=== PATIENT | female | born 1930 | race American Indian/Alaskan Native ===

== ENCOUNTER 2016-11-02 13:17 | Emergency (ER) | payer MEDICARE ==
[2016-11-02 13:17] VITALS: BMI 25.7
[2016-11-02 13:38] VITALS: RESP 20; TEMP 98.1
--- NOTE | 2016-11-02 14:27 | C.PDOC ---
History Of Present Illness 86-year-old female, is brought to the emergency department accompanied by daughter with complaints of pain in right ear and right face x2-3 days. She also c/o of a cough for the past 3-4 days, with clear sputum. No fevers, shortness of breath, chest pain, or any other associated symptoms. No other complaints at this time. Time Seen by Provider: 11/02/16 13:49 Chief Complaint (Nursing): Cough, Cold, Congestion History Per: Patient, Family History/Exam Limitations: no limitations Onset/Duration Of Symptoms: Days Current Symptoms Are (Timing): Still Present Severity: Moderate Past Medical History Reviewed: Historical Data, Nursing Documentation, Vital Signs Vital Signs: Last Vital Signs Temp 98.1 F 11/02/16 14:45 Pulse 78 11/02/16 14:45 Resp 20 11/02/16 14:45 BP 156/83 H 11/02/16 14:45 Pulse Ox 97 11/02/16 14:45 - Medical History PMH: Arthritis, CAD, CVA, Diabetes, Gastritis, HTN, Hypercholesterolemia Denies: Depression, Chronic Kidney Disease, TIA Surgical History: Coronary Stent (01/2015) - [facility] Procedures CENTRAL VENOUS CATHETER PLACEMENT WITH GUIDANCE (02/28/15) CORONAR ARTERIOGR-2 CATH (02/03/15) LEFT HEART CARDIAC CATH (02/03/15) LT HEART ANGIOCARDIOGRAM (02/03/15) Family History: States: Unknown Family Hx - Social History Hx Tobacco Use: No Hx Alcohol Use: No Hx Substance Use: No - Immunization History Hx Tetanus Toxoid Vaccination: No Hx Influenza Vaccination: No Hx Pneumococcal Vaccination: No Review Of Systems Constitutional: Negative for: Fever ENT: Positive for: Ear Pain Cardiovascular: Negative for: Chest Pain Respiratory: Positive for: Cough, Sputum Gastrointestinal: Negative for: Nausea, Vomiting Skin: Negative for: Rash Neurological: Negative for: Weakness, Numbness Physical Exam - Physical Exam Appears: Non-toxic, No Acute Distress Skin: Warm, Dry Head: Atraumatic Eye(s): bilateral: PERRL, EOMI Ear(s): Right: Other (Inflammatory debris and canal edema. No mastoid/ preauricular erythema or tenderness. TMs intact and non-eryth) Nose: No Epistaxis Oral Mucosa: Moist Lips: No Swelling Neck: Normal ROM, Supple Cardiovascular: Rhythm Regular, No Murmur Respiratory: Normal Breath Sounds, No Decreased Breath Sounds, No Accessory Muscle Use, No Rales, No Rhonchi, No Wheezing Gastrointestinal/Abdominal: No Soft, No Tenderness Neurological/Psych: Oriented x3, Other (no focal deficits) ED Course And Treatment O2 Sat by Pulse Oximetry: 98 Medical Decision Making Medical Decision Making: Patients daughter is refusing blood work. Initially refused cxr then agreed. Disc w pt and daughter plan for rx, follow up (they have appt tomorrow), and rtr. cxr- nad Disposition - Disposition Disposition: HOME/ ROUTINE Disposition Time: 14:37 Condition: STABLE Additional Instructions: Please follow up with your doctor tomorrow. Return to the ER for any worsening symptoms or for any other concerns. Prescriptions: Ciprofloxacin HCl [Cipro] 500 mg PO BID #20 tab Ciprofloxacin/Dexamethasone [Ciprodex 0.3%-0.1% 7.5 Ml] 4 drop OT TID #1 bottle Instructions: Otitis Externa (ED) Forms: General Discharge Instructions - Clinical Impression Clinical Impression: Otitis externa - Scribe Statement The provider has reviewed the documentation as recorded by the Miller Herman All medical record entries made by the Miller were at my direction and personally dictated by me. I have reviewed the chart and agree that the record accurately reflects my personal performance of the history, physical exam, medical decision making, and the department course for this patient. I have also personally directed, reviewed, and agree with the discharge instructions and disposition.
[2016-11-02] MEDS ORDERED: Naproxen 550 mg Tab PO STA (14:39)
[2016-11-02] MEDS ORDERED: Naproxen 550 mg Tab PO ONE (14:42)
--- NOTE | 2016-11-02 14:42 | RAD ---
HISTORY: cough COMPARISON: 06/16/2016 FINDINGS: LUNGS: No active pulmonary disease. PLEURA: No significant pleural effusion identified, no pneumothorax apparent. CARDIOVASCULAR: Normal. OSSEOUS STRUCTURES: No significant abnormalities. VISUALIZED UPPER ABDOMEN: Normal. OTHER FINDINGS: None. IMPRESSION: No active disease.
[2016-11-02 14:45] VITALS: BP 156/83; PULSE 78
[2016-11-04 08:08] VITALS: O2SAT 98
== END 2016-11-02 14:49 | disposition home or self-care (01) ==
LOC: C.ER 13:17
DX: H60.91 Unspecified otitis externa, right ear (principal)

== ENCOUNTER 2017-01-21 01:00 | Emergency (ER) | payer MEDICARE ==
[2017-01-21 01:02] VITALS: BMI 25.7
[2017-01-21 01:15] VITALS: TEMP 98
--- NOTE | 2017-01-21 01:27 | C.PDOC ---
History Of Present Illness The patient presents to the ED for evaluation of increased urinary frequency and dysuria which have worsened over the last couple days. Patient denies fever , chills, back pain. Time Seen by Provider: 01/21/17 01:21 Chief Complaint (Nursing): Female Genitourinary History Per: Patient History/Exam Limitations: no limitations Onset/Duration Of Symptoms: Days Current Symptoms Are (Timing): Still Present Severity: Mild Pain Scale Rating Of: 3 Quality Of Discomfort: "Pain" Associated Symptoms: denies: Fever, Chills, Back Pain Alleviating Factors: None Recent travel outside of the [place]: No Additional History Per: Patient Abnormal Vaginal Bleeding: No Past Medical History Reviewed: Historical Data, Nursing Documentation, Vital Signs Vital Signs: Last Vital Signs Temp 98 F 01/21/17 01:10 Pulse 82 01/21/17 01:10 Resp 20 01/21/17 01:10 BP 180/76 H 01/21/17 01:10 Pulse Ox 97 01/21/17 02:52 - Medical History PMH: Arthritis, CAD, CVA, Diabetes, Gastritis, HTN, Hypercholesterolemia Surgical History: Coronary Stent (01/2015) - [employer] Procedures CENTRAL VENOUS CATHETER PLACEMENT WITH GUIDANCE (02/28/15) CORONAR ARTERIOGR-2 CATH (02/03/15) LEFT HEART CARDIAC CATH (02/03/15) LT HEART ANGIOCARDIOGRAM (02/03/15) Family History: States: Unknown Family Hx - Social History Hx Tobacco Use: No Hx Alcohol Use: No Hx Substance Use: No - Immunization History Hx Tetanus Toxoid Vaccination: No Hx Influenza Vaccination: No Hx Pneumococcal Vaccination: No Review Of Systems Constitutional: Negative for: Fever, Chills Cardiovascular: Negative for: Chest Pain Respiratory: Negative for: Cough, Shortness of Breath Gastrointestinal: Negative for: Nausea, Vomiting, Abdominal Pain Genitourinary: Positive for: Dysuria, Frequency. Negative for: Hematuria Musculoskeletal: Negative for: Back Pain Skin: Negative for: Rash, Lesions, Jaundice, Bruising Neurological: Negative for: Weakness, Numbness Physical Exam - Physical Exam Appears: Non-toxic, No Acute Distress Skin: Warm, Dry Head: Normacephalic Eye(s): bilateral: Normal Inspection Oral Mucosa: Moist Neck: Supple Chest: Symmetrical, No Deformity, No Tenderness Cardiovascular: Rhythm Regular, No Murmur Respiratory: No Rales, No Rhonchi, No Wheezing Gastrointestinal/Abdominal: Tenderness (mild, suprapubic ), No Guarding, No Rebound Back: Normal Inspection, No Vertebral Tenderness Extremity: Normal ROM, Capillary Refill (less than 2 seconds ) Neurological/Psych: Oriented x3 Gait: Steady ED Course And Treatment - Laboratory Results Result Diagrams: 01/21/17 02:25 01/21/17 02:25 O2 Sat by Pulse Oximetry: 97 (on RA) Pulse Ox Interpretation: Normal Progress Note: labs ordered and reviewed. Reevaluation Time: 03:26 Reassessment Condition: Improved Disposition Counseled Patient/Family Regarding: Studies Performed, Diagnosis, Need For Followup, Rx Given - Disposition Referrals: Chris Ybarra MD, PhD [Staff Provider] - Disposition: HOME/ ROUTINE Disposition Time: 01:27 Condition: FAIR Prescriptions: Ciprofloxacin [Cipro] 1 tab PO BID #14 tab Instructions: Urinary Tract Infection in Women (DC) Forms: [employer] (Nepalese) - Clinical Impression Clinical Impression: UTI (urinary tract infection) - Scribe Statement The provider has reviewed the documentation as recorded by the Scribe (Candice Ramirez) Provider Attestation: All medical record entries made by the Scribe were at my direction and personally dictated by me. I have reviewed the chart and agree that the record accurately reflects my personal performance of the history, physical exam, medical decision making, and the department course for this patient. I have also personally directed, reviewed, and agree with the discharge instructions and disposition.
[2017-01-21 02:23] LABS: RBC URINE 5 /hpf (0-3); URINE BACTERIA RARE (<OCC); URINE BILIRUBIN NEGATIVE (NEGATIVE); URINE COLOR Yellow (YELLOW); URINE GLUCOSE (UA) 2+ mg/dL (Normal); URINE KETONE NEGATIVE (NEGATIVE); URINE LEUKOCYTE ESTERASE 3+ Leu/uL (Negative); URINE PROTEIN NEGATIVE (NEGATIVE); URINE UROBILINOGEN NORMAL mg/dL (0.2-1.0); WBC CLUMPS FEW /hpf; WBC URINE 486 /hpf (0-5)
[2017-01-21 02:28] LABS: BASO # 0.1 K/uL (0.0-0.2); BASO % 0.9 % (0.0-2.0); EOS # 0.2 K/uL (0.0-0.7); EOS % 2.8 % (0.0-4.0); HEMATOCRIT 32.8 % (34.0-47.0); LYMPH # 3.9 K/uL (1.0-4.3); LYMPH % 57.2 % (20.0-40.0); MEAN CORPUSCULAR HEMOGLOBIN 29.7 pg (27.0-31.0); MEAN CORPUSCULAR HGB CONC 32.6 g/dL (33.0-37.0); MEAN PLATELET VOLUME 9.6 fL (7.2-11.7); MONO # 0.4 K/uL (0.0-0.8); MONO % 6.3 % (0.0-10.0); NRBC % 0.1 % (0.0-2.0); PLATELET COUNT 184 K/uL (130-400); RED CELL DISTRIBUTION WIDTH 13.9 % (11.5-14.5); WHITE BLOOD COUNT 6.8 K/uL (4.8-10.8)
[2017-01-21 02:40] LABS: ALB/GLOB RATIO 1.1 (1.0-2.1); BILIRUBIN,TOTAL 0.5 mg/dL (0.2-1.3); CALCIUM 9.2 mg/dl (8.6-10.4); POTASSIUM 4.2 mmol/L (3.6-5.2); TOTAL PROTEIN 7.7 g/dL (6.3-8.3)
[2017-01-21 02:50] LABS: URINE BLOOD TRACE (NEGATIVE)
[2017-01-21] MEDS ORDERED: cefTRIAXone IV 1 gm in Dextros 50 ML IVPB ONE ×2 (02:50→02:57)
[2017-01-21 03:40] VITALS: BP 136/79; PULSE 75; RESP 18; O2SAT 99
[2017-01-21 06:04] LABS: EOSINOPHIL 2 % (0-4); NEUTROPHIL 27 % (50-75); REACTIVE LYMPHOCYTES 27 % (0-0); TOTAL CELLS COUNTED 100
== END 2017-01-21 03:40 | disposition home or self-care (01) ==
LOC: C.ER 01:00
DX: N39.0 Urinary tract infection, site not specified (principal)
CPT/HCPCS: 80053; 81001; 83690; 85025; 96365; 99284; J0696

== ENCOUNTER 2017-02-19 14:55 | Observation (INO) | payer MEDICARE ==
[2017-02-19 14:56] VITALS: BMI 25.7
--- NOTE | 2017-02-19 17:18 | RAD ---
HISTORY: Trauma/fall COMPARISON: 11/02/2016 TECHNIQUE: Chest PA and lateral FINDINGS: LUNGS: No active pulmonary disease. PLEURA: No significant pleural effusion identified. No pneumothorax apparent. CARDIOVASCULAR: No radiographic findings to suggest acute or significant cardiovascular disease. OSSEOUS STRUCTURES: No significant abnormalities. VISUALIZED UPPER ABDOMEN: Normal. OTHER FINDINGS: None. IMPRESSION: No active disease. No significant interval change compared to the prior examination(s).
[2017-02-19 17:22] LABS: RBC URINE 1 /hpf (0-3); URINE BILIRUBIN NEGATIVE (NEGATIVE); URINE COLOR Straw (YELLOW); URINE GLUCOSE (UA) 3+ mg/dL (Normal); URINE KETONE NEGATIVE (NEGATIVE); URINE LEUKOCYTE ESTERASE NEG Leu/uL (Negative); URINE PROTEIN NEGATIVE (NEGATIVE); URINE UROBILINOGEN NORMAL mg/dL (0.2-1.0)
--- NOTE | 2017-02-19 17:22 | RAD ---
PROCEDURE: Radiographs of the Left Shoulder HISTORY: fall COMPARISON: No prior. FINDINGS: BONES: Normal. No fracture. JOINTS: Normal. Glenohumeral and acromioclavicular joints preserved. No osteoarthritis. SOFT TISSUES: Normal. OTHER FINDINGS: None. IMPRESSION: No acute findings related to/accounting for the clinical presentation.
[2017-02-19 17:29] LABS: URINE BLOOD TRACE (NEGATIVE)
--- NOTE | 2017-02-19 17:29 | C.PDOC ---
History Of Present Illness 86-year-old female, presents to the emergency department with complaints of trauma. Patient states she fell down a flight of 11 stairs, and hit her head. Patient did not lose consciousness. Patient is currently complaining of left sided pain. Denies fever. - HPI Time Seen by Provider: 02/19/17 16:35 Chief Complaint (Nursing): Trauma History Per: Patient History/Exam Limitations: no limitations Injury Occurred (Timing): Just Before Arrival Past Medical History Reviewed: Historical Data, Nursing Documentation, Vital Signs Vital Signs: Last Vital Signs Temp 97.8 F 02/19/17 20:43 Pulse 88 02/19/17 20:43 Resp 16 02/19/17 20:43 BP 185/79 H 02/19/17 20:43 Pulse Ox 98 02/19/17 21:40 - Medical History PMH: Arthritis, CAD, CVA, Diabetes, Gastritis, HTN, Hypercholesterolemia Denies: Depression, Chronic Kidney Disease, TIA Surgical History: Coronary Stent (01/2015) - [facility] Procedures CENTRAL VENOUS CATHETER PLACEMENT WITH GUIDANCE (02/28/15) CORONAR ARTERIOGR-2 CATH (02/03/15) LEFT HEART CARDIAC CATH (02/03/15) LT HEART ANGIOCARDIOGRAM (02/03/15) Family History: States: No Known Family Hx - Social History Hx Tobacco Use: No Hx Alcohol Use: No Hx Substance Use: No - Immunization History Hx Tetanus Toxoid Vaccination: No Hx Influenza Vaccination: No Hx Pneumococcal Vaccination: No Review Of Systems Except As Marked, All Systems Reviewed And Found Negative. Constitutional: Negative for: Fever Cardiovascular: Negative for: Chest Pain Respiratory: Negative for: Shortness of Breath Gastrointestinal: Negative for: Nausea, Vomiting Musculoskeletal: Positive for: Arm Pain, Leg Pain. Negative for: Back Pain Skin: Negative for: Rash Neurological: Negative for: Weakness, Numbness, Dizziness Physical Exam - Physical Exam Appears: Non-toxic, No Acute Distress Skin: Warm, Dry, No Rash Head: Atraumatic, Normacephalic Eye(s): bilateral: Normal Inspection Nose: Normal Oral Mucosa: Moist Lips: Normal Appearing Neck: Normal ROM Cardiovascular: Rhythm Regular, No Murmur Respiratory: Normal Breath Sounds, No Accessory Muscle Use, Other (equal breath sounds) Gastrointestinal/Abdominal: Soft, Tenderness (Left sided) Extremity: Normal ROM, No Deformity, Other (left shoulder tenderness, left hip tenderness.) Neurological/Psych: Oriented x3, Normal Speech ED Course And Treatment - Laboratory Results Result Diagrams: 02/19/17 17:42 02/19/17 17:42 ECG: Interpreted By Me, Viewed By Me ECG Rhythm: Sinus Rhythm ECG Interpretation: Normal Interpretation Of ECG: No st/t wave changes Rate From EC O2 Sat by Pulse Oximetry: 98 (Room air) Pulse Ox Interpretation: Normal Medical Decision Making Medical Decision Making: ro fx, bleeding- labs imaging pending pt will need iv contrst for trauma scan. discussed risk benefit with pt. as clinical concern for bleeding as pt fell down 11 stairs, will give iv contrast at risk of nephropahty. will hydrate. 1000: case discussed with dr schaffer. accepts for obs. hyperk treated. r/o contrast nephropathy. Disposition - Disposition Disposition: HOSPITALIZED Disposition Time: 22:40 Condition: STABLE - Clinical Impression Clinical Impression: Fall, Hyperkalemia - Scribe Statement The provider has reviewed the documentation as recorded by the Scribe (Nic Herman) All medical record entries made by the Scribe were at my direction and personally dictated by me. I have reviewed the chart and agree that the record accurately reflects my personal performance of the history, physical exam, medical decision making, and the department course for this patient. I have also personally directed, reviewed, and agree with the discharge instructions and disposition. Decision To Admit - . Bed Request Type: Telemetry Patient Diagnosis: Fall, Hyperkalemia
[2017-02-19 17:47] LABS: BASO # 0.1 K/uL (0.0-0.2); BASO % 0.8 % (0.0-2.0); EOS # 0.1 K/uL (0.0-0.7); EOS % 1.2 % (0.0-4.0); HEMATOCRIT 34.1 % (34.0-47.0); LYMPH # 3.3 K/uL (1.0-4.3); LYMPH % 36.6 % (20.0-40.0); MEAN CELL VOLUME 91.2 fL (81.0-99.0); MEAN CORPUSCULAR HEMOGLOBIN 30.3 pg (27.0-31.0); MEAN CORPUSCULAR HGB CONC 33.2 g/dL (33.0-37.0); MEAN PLATELET VOLUME 9.6 fL (7.2-11.7); MONO # 0.4 K/uL (0.0-0.8); WHITE BLOOD COUNT 9.1 K/uL (4.8-10.8)
[2017-02-19 17:55] LABS: BILIRUBIN,TOTAL 0.7 mg/dL (0.2-1.3)
[2017-02-19 17:56] LABS: ALB/GLOB RATIO 1.2 (1.0-2.1); CALCIUM 9.3 mg/dl (8.6-10.4); TOTAL PROTEIN 7.8 g/dL (6.3-8.3)
--- NOTE | 2017-02-19 17:59 | RAD ---
PROCEDURE: Left Femur Radiographs. HISTORY: fall COMPARISON: None. TECHNIQUE: AP and Lateral Radiographs of the left femur. FINDINGS: FEMUR: Normal. No fracture. SOFT TISSUES: Normal. OTHER FINDINGS: None. IMPRESSION: Unremarkable radiographs of the left femur.
--- NOTE | 2017-02-19 18:00 | RAD ---
PROCEDURE: Radiographs of the pelvis. HISTORY: fall COMPARISON: None. FINDINGS: BONES: Pelvic Bones: Unremarkable. Hips: Grossly unremarkable. JOINTS: Sacroiliac Joints: Unremarkable. Pubic Symphysis: Unremarkable. OTHER FINDINGS: None. IMPRESSION: Unremarkable radiographs of the pelvis.
[2017-02-19] MEDS ORDERED: Sodium Chloride 0.9% 500 ML IV ONE (18:47)
[2017-02-19] MEDS ORDERED: Iodixanol 320 MG/ML 200 ML BOTTLE IV ONE (20:01)
[2017-02-19] MEDS ORDERED: Sod Polystyrene Sulf 15 gm/60 ml Oral Susp PO ONE (21:22)
[2017-02-19] MEDS ORDERED: Dextrose 50% SYRINGE Inj (50 ml) IV STA (21:22)
[2017-02-19] MEDS ORDERED: (Novolin R) Insulin Human Regular 100 units/ml vial IV STA (21:22)
[2017-02-19] MEDS ORDERED: Sod Polystyrene Sulf 15 gm/60 ml Oral Susp ONE (21:28)
[2017-02-19] MEDS ORDERED: (Novolin R) Insulin Human Regular 100 units/ml vial ONE (21:28)
[2017-02-19] MEDS ORDERED: Dextrose 50% SYRINGE Inj (50 ml) ONE (21:29)
[2017-02-19] MEDS: Sodium Chloride 0.9% 1,000 ML IV SCH (21:30)
[2017-02-19] MEDS: (Novolog) Insulin Aspart, Recombinant 100 u/ml 10 ml vial SC SCH (22:35)
[2017-02-19] MEDS ORDERED: Latanoprost 2.5 ml Opht Soln OU SCH (23:45)
[2017-02-20 06:34] LABS: HEMATOCRIT 32.2 % (34.0-47.0); MEAN CELL VOLUME 91.6 fL (81.0-99.0); MEAN CORPUSCULAR HEMOGLOBIN 30.1 pg (27.0-31.0); MEAN CORPUSCULAR HGB CONC 32.9 g/dL (33.0-37.0); MEAN PLATELET VOLUME 9.9 fL (7.2-11.7); RED CELL DISTRIBUTION WIDTH 13.8 % (11.5-14.5)
[2017-02-20 06:45] LABS: BLOOD UREA NITROGEN 20 mg/dL (7-17); CALCIUM 9.1 mg/dl (8.6-10.4); CARBON DIOXIDE 27 mmol/L (22-30); CHLORIDE 105 mmol/L (98-107); GFR AFRICAN-AMERICAN > 60; GLUCOSE,RANDOM 234 mg/dL (65-105); POTASSIUM 4.1 mmol/L (3.6-5.2); SODIUM 144 mmol/L (132-148)
[2017-02-20] MEDS: (Novolog) Insulin Aspart, Recombinant 100 u/ml 10 ml vial SC SCH ×2 (08:08→13:02)
[2017-02-20] MEDS: Sodium Chloride 0.9% 1,000 ML IV SCH (08:10)
--- NOTE | 2017-02-20 08:42 | CT ---
PROCEDURE: CT HEAD WITHOUT CONTRAST. HISTORY: fall down stairs COMPARISON: None available. TECHNIQUE: Axial computed tomography images were obtained through the head/brain without intravenous contrast. Radiation dose: Total exam DLP = 812 mGy-cm. This CT exam was performed using one or more of the following dose reduction techniques: Automated exposure control, adjustment of the mA and/or kV according to patient size, and/or use of iterative reconstruction technique. FINDINGS: HEMORRHAGE: No intracranial hemorrhage. BRAIN: No mass effect or edema. Scattered focal lucencies in the subcortical and periventricular white matter suggestive for chronic microvascular ischemic change. Moderate volume loss. Left basal ganglia lacunar infarct. VENTRICLES: Unremarkable. No hydrocephalus. CALVARIUM: Unremarkable. PARANASAL SINUSES: Unremarkable as visualized. No significant inflammatory changes. MASTOID AIR CELLS: Unremarkable as visualized. No inflammatory changes. OTHER FINDINGS: Mild soft tissue contusion is present in the posterior scalp near the vertex. IMPRESSION: Age related atrophy and chronic white matter ischemic changes. No evidence of acute intracranial abnormality. Mild soft tissue contusion of the scalp. These findings were preliminarily reported at 8:59 p.m. on 02/19/[address] Zeyad Harris from [facility].
--- NOTE | 2017-02-20 08:48 | CT ---
CT cervical spine History: Fall. Comparison: None available. Technique: Multiple contiguous axial images were performed through the cervical spine without the use of intravenous contrast. Subsequently, sagittal and coronal reformatted images were obtained. Findings: Mild loss of height of the inferior endplates of the C5 and C6 vertebral bodies. Endplate sclerosis with anterior osteophytosis at these levels. Prominent disc space narrowing with endplate sclerosis centered at the T1-2 level with associated anterior osteophytosis. Prominent atlantodental narrowing with sclerosis and bony hypertrophy. Multilevel uncovertebral joint and facet hypertrophy. Suggestion of a prominent posterior disc osteophyte complexes at the C5-6, C6-7, and T1-2 levels. Marked arthropathy of the craniocervical junctions seen at C1-2. Minimal nonspecific fluid in the right mastoids, nonspecific. Clinical correlation. Impression: Degenerative changes. If pain persists, consider MRI. These findings were preliminarily reported at 9:02 p.m. on 02/19/[address] Zeyad Harris from [facility].
--- NOTE | 2017-02-20 09:33 | CT ---
CT chest abdomen and pelvis History: Injury. Fall. Comparison: None available. Technique: Multiple contiguous axial images were performed through the chest abdomen and pelvis with the use of intravenous contrast. Subsequently, sagittal and coronal reformatted images were obtained. Findings: CT chest: Motion artifact limits sensitivity of this examination. Lung fitzgerald are grossly clear. Heart appears grossly preserved. No significant pleural effusion. Degenerative changes in the visualized osseous structures. Coronary calcifications. Visualized aorta is grossly preserved some mild calcification at the aortic arch. No significant lymphadenopathy. CT abdomen and pelvis: Motion artifact limits sensitivity of this examination. Liver and gallbladder appear preserved. Pancreas and spleen appear preserved. Diminutive spleen. Adrenal glands are preserved. Right renal scarring is present. Symmetric renal enhancement. Punctate hypodensities in the right renal cortex too small to adequately characterize. Multiple hypodensities in the left renal cortex some of which are too small to adequately characterize. For example a mid pole hypodensity measures 1.4 centimeters measuring a Hounsfield unit attenuation of 1 suggestive for a cyst. Fecal retention within the colon suggestive for constipation. Normal appendix in the right lower quadrant. Moderate degenerative changes throughout the visualized spine. Osteitis pubis noted at the pubic symphysis. Prominent degenerative changes at the L3-4 level with endplate sclerosis. Additional prominent degenerative changes at the level of the cervical spine. Atherosclerotic calcification within the aorta. Impression: Negative acute. Additional findings as above. These findings were preliminarily reported at 9:18 p.m. on 02/19/[address] Zeyad Harris from [facility].
[2017-02-20] MEDS ORDERED: INSULIN LISPRO PROTAMINE SC SCH (10:00)
[2017-02-20] MEDS ORDERED: Pantoprazole 40 mg EC Tab PO SCH (10:00)
[2017-02-20] MEDS ORDERED: INSULIN LISPRO SC SCH (10:00)
--- NOTE | 2017-02-20 12:24 | CARD ---
APPROVED REPORT EKG Measurement Heart [id number] DC [id number] <Conclusion> Normal sinus rhythm Left axis deviation Inferior infarct, age undetermined Anteroseptal infarct, age undetermined Abnormal ECG
--- NOTE | 2017-02-20 14:55 | CP.PCM.HP ---
Present on Admission - Present on Admission Any Indicators Present on Admission: Yes Review of Systems - Constitutional Constitutional: Other Additional comments: pain due to fall Past Patient History - Infectious Disease Hx of Infectious Diseases: None - Tetanus Immunizations Tetanus Immunization: Unknown - Past Medical History & Family History Past Medical History?: Yes - Past Social History Smoking Status: Never Smoked Chewing Tobacco Use: No Cigar Use: No Alcohol: None Drugs: Denies Home Situation {Lives}: With Family - CARDIAC Hx Cardiac Disorders: Yes Hx Hypercholesterolemia: Yes Hx Hypertension: Yes - PULMONARY Hx Respiratory Disorders: No - NEUROLOGICAL Hx Neurological Disorder: No Hx Transient Ischemic Attacks (TIA): No - HEENT Hx HEENT Problems: Yes Hx Cataracts: Yes - RENAL Hx Chronic Kidney Disease: No - ENDOCRINE/METABOLIC Hx Endocrine Disorders: Yes Hx Diabetes Mellitus Type 2: Yes - HEMATOLOGICAL/ONCOLOGICAL Hx Blood Disorders: No - INTEGUMENTARY Hx Dermatological Problems: No - MUSCULOSKELETAL/RHEUMATOLOGICAL Hx Musculoskeletal Disorders: Yes Hx Arthritis: Yes Hx Falls: Yes (Reason for admit) - GASTROINTESTINAL Hx Gastrointestinal Disorders: Yes Hx Gastritis: Yes - GENITOURINARY/GYNECOLOGICAL Hx Genitourinary Disorders: No - PSYCHIATRIC Hx Psychophysiologic Disorder: No Hx Depression: No Hx Substance Use: No - SURGICAL HISTORY Hx Surgeries: Yes Hx Coronary Stent: Yes (01/2015) - ANESTHESIA Hx Anesthesia: Yes Hx Anesthesia Reactions: No Hx Malignant Hyperthermia: No Meds Allergies/Adverse Reactions: Allergies Allergy/AdvReac Type Severity Reaction Status Date / Time No Known Allergies Allergy Verified 11/02/16 13:38 Physical Exam - Constitutional Appears: No Acute Distress - Head Exam Head Exam: ATRAUMATIC, NORMOCEPHALIC - Eye Exam Eye Exam: Normal appearance - ENT Exam ENT Exam: Mucous Membranes Moist - Neck Exam Neck exam: Positive for: Normal Inspection - Respiratory Exam Respiratory Exam: Decreased Breath Sounds - Cardiovascular Exam Cardiovascular Exam: +S1, +S2 - GI/Abdominal Exam GI & Abdominal Exam: Normal Bowel Sounds - Rectal Exam Rectal Exam: Deferred - Neurological Exam Neurological exam: Alert, Oriented x3 - Psychiatric Exam Psychiatric exam: Normal Affect, Normal Mood - Skin Skin Exam: Intact Results - Vital Signs Recent Vital Signs: Last Vital Signs Temp 98.4 F 02/20/17 04:00 Pulse 90 02/20/17 10:44 Resp 19 02/20/17 10:44 BP 165/78 H 02/20/17 10:44 Pulse Ox 99 09/11/17 10:44 - Labs Result Diagrams: 02/20/17 06:28 02/20/17 06:25 Labs: Laboratory Results - last 24 hr 02/19/17 02/20/17 02/20/17 22:30 06:25 06:28 WBC 6.0 RBC 3.51 L Hgb 10.6 L Hct 32.2 L MCV 91.6 MCH 30.1 MCHC 32.9 L RDW 13.8 Plt Count 165 MPV 9.9 Sodium 144 Potassium 4.1 Chloride 105 Carbon Dioxide 27 Anion Gap 16 BUN 20 H Creatinine 1.0 Est GFR ( Amer) > 60 Est GFR (Non-Af Amer) 53 POC Glucose (mg/dL) 281 H Random Glucose 234 H Hemoglobin A1c Calcium 9.1 02/20/17 02/20/17 02/20/17 06:28 07:57 10:55 WBC RBC Hgb Hct MCV MCH MCHC RDW Plt Count MPV Sodium Potassium Chloride Carbon Dioxide Anion Gap BUN Creatinine Est GFR ( Amer) Est GFR (Non-Af Amer) POC Glucose (mg/dL) 292 H 313 H Random Glucose Hemoglobin A1c 9.9 H Calcium Assessment & Plan (1) Fall Status: Acute (2) Hyperkalemia Status: Acute (3) Hyperglycemia due to type 2 diabetes mellitus Status: Acute (4) CVA, old, hemiparesis Status: Chronic (5) Essential (primary) hypertension Status: Chronic
--- NOTE | 2017-02-20 14:59 | CP.PCM.DIS ---
Provider - Provider Date of Admission: 02/19/17 21:33 Attending physician: Jamie Hayes MD Time Spent in preparation of Discharge (in minutes): 25 Diagnosis - Discharge Diagnosis (1) Fall Status: Acute (2) Hyperkalemia Status: Resolved (3) Hyperglycemia due to type 2 diabetes mellitus Status: Acute (4) CVA, old, hemiparesis Status: Chronic (5) Essential (primary) hypertension Status: Chronic Hospital Course - Lab Results Lab Results: Most Recent Lab Values WBC 6.0 K/uL (4.8-10.8) 02/20/17 06:28 RBC 3.51 Mil/uL (3.80-5.20) L 02/20/17 06:28 Hgb 10.6 g/dL (11.0-16.0) L 02/20/17 06:28 Hct 32.2 % (34.0-47.0) L 02/20/17 06:28 MCV 91.6 fL (81.0-99.0) 02/20/17 06:28 MCH 30.1 pg (27.0-31.0) 02/20/17 06:28 MCHC 32.9 g/dL (33.0-37.0) L 02/20/17 06:28 RDW 13.8 % (11.5-14.5) 02/20/17 06:28 Plt Count 165 K/uL (130-400) 02/20/17 06:28 MPV 9.9 fL (7.2-11.7) 02/20/17 06:28 Neut % (Auto) 57.4 % (50.0-75.0) 02/19/17 17:42 Lymph % (Auto) 36.6 % (20.0-40.0) 02/19/17 17:42 [place] % (Auto) 4.0 % (0.0-10.0) 02/19/17 17:42 Eos % (Auto) 1.2 % (0.0-4.0) 02/19/17 17:42 Baso % (Auto) 0.8 % (0.0-2.0) 02/19/17 17:42 Neut # 5.2 K/uL (1.8-7.0) 02/19/17 17:42 Lymph # 3.3 K/uL (1.0-4.3) 02/19/17 17:42 [place] # 0.4 K/uL (0.0-0.8) 02/19/17 17:42 Eos # 0.1 K/uL (0.0-0.7) 02/19/17 17:42 Baso # 0.1 K/uL (0.0-0.2) 02/19/17 17:42 PT 11.6 SECONDS (9.7-12.2) 02/19/17 17:42 INR 1.0 02/19/17 17:42 APTT 30 SECONDS (21-34) 02/19/17 17:42 Sodium 144 mmol/L (132-148) 02/20/17 06:25 Potassium 4.1 mmol/L (3.6-5.2) 02/20/17 06:25 Chloride 105 mmol/L (98-107) 02/20/17 06:25 Carbon Dioxide 27 mmol/L (22-30) 02/20/17 06:25 Anion Gap 16 (10-20) 02/20/17 06:25 BUN 20 mg/dL (7-17) H 02/20/17 06:25 Creatinine 1.0 MG/DL (0.7-1.2) 02/20/17 06:25 Est GFR ( Amer) > 60 02/20/17 06:25 Est GFR (Non-Af Amer) 53 02/20/17 06:25 POC Glucose (mg/dL) 313 mg/dL (65-110) H 02/20/17 10:55 Random Glucose 234 mg/dL (65-105) H 02/20/17 06:25 Hemoglobin A1c 9.9 % (4.2-6.5) H 02/20/17 06:28 Calcium 9.1 mg/dl (8.6-10.4) 02/20/17 06:25 Total Bilirubin 0.7 mg/dL (0.2-1.3) 02/19/17 17:42 AST 28 U/L (14-36) 02/19/17 17:42 ALT 21 U/L (9-52) 02/19/17 17:42 Alkaline Phosphatase 65 U/L (38-126) 02/19/17 17:42 Total Protein 7.8 g/dL (6.3-8.3) 02/19/17 17:42 Albumin 4.2 g/dL (3.5-5.0) 02/19/17 17:42 Globulin 3.6 gm/dL (2.2-3.9) 02/19/17 17:42 Albumin/Globulin Ratio 1.2 (1.0-2.1) 02/19/17 17:42 Urine Color Straw (YELLOW) 02/19/17 17:12 Urine Clarity Clear (Clear) 02/19/17 17:12 Urine pH 6.0 (5.0-8.0) 02/19/17 17:12 Ur Specific [place] 1.006 (1.003-1.030) 02/19/17 17:12 Urine Protein Negative mg/dL (NEGATIVE) 02/19/17 17:12 Urine Glucose (UA) 3+ mg/dL (Normal) H 02/19/17 17:12 Urine Ketones Negative mg/dL (NEGATIVE) 02/19/17 17:12 Urine Blood Trace (NEGATIVE) H 02/19/17 17:12 Urine Nitrate Negative (NEGATIVE) 02/19/17 17:12 Urine Bilirubin Negative (NEGATIVE) 02/19/17 17:12 Urine Urobilinogen Normal mg/dL (0.2-1.0) 02/19/17 17:12 Ur Leukocyte Esterase Neg [place]/uL (Negative) 02/19/17 17:12 Urine RBC (Auto) 1 /hpf (0-3) 02/19/17 17:12 Ur Squamous Epith Cells < 1 /hpf (0-5) 02/19/17 17:12 Discharge Exam - Head Exam Head Exam: ATRAUMATIC, NORMOCEPHALIC - Eye Exam Eye Exam: Normal appearance Pupil Exam: NORMAL ACCOMODATION - ENT Exam ENT Exam: Mucous Membranes Moist - Neck Exam Neck exam: Normal Inspection - Respiratory Exam Respiratory Exam: Decreased Breath Sounds - Cardiovascular Exam Cardiovascular Exam: +S1, +S2 - GI/Abdominal Exam GI & Abdominal Exam: Normal Bowel Sounds - Rectal Exam Rectal Exam: Deferred - Neurological Exam Neurological exam: Alert, Oriented x3 - Psychiatric Exam Psychiatric exam: Normal Affect, Normal Mood - Skin Skin Exam: Intact Discharge Plan - Follow Up Plan Condition: STABLE Disposition: HOME/ ROUTINE Additional Instructions: office f/u with endocrine for glucose control
[2017-02-20] MEDS ORDERED: (Novolog Mix 70/30) Insulin Aspart/Insulin Aspar 100 units/ml SC SCH (16:30)
[2017-02-20 17:20] VITALS: BP 179/79; PULSE 84; RESP 20; TEMP 97.7; O2SAT 97
== END 2017-02-20 17:40 | disposition home or self-care (01) ==
LOC: C.ER 14:55 → C.9E 21:33 → C.9I 22:47 → C.5S 02-20 11:55
PROVIDERS: ADMIT Internal Medicine Pulmonary Disease; ATTEND Internal Medicine Pulmonary Disease
DX: E87.5 Hyperkalemia (principal); E11.65 Type 2 diabetes mellitus with hyperglycemia; I10 Essential (primary) hypertension; W19.XXXA Unspecified fall, initial encounter; Y93.9 Activity, unspecified; Y92.9 Unspecified place or not applicable; Z86.73 Personal history of transient ischemic attack (TIA), and cerebral infarction without residual deficits
CPT/HCPCS: 70450; 71020; 71260; 72125; 72170; 73030; 73552; 74177; 80048; 80053; 81001; 82948; 83036; 85025; 85027; 85610; 85730; 87081; 93005; 96372; 99285; G0378; J1644; J7040; Q9966

== ENCOUNTER 2017-07-25 10:05 | Inpatient (IN) | payer MEDICARE ==
[2017-07-25 10:05] VITALS: BMI 26.2
[2017-07-25 11:45] LABS: BASO # 0.1 K/uL (0.0-0.2); BASO % 1.1 % (0.0-2.0); EOS # 0.1 K/uL (0.0-0.7); EOS % 1.7 % (0.0-4.0); HEMOGLOBIN 11.8 g/dL (11.0-16.0); LYMPH # 3.5 K/uL (1.0-4.3); LYMPH % 51.5 % (20.0-40.0); MEAN CELL VOLUME 91.9 fL (81.0-99.0); MEAN CORPUSCULAR HGB CONC 33.7 g/dL (33.0-37.0); MEAN PLATELET VOLUME 9.4 fL (7.2-11.7); MONO # 0.2 K/uL (0.0-0.8); MONO % 3.2 % (0.0-10.0); NEUT # 2.9 K/uL (1.8-7.0); NEUT % 42.5 % (50.0-75.0); NRBC % 0.1 % (0.0-2.0); RBC 3.82 Mil/uL (3.80-5.20); RED CELL DISTRIBUTION WIDTH 13.6 % (11.5-14.5); WHITE BLOOD COUNT 6.8 K/uL (4.8-10.8)
[2017-07-25 11:47] LABS: PROTHROMBIN TIME 11.6 SECONDS (9.7-12.2)
--- NOTE | 2017-07-25 12:08 | RAD ---
HISTORY: CHEST PAIN COMPARISON: Chest x-ray performed 02/19/17 TECHNIQUE: Chest, one view. FINDINGS: Examination limited by habitus and hypoinflation. LUNGS: No focal consolidation. Please note that chest x-ray has limited sensitivity for the detection of pulmonary masses. PLEURA: No significant pleural effusion identified. No definite pneumothorax . CARDIOVASCULAR: Heart size appears within normal limits. Atherosclerotic calcifications of the aortic knob. OSSEOUS STRUCTURES: No acute osseous abnormality identified. VISUALIZED UPPER ABDOMEN: Unremarkable. OTHER FINDINGS: None. IMPRESSION: No focal consolidation identified.
--- NOTE | 2017-07-25 12:29 | C.PDOC ---
History Of Present Illness 87 year old female, with PMHx of CAD with 2 stents, diabetes, gastritis, presents to ED for evaluation of epigastric abdominal pain and left sided chest pain since yesterday but worse this morning. Pt states that chest pain is constant and non-radiating. Pt admits to having history of gastritis but states her symptoms feels different this time. Denies associated shortness of breath, n /v/d, or fever. Time Seen by Provider: 07/25/17 10:21 Chief Complaint (Nursing): Chest Pain History Per: Patient History/Exam Limitations: no limitations Onset/Duration Of Symptoms: Days Current Symptoms Are (Timing): Worse Quality: "Pain" Associated Symptoms: denies: Nausea, Dyspnea, Diaphoresis, Syncope Modifying Factors: None Exacerbating Factors: None Alleviating Factors: None Additional History Per: Patient Past Medical History Reviewed: Historical Data, Nursing Documentation, Vital Signs Vital Signs: Last Vital Signs Temp 98.5 F 07/25/17 10:38 Pulse 84 07/25/17 10:38 Resp 16 07/25/17 10:38 BP 167/77 H 07/25/17 10:38 Pulse Ox 98 07/25/17 10:38 - Medical History PMH: Anemia, Arthritis, CAD, CVA, Dementia, Diabetes, Gastritis, HTN, Hypercholesterolemia Denies: Depression, Chronic Kidney Disease, TIA Surgical History: Coronary Stent (01/2015 x2) - [facility] Procedures CENTRAL VENOUS CATHETER PLACEMENT WITH GUIDANCE (02/28/15) CORONAR ARTERIOGR-2 CATH (02/03/15) LEFT HEART CARDIAC CATH (02/03/15) LT HEART ANGIOCARDIOGRAM (02/03/15) Family History: States: Unknown Family Hx - Social History Hx Tobacco Use: No Hx Alcohol Use: No Hx Substance Use: No - Immunization History Hx Tetanus Toxoid Vaccination: No Hx Influenza Vaccination: Yes (03/2017) Hx Pneumococcal Vaccination: No Review Of Systems Except As Marked, All Systems Reviewed And Found Negative. Constitutional: Negative for: Fever, Chills Cardiovascular: Positive for: Chest Pain. Negative for: Palpitations, Light Headedness Respiratory: Negative for: Cough, Shortness of Breath Gastrointestinal: Positive for: Abdominal Pain. Negative for: Nausea, Vomiting , Diarrhea Genitourinary: Negative for: Dysuria, Frequency, Hematuria Physical Exam - Physical Exam Appears: Non-toxic, No Acute Distress Skin: Normal Color, Warm, Dry Head: Normacephalic Eye(s): bilateral: Normal Inspection Oral Mucosa: Moist Neck: Normal ROM, Supple Chest: Symmetrical, No Deformity, No Tenderness Cardiovascular: Rhythm Regular, No Murmur Respiratory: No Accessory Muscle Use, No Rales, No Rhonchi, No Wheezing Gastrointestinal/Abdominal: Soft, Tenderness (mild LUQ, (-)Ray's (-)McBurney' s), No Guarding, No Rebound Extremity: Normal ROM, No Pedal Edema Neurological/Psych: Oriented x3, Normal Speech ED Course And Treatment - Laboratory Results Result Diagrams: 07/25/17 11:35 O2 Sat by Pulse Oximetry: 98 (RA) Pulse Ox Interpretation: Normal Progress Note: Blood work, UA, CXR, EKG ordered and reviewed. Pt was given Protonix. On re-eval, patient is resting comfortably, no acute distress, abdomen remains soft. Disposition - Disposition - Scribe Statement The provider has reviewed the documentation as recorded by the Scribe Valery Ramirez All medical record entries made by the Scribe were at my direction and personally dictated by me. I have reviewed the chart and agree that the record accurately reflects my personal performance of the history, physical exam, medical decision making, and the department course for this patient. I have also personally directed, reviewed, and agree with the discharge instructions and disposition.
[2017-07-25 12:42] LABS: CALCIUM 9.8 mg/dl (8.6-10.4)
[2017-07-25 12:54] LABS: CK-MB 0.51 ng/mL (0.0-3.38); TROPONIN I 0.014 ng/mL (0.00-0.120)
[2017-07-25 14:19] LABS: SQUAMOUS EPITHIAL 2 /hpf (0-5); URINE BILIRUBIN NEGATIVE (NEGATIVE); URINE CLARITY Clear (Clear); URINE COLOR Colorless (YELLOW); URINE GLUCOSE (UA) 1+ mg/dL (Normal); URINE LEUKOCYTE ESTERASE NEG Leu/uL (Negative); URINE NITRATE NEGATIVE (NEGATIVE); URINE PROTEIN NEGATIVE (NEGATIVE); URINE UROBILINOGEN NORMAL mg/dL (0.2-1.0)
[2017-07-25 14:28] LABS: URINE BLOOD NEGATIVE (NEGATIVE)
--- NOTE | 2017-07-25 17:44 | CP.PCM.HP ---
History of Present Illness - History of Present Illness History of Present Illness: episode of atypical chest pain this am now resolved discussed with ER MD and pt. Present on Admission - Present on Admission Any Indicators Present on Admission: Yes Review of Systems - Cardiovascular Cardiovascular: Chest Pain at Rest Past Patient History - Infectious Disease Hx of Infectious Diseases: None - Tetanus Immunizations Tetanus Immunization: Unknown - Past Medical History & Family History Past Medical History?: Yes - Past Social History Smoking Status: Never Smoked - CARDIAC Hx Hypercholesterolemia: Yes Hx Hypertension: Yes - PULMONARY Hx Respiratory Disorders: No - NEUROLOGICAL Hx Dementia: Yes Hx Transient Ischemic Attacks (TIA): No - HEENT Hx HEENT Problems: Yes Hx Cataracts: Yes - RENAL Hx Chronic Kidney Disease: No - ENDOCRINE/METABOLIC Hx Endocrine Disorders: Yes Hx Diabetes Mellitus Type 1: Yes Hx Diabetes Mellitus Type 2: Yes - HEMATOLOGICAL/ONCOLOGICAL Hx Anemia: Yes - INTEGUMENTARY Hx Dermatological Problems: No - MUSCULOSKELETAL/RHEUMATOLOGICAL Hx Arthritis: Yes - GASTROINTESTINAL Hx Gastritis: Yes - GENITOURINARY/GYNECOLOGICAL Hx Genitourinary Disorders: Yes Hx Urinary Tract Infection: Yes - PSYCHIATRIC Hx Depression: No Hx Substance Use: No - SURGICAL HISTORY Hx Coronary Stent: Yes (01/2015 x2) - ANESTHESIA Hx Anesthesia: Yes Hx Anesthesia Reactions: No Hx Malignant Hyperthermia: No Meds Allergies/Adverse Reactions: Allergies Allergy/AdvReac Type Severity Reaction Status Date / Time No Known Allergies Allergy Verified 07/25/17 10:48 Physical Exam - Constitutional Appears: No Acute Distress - Head Exam Head Exam: ATRAUMATIC, NORMOCEPHALIC - Eye Exam Eye Exam: Normal appearance - ENT Exam ENT Exam: Mucous Membranes Moist - Neck Exam Neck exam: Positive for: Normal Inspection - Respiratory Exam Respiratory Exam: Decreased Breath Sounds - Cardiovascular Exam Cardiovascular Exam: +S1, +S2 - GI/Abdominal Exam GI & Abdominal Exam: Normal Bowel Sounds - Rectal Exam Rectal Exam: Deferred - Neurological Exam Neurological exam: Abnormal Gait, Alert, Oriented x3 Additional comments: old cva - Psychiatric Exam Psychiatric exam: Normal Affect, Normal Mood Results - Vital Signs Recent Vital Signs: Last Vital Signs Temp 98.5 F 07/25/17 10:38 Pulse 80 07/25/17 16:08 Resp 16 07/25/17 16:08 BP 186/73 H 07/25/17 16:08 Pulse Ox 99 07/25/17 16:08 - Labs Result Diagrams: 07/25/17 11:35 07/25/17 12:25 Labs: Laboratory Results - last 24 hr 07/25/17 07/25/17 07/25/17 10:37 11:35 11:35 WBC 6.8 RBC 3.82 Hgb 11.8 Hct 35.1 MCV 91.9 MCH 31.0 MCHC 33.7 RDW 13.6 Plt Count 250 MPV 9.4 Neut % (Auto) 42.5 L Lymph % (Auto) 51.5 H [place] % (Auto) 3.2 Eos % (Auto) 1.7 Baso % (Auto) 1.1 Neut # (Auto) 2.9 Lymph # (Auto) 3.5 [place] # (Auto) 0.2 Eos # (Auto) 0.1 Baso # (Auto) 0.1 PT 11.6 INR 1.0 APTT 32 Sodium Potassium Chloride Carbon Dioxide Anion Gap BUN Creatinine Est GFR ( Amer) Est GFR (Non-Af Amer) POC Glucose (mg/dL) 202 H Random Glucose Calcium Total Bilirubin AST ALT Alkaline Phosphatase Total Creatine Kinase CK-MB (Mass) Troponin I Total Protein Albumin Globulin Albumin/Globulin Ratio Lipase Urine Color Urine Clarity Urine pH Ur Specific [place] Urine Protein Urine Glucose (UA) Urine Ketones Urine Blood Urine Nitrate Urine Bilirubin Urine Urobilinogen Ur Leukocyte Esterase Urine WBC (Auto) Ur Squamous Epith Cells 07/25/17 07/25/17 12:25 14:09 WBC RBC Hgb Hct MCV MCH MCHC RDW Plt Count MPV Neut % (Auto) Lymph % (Auto) [place] % (Auto) Eos % (Auto) Baso % (Auto) Neut # (Auto) Lymph # (Auto) [place] # (Auto) Eos # (Auto) Baso # (Auto) PT INR APTT Sodium 139 Potassium 4.4 Chloride 102 Carbon Dioxide 27 Anion Gap 15 BUN 26 H Creatinine 1.3 H Est GFR ( Amer) 47 Est GFR (Non-Af Amer) 39 POC Glucose (mg/dL) Random Glucose 137 H Calcium 9.8 Total Bilirubin 0.7 AST 33 ALT 9 D Alkaline Phosphatase 65 Total Creatine Kinase 68 CK-MB (Mass) 0.51 Troponin I 0.0140 Total Protein 7.9 Albumin 4.0 Globulin 3.9 Albumin/Globulin Ratio 1.0 Lipase 484 H Urine Color Colorless Urine Clarity Clear Urine pH 5.0 Ur Specific [place] 1.009 Urine Protein Negative Urine Glucose (UA) 1+ Urine Ketones Negative Urine Blood Negative Urine Nitrate Negative Urine Bilirubin Negative Urine Urobilinogen Normal Ur Leukocyte Esterase Neg Urine WBC (Auto) < 1 Ur Squamous Epith Cells 2 Assessment & Plan (1) Chest pain Status: Acute (2) Diabetes 1.5, managed as type 2 Status: Chronic (3) CVA, old, hemiparesis Status: Chronic (4) Essential (primary) hypertension Status: Chronic
[2017-07-25] MEDS ORDERED: (Novolin 70/30) NPH/Regular 70/30 Units/ml 10 ml vial SC ONE (18:04)
[2017-07-25] MEDS: (Novolog Mix 70/30) Insulin Aspart/Insulin Aspar 100 units/ml SC SCH (18:09)
[2017-07-25] MEDS: (Novolin R) Insulin Human Regular 100 units/ml vial SC SCH (22:12)
[2017-07-26 07:36] LABS: BASO # 0.1 K/uL (0.0-0.2); EOS # 0.1 K/uL (0.0-0.7); HEMOGLOBIN 11.5 g/dL (11.0-16.0); LYMPH # 3.4 K/uL (1.0-4.3); LYMPH % 57.8 % (20.0-40.0); MEAN CELL VOLUME 90.6 fL (81.0-99.0); MEAN CORPUSCULAR HEMOGLOBIN 31.3 pg (27.0-31.0); MEAN CORPUSCULAR HGB CONC 34.5 g/dL (33.0-37.0); MEAN PLATELET VOLUME 9.4 fL (7.2-11.7); MONO # 0.3 K/uL (0.0-0.8); MONO % 5.3 % (0.0-10.0); NEUT % 33.9 % (50.0-75.0); RBC 3.67 Mil/uL (3.80-5.20); RED CELL DISTRIBUTION WIDTH 13.4 % (11.5-14.5); WHITE BLOOD COUNT 5.9 K/uL (4.8-10.8)
[2017-07-26] MEDS: (Novolin R) Insulin Human Regular 100 units/ml vial SC SCH ×4 (08:56→22:12)
[2017-07-26] MEDS: Pantoprazole 40 mg EC Tab PO SCH (09:41)
[2017-07-26] MEDS: (Novolog Mix 70/30) Insulin Aspart/Insulin Aspar 100 units/ml SC SCH ×2 (09:41→17:21)
--- NOTE | 2017-07-26 10:12 | CP.PCM.PN ---
Subjective - Date & Time of Evaluation Date of Evaluation: 07/26/17 Time of Evaluation: 10:11 - Subjective Subjective: feels better today , no further chest pain echo results pending Objective - Vital Signs/Intake and Output Vital Signs (last 24 hours): Temp Pulse Resp BP Pulse Ox 98.3 F 69 18 159/70 H 98 07/26/17 08:00 07/26/17 08:58 07/26/17 08:00 07/26/17 09:40 07/26/17 08:00 - Medications Medications: Current Medications Aspirin (Ecotrin) 81 mg PO DAILY [facility] Last Admin: 07/26/17 09:40 Dose: 81 mg Heparin Sodium (Porcine) (Heparin) 5,000 units IV Q12 [facility] Last Admin: 07/26/17 09:41 Dose: 5,000 units Insulin Aspart (Novolog Mix 70/30 (70/30 Units/Ml)) 23 units SC BID [facility] Last Admin: 07/26/17 09:41 Dose: 23 units Insulin Human Regular (Novolin R) 0 unit SC ACHS [facility] PRN Reason: Protocol Last Admin: 07/26/17 08:56 Dose: Not Given Metoprolol Tartrate (Lopressor) 50 mg PO BID [facility] Pantoprazole Sodium (Protonix Ec Tab) 40 mg PO DAILY [facility] Last Admin: 07/26/17 09:41 Dose: 40 mg - Labs Labs: 07/26/17 07:13 07/25/17 12:25 PT 11.6 SECONDS (9.7-12.2) 07/25/17 11:35 INR 1.0 07/25/17 11:35 APTT 32 SECONDS (21-34) 07/25/17 11:35 - Constitutional Appears: No Acute Distress - Head Exam Head Exam: ATRAUMATIC, NORMOCEPHALIC - Eye Exam Eye Exam: Normal appearance - ENT Exam ENT Exam: Mucous Membranes Moist - Neck Exam Neck Exam: Normal Inspection - Respiratory Exam Respiratory Exam: Decreased Breath Sounds - Cardiovascular Exam Cardiovascular Exam: REGULAR RHYTHM, +S1, +S2 - GI/Abdominal Exam GI & Abdominal Exam: Normal Bowel Sounds - Rectal Exam Rectal Exam: Deferred - Neurological Exam Neurological Exam: Alert, Awake, Oriented x3 - Psychiatric Exam Psychiatric exam: Normal Affect, Normal Mood - Skin Skin Exam: Intact Assessment and Plan (1) Chest pain Status: Acute (2) Diabetes 1.5, managed as type 2 Status: Chronic (3) CVA, old, hemiparesis Status: Chronic (4) Essential (primary) hypertension Status: Chronic
--- NOTE | 2017-07-26 15:58 | CP.PCM.CON ---
History of Present Illness - History of Present Illness History of Present Illness: The patient is an 87 year old woman with CAD. In 2006, she had a cath showing moderte CAD. On 2013, she had an acute IMI with stent of the RCA. in 2015, she had stenting of the LAD for angina. pt came to the office a few weeks ago complaining of intermittent abdominal pain , plus or minus relieved by PPI. Based on her history, a nuclear stress test was advised for evaluation, but the patient did not schedule. Now he reported sharp pain under her left breast, well localized area, that lasted all night. ECh shows old IMI, no acute changes and two TNi are negative. Echo shows normal LV EF. Review of Systems - Review of Systems All systems: reviewed and no additional remarkable complaints except (mild dementia, othewise as above.) Past Patient History - Infectious Disease Hx of Infectious Diseases: None - Tetanus Immunizations Tetanus Immunization: Unknown - Past Medical History & Family History Past Medical History?: Yes - Past Social History Smoking Status: Never Smoked - CARDIAC Hx Hypercholesterolemia: Yes Hx Hypertension: Yes - PULMONARY Hx Respiratory Disorders: No - NEUROLOGICAL Hx Dementia: Yes Hx Transient Ischemic Attacks (TIA): No - HEENT Hx HEENT Problems: Yes Hx Cataracts: Yes - RENAL Hx Chronic Kidney Disease: No - ENDOCRINE/METABOLIC Hx Diabetes Mellitus Type 2: Yes - HEMATOLOGICAL/ONCOLOGICAL Hx Anemia: Yes - INTEGUMENTARY Hx Dermatological Problems: No - MUSCULOSKELETAL/RHEUMATOLOGICAL Hx Arthritis: Yes Hx Falls: Yes - GASTROINTESTINAL Hx Gastritis: Yes - GENITOURINARY/GYNECOLOGICAL Hx Genitourinary Disorders: Yes Hx Urinary Tract Infection: Yes - PSYCHIATRIC Hx Depression: No Hx Substance Use: No - SURGICAL HISTORY Hx Coronary Stent: Yes (01/2015 x2) - ANESTHESIA Hx Anesthesia: Yes Hx Anesthesia Reactions: No Hx Malignant Hyperthermia: No Meds Allergies/Adverse Reactions: Allergies Allergy/AdvReac Type Severity Reaction Status Date / Time No Known Allergies Allergy Verified 07/25/17 10:48 - Medications Medications: Current Medications Aspirin (Ecotrin) 81 mg PO DAILY [facility] Last Admin: 07/26/17 09:40 Dose: 81 mg Heparin Sodium (Porcine) (Heparin) 5,000 units IV Q12 [facility] Last Admin: 07/26/17 09:41 Dose: 5,000 units Insulin Aspart (Novolog Mix 70/30 (70/30 Units/Ml)) 23 units SC BID [facility] Last Admin: 07/26/17 09:41 Dose: 23 units Insulin Human Regular (Novolin R) 0 unit SC ACHS [facility] PRN Reason: Protocol Last Admin: 07/26/17 14:22 Dose: 3 unit Metoprolol Tartrate (Lopressor) 50 mg PO BID [facility] Last Admin: 07/26/17 14:15 Dose: Not Given Pantoprazole Sodium (Protonix Ec Tab) 40 mg PO DAILY [facility] Last Admin: 07/26/17 09:41 Dose: 40 mg Physical Exam - Constitutional Appears: No Acute Distress - Head Exam Head Exam: ATRAUMATIC - Eye Exam Eye Exam: EOMI - ENT Exam ENT Exam: Mucous Membranes Moist - Neck Exam Neck exam: Positive for: Normal Inspection - Respiratory Exam Respiratory Exam: Clear to Auscultation Bilateral, NORMAL BREATHING PATTERN - Cardiovascular Exam Cardiovascular Exam: REGULAR RHYTHM - GI/Abdominal Exam GI & Abdominal Exam: Normal Bowel Sounds - Rectal Exam Rectal Exam: NORMAL INSPECTION - Extremities Exam Extremities exam: Positive for: normal inspection - Back Exam Back exam: NORMAL INSPECTION - Psychiatric Exam Psychiatric exam: Normal Affect, Normal Mood - Skin Skin Exam: Normal Color Results - Vital Signs Recent Vital Signs: Last Vital Signs Temp 98.3 F 07/26/17 08:00 Pulse 69 07/26/17 08:58 Resp 18 07/26/17 08:00 BP 159/70 H 07/26/17 09:40 Pulse Ox 98 07/26/17 08:00 - Labs Result Diagrams: 07/26/17 07:13 07/25/17 12:25 Labs: Laboratory Results - last 24 hr 07/25/17 07/25/17 07/26/17 18:04 22:02 06:27 WBC RBC Hgb Hct MCV MCH MCHC RDW Plt Count MPV Neut % (Auto) Lymph % (Auto) [place] % (Auto) Eos % (Auto) Baso % (Auto) Neut # (Auto) Lymph # (Auto) [place] # (Auto) Eos # (Auto) Baso # (Auto) POC Glucose (mg/dL) 153 H 171 H 167 H Hemoglobin A1c Troponin I 07/26/17 07/26/17 07/26/17 07:13 07:13 11:08 WBC 5.9 RBC 3.67 L Hgb 11.5 Hct 33.2 L MCV 90.6 MCH 31.3 H MCHC 34.5 RDW 13.4 Plt Count 234 MPV 9.4 Neut % (Auto) 33.9 L Lymph % (Auto) 57.8 H [place] % (Auto) 5.3 Eos % (Auto) 2.0 Baso % (Auto) 1.0 Neut # (Auto) 2.0 Lymph # (Auto) 3.4 [place] # (Auto) 0.3 Eos # (Auto) 0.1 Baso # (Auto) 0.1 POC Glucose (mg/dL) 262 H Hemoglobin A1c 9.0 H Troponin I 07/26/17 13:59 WBC RBC Hgb Hct MCV MCH MCHC RDW Plt Count MPV Neut % (Auto) Lymph % (Auto) [place] % (Auto) Eos % (Auto) Baso % (Auto) Neut # (Auto) Lymph # (Auto) [place] # (Auto) Eos # (Auto) Baso # (Auto) POC Glucose (mg/dL) Hemoglobin A1c Troponin I < 0.0120 Assessment & Plan - Assessment and Plan (Free Text) Assessment: Atypical chest pain in a patient with known CAD, diabetes. Work up so far (ECG, TNI and echo: normal). Based on previous advise and current assessment, a nuclear stress is ordered for the AM with lexiscan for assessment. Continue asa , telemetry beta kin. Add statin.
--- NOTE | 2017-07-26 16:12 | CARD ---
APPROVED REPORT EXAM: Two-dimensional and M-mode echocardiogram with Doppler and color Doppler. INDICATION CVA/TIA Dizziness and Vertigo Chest Pain RISK FACTORS Diabetes 2D DIMENSIONS IVSd1.2 (0.7-1.1cm)LVDd2.2 (3.9-5.9cm) PWd1.4 (0.7-1.1cm)LVDs1.4 (2.5-4.0cm) FS (%) 35.3 %LVEF (%)67.4 (>50%) M-Mode DIMENSIONS Left Atrium (MM)2.53 (2.5-4.0cm)Aortic Root3.04 (2.2-3.7cm) Aortic Cusp Exc.1.79 (1.5-2.0cm) Mitral Valve MV E Mtkpyhqd48.5cm/sMV A Aetvzoxy566.8cm/s Tricuspid Valve TR Peak [id number]/sTR Peak [id number] LEFT VENTRICLE The left ventricle is normal size. There is mild concentric left ventricular hypertrophy. The left ventricular ejection fraction is within the normal range. Mild lateral hypokinesis Transmitral Doppler flow pattern is Grade I-abnormal relaxation pattern. RIGHT VENTRICLE The right ventricle is normal size. There is normal right ventricular wall thickness. The right ventricular systolic function is normal. ATRIA The left atrium size is normal. The right atrium size is normal. The atrial septum is aneurysmal. AORTIC VALVE The aortic valve is mildly thickened. No aortic regurgitation is present. There is no aortic valvular stenosis. MITRAL VALVE The mitral valve is mildly thickened. There is no mitral valve stenosis. Mitral regurgitation is trace. TRICUSPID VALVE There is mild pulmonary hypertension. GREAT VESSELS The aortic root is normal in size. <Conclusion> The left ventricle is normal size. There is mild concentric left ventricular hypertrophy. The left ventricular ejection fraction is within the normal range. Mild lateral hypokinesis Transmitral Doppler flow pattern is Grade I-abnormal relaxation pattern. There is mild pulmonary hypertension.
--- NOTE | 2017-07-26 16:56 | CARD ---
APPROVED REPORT EKG Measurement Heart [id number] NM [id number] <Conclusion> Normal sinus rhythm Left axis deviation Inferior infarct, age undetermined Anterior infarct, age undetermined Abnormal ECG
[2017-07-27] MEDS: (Novolin R) Insulin Human Regular 100 units/ml vial SC SCH ×4 (07:58→22:20)
[2017-07-27] MEDS ORDERED: Aminophylline 25 mg/ml Inj ONE (09:45)
--- NOTE | 2017-07-27 09:55 | CP.PCM.PN ---
Subjective - Date & Time of Evaluation Date of Evaluation: 07/27/17 Time of Evaluation: 09:54 - Subjective Subjective: The pt feels well. had a nuclear stress today. Images are pending Objective - Vital Signs/Intake and Output Vital Signs (last 24 hours): Temp Pulse Resp BP Pulse Ox 98.8 F 76 18 191/99 H 97 07/27/17 09:08 07/27/17 09:08 07/27/17 09:08 07/27/17 09:08 07/27/17 09:08 Intake and Output: 07/27/17 07/27/17 06:59 18:59 Intake Total 0 Balance 0 - Medications Medications: Current Medications Aspirin (Ecotrin) 81 mg PO DAILY [facility] Last Admin: 07/26/17 09:40 Dose: 81 mg Heparin Sodium (Porcine) (Heparin) 5,000 units IV Q12 [facility] Last Admin: 07/26/17 21:42 Dose: 5,000 units Insulin Aspart (Novolog Mix 70/30 (70/30 Units/Ml)) 23 units SC BID [facility] Last Admin: 07/26/17 17:21 Dose: 23 units Insulin Human Regular (Novolin R) [address] [facility] PRN Reason: Protocol Last Admin: 07/27/17 07:58 Dose: Not Given Metoprolol Tartrate (Lopressor) 50 mg PO BID [facility] Last Admin: 07/26/17 17:21 Dose: 50 mg Pantoprazole Sodium (Protonix Ec Tab) 40 mg PO DAILY [facility] Last Admin: 07/26/17 09:41 Dose: 40 mg Rosuvastatin Calcium (Crestor) 10 mg PO HS [facility] Last Admin: 07/26/17 22:12 Dose: 10 mg - Labs Labs: 07/26/17 07:13 07/25/17 12:25 PT 11.6 SECONDS (9.7-12.2) 07/25/17 11:35 INR 1.0 07/25/17 11:35 APTT 32 SECONDS (21-34) 07/25/17 11:35 - Constitutional Appears: Well - Head Exam Head Exam: ATRAUMATIC - Eye Exam Eye Exam: EOMI - ENT Exam ENT Exam: Mucous Membranes Moist - Neck Exam Neck Exam: Full ROM - Respiratory Exam Respiratory Exam: Clear to Ausculation Bilateral - Cardiovascular Exam Cardiovascular Exam: REGULAR RHYTHM - GI/Abdominal Exam GI & Abdominal Exam: Normal Bowel Sounds - Extremities Exam Extremities Exam: Normal Inspection - Neurological Exam Neurological Exam: Alert, Awake, Normal Gait - Psychiatric Exam Psychiatric exam: Normal Affect Assessment and Plan - Assessment and Plan (Free Text) Assessment: 1. The patient has known CAD, atypical chest pain: awaiting nuclear images.
[2017-07-27] MEDS: (Novolog Mix 70/30) Insulin Aspart/Insulin Aspar 100 units/ml SC SCH ×2 (10:49→17:56)
[2017-07-27] MEDS: Pantoprazole 40 mg EC Tab PO SCH (12:21)
--- NOTE | 2017-07-27 16:38 | CARD ---
APPROVED REPORT Protocol: LEXISCAN Test Type: LEXISCAN STRESS Test Indications: CHEST PAIN Target HR: 135 bpm Resting Heart Rate: 81 bpm Resting Blood Pressure: 140/80mmHg submaximum (85%): 115 bpm TEST SUMMARY [id number].06:[id number]/80.0. INFUSIONDOSE 100:300.00.01.088/.0. [id number]/80.0. PROCEDURE Pharmacologic stress testing was performed using 0.4mg per 5ml of regadenoson given intravenously over 7-10 seconds. Reversal agent aminophyline 75 mg, given intravenously for Headache. POST EXERCISE Target HR: No Max HR: 88 bpm 77% of Maximum Predicted HR: 135 bpm Exercise duration: 00:30 min:sec, 0 Stage Exercise capacity: 1.0METs Max Blood Pressure: 140/80mmHg Chest Pain: Yes, Angina index: 0 Arrhythmia: Yes, ST Change: Yes, Deviation: 0 mm INTERPRETATION Stress EKG Conclusion: Normal ECG stress test. EXAM: Myocardial Perfusion STRESS/REST Imaging Protocol The imaging protocol used to acquire images was Stress Tc-99m/rest Tc-99m 1 dayRest Tc-99m/stress Tc-99m 2 days Stress Spect myocardial perfusion imaging was performed in supine position 45 minutes following the injection of 32.5 mCi of Tc-99 Myoview. Gated Rest Spect was performed 55 minutes after intravenous 32.6 mci Tc-99 Myoview injection. The images were gated to evaluate regional wall motion and calculate ventricular ejection fraction.Images were reconstructed using backfilter projection method in short horizontal and verticle long axis. Spect slices were generated. RESTING DATA EDV40.56amLT8.20L/min ESV8.00mlMyocardial Mass86.00g Av. Heart Rate68.00bpm EF80.00% STRESS DATA EDV35.77bzSU0.30L/min ESV7.00mlMyocardial Mass77.00g EF80.00% Regional WT score at stress:1.00 Regional WM score at stress:0.00 Summed WT score at stress:5.00 Av. Heart Rate82.00bpmSummed WM score at stress:16.00 LV Perf. Quant 17 Seg. SSS2.00 17 Seg. SRS4.00 17 Seg. SDS0.00 Stress Defect Extent (% LAD)0.00Rest Defect Extent (% LAD)0.00Rev. Defect Extent (% LAD)0.00 Stress Defect Extent (% LCX)12.50Rest Defect Extent (% LCX)43.80Rev. Defect Extent (% LCX)0.00 Stress Defect Extent (% RCA)0.00Rest Defect Extent (% RCA)0.00Rev. Defect Extent (% RCA)0.00 Stress Defect Extent (% JOSEPHINE)2.20Rest Defect Extent (% JOSEPHINE)10.20Rev. Defect Extent (% JOSEPHINE)0.00 Conclusion 1. Good techncial quality 2. Both post stress and resting left ventricualr myocardial perfusion images demonstrated a mild inferolateral wall perfusion defect. 3. Gated SPECT demonstrated normal left ventricular systolic function. The ejection fraction was 80%. 4. Impression: 5. The findings are abnormal and are consistent with a mild degree of non-transmural scarring, with viability, of the left ventricular inferolateral wwall. No ischemia is noted.
[2017-07-27 17:27] VITALS: RESP 20
--- NOTE | 2017-07-27 18:20 | CP.PCM.PN ---
Subjective - Date & Time of Evaluation Date of Evaluation: 07/27/17 Time of Evaluation: 18:16 - Subjective Subjective: feels ok stress test noted, and cleared by cardio stable for d/c in am Objective - Vital Signs/Intake and Output Vital Signs (last 24 hours): Temp Pulse Resp BP Pulse Ox 98.2 F 67 20 152/73 H 97 07/27/17 16:00 07/27/17 16:00 07/27/17 16:00 07/27/17 16:00 07/27/17 16:00 Intake and Output: 07/27/17 07/27/17 06:59 18:59 Intake Total 0 400 Balance 0 400 - Medications Medications: Current Medications Aspirin (Ecotrin) 81 mg PO DAILY [facility] Last Admin: 07/27/17 12:20 Dose: 81 mg Docusate Sodium (Colace) 100 mg PO BID [facility] Heparin Sodium (Porcine) (Heparin) 5,000 units IV Q12 [facility] Last Admin: 07/27/17 12:21 Dose: 5,000 units Insulin Aspart (Novolog Mix 70/30 (70/30 Units/Ml)) 23 units SC BID [facility] Last Admin: 07/27/17 17:56 Dose: 23 units Insulin Human Regular (Novolin R) [address] [facility] ON LICENSE OF [facility] PRN Reason: Protocol Last Admin: 07/27/17 17:56 Dose: 232 unit Metoprolol Tartrate (Lopressor) 50 mg PO BID [facility] Last Admin: 07/27/17 17:57 Dose: 50 mg Pantoprazole Sodium (Protonix Ec Tab) 40 mg PO DAILY [facility] Last Admin: 07/27/17 12:21 Dose: 40 mg Rosuvastatin Calcium (Crestor) 10 mg PO HS [facility] Last Admin: 07/26/17 22:12 Dose: 10 mg - Labs Labs: 07/26/17 07:13 07/25/17 12:25 PT 11.6 SECONDS (9.7-12.2) 07/25/17 11:35 INR 1.0 07/25/17 11:35 APTT 32 SECONDS (21-34) 07/25/17 11:35 - Constitutional Appears: No Acute Distress - Head Exam Head Exam: ATRAUMATIC, NORMOCEPHALIC - Eye Exam Eye Exam: Normal appearance - ENT Exam ENT Exam: Mucous Membranes Moist - Respiratory Exam Respiratory Exam: Decreased Breath Sounds - Cardiovascular Exam Cardiovascular Exam: REGULAR RHYTHM, +S1, +S2 - GI/Abdominal Exam GI & Abdominal Exam: Normal Bowel Sounds - Rectal Exam Rectal Exam: Deferred - Neurological Exam Neurological Exam: Alert, Oriented x3 - Psychiatric Exam Psychiatric exam: Normal Affect, Normal Mood - Skin Skin Exam: Intact Assessment and Plan (1) Chest pain Status: Resolved (2) Diabetes 1.5, managed as type 2 Status: Chronic (3) CVA, old, hemiparesis Status: Chronic (4) Essential (primary) hypertension Status: Chronic
[2017-07-27] MEDS ORDERED: Latanoprost 2.5 ml Opht Soln OU SCH (22:00)
[2017-07-28 00:44] VITALS: O2SAT 99
[2017-07-28] MEDS: (Novolin R) Insulin Human Regular 100 units/ml vial SC SCH (08:11)
[2017-07-28 08:49] VITALS: TEMP 98.1
[2017-07-28] MEDS ORDERED: (Novolog Mix 70/30) Insulin Aspart/Insulin Aspar 100 units/ml SC SCH (10:00)
[2017-07-28] MEDS ORDERED: Naproxen 550 mg Tab PO SCH (10:00)
[2017-07-28] MEDS ORDERED: Pantoprazole 40 mg EC Tab PO SCH (10:00)
[2017-07-28 10:04] VITALS: BP 149/77; PULSE 79
[2017-07-28] MEDS: Pantoprazole 40 mg EC Tab PO SCH (10:04)
[2017-07-28] MEDS: (Novolog Mix 70/30) Insulin Aspart/Insulin Aspar 100 units/ml SC SCH (10:09)
== END 2017-07-28 11:55 | disposition home or self-care (01) | DRG 313 ==
LOC: C.ER 10:05 → C.9E 17:12 → C.6T 18:58
PROVIDERS: ADMIT Internal Medicine Pulmonary Disease; ATTEND Internal Medicine Pulmonary Disease
DX: R07.89 Other chest pain (principal); I25.10 Atherosclerotic heart disease of native coronary artery without angina pectoris; I69.359 Hemiplegia and hemiparesis following cerebral infarction affecting unspecified side; E11.9 Type 2 diabetes mellitus without complications; F03.90 Unspecified dementia, unspecified severity, without behavioral disturbance, psychotic disturbance, mood disturbance, and anxiety; R10.13 Epigastric pain; E78.00 Pure hypercholesterolemia, unspecified; I10 Essential (primary) hypertension; I25.2 Old myocardial infarction; M19.90 Unspecified osteoarthritis, unspecified site; Z95.5 Presence of coronary angioplasty implant and graft; Z87.440 Personal history of urinary (tract) infections; Z79.4 Long term (current) use of insulin

== ENCOUNTER 2017-09-20 01:06 | Emergency (ER) | payer MEDICARE ==
[2017-09-20 01:06] VITALS: BMI 26.2
[2017-09-20 01:27] VITALS: TEMP 98.3
[2017-09-20 03:05] LABS: ALBUMIN 4.2 g/dL (3.5-5.0); CALCIUM 9.4 mg/dl (8.6-10.4)
[2017-09-20 03:20] LABS: URINE BILIRUBIN NEGATIVE (NEGATIVE); URINE BLOOD NEGATIVE (NEGATIVE); URINE CLARITY Clear (Clear); URINE COLOR COLORLESS (YELLOW); URINE GLUCOSE (UA) NEGATIVE (Normal); URINE PROTEIN NEGATIVE (NEGATIVE); URINE UROBILINOGEN Normal mg/dL (0.2-1.0)
[2017-09-20 03:21] LABS: SQUAMOUS EPITHIAL 1 /hpf (0-5); URINE LEUKOCYTE ESTERASE NEGATIVE Leu/uL (Negative)
[2017-09-20] MEDS ORDERED: Sodium Chloride 0.9% 1,000 ML IV ONE (03:26)
[2017-09-20] MEDS ORDERED: Sodium Chloride 0.9% 1,000 ML ONE (03:54)
--- NOTE | 2017-09-20 04:20 | CT ---
EXAM: CT Abdomen and Pelvis Without Intravenous Contrast CLINICAL HISTORY: 87 years old, female; Pain; Abdominal pain; Patient HX: 02-10-17 images sent; Additional info: Abd pain, elev lipase TECHNIQUE: Axial computed tomography images of the abdomen and pelvis without intravenous contrast. All CT scans at this facility use one or more dose reduction techniques, viz.: automated exposure control; ma/kV adjustment per patient size (including targeted exams where dose is matched to indication; i.e. head); or iterative reconstruction technique. Coronal and sagittal reformatted images were created and reviewed. COMPARISON: CT - ABD PELVIS PO CONTRAST ONLY 2015-02-17 20:14 FINDINGS: Lung bases: There is minimal bibasilar atelectasis. Mediastinum: A small hiatal hernia is present. ABDOMEN: Liver: The liver is within normal limits for this noncontrast study. Gallbladder and bile ducts: Unremarkable. No calcified stones. No ductal dilation. Pancreas: Unremarkable. No ductal dilation. Spleen: Unremarkable. No splenomegaly. Adrenals: Unremarkable. No mass. Kidneys and ureters: Unremarkable. No obstructing stones. No hydronephrosis. Stomach and bowel: Mild diverticulosis is present in the sigmoid colon. There is no wall thickening or pericolonic stranding to suggest colitis. No obstruction. No mucosal thickening. Appendix: No findings to suggest acute appendicitis. A normal appendix is identified. PELVIS: Bladder: Unremarkable. No stones. Reproductive: Unremarkable as visualized. ABDOMEN and PELVIS: Intraperitoneal space: Unremarkable. No free air. No significant fluid collection. Bones/joints: Mild L2 superior endplate compression deformity, new compared to the prior study. L3-4 severe degenerative changes, unchanged. Soft tissues: Unremarkable. Vasculature: The aorta demonstrates moderate atherosclerotic calcification. No abdominal aortic aneurysm. Lymph nodes: Unremarkable. No enlarged lymph nodes. IMPRESSION: No acute findings. Diverticulosis without acute diverticulitis. Small hiatal hernia. Mild L2 superior endplate compression deformity, new since 2014.
[2017-09-20 04:34] VITALS: BP 159/81; PULSE 80; RESP 20; O2SAT 96
--- NOTE | 2017-09-20 04:34 | C.PDOC ---
History Of Present Illness 87 year old female presents to the ED c/o intermittent lower abdominal pain for the past 2 days. Patient reports she took a bottle of citroma on Monday after which she had few bowel movements but has not had any bowel movements since. Patient is also c/o pain is radiating to her B/L flank area. Patient denies nausea, vomiting, diarrhea, fever, chills, weakness, numbness. Time Seen by Provider: 09/20/17 01:52 Chief Complaint (Nursing): Abdominal Pain History Per: Patient History/Exam Limitations: no limitations Onset/Duration Of Symptoms: Days Current Symptoms Are (Timing): Still Present Location Of Pain/Discomfort: Diffuse Radiation Of Pain To:: None Quality Of Discomfort: "Pain" Associated Symptoms: Constipation. denies: Nausea, Vomiting, Loss Of Appetite Exacerbating Factors: None Alleviating Factors: None Last Bowel Movement: Yesterday Recent travel outside of the [place]: No Additional History Per: Patient Abnormal Vaginal Bleeding: No Past Medical History Reviewed: Historical Data, Nursing Documentation, Vital Signs Vital Signs: Last Vital Signs Temp 98.3 F 09/20/17 01:23 Pulse 80 09/20/17 04:33 Resp 20 09/20/17 04:33 BP 159/81 H 09/20/17 04:33 Pulse Ox 96 09/20/17 05:36 - Medical History PMH: Anemia, Arthritis, CAD, CVA, Dementia, Diabetes, Gastritis, HTN, Hypercholesterolemia Denies: Depression, Chronic Kidney Disease, TIA Surgical History: Coronary Stent (01/2015 x2) - [facility] Procedures CENTRAL VENOUS CATHETER PLACEMENT WITH GUIDANCE (02/28/15) CORONAR ARTERIOGR-2 CATH (02/03/15) LEFT HEART CARDIAC CATH (02/03/15) LT HEART ANGIOCARDIOGRAM (02/03/15) Family History: States: Unknown Family Hx - Social History Hx Tobacco Use: No Hx Alcohol Use: No Hx Substance Use: No - Immunization History Hx Tetanus Toxoid Vaccination: No Hx Influenza Vaccination: Yes (03/2017) Hx Pneumococcal Vaccination: Yes Review Of Systems Constitutional: Negative for: Fever, Chills Cardiovascular: Negative for: Chest Pain Respiratory: Negative for: Shortness of Breath Gastrointestinal: Positive for: Abdominal Pain, Constipation. Negative for: Nausea, Vomiting Musculoskeletal: Positive for: Back Pain Skin: Negative for: Rash Neurological: Negative for: Weakness, Numbness Physical Exam - Physical Exam Appears: Non-toxic, No Acute Distress Skin: Normal Color, Warm, Dry Head: Atraumatic, Normacephalic Eye(s): bilateral: Normal Inspection Nose: No Discharge Oral Mucosa: Moist Neck: Normal ROM, Supple Chest: Symmetrical Cardiovascular: Rhythm Regular, No Murmur Respiratory: Normal Breath Sounds, No Rales, No Rhonchi, No Wheezing Gastrointestinal/Abdominal: Bowel Sounds (active), Soft, Tenderness (lower suprapubic), No Guarding, No Rebound Back: No CVA Tenderness Extremity: Normal ROM, No Tenderness, No Swelling Neurological/Psych: Oriented x3, Normal Motor, Normal Sensation Gait: Steady ED Course And Treatment - Laboratory Results Result Diagrams: 09/20/17 02:48 O2 Sat by Pulse Oximetry: 96 (ON RA) Pulse Ox Interpretation: Normal - Other Rad Abdomen X-Ray X-Ray: Interpreted by Me, Viewed By Me Interpretation: X-Ray showed moderate fecal impact - CT Scan/US CT abd/pelvis Other Rad Studies (CT/US): Read By Radiologist, Radiology Report Reviewed CT/US Interpretation: IMPRESSION: No acute findings. Diverticulosis without acute diverticulitis. Small hiatal hernia. Mild L2 superior endplate compression deformity, new since 2014. Progress Note: Plan: - Obstructive series X-Ray. - CT abd/pelvis. - IV fluids. - UA. Patient is resting comfortably, abdomen remains soft, and patient is tolerating PO. Patient feels comfortable going home. Patient will be discharged home. Disposition Counseled Patient/Family Regarding: Diagnosis - Disposition Referrals: Chris Ybarra MD, PhD [Primary Care Provider] - Disposition: HOME/ ROUTINE Disposition Time: 05:17 Condition: STABLE Additional Instructions: Please follow up with PMD Increase PO fluids Take miralax as directed - High fiber diet Return to ER if worse Prescriptions: Polyethylene Glycol 3350 [Miralax] 17 gm PO DAILY #1 bottle Instructions: Constipation, Adult (DC) Forms: [facility] ([place]) - Clinical Impression Clinical Impression: Constipation, Abdominal pain - PA / SENIOR LINUX ADMINISTRATOR / Resident Statement MD/DO has reviewed & agrees with the documentation as recorded. - Scribe Statement The provider has reviewed the documentation as recorded by the Scribe Crow To All medical record entries made by the Scribe were at my direction and personally dictated by me. I have reviewed the chart and agree that the record accurately reflects my personal performance of the history, physical exam, medical decision making, and the department course for this patient. I have also personally directed, reviewed, and agree with the discharge instructions and disposition.
[2017-09-20 07:22] LABS: BASO % 0.2 % (0.0-2.0); EOS # 0.2 K/uL (0.0-0.7); EOS % 2.8 % (0.0-4.0); HEMOGLOBIN 11.1 g/dL (11.0-16.0); LYMPH # 3.9 K/uL (1.0-4.3); LYMPH % 52.9 % (20.0-40.0); MEAN CELL VOLUME 90.9 fL (81.0-99.0); MEAN CORPUSCULAR HEMOGLOBIN 30.7 pg (27.0-31.0); MEAN CORPUSCULAR HGB CONC 33.8 g/dL (33.0-37.0); MONO # 0.5 K/uL (0.0-0.8); MONO % 6.1 % (0.0-10.0); NEUT # 2.8 K/uL (1.8-7.0); RBC 3.61 Mil/uL (3.80-5.20); RED CELL DISTRIBUTION WIDTH 13.7 % (11.5-14.5); WHITE BLOOD COUNT 7.4 K/uL (4.8-10.8)
--- NOTE | 2017-09-20 08:35 | RAD ---
PROCEDURE: Radiographs of the chest and abdomen (obstructive series) HISTORY: abd pain COMPARISON: Chest radiograph dated 07/25/2017; CT scan of the chest, abdomen and pelvis dated 02/19/2017. TECHNIQUE: AP radiograph of the chest, with upright and supine radiographs of the abdomen. FINDINGS: CHEST: Lungs: Clear. Cardiovascular: Atherosclerotic aortic calcifications. Normal size heart. No pulmonary vascular congestion. Pleura: No pleural fluid. No pneumothorax. Other findings: None. ABDOMEN AND PELVIS: Bowel: Prominent amount of retained colonic stool Unremarkable bowel gas pattern. No evidence of mechanical obstruction. Free air: None. Bones: Unremarkable. Other findings: None. IMPRESSION: Unremarkable radiographs of chest and abdomen. Prominent amount of retained colonic stool No evidence of mechanical bowel obstruction.
== END 2017-09-20 05:34 | disposition home or self-care (01) ==
LOC: SUPCPDRO 01:06 → C.ER 01:06
DX: K59.00 Constipation, unspecified (principal); R10.9 Unspecified abdominal pain; E11.9 Type 2 diabetes mellitus without complications

== ENCOUNTER 2017-11-28 22:58 | Inpatient (IN) | payer MEDICARE ==
[2017-11-28 22:59] VITALS: BMI 26.2
--- NOTE | 2017-11-28 23:34 | C.PDOC ---
History Of Present Illness Patient gave a history of onset of midabdominal pain and vomiting tonight. Having frquent bowel movemeent dut not loose. Chief Complaint (Nursing): Abdominal Pain History Per: Patient, Family History/Exam Limitations: no limitations Onset/Duration Of Symptoms: Hrs Current Symptoms Are (Timing): Still Present Severity: Moderate Pain Scale Rating Of: 3 Location Of Pain/Discomfort: Other (midabdominal and upper quadrant.) Radiation Of Pain To:: None Quality Of Discomfort: Aching, "Pain" Associated Symptoms: Nausea, Vomiting. denies: Diarrhea, Back Pain Exacerbating Factors: None Alleviating Factors: None Last Bowel Movement: Today Recent travel outside of the [place]: No Additional History Per: Family Past Medical History Vital Signs: Last Vital Signs Temp 99.1 F 11/28/17 23:11 Pulse 120 H 11/28/17 23:11 Resp 20 11/28/17 23:11 BP 150/75 11/28/17 23:11 Pulse Ox 96 11/28/17 23:37 - Medical History PMH: Anemia, Arthritis, CAD, CVA, Dementia, Diabetes, Gastritis, HTN, Hypercholesterolemia Denies: Depression, Chronic Kidney Disease, TIA Surgical History: Coronary Stent (01/2015 x2) - [facility] Procedures CENTRAL VENOUS CATHETER PLACEMENT WITH GUIDANCE (02/28/15) CORONAR ARTERIOGR-2 CATH (02/03/15) LEFT HEART CARDIAC CATH (02/03/15) LT HEART ANGIOCARDIOGRAM (02/03/15) Family History: States: Unknown Family Hx - Social History Hx Tobacco Use: No Hx Alcohol Use: No Hx Substance Use: No - Immunization History Hx Tetanus Toxoid Vaccination: No Hx Influenza Vaccination: Yes (03/2017) Hx Pneumococcal Vaccination: Yes Review Of Systems Constitutional: Negative for: Fever, Chills, Sweats Cardiovascular: Negative for: Chest Pain, Palpitations, Orthopnea, Edema, Light Headedness Respiratory: Negative for: Cough, Shortness of Breath Gastrointestinal: Positive for: Nausea, Vomiting, Abdominal Pain. Negative for : Diarrhea, Constipation, Melena Genitourinary: Negative for: Dysuria, Frequency, Incontinence Musculoskeletal: Negative for: Neck Pain, Shoulder Pain, Arm Pain Skin: Negative for: Rash, Lesions Neurological: Negative for: Weakness, Numbness, Change in Speech, Confusion Psych: Negative for: Anxiety, Depression Physical Exam - Physical Exam Appears: Non-toxic, No Acute Distress Skin: Normal Color, Warm, Dry Eye(s): bilateral: Normal Inspection, PERRL, EOMI Nose: Normal Throat: Normal Neck: Normal Respiratory: Normal Breath Sounds, No Decreased Breath Sounds, No Accessory Muscle Use, No Rales, No Rhonchi, No Wheezing Gastrointestinal/Abdominal: Tenderness (upper abd and midabdominal parea), No Organomegaly, No Mass, No Distention, No Guarding, No Rebound, No Hernia, No Ascites Back: Normal Inspection Extremity: Normal ROM ED Course And Treatment - Laboratory Results Result Diagrams: 11/29/17 00:22 11/29/17 00:22 O2 Sat by Pulse Oximetry: 96 Disposition Discussed With : Deon Frost Doctor Will See Patient In The: Hospital Counseled Patient/Family Regarding: Diagnosis - Disposition Disposition: HOSPITALIZED Disposition Time: 04:48 Condition: STABLE Forms: [facility] ([place]) - POA Present On Arrival: None - Clinical Impression Clinical Impression: Vomiting, Pancreatitis, Renal insufficiency
[2017-11-28] MEDS ORDERED: Sodium Chloride 0.9% 1,000 ML IV ONE (23:38)
[2017-11-28] MEDS ORDERED: Iohexol 240 (50 ml) PO ONE (23:39)
[2017-11-28] MEDS ORDERED: Sodium Chloride 0.9% 1,000 ML ONE (23:46)
[2017-11-29 00:26] LABS: BASO % 0.5 % (0.0-2.0); EOS % 0.1 % (0.0-4.0); HEMOGLOBIN 11.3 g/dL (11.0-16.0); LYMPH # 1.1 K/uL (1.0-4.3); LYMPH % 14.8 % (20.0-40.0); MEAN CELL VOLUME 91.1 fL (81.0-99.0); MEAN CORPUSCULAR HEMOGLOBIN 30.7 pg (27.0-31.0); MEAN CORPUSCULAR HGB CONC 33.8 g/dL (33.0-37.0); MONO # 0.4 K/uL (0.0-0.8); NEUT # 5.8 K/uL (1.8-7.0); NEUT % 79.6 % (50.0-75.0); RBC 3.68 Mil/uL (3.80-5.20); RED CELL DISTRIBUTION WIDTH 13.9 % (11.5-14.5); WHITE BLOOD COUNT 7.3 K/uL (4.8-10.8)
[2017-11-29] MEDS ORDERED: Iohexol 240 (50 ml) ONE (00:31)
[2017-11-29 00:42] LABS: ALB/GLOB RATIO 1.3 (1.0-2.1); ALBUMIN 4.4 g/dL (3.5-5.0)
[2017-11-29 03:54] LABS: URINE BILIRUBIN NEGATIVE (NEGATIVE); URINE BLOOD 1+ (NEGATIVE); URINE CLARITY Clear (Clear); URINE COLOR Yellow (YELLOW); URINE GLUCOSE (UA) 2+ mg/dL (Normal); URINE LEUKOCYTE ESTERASE NEG Leu/uL (Negative); URINE PROTEIN NEGATIVE (NEGATIVE); URINE UROBILINOGEN NORMAL mg/dL (0.2-1.0)
[2017-11-29] MEDS: Sodium Chloride 0.45% 1,000 ML IV SCH ×4 (06:36→21:41)
[2017-11-29] MEDS ORDERED: (Novolin 70/30) NPH/Regular 70/30 Units/ml 10 ml vial SC SCH ×2 (07:30→11:30)
[2017-11-29] MEDS ORDERED: INSULIN LISPRO SC SCH (10:00)
[2017-11-29] MEDS ORDERED: Home Med 1 UNIT (Polyethylene Glycol 3350 [Miralax] 17 GM) PO SCH (10:00)
[2017-11-29] MEDS ORDERED: Enoxaparin 40 mg Syringe SC SCH (10:00)
[2017-11-29] MEDS ORDERED: INSULIN LISPRO PROTAMINE SC SCH (10:00)
[2017-11-29] MEDS ORDERED: TRAVOPROST OU SCH (10:00)
[2017-11-29] MEDS ORDERED: Home Med 1 UNIT (Pantoprazole Sodium [Protonix] 40 MG) PO SCH (10:00)
[2017-11-29] MEDS: Pantoprazole 40 mg EC Tab PO SCH (11:08)
[2017-11-29] MEDS: POLYETHYLENE GLYCOL 3350 17 GM/Dose PACKET PO SCH (11:29)
--- NOTE | 2017-11-29 13:03 | CT ---
PROCEDURE: CT abdomen pelvis dated 11/29/2017 HISTORY: Abdominal pain upper and RLQ area COMPARISON: Comparison made with prior CT abdomen pelvis dated 09/20/2017 TECHNIQUE: Contiguous helical/transaxial images of the abdomen and pelvis. Oral contrast was administered. No IV contrast given. . Additional 2D sagittal and coronal reformats generated. This CT exam was performed using one or more of the following dose reduction techniques: Automated exposure control, adjustment of the mA and/or kV according to patient size, and/or use of iterative reconstruction technique. Radiation dose: Total exam DLP = 330.42 mGy-cm. FINDINGS: LOWER THORAX: Minor bibasilar atelectasis. Lung bases otherwise clear. There is a moderate size hiatal hernia containing oral contrast material extends superiorly into the lower esophagus most likely representing reflux. Wall thickening of the distal esophagus may in part be due to protrusion of gastric mucosa however esophagitis or other intrinsic/ invasive wall lesion such as esophageal carcinoma must be at considered. Recommend followup endoscopy. LIVER: Unremarkable. No gross lesion or ductal dilatation. GALLBLADDER AND BILE DUCTS: Gallbladder is physiologically distended. No evidence of intraluminal gallbladder calculi. PANCREAS: Unremarkable. No mass. No ductal dilatation. SPLEEN: Unremarkable. No splenomegaly. ADRENALS: No adrenal lesions. KIDNEYS AND URETERS: Unremarkable. No stone or hydronephrosis. Kidneys demonstrate relatively symmetric size. No evidence of nephrolithiasis or hydronephrosis. There is a small approximately 13.2 mm partially exophytic cyst anterior aspect midpole left kidney. BLADDER: Urinary bladder physiologically distended. No evidence of intraluminal urinary bladder calculi. REPRODUCTIVE: Unremarkable as visualized aside from vascular calcifications. APPENDIX: Normal-appearing appendix best seen on axial sequence image number [id number]. No periappendiceal inflammatory changes. BOWEL: Evaluation of the bowel is somewhat limited due to incomplete opacification. Large amount of stool seen throughout the colon consistent with retention/constipation. PERITONEUM: Unremarkable. No fluid collection. No free air. LYMPH NODES: Unremarkable. No enlarged lymph nodes. VASCULATURE: Unremarkable. No aortic aneurysm. BONES: No chronic appearing superior endplate compression deformity L2 segment. Minor fish-mouth endplate deformities seen at several additional levels. Vertebral bodies otherwise exhibit normal stature. Vertebral bodies and facets normally aligned. Multilevel degenerative spondylosis of the lower thoracic and lumbar spine. OTHER FINDINGS: None. IMPRESSION: Findings consistent with constipation. Moderate size hiatal hernia with oral contrast material seen in the distal esophagus likely due to reflux. There is also wall thickening of the distal esophagus which could be due to protrusion of gastric mucosa however possibility of esophagitis or other intrinsic/invasive wall lesion such is esophageal carcinoma not excluded. Endoscopy followup recommended. Small cyst anterior aspect midpole left kidney. . Note that this report was placed in PA review folder for followup
[2017-11-29 14:32] LABS: INR 1.1; PROTHROMBIN TIME 12.5 SECONDS (9.7-12.2)
--- NOTE | 2017-11-29 15:49 | CP.PCM.HP ---
History of Present Illness - History of Present Illness History of Present Illness: 87-year-old female presents with complaint of abdominal pain, multiple bowel movements and vomiting. Patient denies any fever, chills, chest pain,, diarrhea , hematochezia or shortness of breath Present on Admission - Present on Admission Any Indicators Present on Admission: No History of DVT/PE: No History of Uncontrolled Diabetes: No Urinary Catheter: No Decubitus Ulcer Present: No Review of Systems - Review of Systems All systems: reviewed and no additional remarkable complaints except (As mentioned in HPI) Past Patient History - Infectious Disease Hx of Infectious Diseases: None - Tetanus Immunizations Tetanus Immunization: Unknown - Past Medical History & Family History Past Medical History?: Yes - Past Social History Smoking Status: Never Smoked - CARDIAC Hx Cardiac Disorders: Yes (CAD, Coronary Stent, SD) Hx Hypercholesterolemia: Yes Hx Hypertension: Yes - PULMONARY Hx Respiratory Disorders: No - NEUROLOGICAL HX Cerebrovascular Accident: Yes (TIA) - HEENT Hx HEENT Problems: Yes Hx Cataracts: Yes - RENAL Hx Chronic Kidney Disease: No - ENDOCRINE/METABOLIC Hx Diabetes Mellitus Type 2: Yes - HEMATOLOGICAL/ONCOLOGICAL Hx Blood Disorders: Yes Hx Anemia: Yes - INTEGUMENTARY Hx Dermatological Problems: No - MUSCULOSKELETAL/RHEUMATOLOGICAL Hx Arthritis: Yes - GASTROINTESTINAL Hx Gastrointestinal Disorders: Yes Hx Gastritis: Yes - GENITOURINARY/GYNECOLOGICAL Hx Genitourinary Disorders: Yes Hx Urinary Tract Infection: Yes - PSYCHIATRIC Hx Psychophysiologic Disorder: No Hx Substance Use: No - SURGICAL HISTORY Hx Surgeries: Yes Hx Coronary Stent: Yes (01/2015 x2) - ANESTHESIA Hx Anesthesia: Yes Hx Anesthesia Reactions: No Hx Malignant Hyperthermia: No Meds Home Medications: Home Medication List Medication Instructions Recorded Confirmed Type Pantoprazole [Protonix EC Tab] 40 mg PO DAILY #30 ect 12/02/17 Rx Allergies/Adverse Reactions: Allergies Allergy/AdvReac Type Severity Reaction Status Date / Time No Known Allergies Allergy Verified 09/20/17 01:16 Physical Exam - Head Exam Head Exam: NORMAL INSPECTION - Eye Exam Eye Exam: Normal appearance - ENT Exam ENT Exam: Mucous Membranes Moist - Respiratory Exam Respiratory Exam: Clear to Auscultation Bilateral - Cardiovascular Exam Cardiovascular Exam: REGULAR RHYTHM, +S1, +S2 - GI/Abdominal Exam GI & Abdominal Exam: Hyperactive Bowel Sounds, Soft, Tenderness - Extremities Exam Extremities exam: Positive for: normal inspection Results - Vital Signs Recent Vital Signs: Last Vital Signs Temp 98.8 F 11/29/17 07:35 Pulse 98 H 11/29/17 07:35 Resp 20 11/29/17 07:35 BP 129/81 11/29/17 11:08 Pulse Ox 96 11/29/17 07:35 - Labs Result Diagrams: 12/02/17 13:46 12/02/17 13:46 Labs: Laboratory Results - last 24 hr 11/29/17 11/29/17 11/29/17 00:22 00:22 03:48 WBC 7.3 RBC 3.68 L Hgb 11.3 Hct 33.6 L MCV 91.1 MCH 30.7 MCHC 33.8 RDW 13.9 Plt Count 224 MPV 9.0 Neut % (Auto) 79.6 H Lymph % (Auto) 14.8 L [place] % (Auto) 5.0 Eos % (Auto) 0.1 Baso % (Auto) 0.5 Neut # (Auto) 5.8 Lymph # (Auto) 1.1 [place] # (Auto) 0.4 Eos # (Auto) 0.0 Baso # (Auto) 0.0 PT INR APTT Sodium 145 Potassium 4.3 Chloride 106 Carbon Dioxide 25 Anion Gap 19 BUN 25 H Creatinine 1.3 H Est GFR ( Amer) 47 Est GFR (Non-Af Amer) 39 POC Glucose (mg/dL) Random Glucose 120 H Calcium 10.0 Total Bilirubin 0.4 AST 23 ALT 16 Alkaline Phosphatase 71 Total Protein 7.9 Albumin 4.4 Globulin 3.5 Albumin/Globulin Ratio 1.3 Lipase 681 H Carcinoembryonic Ag Urine Color Yellow Urine Clarity Clear Urine pH 5.0 Ur Specific [place] 1.013 Urine Protein Negative Urine Glucose (UA) 2+ H Urine Ketones Negative Urine Blood 1+ H Urine Nitrate Negative Urine Bilirubin Negative Urine Urobilinogen Normal Ur Leukocyte Esterase Neg Urine WBC (Auto) 1 Urine RBC (Auto) 2 11/29/17 11/29/17 11/29/17 06:51 11:51 14:02 WBC RBC Hgb Hct MCV MCH MCHC RDW Plt Count MPV Neut % (Auto) Lymph % (Auto) [place] % (Auto) Eos % (Auto) Baso % (Auto) Neut # (Auto) Lymph # (Auto) [place] # (Auto) Eos # (Auto) Baso # (Auto) PT 12.5 H INR 1.1 APTT 37 H Sodium Potassium Chloride Carbon Dioxide Anion Gap BUN Creatinine Est GFR ( Amer) Est GFR (Non-Af Amer) POC Glucose (mg/dL) 210 H 151 H Random Glucose Calcium Total Bilirubin AST ALT Alkaline Phosphatase Total Protein Albumin Globulin Albumin/Globulin Ratio Lipase Carcinoembryonic Ag Urine Color Urine Clarity Urine pH Ur Specific [place] Urine Protein Urine Glucose (UA) Urine Ketones Urine Blood Urine Nitrate Urine Bilirubin Urine Urobilinogen Ur Leukocyte Esterase Urine WBC (Auto) Urine RBC (Auto) 11/29/17 14:02 WBC RBC Hgb Hct MCV MCH MCHC RDW Plt Count MPV Neut % (Auto) Lymph % (Auto) [place] % (Auto) Eos % (Auto) Baso % (Auto) Neut # (Auto) Lymph # (Auto) [place] # (Auto) Eos # (Auto) Baso # (Auto) PT INR APTT Sodium Potassium Chloride Carbon Dioxide Anion Gap BUN Creatinine Est GFR ( Amer) Est GFR (Non-Af Amer) POC Glucose (mg/dL) Random Glucose Calcium Total Bilirubin AST ALT Alkaline Phosphatase Total Protein Albumin Globulin Albumin/Globulin Ratio Lipase Carcinoembryonic Ag 7.1 H Urine Color Urine Clarity Urine pH Ur Specific [place] Urine Protein Urine Glucose (UA) Urine Ketones Urine Blood Urine Nitrate Urine Bilirubin Urine Urobilinogen Ur Leukocyte Esterase Urine WBC (Auto) Urine RBC (Auto) Assessment & Plan (1) Coronary artery disease Status: Acute (2) Peptic ulcer disease Status: Acute (3) Abdominal pain Status: Acute (4) Anemia Status: Acute (5) Pancreatitis Status: Acute (6) Diabetes Status: Chronic (7) Essential (primary) hypertension Status: Chronic - Assessment and Plan (Free Text) Plan: N.p.o. IV fluids Follow lipase Pain control GI consult Accu-Chek Insulin sliding scale Lopressor Amaryl DVT/GI prophylaxis
[2017-11-29] MEDS: (Novolog Mix 70/30) Insulin Aspart/Insulin Aspar 100 units/ml SC SCH ×2 (18:13→18:18)
[2017-11-29] MEDS: Latanoprost 2.5 ml Opht Soln OU SCH (21:42)
[2017-11-30] MEDS: Sodium Chloride 0.45% 1,000 ML IV SCH ×5 (02:00→21:16)
[2017-11-30 07:59] LABS: AMYLASE 69 U/L (30-110); LIPASE 271 U/L (23-300)
[2017-11-30] MEDS ORDERED: Propofol 10 mg/ml Inj (20 ML) ONE (07:59)
[2017-11-30] MEDS ORDERED: Lactated Ringer's 1,000 ML IV ONE (08:00)
[2017-11-30] MEDS: (Novolog Mix 70/30) Insulin Aspart/Insulin Aspar 100 units/ml SC SCH ×2 (08:35→18:01)
[2017-11-30] MEDS: Pantoprazole 40 mg EC Tab PO SCH (09:58)
[2017-11-30] MEDS: Enoxaparin 30 mg Syringe SC SCH (10:03)
[2017-11-30] MEDS: POLYETHYLENE GLYCOL 3350 17 GM/Dose PACKET PO SCH (10:04)
[2017-11-30] MEDS ORDERED: Peg-Electrolyte Oral Soln 4L (Golytely) PO ONE (11:00)
[2017-11-30] MEDS ORDERED: Bisacodyl 5mg EC Tab PO ONE ×2 (17:00→21:32)
--- NOTE | 2017-11-30 18:34 | CP.PCM.PN ---
Subjective - Date & Time of Evaluation Date of Evaluation: 11/30/17 Time of Evaluation: 18:34 - Subjective Subjective: Patient seen and examined No events overnight Reports improved abdominal pain Objective - Vital Signs/Intake and Output Vital Signs (last 24 hours): Temp Pulse Resp BP Pulse Ox 98.2 F 65 20 151/74 H 96 11/30/17 15:48 11/30/17 15:48 11/30/17 15:48 11/30/17 17:59 11/30/17 15:48 - Medications Medications: Current Medications Aspirin (Ecotrin) 81 mg PO DAILY ON LICENSE OF [facility] Last Admin: 11/30/17 10:03 Dose: 81 mg Enoxaparin Sodium (Lovenox) 30 mg SC DAILY ON LICENSE OF [facility] Last Admin: 11/30/17 10:03 Dose: 30 mg Glimepiride (Amaryl) 4 mg PO DAILY ON LICENSE OF [facility] Last Admin: 11/30/17 10:03 Dose: 4 mg Sodium Chloride (Sodium Chloride 0.45%) 1,000 mls @ 150 mls/hr IV .Q6H40M ON LICENSE OF [facility] Last Admin: 11/30/17 16:08 Dose: Not Given Insulin Aspart (Novolog Mix 70/30 (70/30 Units/Ml)) 23 units SC BIDCC ON LICENSE OF [facility] Last Admin: 11/30/17 18:01 Dose: 23 unit Latanoprost (Xalatan Opht) 0 ml OU HS ON LICENSE OF [facility] Last Admin: 11/29/17 21:42 Dose: 2.5 ml Metformin HCl (Glucophage) 500 mg PO DAILY ON [facility] OF [facility] Last Admin: 11/30/17 10:03 Dose: 500 mg Metoclopramide HCl (Reglan) 5 mg IVP Q6H ON LICENSE OF [facility] Last Admin: 11/30/17 18:00 Dose: 5 mg Metoprolol Tartrate (Lopressor) 25 mg PO BID ON LICENSE OF [facility] Last Admin: 11/30/17 17:59 Dose: 25 mg Pantoprazole Sodium (Protonix Ec Tab) 40 mg PO DAILY ON LICENSE OF [facility] Last Admin: 11/30/17 09:58 Dose: 40 mg Pneumococcal Polyvalent Vaccine (Pneumovax 23 Vaccine) 0.5 ml IM .ONCE ONE Stop: 12/01/17 14:01 Polyethylene Glycol (Miralax) 17 gm PO DAILY ON LICENSE OF [facility] Last Admin: 11/30/17 10:04 Dose: 17 gm Tramadol HCl (Ultram) 50 mg PO Q8H PRN PRN Reason: Pain, moderate (4-7) Last Admin: 11/29/17 19:07 Dose: 50 mg - Labs Labs: 11/29/17 00:22 11/29/17 00:22 PT 12.5 SECONDS (9.7-12.2) H 11/29/17 14:02 INR 1.1 11/29/17 14:02 APTT 37 SECONDS (21-34) H 11/29/17 14:02 - Head Exam Head Exam: NORMAL INSPECTION - Eye Exam Eye Exam: Normal appearance - ENT Exam ENT Exam: Mucous Membranes Moist - Respiratory Exam Respiratory Exam: Clear to Ausculation Bilateral - Cardiovascular Exam Cardiovascular Exam: REGULAR RHYTHM - GI/Abdominal Exam GI & Abdominal Exam: Soft, Normal Bowel Sounds - Extremities Exam Extremities Exam: Normal Inspection - Neurological Exam Neurological Exam: Alert Assessment and Plan (1) Abdominal pain Status: Acute (2) Anemia Status: Acute (3) Coronary artery disease Status: Acute (4) Pancreatitis Status: Acute (5) Diabetes Status: Chronic (6) Essential (primary) hypertension Status: Chronic - Assessment and Plan (Free Text) Plan: Improving lipase GI consult appreciated Patient to go for EGD Pain control Accu-Chek Amaryl Insulin Lopressor DVT/GI prophylaxis
[2017-11-30] MEDS: Latanoprost 2.5 ml Opht Soln OU SCH (22:13)
[2017-12-01] MEDS: Sodium Chloride 0.45% 1,000 ML IV SCH (04:40)
[2017-12-01] MEDS ORDERED: Propofol 10 mg/ml Inj (20 ML) ONE ×2 (08:56→14:54)
[2017-12-01] MEDS ORDERED: Succinylcholine Chloride 20 mg/ml Syr (5 ml) IV ONE (08:56)
[2017-12-01] MEDS: Enoxaparin 30 mg Syringe SC SCH (10:03)
[2017-12-01] MEDS: Pantoprazole 40 mg EC Tab PO SCH (10:04)
[2017-12-01] MEDS: (Novolog Mix 70/30) Insulin Aspart/Insulin Aspar 100 units/ml SC SCH ×2 (10:04→17:48)
[2017-12-01] MEDS: POLYETHYLENE GLYCOL 3350 17 GM/Dose PACKET PO SCH (10:04)
--- NOTE | 2017-12-01 11:02 | CP.PCM.PN ---
Subjective - Date & Time of Evaluation Date of Evaluation: 12/01/17 Time of Evaluation: 10:58 - Subjective Subjective: Patient is seen and examined S/P EGD Awaiting colonoscopy Reports improved abdominal pain Lipase back to normal Objective - Vital Signs/Intake and Output Vital Signs (last 24 hours): Temp Pulse Resp BP Pulse Ox 98.2 F 70 20 194/74 H 98 12/01/17 07:45 12/01/17 07:45 12/01/17 07:45 12/01/17 07:45 12/01/17 07:45 Intake and Output: 12/01/17 12/01/17 06:59 18:59 Intake Total 2460 Balance 2460 - Medications Medications: Current Medications Aspirin (Ecotrin) 81 mg PO DAILY [facility] Last Admin: 12/01/17 10:03 Dose: Not Given Enoxaparin Sodium (Lovenox) 30 mg SC DAILY [facility] [place] Last Admin: 12/01/17 10:03 Dose: Not Given Glimepiride (Amaryl) 4 mg PO DAILY [facility] [place] Last Admin: 12/01/17 10:03 Dose: Not Given Insulin Aspart (Novolog Mix 70/30 (70/30 Units/Ml)) 23 units SC BIDCC [facility] [place] Last Admin: 12/01/17 10:04 Dose: Not Given Latanoprost (Xalatan Opht) 0 ml OU HS [facility] [place] Last Admin: 11/30/17 22:13 Dose: 2.5 ml Metformin HCl (Glucophage) 500 mg PO DAILY [facility] [place] Last Admin: 12/01/17 10:03 Dose: Not Given Metoclopramide HCl (Reglan) 5 mg IVP Q6H [facility] [place] Last Admin: 12/01/17 08:58 Dose: 5 mg Metoprolol Tartrate (Lopressor) 25 mg PO BID [facility] [place] Last Admin: 12/01/17 10:03 Dose: Not Given Pantoprazole Sodium (Protonix Ec Tab) 40 mg PO DAILY [facility] [place] Last Admin: 12/01/17 10:04 Dose: Not Given Pneumococcal Polyvalent Vaccine (Pneumovax 23 Vaccine) 0.5 ml IM .ONCE ONE Stop: 12/01/17 14:01 Polyethylene Glycol (Miralax) 17 gm PO DAILY [facility] [place] Last Admin: 12/01/17 10:04 Dose: Not Given Tramadol HCl (Ultram) 50 mg PO Q8H PRN PRN Reason: Pain, moderate (4-7) Last Admin: 11/29/17 19:07 Dose: 50 mg - Labs Labs: 11/29/17 00:22 11/29/17 00:22 PT 12.5 SECONDS (9.7-12.2) H 11/29/17 14:02 INR 1.1 11/29/17 14:02 APTT 37 SECONDS (21-34) H 11/29/17 14:02 - Head Exam Head Exam: NORMAL INSPECTION - Eye Exam Eye Exam: Normal appearance - ENT Exam ENT Exam: Mucous Membranes Moist - Respiratory Exam Respiratory Exam: Clear to Ausculation Bilateral - Cardiovascular Exam Cardiovascular Exam: REGULAR RHYTHM, +S1, +S2 - GI/Abdominal Exam GI & Abdominal Exam: Soft, Normal Bowel Sounds - Extremities Exam Extremities Exam: Normal Inspection - Neurological Exam Neurological Exam: Alert, Oriented x3 Assessment and Plan (1) Pancreatitis Status: Acute (2) Diabetes Status: Chronic (3) Hypertension Status: Chronic - Assessment and Plan (Free Text) Plan: Accu-Chek Insulin sliding scale For colonoscopy today If colonoscopy negative then DC planning in a.m.
[2017-12-01] MEDS ORDERED: Pneumococcal 23-Valent Vaccine IM ONE (14:00)
[2017-12-01] MEDS ORDERED: Lactated Ringer's 1,000 ML IV ONE ×2 (14:52)
[2017-12-01] MEDS ORDERED: Belladonna-Phenobarbital PO ONE ×2 (15:30→18:00)
[2017-12-01 16:43] VITALS: RESP 20
--- NOTE | 2017-12-01 17:04 | CON ---
DATE: 11/29/2017 I was called for GI consultation by the admitting MD. The patient is seen and fully examined on 11/29/2017 as requested by the admitting medical staff. A short handwriting consultation sheet left in the chart. The entire chart is reviewed including, but not limited to the most recent lab and radiology study results, current and the previous medication list, current and the previous medical events, allergy to medication list as well as all the available current and the previous medical records. Case discussed with the staff at length. HISTORY OF PRESENT ILLNESS: This is a an 87-year-old female who was admitted to the hospital through the emergency room with the main complaint of severe abdominal pain, crampy in nature with recurrent episodes of nausea and vomiting of bile and gastric contents with recurrent episodes of diarrhea, more frequent bowel movement, but not that loose. The patient also had slight degree of chills with mild fever, but no reported active bleeding. No reported chest pain, palpitation, significant shortness of breath, but mild loss of appetite with decreased oral intake within the last few days prior to her admission. PAST MEDICAL HISTORY: Including, but not limited to, 1. Hypertension, coronary artery disease with status post coronary stent insertion about three years ago x2. 2. Known history of hyperlipidemia, diabetes mellitus with diabetic gastroparesis. 3. Reported history of CVA. 4. Osteoarthritis, by history. 5. Reported history of mild anemia before, but not . ALLERGIES TO MEDICATIONS: LIST IS REVIEWED. FAMILY HISTORY: Unknown. CURRENT MEDICATIONS: Medication list post-admission reviewed. SOCIAL HISTORY: No reported history of cigarette smoking or alcohol intake. LABORATORY DATA: Initial blood workup post-admission showed hemoglobin 11.3 with low hematocrit 33.6, BUN of 25, creatinine 1.3, blood glucose level 120. It was reported also elevated serum lipase and amylase level, as per her primary report. PHYSICAL EXAMINATION: GENERAL: An 87-year-old female, awake, alert. VITAL SIGNS: Afebrile with pulse of 102, respiratory rate 18 to 20, blood pressure 144/72. HEENT: Showed mildly pale, dry oral mucous membrane. Nonicteric sclerae. LYMPH NODES: No lymphadenitis or lymphadenopathy. LUNGS: Few scattered bilateral crepitation. Breathing sounds are present bilaterally. HEART: Positive S1 and S2. ABDOMEN: Soft with slight distention and generalized tenderness. No mass or organomegaly. No rebound tenderness or guarding, but slight distention. RECTAL: The patient refused. EXTREMITIES: Without significant clubbing or cyanosis, but with mild lower extremity edematous changes, evidence of osteoarthritis seen. NEUROLOGIC: No reported new neurological deficits, sensory or motor. IMPRESSION: 1. Re-exacerbation of peptic ulcer disease, to rule out gastric versus duodenal ulcer. 2. Mild anemia, to rule out gastrointestinal blood loss, to rule out occult gastrointestinal malignancy. 3. Diarrhea by definition diverticulosis with early stage of diverticulitis with risk versus fecal impaction inducing diarrhea. 4. Reported early stage of possible acute pancreatitis, unclear etiology, rule out hyperlipidemia inducing pancreatitis. 5. Multiple past medical history as mentioned above. SUGGESTION: 1. Agree with your plan. 2. Proton pump inhibitors IV. Reglan IV small dose p.r.n. 3. Abdominal ultrasound. 4. Follow up serum lipase and amylase level. 5. Cancer markers including CEA. 6. Complete stool analysis. 7. Endoscopic evaluation of the GI tract when the patient is more stable clinically. 8. Further recommendation to follow and Flagyl IV 500 mg every 8 hours to be started. Thank you for letting me participate in your patient's case management. Further recommendation to follow. Milla Sharp MD
[2017-12-01] MEDS: Latanoprost 2.5 ml Opht Soln OU SCH (21:18)
[2017-12-02 07:45] VITALS: PULSE 66
[2017-12-02] MEDS: (Novolog Mix 70/30) Insulin Aspart/Insulin Aspar 100 units/ml SC SCH ×2 (08:33→17:55)
[2017-12-02] MEDS: Pantoprazole 40 mg EC Tab PO SCH (10:36)
[2017-12-02] MEDS: POLYETHYLENE GLYCOL 3350 17 GM/Dose PACKET PO SCH (10:36)
[2017-12-02] MEDS: Enoxaparin 30 mg Syringe SC SCH (10:36)
[2017-12-02 13:52] LABS: BASO % 0.5 % (0.0-2.0); EOS # 0.1 K/uL (0.0-0.7); HEMOGLOBIN 11.9 g/dL (11.0-16.0); LYMPH # 3.3 K/uL (1.0-4.3); LYMPH % 54.1 % (20.0-40.0); MEAN CELL VOLUME 91.7 fL (81.0-99.0); MEAN CORPUSCULAR HEMOGLOBIN 30.6 pg (27.0-31.0); MEAN CORPUSCULAR HGB CONC 33.4 g/dL (33.0-37.0); MEAN PLATELET VOLUME 9.2 fL (7.2-11.7); MONO # 0.3 K/uL (0.0-0.8); MONO % 4.2 % (0.0-10.0); NEUT # 2.4 K/uL (1.8-7.0); NEUT % 39.2 % (50.0-75.0); RBC 3.88 Mil/uL (3.80-5.20); RED CELL DISTRIBUTION WIDTH 13.5 % (11.5-14.5); WHITE BLOOD COUNT 6.1 K/uL (4.8-10.8)
[2017-12-02 14:53] LABS: CALCIUM 9.4 mg/dl (8.6-10.4)
[2017-12-02 16:16] VITALS: BP 136/73; TEMP 97.8; O2SAT 98
--- NOTE | 2017-12-02 16:29 | CP.PCM.PN ---
Subjective - Date & Time of Evaluation Date of Evaluation: 12/02/17 Time of Evaluation: 11:30 - Subjective Subjective: Patient seen today, denies any abdominal pain, N/V/D tolerating diet Objective - Vital Signs/Intake and Output Vital Signs (last 24 hours): Temp Pulse Resp BP Pulse Ox 97.8 F 66 20 136/73 98 12/02/17 15:15 12/02/17 15:15 12/02/17 15:15 12/02/17 15:15 12/02/17 15:15 Intake and Output: 12/02/17 12/02/17 06:59 18:59 Intake Total 120 Balance 120 - Medications Medications: Current Medications Aspirin (Ecotrin) 81 mg PO DAILY [facility] Last Admin: 12/02/17 10:32 Dose: 81 mg Enoxaparin Sodium (Lovenox) 30 mg SC DAILY [facility] Last Admin: 12/02/17 10:36 Dose: 30 mg Glimepiride (Amaryl) 4 mg PO DAILY [facility] Last Admin: 12/02/17 10:36 Dose: 4 mg Insulin Aspart (Novolog Mix 70/30 (70/30 Units/Ml)) [facility] Last Admin: 12/02/17 08:33 Dose: 23 unit Latanoprost (Xalatan Opht) 0 ml OU HS [facility] Last Admin: 12/01/17 21:18 Dose: 2.5 ml Metformin HCl (Glucophage) 500 mg PO DAILY [facility] Last Admin: 12/02/17 10:31 Dose: 500 mg Metoclopramide HCl (Reglan) 5 mg IVP Q6H [facility] Last Admin: 12/02/17 08:33 Dose: 5 mg Metoprolol Tartrate (Lopressor) 25 mg PO BID [facility] Last Admin: 12/02/17 10:32 Dose: 25 mg Pantoprazole Sodium (Protonix Ec Tab) 40 mg PO DAILY [facility] Last Admin: 12/02/17 10:36 Dose: 40 mg Polyethylene Glycol (Miralax) 17 gm PO DAILY [facility] Last Admin: 12/02/17 10:36 Dose: 17 gm Tramadol HCl (Ultram) 50 mg PO Q8H PRN PRN Reason: Pain, moderate (4-7) Last Admin: 12/01/17 20:21 Dose: 50 mg - Labs Labs: 12/02/17 13:46 12/02/17 13:46 PT 12.5 SECONDS (9.7-12.2) H 11/29/17 14:02 INR 1.1 11/29/17 14:02 APTT 37 SECONDS (21-34) H 11/29/17 14:02 - Constitutional Appears: Well, No Acute Distress - Respiratory Exam Respiratory Exam: Clear to Ausculation Bilateral, NORMAL BREATHING PATTERN - Cardiovascular Exam Cardiovascular Exam: REGULAR RHYTHM, +S1, +S2 - GI/Abdominal Exam GI & Abdominal Exam: Soft, Normal Bowel Sounds - Neurological Exam Neurological Exam: Alert, Awake, Oriented x3 Assessment and Plan - Assessment and Plan (Free Text) Assessment: A/P 87 yr old female with pmhx of CAD, CVA, Dementia, Diabetes, Gastritis, HTN, Hypercholesterolemia admitted with Vomiting,/N, Pancreatitis, Renal insufficiency lipase improved - 271<681 cr- improved -
--- NOTE | 2017-12-04 09:10 | PN ---
DATE: 12/02/2017 LOCATION: 664, bed B. HISTORY OF PRESENT ILLNESS: This is an 87-year-old female, seen and examined in rounds, post upper and lower endoscopy, appeared to be awake, alert, oriented without any reported active bleeding, significant shortness of breath, chest pain, or palpitation. No reported chills or fever. The entire chart is reviewed, including, but not limited to most recent lab results, current and the previous medication list, current and the previous medical events. Today's blood glucose level was 222. Rest of the lab results is still pending as well as official pathology report , however, gastric mucosa pathology report was indicative of negative Helicobacter pylori. PHYSICAL EXAMINATION: GENERAL: An 87-year-old female, afebrile with pulse of 64, respiratory rate 20 to 22, blood pressure of 154/82. HEENT: Showed dry pale oral mucoid membrane. Nonicteric sclerae. LUNGS: Few scattered mild crepitation. Decreased air entry at bases. HEART: Positive S1 and S2. ABDOMEN: Soft with slight generalized tenderness. No mass or organomegaly. No rebound tenderness or guarding. EXTREMITIES: Without edema, clubbing, or cyanosis. NEUROLOGIC: No reported new neurological deficits, sensory or motor. Peripheral pulses are present bilaterally. IMPRESSION: 1. Peptic ulcer disease by recent upper endoscopy. 2. Diverticulosis, left-sided colitis with internal hemorrhoids by a recent colonoscopy. 3. Mild anemia with elevated CEA level 4. Known history of, but not limited to, osteoarthritis. Milla Sharp MD
--- NOTE | 2017-12-06 23:43 | CP.PCM.DIS ---
Provider - Provider Date of Admission: 11/29/17 04:51 Attending physician: Deon Frost MD Time Spent in preparation of Discharge (in minutes): 25 Diagnosis - Discharge Diagnosis (1) Pancreatitis Status: Acute (2) Diabetes Status: Chronic (3) Hypertension Status: Chronic Hospital Course - Lab Results Lab Results: Most Recent Lab Values WBC 6.1 K/uL (4.8-10.8) 12/02/17 13:46 RBC 3.88 Mil/uL (3.80-5.20) 12/02/17 13:46 Hgb 11.9 g/dL (11.0-16.0) 12/02/17 13:46 Hct 35.6 % (34.0-47.0) 12/02/17 13:46 MCV 91.7 fL (81.0-99.0) 12/02/17 13:46 MCH 30.6 pg (27.0-31.0) 12/02/17 13:46 MCHC 33.4 g/dL (33.0-37.0) 12/02/17 13:46 RDW 13.5 % (11.5-14.5) 12/02/17 13:46 Plt Count 244 K/uL (130-400) 12/02/17 13:46 MPV 9.2 fL (7.2-11.7) 12/02/17 13:46 Neut % (Auto) 39.2 % (50.0-75.0) L 12/02/17 13:46 Lymph % (Auto) 54.1 % (20.0-40.0) H 12/02/17 13:46 [place] % (Auto) 4.2 % (0.0-10.0) 12/02/17 13:46 Eos % (Auto) 2.0 % (0.0-4.0) 12/02/17 13:46 Baso % (Auto) 0.5 % (0.0-2.0) 12/02/17 13:46 Neut # (Auto) 2.4 K/uL (1.8-7.0) 12/02/17 13:46 Lymph # (Auto) 3.3 K/uL (1.0-4.3) 12/02/17 13:46 [place] # (Auto) 0.3 K/uL (0.0-0.8) 12/02/17 13:46 Eos # (Auto) 0.1 K/uL (0.0-0.7) 12/02/17 13:46 Baso # (Auto) 0.0 K/uL (0.0-0.2) 12/02/17 13:46 PT 12.5 SECONDS (9.7-12.2) H 11/29/17 14:02 INR 1.1 11/29/17 14:02 APTT 37 SECONDS (21-34) H 11/29/17 14:02 Sodium 139 mmol/L (132-148) 12/02/17 13:46 Potassium 4.0 mmol/L (3.6-5.2) 12/02/17 13:46 Chloride 99 mmol/L (98-107) 12/02/17 13:46 Carbon Dioxide 27 mmol/L (22-30) 12/02/17 13:46 Anion Gap 16 (10-20) 12/02/17 13:46 BUN 12 mg/dL (7-17) 12/02/17 13:46 Creatinine 1.4 mg/dL (0.7-1.2) H 12/02/17 13:46 Est GFR ( Amer) 43 12/02/17 13:46 Est GFR (Non-Af Amer) 36 12/02/17 13:46 POC Glucose (mg/dL) 248 mg/dL (65-110) H 12/02/17 16:24 Random Glucose 256 mg/dL (65-105) H 12/02/17 13:46 Calcium 9.4 mg/dl (8.6-10.4) 12/02/17 13:46 Total Bilirubin 0.4 mg/dL (0.2-1.3) 11/29/17 00:22 AST 23 U/L (14-36) 11/29/17 00:22 ALT 16 U/L (9-52) 11/29/17 00:22 Alkaline Phosphatase 71 U/L (38-126) 11/29/17 00:22 Total Protein 7.9 g/dL (6.3-8.3) 11/29/17 00:22 Albumin 4.4 g/dL (3.5-5.0) 11/29/17 00:22 Globulin 3.5 gm/dL (2.2-3.9) 11/29/17 00:22 Albumin/Globulin Ratio 1.3 (1.0-2.1) 11/29/17 00:22 Amylase 69 U/L (30-110) 11/30/17 06:29 Lipase 271 U/L (23-300) 11/30/17 06:29 Carcinoembryonic Ag 7.1 ng/mL (0-3.0) H 11/29/17 14:02 CA 19-9 Antigen < 1.4 U/mL (0-37) 11/29/17 14:02 CA 125 Antigen 6.5 U/mL (0-35) 11/29/17 14:02 Urine Color Yellow (YELLOW) 11/29/17 03:48 Urine Clarity Clear (Clear) 11/29/17 03:48 Urine pH 5.0 (5.0-8.0) 11/29/17 03:48 Ur Specific [place] 1.013 (1.003-1.030) 11/29/17 03:48 Urine Protein Negative mg/dL (NEGATIVE) 11/29/17 03:48 Urine Glucose (UA) 2+ mg/dL (Normal) H 11/29/17 03:48 Urine Ketones Negative mg/dL (NEGATIVE) 11/29/17 03:48 Urine Blood 1+ (NEGATIVE) H 11/29/17 03:48 Urine Nitrate Negative (NEGATIVE) 11/29/17 03:48 Urine Bilirubin Negative (NEGATIVE) 11/29/17 03:48 Urine Urobilinogen Normal mg/dL (0.2-1.0) 11/29/17 03:48 Ur Leukocyte Esterase Neg Pattie/uL (Negative) 11/29/17 03:48 Urine WBC (Auto) 1 /hpf (0-5) 11/29/17 03:48 Urine RBC (Auto) 2 /hpf (0-3) 11/29/17 03:48 - Hospital Course Hospital Course: Patient was initially made n.p.o. and IV fluids were given. Patient's condition improved. She was evaluated by GI and underwent EGD and colonoscopy. EGD showed peptic ulcer disease and colonoscopy showed diverticulosis and internal hemorrhoids. Patient was discharged home in stable condition. Discharge Exam - Head Exam Head Exam: NORMAL INSPECTION - ENT Exam ENT Exam: Mucous Membranes Moist - Respiratory Exam Respiratory Exam: Clear to PA & Lateral - Cardiovascular Exam Cardiovascular Exam: REGULAR RHYTHM - GI/Abdominal Exam GI & Abdominal Exam: Normal Bowel Sounds, Soft - Extremities Exam Extremities exam: normal inspection - Neurological Exam Neurological exam: Alert, Oriented x3 Discharge Plan - Discharge Medications Prescriptions: Pantoprazole [Protonix EC Tab] 40 mg PO DAILY #30 ect - Follow Up Plan Condition: STABLE Disposition: HOME/ ROUTINE Instructions: High Blood Pressure (DC), Pancreatitis (DC), Diverticulosis (DC) , Pantoprazole, Renal Failure Diet (DC), Acute Abdominal Pain (DC), Acute Abdominal Pain (GEN) Additional Instructions: Please f/u with PMD in 1 week Please f/u with Dr. Waldron office in 5 weeks continue medication as per med. rec. Please pick medication from your pharmacy- e prescribed Referrals: Deon Frost MD [Staff Provider] - Milla Waldron [Staff Provider] -
== END 2017-12-02 18:15 | disposition home or self-care (01) | DRG 383 ==
LOC: C.ER 22:58 → C.9E 11-29 04:51 → C.6T 11-29 05:16
PROVIDERS: ADMIT Internal Medicine Critical Care Medicine; ATTEND Internal Medicine Critical Care Medicine
PROC: 0DB68ZX Excision of Stomach, Via Natural or Artificial Opening Endoscopic, Diagnostic (ICD-10-PCS; principal; 2017-11-30 08:00)
PROC: 0DBM8ZX Excision of Descending Colon, Via Natural or Artificial Opening Endoscopic, Diagnostic (ICD-10-PCS; 2017-12-01)
DX: K25.9 Gastric ulcer, unspecified as acute or chronic, without hemorrhage or perforation (principal); K85.90 Acute pancreatitis without necrosis or infection, unspecified; K51.50 Left sided colitis without complications; D64.9 Anemia, unspecified; E11.43 Type 2 diabetes mellitus with diabetic autonomic (poly)neuropathy; E78.00 Pure hypercholesterolemia, unspecified; F03.90 Unspecified dementia, unspecified severity, without behavioral disturbance, psychotic disturbance, mood disturbance, and anxiety; K31.84 Gastroparesis; K44.9 Diaphragmatic hernia without obstruction or gangrene; K57.90 Diverticulosis of intestine, part unspecified, without perforation or abscess without bleeding; I10 Essential (primary) hypertension; I25.10 Atherosclerotic heart disease of native coronary artery without angina pectoris; Z86.73 Personal history of transient ischemic attack (TIA), and cerebral infarction without residual deficits; Z95.5 Presence of coronary angioplasty implant and graft

== ENCOUNTER 2017-12-19 16:39 | Inpatient (IN) | payer MEDICARE ==
[2017-12-19 16:40] VITALS: BMI 26.2
[2017-12-19] MEDS ORDERED: Sodium Chloride 0.9% 500 ML IV ONE (18:16)
--- NOTE | 2017-12-19 18:16 | C.PDOC ---
History Of Present Illness 87 year old female presents to the ER with daughter for a complaint of crampy lower abdominal discomfort, crampy epigastric discomfort after eating, and hallucinating today. As per daughter patient see people in the room who are not there. Patient has a Hx of pancreatitis and was recently admitted from 11/28/17- 12/02/[address] Adame. Denies fever or chills. Time Seen by Provider: 12/19/17 18:04 Chief Complaint (Nursing): Abdominal Pain History Per: Patient History/Exam Limitations: no limitations Onset/Duration Of Symptoms: Hrs Current Symptoms Are (Timing): Still Present Location Of Pain/Discomfort: Epigastric, Suprapubic Radiation Of Pain To:: None Quality Of Discomfort: Cramping Associated Symptoms: Other (Hallucinations). denies: Fever, Chills Exacerbating Factors: None Alleviating Factors: None Recent travel outside of the [place]: No Abnormal Vaginal Bleeding: No Past Medical History Reviewed: Historical Data, Nursing Documentation, Vital Signs Vital Signs: Last Vital Signs Temp 98.1 F 12/19/17 22:55 Pulse 90 12/19/17 22:55 Resp 18 12/19/17 22:55 BP 126/56 L 12/19/17 22:55 Pulse Ox 100 12/19/17 22:55 - Medical History PMH: Anemia, Arthritis, CAD, CVA, Dementia, Diabetes, Gastritis, HTN, Hypercholesterolemia, TIA Surgical History: Coronary Stent (01/2015 x2) - [facility] Procedures CENTRAL VENOUS CATHETER PLACEMENT WITH GUIDANCE (02/28/15) CORONAR ARTERIOGR-2 CATH (02/03/15) EXCISION OF DESCENDING COLON, ENDO, DIAGN (11/29/17) EXCISION OF STOMACH, ENDO, DIAGN (11/29/17) LEFT HEART CARDIAC CATH (02/03/15) LT HEART ANGIOCARDIOGRAM (02/03/15) Family History: States: Unknown Family Hx - Social History Hx Tobacco Use: No Hx Alcohol Use: No Hx Substance Use: No - Immunization History Hx Tetanus Toxoid Vaccination: No Hx Influenza Vaccination: Yes (03/2017) Hx Pneumococcal Vaccination: Yes Review Of Systems Constitutional: Negative for: Fever, Chills Cardiovascular: Negative for: Chest Pain, Palpitations Respiratory: Negative for: Cough, Shortness of Breath Gastrointestinal: Positive for: Abdominal Pain. Negative for: Nausea, Vomiting Neurological: Negative for: Weakness, Numbness Psych: Positive for: Other (Hallucinations) Physical Exam - Physical Exam Appears: Non-toxic, Other (Elderly black female actively hallucinating other people, anxious) Skin: Normal Color, Warm, Dry Head: Atraumatic, Normacephalic Eye(s): bilateral: Normal Inspection Oral Mucosa: Moist Neck: Normal, Supple Chest: Symmetrical, No Tenderness Cardiovascular: Rhythm Regular Respiratory: Normal Breath Sounds, No Rales, No Rhonchi, No Wheezing Gastrointestinal/Abdominal: Soft, No Tenderness, Other (Dull to percussion) Back: No CVA Tenderness Neurological/Psych: Other (No focal deficits) ED Course And Treatment - Laboratory Results Result Diagrams: 12/19/17 18:47 12/19/17 19:04 Lab Interpretation: Abnormal (lipase 755 H, UA neg.) ECG: Interpreted By Me ECG Rhythm: Sinus Rhythm ECG Interpretation: Normal Rate From EC O2 Sat by Pulse Oximetry: 99 (Room air) Pulse Ox Interpretation: Normal - Radiology CXR: Interpreted by Me CXR Interpretation: Yes: No Acute Disease Reevaluation Time: 21:42 Reassessment Condition: Improved - Physician Consult Information Outcome Of Conversation: d/w Dr. Randy Ramirez covering pt's for Dr. Frost (out of town). Dr. Snell covers pt's for Savage Parikh and [place] Medical Decision Making Medical Decision Making: Epigastric: pancreatitis lipase 755 CT no acute pancreas findings. Lower abd colic severe constipation laxatives overnight Hallucinating: New finding labs and head CT neg. h/o Depression and ? excerbation w Dementia improved with Ativan Consider Grace-Psych eval. Disposition Doctor Will See Patient In The: Hospital Counseled Patient/Family Regarding: Studies Performed, Diagnosis - Disposition Disposition: HOSPITALIZED Disposition Time: 21:45 Condition: GOOD - Clinical Impression Clinical Impression: Constipation, Pancreatitis, Hallucinations - Scribe Statement The provider has reviewed the documentation as recorded by the Scribpatt Sidhu All medical record entries made by the Scribe were at my direction and personally dictated by me. I have reviewed the chart and agree that the record accurately reflects my personal performance of the history, physical exam, medical decision making, and the department course for this patient. I have also personally directed, reviewed, and agree with the discharge instructions and disposition.
[2017-12-19 18:50] LABS: BASO # 0.1 K/uL (0.0-0.2); EOS # 0.1 K/uL (0.0-0.7); EOS % 1.6 % (0.0-4.0); NRBC % 0.1 % (0.0-2.0)
[2017-12-19 18:55] LABS: BASO % 0.8 % (0.0-2.0); HEMOGLOBIN 11.1 g/dL (11.0-16.0); LYMPH % 58.3 % (20.0-40.0); MEAN CELL VOLUME 91.6 fL (81.0-99.0); MEAN CORPUSCULAR HEMOGLOBIN 30.1 pg (27.0-31.0); MEAN CORPUSCULAR HGB CONC 32.9 g/dL (33.0-37.0); MEAN PLATELET VOLUME 9.5 fL (7.2-11.7); MONO # 0.4 K/uL (0.0-0.8); NEUT # 2.9 K/uL (1.8-7.0); NEUT % 34.3 % (50.0-75.0); RBC 3.68 Mil/uL (3.80-5.20); WHITE BLOOD COUNT 8.5 K/uL (4.8-10.8)
--- NOTE | 2017-12-19 18:57 | RAD ---
Date of service: 12/19/2017 PROCEDURE: CHEST RADIOGRAPH, 1 VIEW HISTORY: abd pain COMPARISON: Chest radiograph dated 07/15/2017. FINDINGS: LUNGS: Clear. PLEURA: No pneumothorax or pleural fluid seen. CARDIOVASCULAR: Atherosclerotic aortic calcifications. Cardiomediastinal silhouette stably prominent. OSSEOUS STRUCTURES: Unchanged. VISUALIZED UPPER ABDOMEN: Normal. OTHER FINDINGS: None. IMPRESSION: No active disease.
[2017-12-19 19:16] LABS: PROTHROMBIN TIME 10.5 SECONDS (9.7-12.2)
[2017-12-19 19:31] LABS: ALB/GLOB RATIO 1.4 (1.0-2.1); ALBUMIN 4.7 g/dL (3.5-5.0); ALT/SGPT 10 U/L (9-52); AST/SGOT 33 U/L (14-36); BLOOD UREA NITROGEN 20 mg/dL (7-17); CALCIUM 9.8 mg/dl (8.6-10.4); GFR AFRICAN-AMERICAN 43; GFR NON-AFRICAN AMERICAN 36; LIPASE 755 U/L (23-300)
[2017-12-19 20:53] LABS: SQUAMOUS EPITHIAL < 1 /hpf (0-5); URINE BILIRUBIN NEGATIVE (NEGATIVE); URINE BLOOD 1+ (NEGATIVE); URINE CLARITY Clear (Clear); URINE COLOR Straw (YELLOW); URINE GLUCOSE (UA) NORMAL (Normal); URINE LEUKOCYTE ESTERASE NEG Leu/uL (Negative); URINE PROTEIN NEGATIVE (NEGATIVE); URINE UROBILINOGEN NORMAL mg/dL (0.2-1.0)
--- NOTE | 2017-12-19 22:41 | CP.PCM.HP ---
Present on Admission - Present on Admission Any Indicators Present on Admission: No Past Patient History - Infectious Disease Hx of Infectious Diseases: None - Tetanus Immunizations Tetanus Immunization: Unknown - Past Medical History & Family History Past Medical History?: Yes - Past Social History Smoking Status: Never Smoked - CARDIAC Hx Hypercholesterolemia: Yes Hx Hypertension: Yes - PULMONARY Hx Respiratory Disorders: No - NEUROLOGICAL Hx Dementia: Yes Hx Transient Ischemic Attacks (TIA): Yes - HEENT Hx HEENT Problems: Yes Hx Cataracts: Yes - RENAL Hx Chronic Kidney Disease: No - ENDOCRINE/METABOLIC Hx Endocrine Disorders: Yes Hx Diabetes Mellitus Type 2: Yes - HEMATOLOGICAL/ONCOLOGICAL Hx Anemia: Yes - INTEGUMENTARY Hx Dermatological Problems: No - MUSCULOSKELETAL/RHEUMATOLOGICAL Hx Arthritis: Yes - GASTROINTESTINAL Hx Gastritis: Yes - GENITOURINARY/GYNECOLOGICAL Hx Genitourinary Disorders: Yes Hx Urinary Tract Infection: Yes - PSYCHIATRIC Hx Depression: No Hx Substance Use: No - SURGICAL HISTORY Hx Coronary Stent: Yes (01/2015 x2) - ANESTHESIA Hx Anesthesia: Yes Hx Anesthesia Reactions: No Hx Malignant Hyperthermia: No Meds Allergies/Adverse Reactions: Allergies Allergy/AdvReac Type Severity Reaction Status Date / Time No Known Allergies Allergy Verified 09/20/17 01:16 Results - Vital Signs Recent Vital Signs: Last Vital Signs Temp 99.3 F 12/19/17 16:57 Pulse 86 12/19/17 16:57 Resp 18 12/19/17 16:57 BP 173/66 H 12/19/17 16:57 Pulse Ox 99 12/19/17 21:46 - Labs Result Diagrams: 12/19/17 18:47 12/19/17 19:04 Labs: Laboratory Results - last 24 hr 12/19/17 12/19/17 12/19/17 18:47 19:04 19:04 WBC 8.5 RBC 3.68 L Hgb 11.1 Hct 33.7 L MCV 91.6 MCH 30.1 MCHC 32.9 L RDW 14.0 Plt Count 250 MPV 9.5 Neut % (Auto) 34.3 L Lymph % (Auto) 58.[address] % (Auto) 5.0 Eos % (Auto) 1.6 Baso % (Auto) 0.8 Neut # (Auto) 2.9 Lymph # (Auto) 5.[address] # (Auto) 0.4 Eos # (Auto) 0.1 Baso # (Auto) 0.1 PT 10.5 INR 1.0 APTT 21 Sodium 143 Potassium 4.8 Chloride 102 Carbon Dioxide 28 Anion Gap 18 BUN 20 H Creatinine 1.4 H Est GFR ( Amer) 43 Est GFR (Non-Af Amer) 36 Random Glucose 147 H Calcium 9.8 Total Bilirubin 0.9 AST 33 ALT 10 Alkaline Phosphatase 80 Troponin I < 0.0120 Total Protein 8.1 Albumin 4.7 Globulin 3.4 Albumin/Globulin Ratio 1.4 Lipase 755 H Urine Color Urine Clarity Urine pH Ur Specific [place] Urine Protein Urine Glucose (UA) Urine Ketones Urine Blood Urine Nitrate Urine Bilirubin Urine Urobilinogen Ur Leukocyte Esterase Urine WBC (Auto) Urine RBC (Auto) Ur Squamous Epith Cells 12/19/17 20:45 WBC RBC Hgb Hct MCV MCH MCHC RDW Plt Count MPV Neut % (Auto) Lymph % (Auto) Lane % (Auto) Eos % (Auto) Baso % (Auto) Neut # (Auto) Lymph # (Auto) Lane # (Auto) Eos # (Auto) Baso # (Auto) PT INR APTT Sodium Potassium Chloride Carbon Dioxide Anion Gap BUN Creatinine Est GFR ( Amer) Est GFR (Non-Af Amer) Random Glucose Calcium Total Bilirubin AST ALT Alkaline Phosphatase Troponin I Total Protein Albumin Globulin Albumin/Globulin Ratio Lipase Urine Color Straw Urine Clarity Clear Urine pH 7.0 Ur Specific [place] 1.003 Urine Protein Negative Urine Glucose (UA) Normal Urine Ketones Negative Urine Blood 1+ H Urine Nitrate Negative Urine Bilirubin Negative Urine Urobilinogen Normal Ur Leukocyte Esterase Neg Urine WBC (Auto) < 1 Urine RBC (Auto) 3 Ur Squamous Epith Cells < 1
[2017-12-19] MEDS ORDERED: Sodium Chloride 0.9% 1,000 ML IV SCH (23:00)
[2017-12-20] MEDS: Sodium Chloride 0.9% 1,000 ML IV SCH ×3 (02:55→18:30)
--- NOTE | 2017-12-20 06:52 | CT ---
Date of service: 12/19/2017 PROCEDURE: CT HEAD WITHOUT CONTRAST. HISTORY: new hallucinations, no trauma, recent pancreatitis COMPARISON: None available. TECHNIQUE: Axial computed tomography images were obtained through the head/brain without intravenous contrast. Radiation dose: Total exam DLP = 922 mGy-cm. This CT exam was performed using one or more of the following dose reduction techniques: Automated exposure control, adjustment of the mA and/or kV according to patient size, and/or use of iterative reconstruction technique. FINDINGS: HEMORRHAGE: No intracranial hemorrhage. BRAIN: Cerebral and cerebellar atrophy. Periventricular and subcortical low-density changes are noted suggesting small vessel ischemic change. VENTRICLES: Unremarkable. No hydrocephalus. CALVARIUM: Unremarkable. PARANASAL SINUSES: Unremarkable as visualized. No significant inflammatory changes. MASTOID AIR CELLS: Unremarkable as visualized. No inflammatory changes. OTHER FINDINGS: Vascular calcifications. IMPRESSION: Cerebral and cerebellar atrophy. Chronic microvascular ischemic change. No acute intracranial abnormality. If symptoms persists, consider correlation with MRI. These findings were preliminarily reported at 9:03 p.m. on 12/19/[address] Jeffrey Rose from [facility].
[2017-12-20 07:45] LABS: ALB/GLOB RATIO 1.3 (1.0-2.1); ALBUMIN 4.1 g/dL (3.5-5.0); CALCIUM 9.2 mg/dl (8.6-10.4)
[2017-12-20] MEDS: (Novolog) Insulin Aspart, Recombinant 100 u/ml 10 ml vial SC SCH ×4 (08:07→21:09)
--- NOTE | 2017-12-20 08:55 | CP.PCM.CON ---
<CorneliabrionnapeeDamian - Last Filed: 12/20/17 15:33> History of Present Illness - History of Present Illness History of Present Illness: GI Fellow PGY4, Consult note. Consult for pancreatitis. Hyacinth Lucero is a very pleasant 87yo AAF with history of chronic constipation on prn miralax, pancreatitis, CAD, uncontrolled T2DM presenting with abdominal pain. [employer], pain had been intermittent, mild and dull. The abdominal pain was diffuse over the last several days. She came to the hospital after having an episode of non-bloody emesis with food contents. The pain was not associated with food. The pain was slightly better with a small BM she had Monday. She has had similar pain in the past consistent with constipation. She last used miralax 5 days ago. She has been feeling constipated with hard stool lately. Today her pain is better but her abdomen feels "full". She is passing gas. She is requesting food. Denies n/v. Weight has been stable. No fevers or chest pain. PMHx - CAD, NSTEMI, uncontrolled T2DM, constipation. PSHx - No abdominal surgeries. Previous cardiac stent. FMHx - No colon, stomach or liver disease in family. SocHx - Never smoker or alcohol user. Lives at home with daughter. 12pt ROS completed and negative except for as above. Past Patient History - Infectious Disease Hx of Infectious Diseases: None - Tetanus Immunizations Tetanus Immunization: Unknown - Past Medical History & Family History Past Medical History?: Yes - Past Social History Smoking Status: Never Smoked - CARDIAC Hx Cardiac Disorders: Yes Hx Hypercholesterolemia: Yes Hx Hypertension: Yes - PULMONARY Hx Respiratory Disorders: No - NEUROLOGICAL Hx Neurological Disorder: Yes Hx Dementia: Yes Hx Transient Ischemic Attacks (TIA): Yes - HEENT Hx HEENT Problems: Yes Hx Cataracts: Yes - RENAL Hx Chronic Kidney Disease: No - ENDOCRINE/METABOLIC Hx Endocrine Disorders: Yes Hx Diabetes Mellitus Type 2: Yes - HEMATOLOGICAL/ONCOLOGICAL Hx Blood Disorders: Yes Hx Anemia: Yes - INTEGUMENTARY Hx Dermatological Problems: No - MUSCULOSKELETAL/RHEUMATOLOGICAL Hx Falls: No - GASTROINTESTINAL Hx Gastrointestinal Disorders: Yes Hx Gastritis: Yes - GENITOURINARY/GYNECOLOGICAL Hx Genitourinary Disorders: Yes Hx Urinary Tract Infection: Yes - PSYCHIATRIC Hx Substance Use: No - SURGICAL HISTORY Hx Surgeries: Yes Hx Coronary Stent: Yes (01/2015 x2) - ANESTHESIA Hx Anesthesia: Yes Hx Anesthesia Reactions: No Hx Malignant Hyperthermia: No Has any member of the family had a problem w/ anesthesia?: No Meds Allergies/Adverse Reactions: Allergies Allergy/AdvReac Type Severity Reaction Status Date / Time No Known Allergies Allergy Verified 09/20/17 01:16 - Medications Medications: Current Medications Enoxaparin Sodium (Lovenox) 40 mg SC DAILY [facility] Sodium Chloride (Sodium Chloride 0.9%) 1,000 mls @ 75 mls/hr IV .[id number] [facility] Last Admin: 12/20/17 02:55 Dose: 75 mls/hr Insulin Aspart (Novolog) 0 unit SC ACHS JOSE ELIAS PRN Reason: Protocol Last Admin: 12/20/17 08:07 Dose: Not Given Pantoprazole Sodium (Protonix Inj) 40 mg IVP DAILY [facility] Physical Exam - Constitutional Appears: Well, Non-toxic, No Acute Distress - Head Exam Head Exam: ATRAUMATIC, NORMAL INSPECTION, NORMOCEPHALIC - Eye Exam Eye Exam: EOMI, Normal appearance, PERRL - ENT Exam ENT Exam: Mucous Membranes Moist, Normal Exam - Cardiovascular Exam Cardiovascular Exam: REGULAR RHYTHM, +S1, +S2 - GI/Abdominal Exam GI & Abdominal Exam: Normal Bowel Sounds, Soft. absent: Distended, Tenderness - Rectal Exam Rectal Exam: Deferred - Extremities Exam Extremities exam: Positive for: normal inspection - Neurological Exam Neurological exam: Alert, CN II-XII Intact, Oriented x3 - Psychiatric Exam Psychiatric exam: Normal Affect, Normal Mood - Skin Skin Exam: Dry, Intact, Normal Color, Warm Results - Vital Signs Recent Vital Signs: Last Vital Signs Temp 98.5 F 12/20/17 00:24 Pulse 91 H 12/20/17 00:24 Resp 18 12/20/17 03:01 BP 143/64 12/20/17 00:24 Pulse Ox 99 12/20/17 00:31 - Labs Result Diagrams: 12/19/17 18:47 12/20/17 07:03 Labs: Laboratory Results - last 24 hr 12/19/17 12/19/17 12/19/17 18:47 19:04 19:04 WBC 8.5 RBC 3.68 L Hgb 11.1 Hct 33.7 L MCV 91.6 MCH 30.1 MCHC 32.9 L RDW 14.0 Plt Count 250 MPV 9.5 Neut % (Auto) 34.3 L Lymph % (Auto) 58.3 H [place] % (Auto) 5.0 Eos % (Auto) 1.6 Baso % (Auto) 0.8 Neut # (Auto) 2.9 Lymph # (Auto) 5.0 H [place] # (Auto) 0.4 Eos # (Auto) 0.1 Baso # (Auto) 0.1 PT 10.5 INR 1.0 APTT 21 Sodium 143 Potassium 4.8 Chloride 102 Carbon Dioxide 28 Anion Gap 18 BUN 20 H Creatinine 1.4 H Est GFR ( Amer) 43 Est GFR (Non-Af Amer) 36 POC Glucose (mg/dL) Random Glucose 147 H Calcium 9.8 Total Bilirubin 0.9 AST 33 ALT 10 Alkaline Phosphatase 80 Troponin I < 0.0120 Total Protein 8.1 Albumin 4.7 Globulin 3.4 Albumin/Globulin Ratio 1.4 Amylase Lipase 755 H Urine Color Urine Clarity Urine pH Ur Specific [place] Urine Protein Urine Glucose (UA) Urine Ketones Urine Blood Urine Nitrate Urine Bilirubin Urine Urobilinogen Ur Leukocyte Esterase Urine WBC (Auto) Urine RBC (Auto) Ur Squamous Epith Cells 12/19/17 12/20/17 12/20/17 20:45 07:03 07:12 WBC RBC Hgb Hct MCV MCH MCHC RDW Plt Count MPV Neut % (Auto) Lymph % (Auto) [place] % (Auto) Eos % (Auto) Baso % (Auto) Neut # (Auto) Lymph # (Auto) [place] # (Auto) Eos # (Auto) Baso # (Auto) PT INR APTT Sodium 144 Potassium 4.6 Chloride 103 Carbon Dioxide 29 Anion Gap 16 BUN 18 H Creatinine 1.3 H Est GFR ( Amer) 47 Est GFR (Non-Af Amer) 39 POC Glucose (mg/dL) 169 H Random Glucose 149 H Calcium 9.2 Total Bilirubin 0.4 AST 17 ALT 14 Alkaline Phosphatase 78 Troponin I Total Protein 7.2 Albumin 4.1 Globulin 3.1 Albumin/Globulin Ratio 1.3 Amylase 88 Lipase 520 H Urine Color Straw Urine Clarity Clear Urine pH 7.0 Ur Specific [place] 1.003 Urine Protein Negative Urine Glucose (UA) Normal Urine Ketones Negative Urine Blood 1+ H Urine Nitrate Negative Urine Bilirubin Negative Urine Urobilinogen Normal Ur Leukocyte Esterase Neg Urine WBC (Auto) < 1 Urine RBC (Auto) 3 Ur Squamous Epith Cells < 1 Assessment & Plan - Assessment and Plan (Free Text) Assessment: 87F with hx of chronic constipation presenting with diffuse, mild abdominal pain for several days and imaging findings consistent with constipation. #Chronic constipation #Mildly dilated pancreatic duct #Diverticulosis #Esophagitis LA grade A #Gastric ulcer #Uncontrolled T2DM #CAD s/p stent #HTN #CKD Plan: -Continue supportive care -CT abd/pelv noted, no signs of pancreatitis however mild pancreatic duct dilation. + Colonic stool retention. -Lipase less than 3xULN, doubt pancreatitis given clinical, lab and imaging work -up. -Lipase not specific for pancreatitis as it can be elevated for many intra- abdominal conditions -Clinically constipated -Advance to regular diet -Bowel regimen with miralax, colace -Continue PPI, zofran as needed. Avoid NSAIDs. -Recommend outpatient EUS with Dr. Lantigua to better evaluate pancreatic sturctures. Avoid CT contrast due to CKD. -We will sign-off at this point. Please reconsult for any further GI conditions. - Date & Time Date: 12/20/17 Time: 08:57 <Rohan Varma - Last Filed: 12/20/17 17:31> Meds - Medications Medications: Current Medications Docusate Sodium (Colace) 100 mg PO BID [facility] Heparin Sodium (Porcine) (Heparin) 5,000 units SC Q12H [facility] Last Admin: 12/20/17 11:36 Dose: 5,000 units Sodium Chloride (Sodium Chloride 0.9%) 1,000 mls @ 75 mls/hr IV .[id number] [facility] Last Admin: 12/20/17 16:20 Dose: Not Given Insulin Aspart (Novolog) 0 unit SC ACHS [facility] PRN Reason: Protocol Last Admin: 12/20/17 12:03 Dose: 1 units Pantoprazole Sodium (Protonix Inj) 40 mg IVP DAILY [facility] Last Admin: 12/20/17 11:37 Dose: 40 mg Polyethylene Glycol (Miralax) 17 gm PO BID [facility] Results - Vital Signs Recent Vital Signs: Last Vital Signs Temp 97.6 F 12/20/17 15:00 Pulse 85 12/20/17 15:00 Resp 20 12/20/17 15:00 BP 176/84 H 12/20/17 15:00 Pulse Ox 96 12/20/17 15:00 - Labs Result Diagrams: 12/19/17 18:47 12/20/17 07:03 Labs: Laboratory Results - last 24 hr 12/19/17 12/19/17 12/19/17 18:47 19:04 19:04 WBC 8.5 RBC 3.68 L Hgb 11.1 Hct 33.7 L MCV 91.6 MCH 30.1 MCHC 32.9 L RDW 14.0 Plt Count 250 MPV 9.5 Neut % (Auto) 34.3 L Lymph % (Auto) 58.3 H [place] % (Auto) 5.0 Eos % (Auto) 1.6 Baso % (Auto) 0.8 Neut # (Auto) 2.9 Lymph # (Auto) 5.0 H [place] # (Auto) 0.4 Eos # (Auto) 0.1 Baso # (Auto) 0.1 PT 10.5 INR 1.0 APTT 21 Sodium 143 Potassium 4.8 Chloride 102 Carbon Dioxide 28 Anion Gap 18 BUN 20 H Creatinine 1.4 H Est GFR ( Amer) 43 Est GFR (Non-Af Amer) 36 POC Glucose (mg/dL) Random Glucose 147 H Calcium 9.8 Total Bilirubin 0.9 AST 33 ALT 10 Alkaline Phosphatase 80 Troponin I < 0.0120 Total Protein 8.1 Albumin 4.7 Globulin 3.4 Albumin/Globulin Ratio 1.4 Amylase Lipase 755 H Urine Color Urine Clarity Urine pH Ur Specific [place] Urine Protein Urine Glucose (UA) Urine Ketones Urine Blood Urine Nitrate Urine Bilirubin Urine Urobilinogen Ur Leukocyte Esterase Urine WBC (Auto) Urine RBC (Auto) Ur Squamous Epith Cells 12/19/17 12/20/17 12/20/17 20:45 07:03 07:12 WBC RBC Hgb Hct MCV MCH MCHC RDW Plt Count MPV Neut % (Auto) Lymph % (Auto) [place] % (Auto) Eos % (Auto) Baso % (Auto) Neut # (Auto) Lymph # (Auto) [place] # (Auto) Eos # (Auto) Baso # (Auto) PT INR APTT Sodium 144 Potassium 4.6 Chloride 103 Carbon Dioxide 29 Anion Gap 16 BUN 18 H Creatinine 1.3 H Est GFR ( Amer) 47 Est GFR (Non-Af Amer) 39 POC Glucose (mg/dL) 169 H Random Glucose 149 H Calcium 9.2 Total Bilirubin 0.4 AST 17 ALT 14 Alkaline Phosphatase 78 Troponin I Total Protein 7.2 Albumin 4.1 Globulin 3.1 Albumin/Globulin Ratio 1.3 Amylase 88 Lipase 520 H Urine Color Straw Urine Clarity Clear Urine pH 7.0 Ur Specific [place] 1.003 Urine Protein Negative Urine Glucose (UA) Normal Urine Ketones Negative Urine Blood 1+ H Urine Nitrate Negative Urine Bilirubin Negative Urine Urobilinogen Normal Ur Leukocyte Esterase Neg Urine WBC (Auto) < 1 Urine RBC (Auto) 3 Ur Squamous Epith Cells < 1 12/20/17 12/20/17 11:33 16:00 WBC RBC Hgb Hct MCV MCH MCHC RDW Plt Count MPV Neut % (Auto) Lymph % (Auto) [place] % (Auto) Eos % (Auto) Baso % (Auto) Neut # (Auto) Lymph # (Auto) [place] # (Auto) Eos # (Auto) Baso # (Auto) PT INR APTT Sodium Potassium Chloride Carbon Dioxide Anion Gap BUN Creatinine Est GFR ( Amer) Est GFR (Non-Af Amer) POC Glucose (mg/dL) 234 H 300 H Random Glucose Calcium Total Bilirubin AST ALT Alkaline Phosphatase Troponin I Total Protein Albumin Globulin Albumin/Globulin Ratio Amylase Lipase Urine Color Urine Clarity Urine pH Ur Specific [place] Urine Protein Urine Glucose (UA) Urine Ketones Urine Blood Urine Nitrate Urine Bilirubin Urine Urobilinogen Ur Leukocyte Esterase Urine WBC (Auto) Urine RBC (Auto) Ur Squamous Epith Cells Attending/Attestation - Attestation I have personally seen and examined this patient.: Yes I have fully participated in the care of the patient.: Yes I have reviewed all pertinent clinical information: Yes Notes (Text): 12/20/17 17:26 I have seen and examined patient with GI fellow. Agree with above documentation with the following additions. In brief, this is an 87 year old female with history of CAD, DM, CKD, chronic constipation who presents to hospital with complaint of abdominal pain which has been getting progressively worse over past 3 days. She describes pain as diffuse, 5/10 intensity, not associated with food consumption. Yesterday she developed nausea and vomiting which prompted her to come to hospital. She denies fever/chills, weight loss, rectal bleeding, or change in bowel habits. She admits to ongoing constipation which is only mildly relieved with use of miralax. She had an EGD/colonoscopy recently showing diverticulosis and esophagitis. Review of vitals from today shows tachycardia. CAD DM CKD Chronic constipation Abdominal pain CT imaging reviewed by me showing no pancreatic abnormalities (though study was non-contrast), fecal retention - Advance diet slowly as tolerated - Anti-emetic therapy PRN - Elevated lipase with potentially multifactorial etiology, no clinical evidence of pancreatitis. Patient with dilated PD on abdominal US of unclear etiology, prior MRCP from 2014 showed similar findings. - Maintain aggressive bowel regimen to prevent constipation - Would suggest elective outpatient EUS of pancreas for further evaluation - No further planned GI interventions, will sign off case. Please reconsult as necessary, thank you.
[2017-12-20 09:04] VITALS: RESP 20
--- NOTE | 2017-12-20 09:34 | CT ---
Date of service: 12/19/2017 PROCEDURE: CT Abdomen and Pelvis without intravenous contrast HISTORY: epigastric, recent pancreatitis COMPARISON: CT dated 11/29/2017 TECHNIQUE: Multiple contiguous axial images were performed through the abdomen and pelvis without the use of intravenous contrast. Subsequently, sagittal and coronal reformatted images were obtained. Radiation dose: Total exam DLP = 620 mGy-cm. This CT exam was performed using one or more of the following dose reduction techniques: Automated exposure control, adjustment of the mA and/or kV according to patient size, and/or use of iterative reconstruction technique. FINDINGS: LOWER THORAX: Small pericardial effusion. Small hiatal hernia. Mild atelectasis at the lung bases. LIVER: Domingo hepatis calcification. GALLBLADDER AND BILE DUCTS: Unremarkable. PANCREAS: Mild prominence of the main pancreatic duct. Clinical correlation. Correlation with contrast-enhanced CT may be helpful if clinically indicated. SPLEEN: Diminutive. ADRENALS: Unremarkable. No mass. KIDNEYS AND URETERS: Unremarkable. No hydronephrosis. No solid mass. VASCULATURE: Vascular calcifications. BOWEL: Moderate to severe fecal retention in the colon. Diverticulosis. APPENDIX: No findings to suggest acute appendicitis. PERITONEUM: Unremarkable. No free fluid. No free air. LYMPH NODES: Unremarkable. No enlarged lymph nodes. BLADDER: Unremarkable. REPRODUCTIVE: Heterogeneous uterus with calcifications. BONES: Stable anterior wedging of the L2 vertebral body. Degenerative changes in the spine with spinal stenosis. OTHER FINDINGS: None. IMPRESSION: 1. Moderate to severe fecal retention in the colon. 2. Mild prominence of the main pancreatic duct. Clinical correlation. Correlation with contrast-enhanced CT may be helpful if clinically indicated. 3. Small hiatal hernia. 4. Stable anterior wedging of L2. Additional findings as above. These findings were preliminarily reported at 9:10 p.m. on 12/19/[address] Parag Rose from [facility].
[2017-12-20] MEDS ORDERED: Enoxaparin 40 mg Syringe SC SCH (10:00)
--- NOTE | 2017-12-20 11:10 | US ---
Date of service: 12/20/2017 HISTORY: Pancreatitis COMPARISON: CT scan of the abdomen and pelvis dated 12/19/2017. TECHNIQUE: Sonographic evaluation of the abdomen. FINDINGS: LIVER: Measures 13.6 cm. Normal echogenicity of the liver parenchyma. No mass. No intrahepatic bile duct dilatation. GALLBLADDER: Unremarkable. No gallstones. COMMON BILE DUCT: Measures 3 mm. No stones. No dilatation. PANCREAS: Not well visualized. RIGHT KIDNEY: Measures 9.7 x 3.9 x 4.3cm. Normal echogenicity. No calculus, mass, or hydronephrosis. LEFT KIDNEY: Measures 9.4 x 5.2 x 4.5cm. Normal echogenicity. No calculus, mass, or hydronephrosis. SPLEEN: Normal in size and contour. No mass. AORTA: No aneurysmal dilatation. IVC: Unremarkable. OTHER FINDINGS: None. IMPRESSION: Limited evaluation the pancreas. Otherwise, unremarkable abdominal ultrasound.
[2017-12-20] MEDS ORDERED: Bisacodyl 5mg EC Tab PO ONE (14:47)
[2017-12-20] MEDS: POLYETHYLENE GLYCOL 3350 17 GM/Dose PACKET PO SCH (18:33)
--- NOTE | 2017-12-20 20:33 | CP.PCM.PN ---
Subjective - Date & Time of Evaluation Date of Evaluation: 12/20/17 Time of Evaluation: 07:40 - Subjective Subjective: clinically same Objective - Vital Signs/Intake and Output Vital Signs (last 24 hours): Temp Pulse Resp BP Pulse Ox 97.6 F 85 20 176/84 H 96 12/20/17 15:00 12/20/17 15:00 12/20/17 15:00 12/20/17 15:00 12/20/17 15:00 - Medications Medications: Current Medications Aspirin (Ecotrin) 81 mg PO DAILY [facility] Docusate Sodium (Colace) 100 mg PO BID [facility] Last Admin: 12/20/17 18:33 Dose: 100 mg Glimepiride (Amaryl) 4 mg PO DAILY [facility] Heparin Sodium (Porcine) (Heparin) 5,000 units SC Q12H [facility] Last Admin: 12/20/17 11:36 Dose: 5,000 units Sodium Chloride (Sodium Chloride 0.9%) 1,000 mls @ 75 mls/hr IV .[id number] [facility] Last Admin: 12/20/17 18:30 Dose: 75 mls/hr Insulin Aspart (Novolog) 0 unit SC ACHS [facility] PRN Reason: Protocol Last Admin: 12/20/17 17:49 Dose: 4 units Metformin HCl (Glucophage) 500 mg PO BID [facility] Metoprolol Tartrate (Lopressor) 50 mg PO DAILY [facility] Pantoprazole Sodium (Protonix Inj) 40 mg IVP DAILY [facility] Last Admin: 12/20/17 11:37 Dose: 40 mg Polyethylene Glycol (Miralax) 17 gm PO BID [facility] Last Admin: 12/20/17 18:33 Dose: 17 gm - Labs Labs: 12/19/17 18:47 12/20/17 07:03 PT 10.5 SECONDS (9.7-12.2) 12/19/17 19:04 INR 1.0 12/19/17 19:04 APTT 21 SECONDS (21-34) 12/19/17 19:04 - Constitutional Appears: Well - Head Exam Head Exam: ATRAUMATIC, NORMAL INSPECTION, NORMOCEPHALIC - Eye Exam Eye Exam: EOMI, Normal appearance, PERRL Pupil Exam: NORMAL ACCOMODATION, PERRL - ENT Exam ENT Exam: Mucous Membranes Moist, Normal Exam - Neck Exam Neck Exam: Full ROM, Normal Inspection. absent: Lymphadenopathy - Respiratory Exam Respiratory Exam: Decreased Breath Sounds - Cardiovascular Exam Cardiovascular Exam: REGULAR RHYTHM, +S1, +S2 - GI/Abdominal Exam GI & Abdominal Exam: Soft, Diminished Bowel Sounds - Rectal Exam Rectal Exam: Deferred
[2017-12-21] MEDS: Sodium Chloride 0.9% 1,000 ML IV SCH (05:40)
[2017-12-21 07:48] VITALS: BP 185/77; PULSE 80; TEMP 97.7; O2SAT 97
--- NOTE | 2017-12-21 07:55 | CP.PCM.PN ---
Subjective - Date & Time of Evaluation Date of Evaluation: 12/21/17 Time of Evaluation: 07:31 - Subjective Subjective: PGY2 note for Dr Ramirez's service Pt seen and examined at bedside. Nursing reports patient hypertensive overnight , so IV fluids discontinued. Pt found aware, alert, and oriented x 2 (Person, Place, not time). Patient reports having BM this AM, and abd pain resolved afterwards. She reports tolerating diet. She denies hematochezia or pain with bowel movement. Denies fever, chills, SOB, chest pain, headache, or lightheadedness. Objective - Vital Signs/Intake and Output Vital Signs (last 24 hours): Temp Pulse Resp BP Pulse Ox 98 F 70 20 149/73 98 12/20/17 23:34 12/20/17 23:34 12/20/17 23:34 12/20/17 23:34 12/20/17 23:34 Intake and Output: 12/21/17 12/21/17 06:59 18:59 Intake Total 250 720 Output Total 2 Balance 248 720 - Medications Medications: Current Medications Aspirin (Ecotrin) 81 mg PO DAILY [facility] Docusate Sodium (Colace) 100 mg PO BID [facility] Last Admin: 12/20/17 18:33 Dose: 100 mg Glimepiride (Amaryl) 4 mg PO DAILY [facility] Heparin Sodium (Porcine) (Heparin) 5,000 units SC Q12H [facility] Last Admin: 12/20/17 22:24 Dose: 5,000 units Sodium Chloride (Sodium Chloride 0.9%) 1,000 mls @ 75 mls/hr IV .[id number] [facility] Last Admin: 12/21/17 05:40 Dose: Not Given Insulin Aspart (Novolog) 0 unit SC ACHS [facility] PRN Reason: Protocol Last Admin: 12/20/17 21:09 Dose: Not Given Metformin HCl (Glucophage) 500 mg PO BID [facility] Last Admin: 12/20/17 20:49 Dose: 500 mg Metoprolol Tartrate (Lopressor) 50 mg PO DAILY [facility] Last Admin: 12/20/17 20:52 Dose: 50 mg Pantoprazole Sodium (Protonix Inj) 40 mg IVP DAILY [facility] Last Admin: 12/20/17 11:37 Dose: 40 mg Polyethylene Glycol (Miralax) 17 gm PO BID [facility] Last Admin: 07/11/18 18:33 Dose: 17 gm - Labs Labs: 12/19/17 18:47 12/20/17 07:03 PT 10.5 SECONDS (9.7-12.2) 12/19/17 19:04 INR 1.0 12/19/17 19:04 APTT 21 SECONDS (21-34) 12/19/17 19:04 - Constitutional Appears: Non-toxic, No Acute Distress - Head Exam Head Exam: ATRAUMATIC, NORMAL INSPECTION - Eye Exam Eye Exam: EOMI, Normal appearance. absent: Scleral icterus Pupil Exam: PERRL - ENT Exam ENT Exam: Mucous Membranes Moist, Normal Exam - Neck Exam Neck Exam: Full ROM - Respiratory Exam Respiratory Exam: Clear to Ausculation Bilateral, NORMAL BREATHING PATTERN - Cardiovascular Exam Cardiovascular Exam: REGULAR RHYTHM, +S1, +S2 - GI/Abdominal Exam GI & Abdominal Exam: Soft, Normal Bowel Sounds. absent: Tenderness - Extremities Exam Extremities Exam: Normal Inspection. absent: Pedal Edema, Tenderness - Back Exam Back Exam: absent: CVA tenderness (L), CVA tenderness (R) - Neurological Exam Neurological Exam: Alert, Awake, Oriented x3 - Psychiatric Exam Psychiatric exam: Normal Affect, Normal Mood - Skin Skin Exam: Normal Color, Warm Assessment and Plan - Assessment and Plan (Free Text) Plan: Abdominal Pain, resolved Pain relieved with BM this AM Etiology: Most likely severe constipation, Chronic; Pancreatitis in differential due to elevated lipase Observe on Med/surg Afebrile; No WBC over course US ABD (12/20/17): Unremarkable CT A/P (12/20/17): Moderate to Severe fecal retention in the colon. Mild prominence of pancreatic duct. Small hiatal hernia. Wedging of L2. Troponin negative x 1 Lipase on admission 755 (710), decreased to 520 (12/20) Liver enzymes, T bili WNL Dr. Varma, GI loss control consultant - help appreciated - Elevated lipase with potentially multifactorial etiology, no clinical evidence of pancreatitis. - recommend OPDX EUS to better eval pancreatic structures - GI has signed off Colace 100mg PO BID Dulcolax ONCE Fleet Enema ONCE Miralax 17gm PO BID STOP NS @ 75ml/hr Zofran 4mg IV Q6H PRN nausea Diverticulosis/Esophagitis Recent findings from EGD/Colonoscopy (11/29/17) Uncontrolled DM A1c 7.9, BG mildly elevated through course Hypoglycemia protocol Accuchecks ACHS ISS Amaryl 4mg PO Daily Metformin 500mg PO BID Consistent carb diet CAD (s/p stent placement) ASA 81mg PO Daily Hx of TIA ASA 81mg PO Daily Dementia/Hallucinations CT head (12/19/17): No acute abnormality. Chronic microvascular changes. Cerebral /Cerebellar atrophy. HTN Metorpolol 50mg PO BID STOP NS @ 75cc/hr CKD, Stage 3 Cr 1.4 on admission, this is at patient baseline NS discontinued Prophylaxis Heparin 5000u Q12H Protonix 40mg IV Daily SCDs Disposition: Pt for discharge today. Abd pain improved with bowel movement. Will need ongoing bowel regimen at home. Will need outpatient follow with GI for pancreatic evaluation by EUS Silvano Chacon PGY-[address] Ramirez
[2017-12-21] MEDS: (Novolog) Insulin Aspart, Recombinant 100 u/ml 10 ml vial SC SCH ×2 (07:56→12:22)
[2017-12-21] MEDS ORDERED: Dextrose 50% SYRINGE Inj (50 ml) IV PRN (08:15)
[2017-12-21] MEDS ORDERED: Glucagon Recombinant 1 mg Inj IM ONE (08:15)
[2017-12-21 08:34] LABS: BASO % 0.7 % (0.0-2.0); EOS # 0.2 K/uL (0.0-0.7); EOS % 3.2 % (0.0-4.0); HEMOGLOBIN 10.7 g/dL (11.0-16.0); LYMPH # 3.1 K/uL (1.0-4.3); LYMPH % 55.9 % (20.0-40.0); MEAN CELL VOLUME 91.6 fL (81.0-99.0); MEAN CORPUSCULAR HEMOGLOBIN 30.7 pg (27.0-31.0); MEAN CORPUSCULAR HGB CONC 33.5 g/dL (33.0-37.0); MEAN PLATELET VOLUME 9.2 fL (7.2-11.7); MONO # 0.3 K/uL (0.0-0.8); NEUT # 1.9 K/uL (1.8-7.0); NEUT % 34.2 % (50.0-75.0); NRBC % 0.1 % (0.0-2.0); RBC 3.5 Mil/uL (3.80-5.20); WHITE BLOOD COUNT 5.5 K/uL (4.8-10.8)
[2017-12-21 08:53] LABS: CALCIUM 9.3 mg/dl (8.6-10.4)
[2017-12-21] MEDS: POLYETHYLENE GLYCOL 3350 17 GM/Dose PACKET PO SCH (09:52)
--- NOTE | 2017-12-21 12:18 | CARD ---
APPROVED REPORT Date of service: 12/19/2017 EKG Measurement Heart [id number] <Conclusion> Normal sinus rhythm Left axis deviation Inferior infarct, age undetermined Anterolateral infarct, age undetermined Abnormal ECG
--- NOTE | 2017-12-21 12:21 | CARD ---
APPROVED REPORT Date of service: 12/19/2017 EKG Measurement Heart [id number] <Conclusion> Normal sinus rhythm Moderate voltage criteria for LVH, may be normal variant Inferior infarct, age undetermined Abnormal ECG
--- NOTE | 2017-12-21 13:37 | CP.PCM.PN ---
Subjective - Date & Time of Evaluation Date of Evaluation: 12/21/17 Time of Evaluation: 07:30 - Subjective Subjective: clinically same Objective - Vital Signs/Intake and Output Vital Signs (last 24 hours): Temp Pulse Resp BP Pulse Ox 97.7 F 80 20 185/77 H 97 12/21/17 07:46 12/21/17 07:46 12/21/17 07:46 12/21/17 07:46 12/21/17 07:46 Intake and Output: 12/21/17 12/21/17 06:59 18:59 Intake Total 250 720 Output Total 2 Balance 248 720 - Medications Medications: Current Medications Aspirin (Ecotrin) 81 mg PO DAILY [facility] Last Admin: 12/21/17 09:51 Dose: 81 mg Dextrose (Dextrose 50% Inj) 0 ml IV STAT PRN; Protocol PRN Reason: Hypoglycemia Protocol Dextrose (Glutose 15) 0 gm PO ONCE PRN; Protocol PRN Reason: Hypoglycemia Protocol Docusate Sodium (Colace) 100 mg PO BID [facility] Last Admin: 12/21/17 09:52 Dose: Not Given Glimepiride (Amaryl) 4 mg PO DAILY [facility] Last Admin: 12/21/17 09:51 Dose: 4 mg Heparin Sodium (Porcine) (Heparin) 5,000 units SC Q12H [facility] Last Admin: 12/21/17 10:04 Dose: 5,000 units Dextrose (Dextrose 5% In Water 1000 Ml) 1,000 mls @ 0 mls/hr IV .Q0M PRN; Protocol; Per Protocol PRN Reason: Hypoglycemia Protocol Insulin Aspart (Novolog) 0 unit SC ACHS [facility] PRN Reason: Protocol Last Admin: 12/21/17 12:22 Dose: 5 units Metformin HCl (Glucophage) 500 mg PO BID [facility] Last Admin: 12/21/17 09:52 Dose: 500 mg Metoprolol Tartrate (Lopressor) 50 mg PO DAILY [facility] Last Admin: 12/21/17 09:55 Dose: 50 mg Pantoprazole Sodium (Protonix Inj) 40 mg IVP DAILY [facility] Last Admin: 12/21/17 09:52 Dose: 40 mg Polyethylene Glycol (Miralax) 17 gm PO BID [facility] Last Admin: 12/21/17 09:52 Dose: 17 gm - Labs Labs: 12/21/17 08:28 12/21/17 08:28 PT 10.5 SECONDS (9.7-12.2) 12/19/17 19:04 INR 1.0 12/19/17 19:04 APTT 21 SECONDS (21-34) 12/19/17 19:04 - Constitutional Appears: Well - Head Exam Head Exam: ATRAUMATIC, NORMAL INSPECTION, NORMOCEPHALIC - Eye Exam Eye Exam: EOMI, Normal appearance, PERRL Pupil Exam: NORMAL ACCOMODATION, PERRL - ENT Exam ENT Exam: Mucous Membranes Moist, Normal Exam - Neck Exam Neck Exam: Full ROM, Normal Inspection. absent: Lymphadenopathy - Respiratory Exam Respiratory Exam: Decreased Breath Sounds - Cardiovascular Exam Cardiovascular Exam: REGULAR RHYTHM, +S1, +S2 - GI/Abdominal Exam GI & Abdominal Exam: Soft, Diminished Bowel Sounds - Rectal Exam Rectal Exam: Deferred
== END 2017-12-21 17:45 | disposition home or self-care (01) | DRG 392 ==
LOC: C.ER 16:39 → C.9E 21:40 → C.3T 22:43
PROVIDERS: ADMIT Internal Medicine Nephrology; ATTEND Internal Medicine Nephrology
DX: K59.09 Other constipation (principal); K86.1 Other chronic pancreatitis; I12.9 Hypertensive chronic kidney disease with stage 1 through stage 4 chronic kidney disease, or unspecified chronic kidney disease; E11.22 Type 2 diabetes mellitus with diabetic chronic kidney disease; E11.65 Type 2 diabetes mellitus with hyperglycemia; N18.3 Chronic kidney disease, stage 3 (moderate); K57.90 Diverticulosis of intestine, part unspecified, without perforation or abscess without bleeding; K20.9 Esophagitis, unspecified; I25.10 Atherosclerotic heart disease of native coronary artery without angina pectoris; F03.90 Unspecified dementia, unspecified severity, without behavioral disturbance, psychotic disturbance, mood disturbance, and anxiety; E78.00 Pure hypercholesterolemia, unspecified; I25.2 Old myocardial infarction; Z95.5 Presence of coronary angioplasty implant and graft; Z87.11 Personal history of peptic ulcer disease; Z87.440 Personal history of urinary (tract) infections; Z79.4 Long term (current) use of insulin; Z86.73 Personal history of transient ischemic attack (TIA), and cerebral infarction without residual deficits

== ENCOUNTER 2017-12-31 10:38 | Inpatient (IN) | payer MEDICARE ==
[2017-12-31 10:39] VITALS: BMI 26.2
--- NOTE | 2017-12-31 11:19 | C.PDOC ---
History Of Present Illness 87 year old female BIBA and accompanied by daughter presents to the ED for an evaluation of right shoulder and right hip pain status post tripping and falling at home prior to arrival. Pain is localized in the right shoulder and right hip. Patient unable to ambulate due to pain after the fall. As per patient and daughter, they deny LOC, syncope, headache, dizziness, visual changes, focal deficits, neck pain, chest pain, shortness of breath, dyspnea, abd. pain, N/V, denies obvious deformities to extremities. At the time of evaluation, pt is AA#3, appears in some pain. - HPI Time Seen by Provider: 12/31/17 10:50 Chief Complaint (Nursing): Trauma History Per: Patient, Family (Daughter ) History/Exam Limitations: no limitations Onset/Duration Of Symptoms: Hrs Location Of Injury: Right: Hip (Pain ), Shoulder (Pain ) - Fall Fall:Prior To Injury: Tripped Past Medical History Reviewed: Historical Data, Nursing Documentation, Vital Signs Vital Signs: Last Vital Signs Temp 98.9 F 12/31/17 14:16 Pulse 81 12/31/17 14:16 Resp 18 12/31/17 14:16 BP 173/81 H 12/31/17 14:16 Pulse Ox 99 12/31/17 14:29 - Medical History PMH: Anemia, Arthritis, CAD, CVA, Dementia, Diabetes, Gastritis, HTN, Hypercholesterolemia, TIA Denies: Depression, Chronic Kidney Disease Surgical History: Coronary Stent (01/2015 & 2015) - [facility] Procedures CENTRAL VENOUS CATHETER PLACEMENT WITH GUIDANCE (02/28/15) CORONAR ARTERIOGR-2 CATH (02/03/15) EXCISION OF DESCENDING COLON, ENDO, DIAGN (11/29/17) EXCISION OF STOMACH, ENDO, DIAGN (11/29/17) LEFT HEART CARDIAC CATH (02/03/15) LT HEART ANGIOCARDIOGRAM (02/03/15) Family History: States: No Known Family Hx - Social History Hx Tobacco Use: No Hx Alcohol Use: No Hx Substance Use: No - Immunization History Hx Tetanus Toxoid Vaccination: No Hx Influenza Vaccination: Yes (03/2017) Hx Pneumococcal Vaccination: Yes Review Of Systems Cardiovascular: Negative for: Chest Pain Respiratory: Negative for: Shortness of Breath Musculoskeletal: Positive for: Shoulder Pain (Right), Other (Right hip pain ) Neurological: Negative for: Headache, Dizziness, Other (Syncope ) Physical Exam - Physical Exam Appears: Well, Non-toxic, No Acute Distress Skin: Normal Color, Warm, No Rash, No Ecchymosis Head: Atraumatic, Normacephalic Eye(s): bilateral: PERRL Throat: No Drooling Neck: Normal ROM, Trachea Midline, No Midline Cervical Tenderness, No Paracervical Tenderness, Supple Chest: Symmetrical, No Deformity, No Tenderness, No Ecchymosis, No Subcutaneous Emphysema Cardiovascular: Rhythm Regular, No Murmur Respiratory: No Decreased Breath Sounds, No Accessory Muscle Use, No Rales, No Rhonchi, No Stridor, No Wheezing Gastrointestinal/Abdominal: Soft, No Tenderness, No Guarding, No Rebound Back: No Paraspinal Tenderness Extremity: Normal ROM (FRAOM of B/L UEs without difficulty, mod discomofrt to Right hip due to pain.), Tenderness (Diffused tenderness to right shoulder and right hip, no palpable deformity.), Capillary Refill (< than 2 sec to right shoulder and right hip ), No Deformity, No Swelling Neurological/Psych: Oriented x3, Normal Speech, Normal Motor, Normal Sensation, Normal Reflexes Gait: Other (Unable to ambulate due to pain) ED Course And Treatment - Laboratory Results Result Diagrams: 12/31/17 12:43 12/31/17 12:43 Lab Interpretation: No Changes Compared To Prior Results ECG: Interpreted By Me, Viewed By Me ECG Rhythm: Sinus Rhythm ECG Interpretation: No Changes From Prior Rate From EC O2 Sat by Pulse Oximetry: 99 (RA) Pulse Ox Interpretation: Normal - Radiology CXR: Interpreted by Me, Viewed By Me CXR Interpretation: Yes: No Acute Disease - Other Rad Pelvis with B/L hips X-Ray: Interpreted by Me, Viewed By Me Interpretation: (+) Right femoral head fx at neck with sublux Right shoulder X-Ray: Interpreted by Me, Viewed By Me Interpretation: (-) acute fx or dislocation Right knee X-Ray: Interpreted by Me, Viewed By Me Interpretation: (+) severe DJD, no acute fx Progress Note: Patient assesses and examined. CXR, XR Right Knee, XR Right Elbow , XR Right shoudler, and XR right Hip W pelvis ordered. Patient given Tramadol 50mg PO. After imaging review, results review with family, pt has clinical findings c/w Right hip fracture abd admission offered. Results discussed with pt, agrees with plan. Case discussed with and admission arranged. On re-eval, pt remained afebrile, hemodynamicaly stable. NOn-toxic. Neuorlogicaly intact. Admission arranged with [id number] Augustin consult, per PMD request. - Physician Consult Information Time Consulting Physician Contacted: 11:58 Physician Contacted: Deon Frost Outcome Of Conversation: Patient will be admitted Disposition - Disposition Disposition: HOSPITALIZED Disposition Time: 12:19 Condition: STABLE - Clinical Impression Clinical Impression: Hip fracture - PA / STRUCTURAL WELDER / Resident Statement MD/DO has reviewed & agrees with the documentation as recorded. - Scribe Statement The provider has reviewed the documentation as recorded by the Scribpatt Vasquez All medical record entries made by the Miller were at my direction and personally dictated by me. I have reviewed the chart and agree that the record accurately reflects my personal performance of the history, physical exam, medical decision making, and the department course for this patient. I have also personally directed, reviewed, and agree with the discharge instructions and disposition.
[2017-12-31] MEDS ORDERED: Sodium Chloride 0.9% 1,000 ML IV ONE (12:31)
[2017-12-31 12:51] LABS: BASO # 0.1 K/uL (0.0-0.2); BASO % 1.8 % (0.0-2.0); EOS # 0.1 K/uL (0.0-0.7); EOS % 1.5 % (0.0-4.0); HEMOGLOBIN 12.4 g/dL (11.0-16.0); LYMPH # 3.4 K/uL (1.0-4.3); LYMPH % 42.8 % (20.0-40.0); MEAN CELL VOLUME 91.7 fL (81.0-99.0); MEAN CORPUSCULAR HEMOGLOBIN 30.9 pg (27.0-31.0); MEAN CORPUSCULAR HGB CONC 33.7 g/dL (33.0-37.0); MONO # 0.3 K/uL (0.0-0.8); MONO % 3.7 % (0.0-10.0); NEUT % 50.2 % (50.0-75.0); NRBC % 0.1 % (0.0-2.0); RBC 4.02 Mil/uL (3.80-5.20); RED CELL DISTRIBUTION WIDTH 13.8 % (11.5-14.5)
[2017-12-31] MEDS ORDERED: Sodium Chloride 0.9% 1,000 ML ONE (12:51)
[2017-12-31 12:59] LABS: PROTHROMBIN TIME 11.4 SECONDS (9.7-12.2)
[2017-12-31 13:09] LABS: ALB/GLOB RATIO 1.3 (1.0-2.1); ALBUMIN 4.7 g/dL (3.5-5.0); ALT/SGPT 22 U/L (9-52); AST/SGOT 20 U/L (14-36); BLOOD UREA NITROGEN 20 mg/dL (7-17); CALCIUM 10.3 mg/dl (8.6-10.4); GFR AFRICAN-AMERICAN 52; GFR NON-AFRICAN AMERICAN 43
[2017-12-31] MEDS ORDERED: Metoprolol 1 mg/ml Inj IVP STA (13:13)
[2017-12-31 14:00] LABS: URINE BILIRUBIN NEGATIVE (NEGATIVE); URINE BLOOD NEGATIVE (NEGATIVE); URINE CLARITY Clear (Clear); URINE COLOR Straw (YELLOW); URINE GLUCOSE (UA) 3+ mg/dL (Normal); URINE LEUKOCYTE ESTERASE NEG Leu/uL (Negative); URINE PROTEIN NEGATIVE (NEGATIVE); URINE UROBILINOGEN NORMAL mg/dL (0.2-1.0)
--- NOTE | 2017-12-31 14:24 | CP.PCM.HP ---
Past Patient History - Infectious Disease Hx of Infectious Diseases: None - Tetanus Immunizations Tetanus Immunization: Unknown - Past Medical History & Family History Past Medical History?: Yes - Past Social History Smoking Status: Never Smoked - CARDIAC Hx Hypercholesterolemia: Yes Hx Hypertension: Yes - PULMONARY Hx Respiratory Disorders: No - NEUROLOGICAL Hx Dementia: Yes Hx Transient Ischemic Attacks (TIA): Yes - HEENT Hx HEENT Problems: Yes Hx Cataracts: Yes - RENAL Hx Chronic Kidney Disease: No - ENDOCRINE/METABOLIC Hx Diabetes Mellitus Type 2: Yes - HEMATOLOGICAL/ONCOLOGICAL Hx Anemia: Yes - INTEGUMENTARY Hx Dermatological Problems: No - MUSCULOSKELETAL/RHEUMATOLOGICAL Hx Arthritis: Yes - GASTROINTESTINAL Hx Gastritis: Yes - GENITOURINARY/GYNECOLOGICAL Hx Genitourinary Disorders: Yes Hx Urinary Tract Infection: Yes - PSYCHIATRIC Hx Depression: No Hx Substance Use: No - SURGICAL HISTORY Hx Coronary Stent: Yes (01/2015 & 2015) - ANESTHESIA Hx Anesthesia: Yes Hx Anesthesia Reactions: No Hx Malignant Hyperthermia: No Meds Allergies/Adverse Reactions: Allergies Allergy/AdvReac Type Severity Reaction Status Date / Time No Known Allergies Allergy Verified 12/31/17 10:49 Results - Vital Signs Recent Vital Signs: Last Vital Signs Temp 98.9 F 12/31/17 14:16 Pulse 81 12/31/17 14:16 Resp 18 12/31/17 14:16 BP 173/81 H 12/31/17 14:16 Pulse Ox 95 12/31/17 14:16 - Labs Result Diagrams: 12/31/17 12:43 12/31/17 12:43 Labs: Laboratory Results - last 24 hr 12/31/17 12/31/17 12/31/17 12:43 12:43 12:43 WBC 8.0 RBC 4.02 Hgb 12.4 Hct 36.8 MCV 91.7 MCH 30.9 MCHC 33.7 RDW 13.8 Plt Count 230 MPV 9.0 Neut % (Auto) 50.2 Lymph % (Auto) 42.8 H [place] % (Auto) 3.7 Eos % (Auto) 1.5 Baso % (Auto) 1.8 Neut # (Auto) 4.0 Lymph # (Auto) 3.4 [place] # (Auto) 0.3 Eos # (Auto) 0.1 Baso # (Auto) 0.1 PT 11.4 INR 1.0 APTT 34 Sodium 145 Potassium 5.0 Chloride 104 Carbon Dioxide 27 Anion Gap 19 BUN 20 H Creatinine 1.2 Est GFR ( Amer) 52 Est GFR (Non-Af Amer) 43 Random Glucose 224 H Calcium 10.3 Total Bilirubin 0.4 AST 20 ALT 22 Alkaline Phosphatase 93 Total Creatine Kinase 118 CK-MB (Mass) 0.70 Troponin I < 0.0120 Total Protein 8.3 Albumin 4.7 Globulin 3.7 Albumin/Globulin Ratio 1.3 Urine Color Urine Clarity Urine pH Ur Specific [place] Urine Protein Urine Glucose (UA) Urine Ketones Urine Blood Urine Nitrate Urine Bilirubin Urine Urobilinogen Ur Leukocyte Esterase Urine WBC (Auto) Urine RBC (Auto) 12/31/17 13:48 WBC RBC Hgb Hct MCV MCH MCHC RDW Plt Count MPV Neut % (Auto) Lymph % (Auto) [place] % (Auto) Eos % (Auto) Baso % (Auto) Neut # (Auto) Lymph # (Auto) [place] # (Auto) Eos # (Auto) Baso # (Auto) PT INR APTT Sodium Potassium Chloride Carbon Dioxide Anion Gap BUN Creatinine Est GFR ( Amer) Est GFR (Non-Af Amer) Random Glucose Calcium Total Bilirubin AST ALT Alkaline Phosphatase Total Creatine Kinase CK-MB (Mass) Troponin I Total Protein Albumin Globulin Albumin/Globulin Ratio Urine Color Straw Urine Clarity Clear Urine pH 7.0 Ur Specific [place] 1.006 Urine Protein Negative Urine Glucose (UA) 3+ H Urine Ketones Negative Urine Blood Negative Urine Nitrate Negative Urine Bilirubin Negative Urine Urobilinogen Normal Ur Leukocyte Esterase Neg Urine WBC (Auto) < 1 Urine RBC (Auto) 2
[2017-12-31] MEDS: Sodium Chloride 0.9% 1,000 ML IV SCH (15:10)
--- NOTE | 2017-12-31 15:20 | RAD ---
Date of service: 12/31/2017 PROCEDURE: Right Knee Radiographs. HISTORY: injury COMPARISON: None. FINDINGS: BONES: No acute fracture or destructive bony lesion identified. JOINTS: Advanced recommend osteoarthritis manifest by articular cortical sclerosis, joint space narrowing and osteophyte development, particularly at the lateral femorotibial compartment due to mild valgus deformity. JOINT EFFUSION: None. OTHER FINDINGS: None. IMPRESSION: Advanced tricompartmental osteoarthritis. No acute fracture, subluxation or dislocation.
--- NOTE | 2017-12-31 15:22 | RAD ---
Date of service: 12/31/2017 PROCEDURE: RIGHT HIP WITH PELVIS RADIOGRAPHS HISTORY: injury COMPARISON: None available. TECHNIQUE: AP views of the right hip and pelvis been submitted for interpretation with attempted right frog-leg lateral positioning. FINDINGS: There is a fracture through the subcapital neck proximal right femur with varus angulation of the major fracture fragment and impaction. No dislocation right hip joint. Degenerative cortical sclerosis appreciate the weight-bearing portions of the bilateral hip joints with joint space narrowing present. degenerative change are present the bilateral sacroiliac joints. The sacrum and iliac bones are otherwise unremarkable swells the pubic bones including symphysis. Vascular calcifications are noted in the local soft tissues. IMPRESSION: Impacted subcapital fracture right femoral neck with varus angulation of the major fracture fragment. No dislocation. Degenerative changes otherwise noted as discussed above bilaterally.
--- NOTE | 2017-12-31 15:24 | RAD ---
Date of service: 12/31/2017 PROCEDURE: Radiographs of the Right Shoulder HISTORY: injury COMPARISON: No prior. FINDINGS: BONES: No acute fracture or dislocation appreciated grossly. However, there is a corticated defect at the superolateral portion of the right humeral head compatible with a Bankart deformity. Clinically correlate for prior dislocation or multiple dislocations in the past. No dislocation is identified this time or subluxation. Marked degenerative changes seen the acromioclavicular joint with mild degenerative changes at the glenohumeral joint. No destructive bony lesion identified other than Bankart lesion. JOINTS: As above. SOFT TISSUES: Normal. OTHER FINDINGS: None. IMPRESSION: No acute fracture or dislocation. Bankart lesion suspected right humeral head as discussed above. Clinically correlate further.
--- NOTE | 2017-12-31 15:24 | RAD ---
Date of service: 12/31/2017 PROCEDURE: Radiographs of the right elbow. HISTORY: need distal humerus COMPARISON: No prior. FINDINGS: BONES: No acute fracture or destructive bony lesion identified. JOINTS: Normal. No osteoarthritis. SOFT TISSUES: Normal. JOINT EFFUSION: None. OTHER FINDINGS: None. IMPRESSION: Unremarkable radiographs of the right elbow.
--- NOTE | 2017-12-31 15:25 | RAD ---
Date of service: 12/31/2017 PROCEDURE: CHEST RADIOGRAPH, 1 VIEW HISTORY: INJURY COMPARISON: Chest radiographs 12/19/2017. FINDINGS: LUNGS: No acute airspace disease bilaterally. PLEURA: No pneumothorax or pleural fluid seen. CARDIOVASCULAR: Normal. OSSEOUS STRUCTURES: No significant abnormalities. VISUALIZED UPPER ABDOMEN: Normal. OTHER FINDINGS: None. IMPRESSION: No interval acute cardiopulmonary disease appreciated.
[2017-12-31] MEDS: (Novolog) Insulin Aspart, Recombinant 100 u/ml 10 ml vial SC SCH ×2 (17:28→22:09)
[2018-01-01] MEDS: Sodium Chloride 0.9% 1,000 ML IV SCH ×2 (08:04→11:55)
[2018-01-01] MEDS: (Novolog) Insulin Aspart, Recombinant 100 u/ml 10 ml vial SC SCH ×4 (08:05→21:17)
--- NOTE | 2018-01-01 09:13 | CP.PCM.CON ---
History of Present Illness - History of Present Illness History of Present Illness: CARDIOLOGY CONSULT NOTE Reason for consult: preop cardiac evaluation HPI: Patient is an 87 yo woman with history of CAD s/p PCI in 2014 and 2016; preserved LVEF; prior stroke; dementia; HTN; HL; DM; PUD; OA; anemia; who was walking at home yesterday, then tripped and fell resulting in right hip pain. She came to [facility] and found to have right hip fracture. Cardiology called for preop evaluation. Patient denies any chest pain, SOB, palpitations, dizziness, syncope, orthopnea or PND. She walks around at home and outside with family without any chest pain or SOB. ROS: as described above, otherwise negative PMH: as above SH: no tobacco, no etoh, no drugs FH: no premature CAD Meds: reviewed on [employer] All: reviewed on [employer] Past Patient History - Infectious Disease Hx of Infectious Diseases: None - Tetanus Immunizations Tetanus Immunization: Unknown - Past Medical History & Family History Past Medical History?: Yes - Past Social History Smoking Status: Never Smoked - CARDIAC Hx Cardiac Disorders: Yes Hx Congestive Heart Failure: Yes Hx Hypercholesterolemia: Yes Hx Hypertension: Yes - PULMONARY Hx Respiratory Disorders: No - NEUROLOGICAL Hx Neurological Disorder: Yes HX Cerebrovascular Accident: Yes Hx Dementia: Yes Hx Transient Ischemic Attacks (TIA): Yes - HEENT Hx HEENT Problems: Yes Hx Cataracts: Yes Hx Glaucoma: Yes - RENAL Hx Chronic Kidney Disease: No - ENDOCRINE/METABOLIC Hx Endocrine Disorders: Yes Hx Diabetes Mellitus Type 2: Yes - HEMATOLOGICAL/ONCOLOGICAL Hx Blood Disorders: Yes Hx Anemia: Yes - INTEGUMENTARY Hx Dermatological Problems: No - MUSCULOSKELETAL/RHEUMATOLOGICAL Hx Falls: Yes - GASTROINTESTINAL Hx Gastrointestinal Disorders: Yes Hx Constipation: Yes Hx Gastritis: Yes - GENITOURINARY/GYNECOLOGICAL Hx Genitourinary Disorders: Yes Hx Urinary Tract Infection: Yes - PSYCHIATRIC Hx Substance Use: No - SURGICAL HISTORY Hx Surgeries: Yes Hx Cataract Extraction: Yes Hx Coronary Stent: Yes (01/2015 & 2015) - ANESTHESIA Hx Anesthesia: Yes Hx Anesthesia Reactions: No Hx Malignant Hyperthermia: No Meds Allergies/Adverse Reactions: Allergies Allergy/AdvReac Type Severity Reaction Status Date / Time No Known Allergies Allergy Verified 12/31/17 10:49 - Medications Medications: Current Medications Amlodipine Besylate (Norvasc) 10 mg PO DAILY [facility] Aspirin (Ecotrin) 81 mg PO DAILY [facility] Carvedilol (Coreg) 25 mg PO BID [facility] Docusate Sodium (Colace) 100 mg PO BID [facility] Last Admin: 12/31/17 17:28 Dose: Not Given Glimepiride (Amaryl) 4 mg PO DAILY [facility] Sodium Chloride (Sodium Chloride 0.9%) 1,000 mls @ 100 mls/hr IV .Q10H [facility] Last Admin: 01/01/18 08:04 Dose: 100 mls/hr Insulin Aspart (Novolog) 0 unit SC ACHS [facility] PRN Reason: Protocol Last Admin: 01/01/18 08:05 Dose: Not Given Morphine Sulfate (Morphine) 2 mg IVP Q4 PRN PRN Reason: Pain, severe (8-10) Last Admin: 01/01/18 08:04 Dose: 2 mg Pantoprazole Sodium (Protonix Ec Tab) 40 mg PO DAILY [facility] Rosuvastatin Calcium (Crestor) 20 mg PO HS [facility] Physical Exam - Constitutional Appears: Well - Head Exam Head Exam: ATRAUMATIC - Eye Exam Eye Exam: Normal appearance - ENT Exam ENT Exam: Mucous Membranes Moist - Respiratory Exam Respiratory Exam: Clear to Auscultation Bilateral, NORMAL BREATHING PATTERN. absent: Rales, Rhonchi, Wheezes - Cardiovascular Exam Cardiovascular Exam: REGULAR RHYTHM, +S1, +S2. absent: Systolic Murmur - GI/Abdominal Exam GI & Abdominal Exam: Soft - Extremities Exam Extremities exam: Negative for: pedal edema - Psychiatric Exam Psychiatric exam: Normal Affect - Skin Skin Exam: Intact Results - Vital Signs Recent Vital Signs: Last Vital Signs Temp 98.7 F 01/01/18 07:15 Pulse 84 01/01/18 07:15 Resp 18 01/01/18 07:15 BP 188/74 H 01/01/18 07:15 Pulse Ox 97 01/01/18 07:15 - Labs Result Diagrams: 12/31/17 12:43 12/31/17 12:43 Labs: Laboratory Results - last 24 hr 12/31/17 12/31/17 12/31/17 12:43 12:43 12:43 WBC 8.0 RBC 4.02 Hgb 12.4 Hct 36.8 MCV 91.7 MCH 30.9 MCHC 33.7 RDW 13.8 Plt Count 230 MPV 9.0 Neut % (Auto) 50.2 Lymph % (Auto) 42.8 H [place] % (Auto) 3.7 Eos % (Auto) 1.5 Baso % (Auto) 1.8 Neut # (Auto) 4.0 Lymph # (Auto) 3.4 [place] # (Auto) 0.3 Eos # (Auto) 0.1 Baso # (Auto) 0.1 PT 11.4 INR 1.0 APTT 34 Sodium 145 Potassium 5.0 Chloride 104 Carbon Dioxide 27 Anion Gap 19 BUN 20 H Creatinine 1.2 Est GFR ( Amer) 52 Est GFR (Non-Af Amer) 43 Random Glucose 224 H Calcium 10.3 Total Bilirubin 0.4 AST 20 ALT 22 Alkaline Phosphatase 93 Total Creatine Kinase 118 CK-MB (Mass) 0.70 Troponin I < 0.0120 Total Protein 8.3 Albumin 4.7 Globulin 3.7 Albumin/Globulin Ratio 1.3 Urine Color Urine Clarity Urine pH Ur Specific [place] Urine Protein Urine Glucose (UA) Urine Ketones Urine Blood Urine Nitrate Urine Bilirubin Urine Urobilinogen Ur Leukocyte Esterase Urine WBC (Auto) Urine RBC (Auto) Blood Type Antibody Screen 12/31/17 12/31/17 13:48 14:11 WBC RBC Hgb Hct MCV MCH MCHC RDW Plt Count MPV Neut % (Auto) Lymph % (Auto) [place] % (Auto) Eos % (Auto) Baso % (Auto) Neut # (Auto) Lymph # (Auto) [place] # (Auto) Eos # (Auto) Baso # (Auto) PT INR APTT Sodium Potassium Chloride Carbon Dioxide Anion Gap BUN Creatinine Est GFR ( Amer) Est GFR (Non-Af Amer) Random Glucose Calcium Total Bilirubin AST ALT Alkaline Phosphatase Total Creatine Kinase CK-MB (Mass) Troponin I Total Protein Albumin Globulin Albumin/Globulin Ratio Urine Color Straw Urine Clarity Clear Urine pH 7.0 Ur Specific [place] 1.006 Urine Protein Negative Urine Glucose (UA) 3+ H Urine Ketones Negative Urine Blood Negative Urine Nitrate Negative Urine Bilirubin Negative Urine Urobilinogen Normal Ur Leukocyte Esterase Neg Urine WBC (Auto) < 1 Urine RBC (Auto) 2 Blood Type B POSITIVE Antibody Screen Negative - Impressions Impression: Sinus rhythm, old inferior infarct, NSST's Assessment & Plan - Assessment and Plan (Free Text) Assessment: 1. Preop cardiac evaluation for right hip surgery 2. CAD s/p PCI in 2014 and 2015 -- No angina, stable 3. HTN -- not optimally controlled, likely due to high sympathetic tone from fracture and pain 4. Preserved LVEF -- by echo in 07/2017 Plan: 1. In the absence of acute VT, decompensated HF, severe valvular disease or unstable arrhythmias, I see no absolute cardiac contraindication to proceeding with her orthopedic surgery. She is considered intermediate cardiac risk, but is medically stable from a cardiac standpoint. No further preop cardiac workup required. 2. For better BP control, I will d/c metoprolol, start carvedilol 25mg BID, and start amlodipine 10mg daily 3. Check postop EKG
[2018-01-01 09:26] LABS: HEMOGLOBIN 11.3 g/dL (11.0-16.0); MEAN CELL VOLUME 90.8 fL (81.0-99.0); MEAN CORPUSCULAR HEMOGLOBIN 30.7 pg (27.0-31.0); MEAN CORPUSCULAR HGB CONC 33.8 g/dL (33.0-37.0); MEAN PLATELET VOLUME 9.6 fL (7.2-11.7); RBC 3.69 Mil/uL (3.80-5.20); RED CELL DISTRIBUTION WIDTH 13.9 % (11.5-14.5); WHITE BLOOD COUNT 9.9 K/uL (4.8-10.8)
[2018-01-01] MEDS: Pantoprazole 40 mg EC Tab PO SCH (09:30)
[2018-01-01 09:42] LABS: CALCIUM 9.5 mg/dl (8.6-10.4)
[2018-01-01] MEDS ORDERED: Enoxaparin 40 mg Syringe SC SCH (10:00)
--- NOTE | 2018-01-01 11:34 | CP.PCM.CON ---
History of Present Illness - History of Present Illness History of Present Illness: 87F complains of right groin pain after fall from standing. Daughter at bedside , who lives with patient and gives more history. Says patient walks with cane and occasionally walker. She has 6 steps into home, and then bedrooms on 2nd floor. Denies CP/SOB/dizziness/numbness/tingling/nausea vomiting. Patient currently denies pain except for right groin. Review of Systems - Review of Systems All systems: reviewed and no additional remarkable complaints except - Musculoskeletal Musculoskeletal: As Per HPI Past Patient History - Infectious Disease Hx of Infectious Diseases: None - Tetanus Immunizations Tetanus Immunization: Unknown - Past Medical History & Family History Past Medical History?: Yes - Past Social History Smoking Status: Never Smoked - CARDIAC Hx Cardiac Disorders: Yes Hx Congestive Heart Failure: Yes Hx Hypercholesterolemia: Yes Hx Hypertension: Yes - PULMONARY Hx Respiratory Disorders: No - NEUROLOGICAL Hx Neurological Disorder: Yes HX Cerebrovascular Accident: Yes Hx Dementia: Yes Hx Transient Ischemic Attacks (TIA): Yes - HEENT Hx HEENT Problems: Yes Hx Cataracts: Yes Hx Glaucoma: Yes - RENAL Hx Chronic Kidney Disease: No - ENDOCRINE/METABOLIC Hx Endocrine Disorders: Yes Hx Diabetes Mellitus Type 2: Yes - HEMATOLOGICAL/ONCOLOGICAL Hx Blood Disorders: Yes Hx Anemia: Yes - INTEGUMENTARY Hx Dermatological Problems: No - MUSCULOSKELETAL/RHEUMATOLOGICAL Hx Falls: Yes - GASTROINTESTINAL Hx Gastrointestinal Disorders: Yes Hx Constipation: Yes Hx Gastritis: Yes - GENITOURINARY/GYNECOLOGICAL Hx Genitourinary Disorders: Yes Hx Urinary Tract Infection: Yes - PSYCHIATRIC Hx Substance Use: No - SURGICAL HISTORY Hx Surgeries: Yes Hx Cataract Extraction: Yes Hx Coronary Stent: Yes (01/2015 & 2015) - ANESTHESIA Hx Anesthesia: Yes Hx Anesthesia Reactions: No Hx Malignant Hyperthermia: No Meds Allergies/Adverse Reactions: Allergies Allergy/AdvReac Type Severity Reaction Status Date / Time No Known Allergies Allergy Verified 12/31/17 10:49 - Medications Medications: Current Medications Amlodipine Besylate (Norvasc) 10 mg PO DAILY [facility] Last Admin: 01/01/18 09:30 Dose: 10 mg Aspirin (Ecotrin) 81 mg PO DAILY [facility] Last Admin: 01/01/18 09:30 Dose: 81 mg Carvedilol (Coreg) 25 mg PO BID [facility] Last Admin: 01/01/18 09:30 Dose: 25 mg Docusate Sodium (Colace) 100 mg PO BID [facility] Last Admin: 01/01/18 09:30 Dose: 100 mg Glimepiride (Amaryl) 4 mg PO DAILY [facility] Last Admin: 01/01/18 09:30 Dose: 4 mg Sodium Chloride (Sodium Chloride 0.9%) 1,000 mls @ 100 mls/hr IV .Q10H [facility] Last Admin: 01/01/18 08:04 Dose: 100 mls/hr Insulin Aspart (Novolog) 0 unit SC ACHS [facility] PRN Reason: Protocol Last Admin: 01/01/18 08:05 Dose: Not Given Morphine Sulfate (Morphine) 2 mg IVP Q4 PRN PRN Reason: Pain, severe (8-10) Last Admin: 01/01/18 08:04 Dose: 2 mg Pantoprazole Sodium (Protonix Ec Tab) 40 mg PO DAILY [facility] Last Admin: 01/01/18 09:30 Dose: 40 mg Rosuvastatin Calcium (Crestor) 20 mg PO [facility] Physical Exam - Constitutional Appears: Well, No Acute Distress - Head Exam Head Exam: ATRAUMATIC - Neck Exam Neck exam: Positive for: Full Rom, Normal Inspection - Respiratory Exam Respiratory Exam: NORMAL BREATHING PATTERN - Cardiovascular Exam Additional comments: +DP/PT pulses - Expanded Lower Extremities Exam Right Hip exam: external rotation, shortening Ankle exam: FULL ROM, NORMAL INSPECTION Neuro vacular tendon exam: no vascular compromise - Neurological Exam Neurological exam: Alert - Psychiatric Exam Psychiatric exam: Normal Affect, Normal Mood - Skin Skin Exam: Dry, Intact, Normal Color, Warm Results - Vital Signs Recent Vital Signs: Last Vital Signs Temp 98.7 F 01/01/18 07:15 Pulse 79 01/01/18 07:47 Resp 18 01/01/18 07:15 BP 192/77 H 01/01/18 09:30 Pulse Ox 97 01/01/18 07:15 - Labs Result Diagrams: 01/01/18 09:15 01/01/18 09:15 Labs: Laboratory Results - last 24 hr 12/31/17 12/31/17 12/31/17 12:43 12:43 12:43 WBC 8.0 RBC 4.02 Hgb 12.4 Hct 36.8 MCV 91.7 MCH 30.9 MCHC 33.7 RDW 13.8 Plt Count 230 MPV 9.0 Neut % (Auto) 50.2 Lymph % (Auto) 42.8 H Antelope % (Auto) 3.7 Eos % (Auto) 1.5 Baso % (Auto) 1.8 Neut # (Auto) 4.0 Lymph # (Auto) 3.4 Antelope # (Auto) 0.3 Eos # (Auto) 0.1 Baso # (Auto) 0.1 PT 11.4 INR 1.0 APTT 34 Sodium 145 Potassium 5.0 Chloride 104 Carbon Dioxide 27 Anion Gap 19 BUN 20 H Creatinine 1.2 Est GFR ( Amer) 52 Est GFR (Non-Af Amer) 43 Random Glucose 224 H Calcium 10.3 Total Bilirubin 0.4 AST 20 ALT 22 Alkaline Phosphatase 93 Total Creatine Kinase 118 CK-MB (Mass) 0.70 Troponin I < 0.0120 Total Protein 8.3 Albumin 4.7 Globulin 3.7 Albumin/Globulin Ratio 1.3 Urine Color Urine Clarity Urine pH Ur Specific Alden Urine Protein Urine Glucose (UA) Urine Ketones Urine Blood Urine Nitrate Urine Bilirubin Urine Urobilinogen Ur Leukocyte Esterase Urine WBC (Auto) Urine RBC (Auto) Blood Type Antibody Screen 12/31/17 12/31/17 01/01/18 13:48 14:11 09:15 WBC RBC Hgb Hct MCV MCH MCHC RDW Plt Count MPV Neut % (Auto) Lymph % (Auto) Antelope % (Auto) Eos % (Auto) Baso % (Auto) Neut # (Auto) Lymph # (Auto) Antelope # (Auto) Eos # (Auto) Baso # (Auto) PT INR APTT Sodium Potassium Chloride Carbon Dioxide Anion Gap BUN Creatinine Est GFR ( Amer) Est GFR (Non-Af Amer) Random Glucose Calcium Total Bilirubin AST ALT Alkaline Phosphatase Total Creatine Kinase CK-MB (Mass) Troponin I Total Protein Albumin Globulin Albumin/Globulin Ratio Urine Color Straw Urine Clarity Clear Urine pH 7.0 Ur Specific Alden 1.006 Urine Protein Negative Urine Glucose (UA) 3+ H Urine Ketones Negative Urine Blood Negative Urine Nitrate Negative Urine Bilirubin Negative Urine Urobilinogen Normal Ur Leukocyte Esterase Neg Urine WBC (Auto) < 1 Urine RBC (Auto) 2 Blood Type B POSITIVE B POSITIVE Antibody Screen Negative Negative 01/01/18 01/01/18 09:15 09:15 WBC 9.9 RBC 3.69 L Hgb 11.3 Hct 33.5 L MCV 90.8 MCH 30.7 MCHC 33.8 RDW 13.9 Plt Count 223 MPV 9.6 Neut % (Auto) Lymph % (Auto) Antelope % (Auto) Eos % (Auto) Baso % (Auto) Neut # (Auto) Lymph # (Auto) Antelope # (Auto) Eos # (Auto) Baso # (Auto) PT INR APTT Sodium 142 Potassium 4.1 Chloride 104 Carbon Dioxide 28 Anion Gap 15 BUN 16 Creatinine 1.1 Est GFR ( Amer) 57 Est GFR (Non-Af Amer) 47 Random Glucose 234 H Calcium 9.5 Total Bilirubin AST ALT Alkaline Phosphatase Total Creatine Kinase CK-MB (Mass) Troponin I Total Protein Albumin Globulin Albumin/Globulin Ratio Urine Color Urine Clarity Urine pH Ur Specific Alden Urine Protein Urine Glucose (UA) Urine Ketones Urine Blood Urine Nitrate Urine Bilirubin Urine Urobilinogen Ur Leukocyte Esterase Urine WBC (Auto) Urine RBC (Auto) Blood Type Antibody Screen - Impressions Impression: Patient Name / ID : ROSANNA HERNANDEZ / [id number] Exam Date : 12/31/2017 11:14:27 ( Approved ) Study Comment : Sex / Age : F / 87Y Creator : Randall Wallace MD Dictator : Randall Wallace MD Drupal Web Developer : Line Cleaner : Randall Wallace MD Approver2 : Report Date : 12/31/2017 15:22:39 My Comment : Date of service: 12/31/2017 PROCEDURE: Radiographs of the Right Shoulder HISTORY: injury COMPARISON: No prior. FINDINGS: BONES: No acute fracture or dislocation appreciated grossly. However, there is a corticated defect at the superolateral portion of the right humeral head compatible with a Bankart deformity. Clinically correlate for prior dislocation or multiple dislocations in the past. No dislocation is identified this time or subluxation. Marked degenerative changes seen the acromioclavicular joint with mild degenerative changes at the glenohumeral joint. No destructive bony lesion identified other than Bankart lesion. JOINTS: As above. SOFT TISSUES: Normal. OTHER FINDINGS: None. IMPRESSION: No acute fracture or dislocation. Bankart lesion suspected right humeral head as discussed above. Clinically correlate further. Patient Name / ID : ROSANNA HERNANDEZ / [id number] Exam Date : 12/31/2017 11:15:21 ( Approved ) Study Comment : Sex / Age : F / 87Y Creator : Randall Wallace MD Dictator : Randall Wallace MD Drupal Web Developer : Line Cleaner : Randall Wallace MD Approver2 : Report Date : 12/31/2017 15:23:07 My Comment : Date of service: 12/31/2017 PROCEDURE: Radiographs of the right elbow. HISTORY: need distal humerus COMPARISON: No prior. FINDINGS: BONES: No acute fracture or destructive bony lesion identified. JOINTS: Normal. No osteoarthritis. SOFT TISSUES: Normal. JOINT EFFUSION: None. OTHER FINDINGS: None. IMPRESSION: Unremarkable radiographs of the right elbow. atient Name / ID : ROSANNA HERNANDEZ / [id number] Exam Date : 12/31/2017 11:14:12 ( Approved ) Study Comment : Sex / Age : F 87Y Creator : Randall Wallace MD Dictator : Randall Wallace MD Drupal Web Developer : Line Cleaner : Randall Wallace MD Approver2 : Report Date : 12/31/2017 15:20:42 My Comment : Date of service: 12/31/2017 PROCEDURE: RIGHT HIP WITH PELVIS RADIOGRAPHS HISTORY: injury COMPARISON: None available. TECHNIQUE: AP views of the right hip and pelvis been submitted for interpretation with attempted right frog-leg lateral positioning. FINDINGS: There is a fracture through the subcapital neck proximal right femur with varus angulation of the major fracture fragment and impaction. No dislocation right hip joint. Degenerative cortical sclerosis appreciate the weight-bearing portions of the bilateral hip joints with joint space narrowing present. degenerative change are present the bilateral sacroiliac joints. The sacrum and iliac bones are otherwise unremarkable swells the pubic bones including symphysis. Vascular calcifications are noted in the local soft tissues. IMPRESSION: Impacted subcapital fracture right femoral neck with varus angulation of the major fracture fragment. No dislocation. Degenerative changes otherwise noted as discussed above bilaterally. Patient Name / ID : ROSANNA HERNANDEZ / [id number] Exam Date : 12/31/2017 11:13:46 ( Approved ) Study Comment : Sex / Age : F / 87Y Creator : Randall Wallace MD Dictator : Randall Wallace MD Drupal Web Developer : Line Cleaner : Randall Wallace MD Approver2 : Report Date : 12/31/2017 15:18:39 My Comment : Date of service: 12/31/2017 PROCEDURE: Right Knee Radiographs. HISTORY: injury COMPARISON: None. FINDINGS: BONES: No acute fracture or destructive bony lesion identified. JOINTS: Advanced recommend osteoarthritis manifest by articular cortical sclerosis, joint space narrowing and osteophyte development, particularly at the lateral femorotibial compartment due to mild valgus deformity. JOINT EFFUSION: None. OTHER FINDINGS: None. IMPRESSION: Advanced tricompartmental osteoarthritis. No acute fracture, subluxation or dislocation. Assessment & Plan (1) Displaced fracture of right femoral neck Assessment and Plan: NPO for bipolar cardiology intermediate risk, no contraindication T&C risks/benefits/alt of hemiarthroplasty explained to patient and daughter, who verbalized understanding and consented to procedure and blood transfusion d/w DR. Davis, agrees with abvoe Status: Acute (2) Vitamin D deficiency Assessment and Plan: supp Status: Chronic
[2018-01-01] MEDS ORDERED: Bacitracin 150,000 UNIT in Sodium Chloride 0.9% Irrig 3,000 ML IR SCH ×2 (14:00→15:00)
[2018-01-01] MEDS ORDERED: Propofol 10 mg/ml Inj (20 ML) ONE (14:27)
[2018-01-01] MEDS ORDERED: Tranexamic Acid 1,000 MG in Sodium Chloride 0.9% 50 ML IV SCH (14:28)
[2018-01-01] MEDS ORDERED: Rocuronium 10 mg/ml (5 ml) ONE (14:29)
[2018-01-01] MEDS ORDERED: Bupivacaine Liposomal Inj 20 ml INFIL ONE (14:30)
[2018-01-01] MEDS ORDERED: ceFAZolin IV 2 gm in Dextrose 2 GM/50 ML BAG IVPB ONE (14:41)
[2018-01-01] MEDS ORDERED: Sodium Chloride 0.9% 80 ML IV ONE (15:01)
[2018-01-01] MEDS ORDERED: Vancomycin 1 g Inj ONE ×2 (16:15→16:37)
[2018-01-01] MEDS ORDERED: Neostigmine Methylsulfate 3mg/3ml Syringe IV ONE (17:05)
[2018-01-01] MEDS ORDERED: HYDROmorphone 0.5 mg/0.5 ml ISec IVP PRN (17:24)
--- NOTE | 2018-01-01 17:47 | PCM.SURG1 ---
Surgeon's Initial Post Op Note - Surgeon's Notes Surgeon: Randy Davis MD Crystal Report Developer: Americo Banda PA-C Type of Anesthesia: General Endo Anesthesia Administered By: Dr. Canales/[place] [facility] Pre-Operative Diagnosis: Right femoral neck fx Operative Findings: same Post-Operative Diagnosis: same Operation Performed: Right hip hemiarthroplasty Specimen/Specimens Removed: femoral head Estimated Blood Loss: EBL {In ML}: 300 Blood Products Given: N/A Drains Used: Hemovac Post-Op Condition: Fair Date of Surgery/Procedure: 01/01/18 Time of Surgery/Procedure: 17:47
--- NOTE | 2018-01-01 18:42 | CP.PCM.PN ---
Subjective - Date & Time of Evaluation Date of Evaluation: 01/01/18 Time of Evaluation: 18:42 Objective - Vital Signs/Intake and Output Vital Signs (last 24 hours): Temp Pulse Resp BP Pulse Ox 98.7 F 79 18 192/77 H 97 01/01/18 07:15 01/01/18 07:47 01/01/18 07:15 01/01/18 09:30 01/01/18 07:15 Intake and Output: 01/01/18 01/01/18 06:59 18:59 Intake Total 920 3150 Output Total 650 500 Balance 270 2650 - Medications Medications: Current Medications Acetaminophen (Tylenol 325mg Tab) 650 mg PO Q4 PRN PRN Reason: Fever 101 degrees fahrenheit Amlodipine Besylate (Norvasc) 10 mg PO DAILY [facility] Last Admin: 01/01/18 09:30 Dose: 10 mg Apixaban (Eliquis) 2.5 mg PO BID [facility] Aspirin (Ecotrin) 81 mg PO DAILY [facility] Last Admin: 01/01/18 09:30 Dose: 81 mg Carvedilol (Coreg) 25 mg PO BID [facility] Last Admin: 01/01/18 09:30 Dose: 25 mg Docusate Sodium (Colace) 100 mg PO BID [facility] Last Admin: 01/01/18 09:30 Dose: 100 mg Ergocalciferol (Drisdol 50,000 Intl Units Cap) 1 cap PO Q7D [facility] Ferrous Sulfate (Feosol) 325 mg PO DAILY [facility] Folic Acid (Folic Acid) 1 mg PO DAILY [facility] Glimepiride (Amaryl) 4 mg PO DAILY [facility] Last Admin: 01/01/18 09:30 Dose: 4 mg Hydromorphone HCl (Dilaudid) 0.5 mg IVP Q5M PRN PRN Reason: Pain, moderate (4-7) Stop: 01/01/18 19:24 Sodium Chloride (Sodium Chloride 0.9%) 1,000 mls @ 100 mls/hr IV .Q10H [facility] Last Admin: 01/01/18 11:55 Dose: Not Given Tranexamic Acid 1,000 mg/ (Sodium Chloride) 60 mls @ 5 mls/min IV STAT [facility] Cefazolin Sodium/Dextrose (Ancef Iv 2 Gm Duplex) 2 gm in 50 mls @ 100 mls/hr IVPB Q8H [facility] PRN Reason: Protocol Stop: 01/02/18 06:29 Acetaminophen (Ofirmev) 100 mls @ 400 mls/hr IV Q6 PRN PRN Reason: Pain, moderate (4-7) Stop: 01/02/18 18:01 Insulin Aspart (Novolog) 0 unit SC ACHS [facility] PRN Reason: Protocol Last Admin: 01/01/18 11:54 Dose: Not Given Morphine Sulfate (Morphine) 2 mg IVP Q4 PRN PRN Reason: Pain, severe (8-10) Last Admin: 01/01/18 08:04 Dose: 2 mg Ondansetron HCl (Zofran Inj) 4 mg IVP ONCE PRN PRN Reason: Nausea/Vomiting Stop: 01/01/18 19:25 Oxycodone/Acetaminophen (Percocet 5/325 Mg Tab) 1 tab PO Q6H PRN PRN Reason: Pain, moderate (4-7) Stop: 01/04/18 14:52 Pantoprazole Sodium (Protonix Ec Tab) 40 mg PO DAILY [facility] Last Admin: 01/01/18 09:30 Dose: 40 mg Rosuvastatin Calcium (Crestor) 20 mg PO HS [facility] - Labs Labs: 01/01/18 09:15 01/01/18 09:15 PT 11.4 SECONDS (9.7-12.2) 12/31/17 12:43 INR 1.0 12/31/17 12:43 APTT 34 SECONDS (21-34) 12/31/17 12:43
[2018-01-01] MEDS: ceFAZolin IV 2 gm in Dextrose 2 GM/50 ML BAG IVPB SCH (21:43)
[2018-01-02] MEDS: ceFAZolin IV 2 gm in Dextrose 2 GM/50 ML BAG IVPB SCH (05:23)
[2018-01-02 07:16] LABS: HEMOGLOBIN 8.3 g/dL (11.0-16.0); MEAN CELL VOLUME 91.2 fL (81.0-99.0); MEAN CORPUSCULAR HEMOGLOBIN 31.2 pg (27.0-31.0); MEAN CORPUSCULAR HGB CONC 34.2 g/dL (33.0-37.0); MEAN PLATELET VOLUME 9.5 fL (7.2-11.7); RBC 2.65 Mil/uL (3.80-5.20); RED CELL DISTRIBUTION WIDTH 13.7 % (11.5-14.5); WHITE BLOOD COUNT 9.5 K/uL (4.8-10.8)
[2018-01-02 07:18] LABS: CALCIUM 8.3 mg/dl (8.6-10.4)
[2018-01-02] MEDS: (Novolog) Insulin Aspart, Recombinant 100 u/ml 10 ml vial SC SCH ×4 (08:08→21:54)
[2018-01-02] MEDS: Sodium Chloride 0.9% 1,000 ML IV SCH (08:15)
--- NOTE | 2018-01-02 08:37 | OP ---
PROCEDURE DATE: 01/01/2018 PREOPERATIVE DIAGNOSIS: Displaced subcapital fracture of the right hip. POSTOPERATIVE DIAGNOSIS: Severely displaced subcapital fracture of the right hip with severe osteoporosis. OPERATIVE PROCEDURES: 1. Bipolar replacement arthroplasty. 2. Cabling of the proximal femur with a Synthes cable. 3. Local anesthesia block with Exparel. 4. Introduction of vancomycin powder and Hemovac drain. SURGEON: Alejandra Davis MD DESCRIPTION OF PROCEDURE: Prior to the procedure, risks and benefits of the surgery, prognosis and complications were explained to the patient and the patient's daughter, Brittany, and the rest of the family. They were told about infection, cardiac, pulmonary, fracture, dislocation, need for future surgical procedure, permanent weakness, permanent numbness, possible loss of life and limb, etc. The patient fully understood and agreeable. All the questions were answered. The patient was also told about leg length difference, permanent weakness, permanent numbness, possible loss of life and limb. The patient fully understand and agreeable. All the questions were answered. The patient was brought to the operating room. Right hip was identified as the hip to be operated. After induction of the anesthesia, the patient was placed in the lateral decubitus position. Right hip was prepped and draped in the usual manner. The hip was approached through the posterior approach. Dissection was carried down in layers. The fascia was divided. Sharp external rotator muscles were identified, tagged and divided. Capsule was incised in a T-shaped manner. At this point, the patient was found to have a comminuted fracture at the subcapital region of the hip with some severe comminution extending up to the intertrochanteric area. The neck of the femur was osteotomized, femoral head was removed. Femoral head was measured and measured to be 45 mm in size. At this point, the lateral aspect of the greater trochanter was with a zoojoo.BE cutter, a canal finder was used, and gradual rasping at the femur was done. A #10 rasp was found to be extremely in the AP and lateral directions and torque stress. At this point, a trial reduction was carried out, and a standard neck and a 45-mm head was found to be extremely stable. Please note that we had a reduced profile 10 mm rasp and prosthesis. At this point, trial components were removed. A #10 reduced femoral stem was introduced, and once again reduction was carried out. We attempted to equalize the leg length as well as create extreme stability. The standard neck was found to be extremely stable. At this point, due to the comminution extending up to the lesser trochanter, we did a prophylactic cabling. The cable was found to create more secure fixation. After introducing the stem prosthesis, we did trial reduction again, and we settled on a standard neck and a 45-mm head. She passed against with the extremes of motion and was found to be extremely stable. At this point, the patient tolerated the procedure well. Wound was closed in layers. Exparel was used for local anesthesia, and vancomycin powder was infiltrated into joint. The patient tolerated the procedure well, left the operating room to the recovery room in satisfactory condition. Alejandra Davis MD
--- NOTE | 2018-01-02 09:00 | RAD ---
Date of service: 01/01/2018 PROCEDURE: HISTORY: S/P RT HIP ARTHROPLASTY BIPOLAR COMPARISON: None TECHNIQUE: Two images FINDINGS: Arthrosis-knee level Bipolar right hip arthroplasty and acetabular -femoral components anatomically aligned. Indwelling drain. Cerclage wire trochanteric level Soft tissue lucencies and swelling compatible with recent postop status. Atherosclerotic vascular calcifications present. . IMPRESSION: Recent postop changes as above. Anatomically aligned. No fracture appreciated Background knee arthrosis
--- NOTE | 2018-01-02 09:02 | RAD ---
Date of service: 01/01/2018 PROCEDURE: HISTORY: S/P RT HIP ARTHROPLASTY BIPOLAR COMPARISON: 01/05/2018 TECHNIQUE: AP view of the pelvis and applicable frog leg views obtained. FINDINGS: Status post bipolar right hip arthroplasty for prior right femoral subcapital neck fracture treatment. Prostatic components- anatomically aligned. No interval fractures appreciated. Tissue postop changes in indwelling drain present. Atherosclerotic vascular calcifications present. . IMPRESSION: Recent postop changes as above
[2018-01-02] MEDS ORDERED: Ergocalciferol 50,000 Intl Units Cap PO SCH (10:00)
[2018-01-02] MEDS: Pantoprazole 40 mg EC Tab PO SCH (10:26)
[2018-01-02] MEDS: Oxycodone/Acetaminophen 5/325 mg Tab PO PRN (14:11)
--- NOTE | 2018-01-02 14:22 | PN ---
DATE: 01/02/2018 Postop day 1, afebrile, no calf tenderness, Homans sign is negative, no palpable cords. We will transfuse one unit of blood. Postoperative x-rays are satisfactory. The patient today is getting venous Dopplers. Plan is to ambulate the patient, weightbearing as tolerated, total hip precautions. We will talk to Discharge Planning. Alejandra Davis MD
--- NOTE | 2018-01-02 15:06 | CARD ---
APPROVED REPORT Date of service: 12/31/2017 EKG Measurement Heart [id number] <Conclusion> Normal sinus rhythm Left axis deviation Inferior infarct, age undetermined Anteroseptal infarct, age undetermined Abnormal ECG
[2018-01-02] MEDS ORDERED: Enoxaparin 40 mg Syringe SC SCH (16:00)
--- NOTE | 2018-01-02 19:01 | CP.PCM.PN ---
Subjective - Date & Time of Evaluation Date of Evaluation: 01/02/18 Time of Evaluation: 19:01 Objective - Vital Signs/Intake and Output Vital Signs (last 24 hours): Temp Pulse Resp BP Pulse Ox 98.2 F 92 H 18 100/51 L 94 L 01/02/18 18:44 01/02/18 18:44 01/02/18 18:44 01/02/18 18:44 01/02/18 15:04 Intake and Output: 01/02/18 01/03/18 18:59 06:59 Intake Total 1280 Output Total 640 Balance 640 - Medications Medications: Current Medications Acetaminophen (Tylenol 325mg Tab) 650 mg PO Q4 PRN PRN Reason: Fever 101 degrees fahrenheit Last Admin: 01/02/18 16:00 Dose: 650 mg Amlodipine Besylate (Norvasc) 10 mg PO DAILY [facility] Last Admin: 01/02/18 10:27 Dose: 10 mg Apixaban (Eliquis) 2.5 mg PO BID [facility] Last Admin: 01/02/18 17:46 Dose: 2.5 mg Aspirin (Ecotrin) 81 mg PO DAILY [facility] Last Admin: 01/02/18 10:27 Dose: 81 mg Carvedilol (Coreg) 25 mg PO BID [facility] Last Admin: 01/02/18 17:45 Dose: 25 mg Docusate Sodium (Colace) 100 mg PO BID [facility] Last Admin: 01/02/18 17:45 Dose: 100 mg Ergocalciferol (Drisdol 50,000 Intl Units Cap) 1 cap PO Q7D [facility] Last Admin: 01/02/18 10:27 Dose: 1 cap Ferrous Sulfate (Feosol) 325 mg PO DAILY [facility] Last Admin: 01/02/18 10:27 Dose: 325 mg Folic Acid (Folic Acid) 1 mg PO DAILY [facility] Last Admin: 01/02/18 10:27 Dose: 1 mg Glimepiride (Amaryl) 4 mg PO DAILY [facility] Last Admin: 01/02/18 10:27 Dose: 4 mg Sodium Chloride (Sodium Chloride 0.9%) 1,000 mls @ 100 mls/hr IV .Q10H [facility] Last Admin: 01/02/18 08:15 Dose: Not Given Insulin Aspart (Novolog) 0 unit SC ACHS [facility] PRN Reason: Protocol Last Admin: 01/02/18 17:02 Dose: 10 units Morphine Sulfate (Morphine) 2 mg IVP Q4 PRN PRN Reason: Pain, severe (8-10) Last Admin: 01/02/18 10:50 Dose: 2 mg Oxycodone/Acetaminophen (Percocet 5/325 Mg Tab) 1 tab PO Q6H PRN PRN Reason: Pain, moderate (4-7) Stop: 01/04/18 14:52 Last Admin: 01/02/18 14:11 Dose: 1 tab Pantoprazole Sodium (Protonix Ec Tab) 40 mg PO DAILY [facility] Last Admin: 01/02/18 10:26 Dose: 40 mg Rosuvastatin Calcium (Crestor) 20 mg PO HS [facility] Last Admin: 01/01/18 21:40 Dose: 20 mg - Labs Labs: 01/02/18 06:51 01/02/18 06:51 PT 11.4 SECONDS (9.7-12.2) 12/31/17 12:43 INR 1.0 12/31/17 12:43 APTT 34 SECONDS (21-34) 12/31/17 12:43
--- NOTE | 2018-01-02 21:05 | CARD ---
APPROVED REPORT Date of service: 01/01/2018 EKG Measurement Heart [id number] <Conclusion> Normal sinus rhythm Left axis deviation Abnormal ECG
[2018-01-03 00:12] VITALS: RESP 20
[2018-01-03] MEDS: Sodium Chloride 0.9% 1,000 ML IV SCH (04:00)
[2018-01-03 07:42] LABS: BASO # 0.1 K/uL (0.0-0.2); BASO % 0.5 % (0.0-2.0); EOS % 0.4 % (0.0-4.0); HEMOGLOBIN 8.9 g/dL (11.0-16.0); LYMPH % 16.2 % (20.0-40.0); MEAN CELL VOLUME 90.3 fL (81.0-99.0); MEAN CORPUSCULAR HGB CONC 33.2 g/dL (33.0-37.0); MEAN PLATELET VOLUME 9.2 fL (7.2-11.7); MONO # 0.7 K/uL (0.0-0.8); MONO % 5.3 % (0.0-10.0); NEUT # 9.7 K/uL (1.8-7.0); NEUT % 77.6 % (50.0-75.0); RBC 2.98 Mil/uL (3.80-5.20); RED CELL DISTRIBUTION WIDTH 14.6 % (11.5-14.5); WHITE BLOOD COUNT 12.5 K/uL (4.8-10.8)
[2018-01-03 07:47] LABS: CALCIUM 8.4 mg/dl (8.6-10.4)
[2018-01-03] MEDS: (Novolog) Insulin Aspart, Recombinant 100 u/ml 10 ml vial SC SCH ×4 (08:30→22:28)
--- NOTE | 2018-01-03 08:38 | CP.PCM.PN ---
Subjective - Date & Time of Evaluation Date of Evaluation: 01/03/18 Time of Evaluation: 08:36 - Subjective Subjective: Ptient complaining of hip pain. Objective - Vital Signs/Intake and Output Vital Signs (last 24 hours): Temp Pulse Resp BP Pulse Ox 98.4 F 89 20 142/67 96 01/03/18 07:00 01/03/18 07:00 01/03/18 07:00 01/03/18 07:00 01/03/18 07:00 Intake and Output: 01/03/18 01/03/18 06:59 18:59 Intake Total 1275 Output Total 5 Balance 1270 - Medications Medications: Current Medications Acetaminophen (Tylenol 325mg Tab) 650 mg PO Q4 PRN PRN Reason: Fever 101 degrees fahrenheit Last Admin: 01/02/18 16:00 Dose: 650 mg Amlodipine Besylate (Norvasc) 10 mg PO DAILY [facility] Last Admin: 01/02/18 10:27 Dose: 10 mg Apixaban (Eliquis) 2.5 mg PO BID [facility] Last Admin: 01/02/18 17:46 Dose: 2.5 mg Aspirin (Ecotrin) 81 mg PO DAILY [facility] Last Admin: 01/02/18 10:27 Dose: 81 mg Carvedilol (Coreg) 25 mg PO BID [facility] Last Admin: 01/02/18 17:45 Dose: 25 mg Docusate Sodium (Colace) 100 mg PO BID [facility] Last Admin: 01/02/18 17:45 Dose: 100 mg Ergocalciferol (Drisdol 50,000 Intl Units Cap) 1 cap PO Q7D [facility] Last Admin: 01/02/18 10:27 Dose: 1 cap Ferrous Sulfate (Feosol) 325 mg PO DAILY [facility] Last Admin: 01/02/18 10:27 Dose: 325 mg Folic Acid (Folic Acid) 1 mg PO DAILY [facility] Last Admin: 01/02/18 10:27 Dose: 1 mg Glimepiride (Amaryl) 4 mg PO DAILY [facility] Last Admin: 01/02/18 10:27 Dose: 4 mg Sodium Chloride (Sodium Chloride 0.9%) 1,000 mls @ 100 mls/hr IV .Q10H [facility] Last Admin: 01/03/18 04:00 Dose: 100 mls/hr Insulin Aspart (Novolog) 0 unit SC ACHS [facility] PRN Reason: Protocol Last Admin: 01/03/18 08:30 Dose: 4 units Morphine Sulfate (Morphine) 2 mg IVP Q4 PRN PRN Reason: Pain, severe (8-10) Last Admin: 01/03/18 06:27 Dose: 2 mg Oxycodone/Acetaminophen (Percocet 5/325 Mg Tab) 1 tab PO Q6H PRN PRN Reason: Pain, moderate (4-7) Stop: 01/04/18 14:52 Last Admin: 01/02/18 14:11 Dose: 1 tab Pantoprazole Sodium (Protonix Ec Tab) 40 mg PO DAILY [facility] Last Admin: 01/02/18 10:26 Dose: 40 mg Rosuvastatin Calcium (Crestor) 20 mg PO HS [facility] Last Admin: 01/02/18 21:54 Dose: 20 mg - Labs Labs: 01/03/18 07:27 01/03/18 07:27 PT 11.4 SECONDS (9.7-12.2) 12/31/17 12:43 INR 1.0 12/31/17 12:43 APTT 34 SECONDS (21-34) 12/31/17 12:43 - Extremities Exam Additional comments: drain pulled dressing changed. Incision intact, +ROM ankle/toes, sensation intac,t no erythema, no drainage. Calves osft NT neg homans Assessment and Plan (1) Displaced fracture of right femoral neck Assessment & Plan: POD#2 s/p bipolar hemiarthroplasty ortho stable pt/ot posterior hip precautions eliquis 2.5mg PO BID x [address] Davis d/c planning d/w Dr. Davis, agrees with above Status: Acute (2) Vitamin D deficiency Status: Chronic
[2018-01-03] MEDS: Pantoprazole 40 mg EC Tab PO SCH (10:57)
[2018-01-04] MEDS: Oxycodone/Acetaminophen 5/325 mg Tab PO PRN (05:08)
[2018-01-04 07:19] LABS: HEMOGLOBIN 8.4 g/dL (11.0-16.0); MEAN CELL VOLUME 89.8 fL (81.0-99.0); MEAN CORPUSCULAR HEMOGLOBIN 30.4 pg (27.0-31.0); MEAN CORPUSCULAR HGB CONC 33.9 g/dL (33.0-37.0); MEAN PLATELET VOLUME 8.2 fL (7.2-11.7); RBC 2.75 Mil/uL (3.80-5.20); RED CELL DISTRIBUTION WIDTH 14.7 % (11.5-14.5); WHITE BLOOD COUNT 11.8 K/uL (4.8-10.8)
[2018-01-04 07:37] LABS: CALCIUM 8.4 mg/dl (8.6-10.4)
[2018-01-04] MEDS: Pantoprazole 40 mg EC Tab PO SCH (09:41)
[2018-01-04] MEDS: (Novolog) Insulin Aspart, Recombinant 100 u/ml 10 ml vial SC SCH ×3 (09:41→17:30)
--- NOTE | 2018-01-04 10:24 | CP.PCM.PN ---
Subjective - Date & Time of Evaluation Date of Evaluation: 01/04/18 Time of Evaluation: 10:21 - Subjective Subjective: Patient states pain is better. Patient is much more talkative today. Denies CP/ SOB/dizziness. Objective - Vital Signs/Intake and Output Vital Signs (last 24 hours): Temp Pulse Resp BP Pulse Ox 99.1 F 87 20 135/66 94 L 01/04/18 07:20 01/04/18 07:20 01/04/18 07:20 01/04/18 09:41 01/04/18 07:20 Intake and Output: 01/04/18 01/04/18 06:59 18:59 Intake Total 550 Output Total 2825 Balance -2275 - Medications Medications: Current Medications Acetaminophen (Tylenol 325mg Tab) 650 mg PO Q4 PRN PRN Reason: Fever 101 degrees fahrenheit Last Admin: 01/04/18 09:47 Dose: 650 mg Amlodipine Besylate (Norvasc) 10 mg PO DAILY [facility] Last Admin: 01/04/18 09:41 Dose: 10 mg Apixaban (Eliquis) 2.5 mg PO BID [facility] Last Admin: 01/04/18 09:41 Dose: 2.5 mg Aspirin (Ecotrin) 81 mg PO DAILY [facility] Last Admin: 01/04/18 09:41 Dose: 81 mg Carvedilol (Coreg) 25 mg PO BID [facility] Last Admin: 01/04/18 09:41 Dose: 25 mg Docusate Sodium (Colace) 100 mg PO BID [facility] Last Admin: 01/04/18 09:41 Dose: 100 mg Ergocalciferol (Drisdol 50,000 Intl Units Cap) 1 cap PO Q7D [facility] Last Admin: 01/02/18 10:27 Dose: 1 cap Ferrous Sulfate (Feosol) 325 mg PO DAILY [facility] Last Admin: 01/04/18 09:41 Dose: 325 mg Folic Acid (Folic Acid) 1 mg PO DAILY [facility] Last Admin: 01/04/18 09:41 Dose: 1 mg Glimepiride (Amaryl) 4 mg PO DAILY [facility] Last Admin: 01/04/18 09:41 Dose: 4 mg Insulin Aspart (Novolog) 0 unit SC ACHS [facility] PRN Reason: Protocol Last Admin: 01/04/18 09:41 Dose: 8 units Morphine Sulfate (Morphine) 2 mg IVP Q4 PRN PRN Reason: Pain, severe (8-10) Last Admin: 01/03/18 06:27 Dose: 2 mg Oxycodone/Acetaminophen (Percocet 5/325 Mg Tab) 1 tab PO Q6H PRN PRN Reason: Pain, moderate (4-7) Stop: 01/04/18 14:52 Last Admin: 01/04/18 05:08 Dose: 1 tab Pantoprazole Sodium (Protonix Ec Tab) 40 mg PO DAILY [facility] Last Admin: 01/04/18 09:41 Dose: 40 mg Rosuvastatin Calcium (Crestor) 20 mg PO HS [facility] Last Admin: 01/03/18 21:06 Dose: 20 mg - Labs Labs: 01/04/18 07:15 01/04/18 07:15 PT 11.4 SECONDS (9.7-12.2) 12/31/17 12:43 INR 1.0 12/31/17 12:43 APTT 34 SECONDS (21-34) 12/31/17 12:43 - Extremities Exam Additional comments: RLE: drssing changed. Incision intact, dry, no erythema, small amount of sang drainage from hemovac site. +DP/PT pulses calves soft NT neg homans Assessment and Plan (1) Displaced fracture of right femoral neck Assessment & Plan: POD#3 s/p hemiarthroplasty awaiting dopplers, not completed yesterday, if negative then ortho stable for d/ c cont posterior hip precautions knee immobilizer for transfers eliquis to be continued for 35 days total cont WBAT sutures can be removed 01/22 d/w Dr. Davis, f/u in office in 2 weeks call for appointment upon d/c to rehab d/w Dr. Davis, agrees with above Status: Acute (2) Vitamin D deficiency Assessment & Plan: cont supp as outpatient Status: Chronic
[2018-01-04] MEDS ORDERED: (Novolog) Insulin Aspart, Recombinant 100 u/ml 10 ml vial SC SCH (12:21)
--- NOTE | 2018-01-04 15:23 | CP.PCM.PN ---
Subjective - Date & Time of Evaluation Date of Evaluation: 01/04/18 Time of Evaluation: 11:20 - Subjective Subjective: [employer] NOTES Patient seen today, awake, alert, oriented , states feels better , pain to the leg better and contolled with medications, denies any chest pain, sob, N/V/D, numbness or tinglings to the lower extremity hgb stable -8.4-8.9-8.3-9 s/p 1 unit of PRBC transfusion POD#3 s/p hemiarthroplasty a febrile Objective - Vital Signs/Intake and Output Vital Signs (last 24 hours): Temp Pulse Resp BP Pulse Ox 99.1 F 87 20 135/66 94 L 01/04/18 07:20 01/04/18 07:20 01/04/18 07:20 01/04/18 09:41 01/04/18 07:20 Intake and Output: 01/04/18 01/04/18 06:59 18:59 Intake Total 550 Output Total 2825 Balance -2275 - Medications Medications: Current Medications Acetaminophen (Tylenol 325mg Tab) 650 mg PO Q4 PRN PRN Reason: Fever 101 degrees fahrenheit Last Admin: 01/04/18 09:47 Dose: 650 mg Amlodipine Besylate (Norvasc) 10 mg PO DAILY [facility] Last Admin: 01/04/18 09:41 Dose: 10 mg Apixaban (Eliquis) 2.5 mg PO BID [facility] Last Admin: 01/04/18 09:41 Dose: 2.5 mg Aspirin (Ecotrin) 81 mg PO DAILY [facility] Last Admin: 01/04/18 09:41 Dose: 81 mg Carvedilol (Coreg) 25 mg PO BID [facility] Last Admin: 01/04/18 09:41 Dose: 25 mg Docusate Sodium (Colace) 100 mg PO BID [facility] Last Admin: 01/04/18 09:41 Dose: 100 mg Ergocalciferol (Drisdol 50,000 Intl Units Cap) 1 cap PO Q7D [facility] Last Admin: 01/02/18 10:27 Dose: 1 cap Ferrous Sulfate (Feosol) 325 mg PO DAILY [facility] Last Admin: 01/04/18 09:41 Dose: 325 mg Folic Acid (Folic Acid) 1 mg PO DAILY [facility] Last Admin: 01/04/18 09:41 Dose: 1 mg Glimepiride (Amaryl) 4 mg PO DAILY [facility] Last Admin: 01/04/18 09:41 Dose: 4 mg Insulin Aspart (Novolog) 0 unit SC ACHS [facility] PRN Reason: Protocol Last Admin: 01/04/18 12:52 Dose: 12 u Morphine Sulfate (Morphine) 2 mg IVP Q4 PRN PRN Reason: Pain, severe (8-10) Last Admin: 01/03/18 06:27 Dose: 2 mg Pantoprazole Sodium (Protonix Ec Tab) 40 mg PO DAILY [facility] Last Admin: 01/04/18 09:41 Dose: 40 mg Rosuvastatin Calcium (Crestor) 20 mg PO HS [facility] Last Admin: 01/03/18 21:06 Dose: 20 mg - Labs Labs: 01/04/18 07:15 01/04/18 07:15 PT 11.4 SECONDS (9.7-12.2) 12/31/17 12:43 INR 1.0 12/31/17 12:43 APTT 34 SECONDS (21-34) 12/31/17 12:43 Assessment and Plan - Assessment and Plan (Free Text) Assessment: A/P 87 year old female with pmhx of HTN, DM presents to the ED for an evaluation of right shoulder and right hip pain status post tripping and falling at home prior to arrival and found on x- ray - R hip fx POD#3 s/p hemiarthroplasty duplex lower extremity - negative seen by ortho today, ortho stable for d/c cont posterior hip precautions knee immobilizer for transfers eliquis to be continued for 35 days total cont WBAT sutures can be removed 01/22 f/u in office in 2 weeks call for appointment Patient accepted at [facility] and family in agreement as per LEEROY Rodriguez D/W Dr. Frost , cleared for discharge to [facility] today we will repeat blood work q 3 days at [facility] to monitor H&H discharge plan discussed with patient and daughter at bed shannon beltre
[2018-01-04 15:48] VITALS: BP 119/63; PULSE 88; TEMP 99.2; O2SAT 92
--- NOTE | 2018-01-04 18:34 | CP.PCM.DIS ---
Provider - Provider Date of Admission: 12/31/17 12:12 Attending physician: Deon Frost MD Hospital Course - Lab Results Lab Results: Micro Results 12/31/17 13:48 Urine Urine Culture - Final No Growth (<1,000 CFU/ML) Most Recent Lab Values WBC 11.8 K/uL (4.8-10.8) H 01/04/18 07:15 RBC 2.75 Mil/uL (3.80-5.20) L 01/04/18 07:15 Hgb 8.4 g/dL (11.0-16.0) L 01/04/18 07:15 Hct 24.7 % (34.0-47.0) L 01/04/18 07:15 MCV 89.8 fL (81.0-99.0) 01/04/18 07:15 MCH 30.4 pg (27.0-31.0) 01/04/18 07:15 MCHC 33.9 g/dL (33.0-37.0) 01/04/18 07:15 RDW 14.7 % (11.5-14.5) H 01/04/18 07:15 Plt Count 180 K/uL (130-400) 01/04/18 07:15 MPV 8.2 fL (7.2-11.7) 01/04/18 07:15 Neut % (Auto) 77.6 % (50.0-75.0) H 01/03/18 07:27 Lymph % (Auto) 16.2 % (20.0-40.0) L 01/03/18 07:27 [place] % (Auto) 5.3 % (0.0-10.0) 01/03/18 07:27 Eos % (Auto) 0.4 % (0.0-4.0) 01/03/18 07:27 Baso % (Auto) 0.5 % (0.0-2.0) 01/03/18 07:27 Neut # (Auto) 9.7 K/uL (1.8-7.0) H 01/03/18 07:27 Lymph # (Auto) 2.0 K/uL (1.0-4.3) 01/03/18 07:27 [place] # (Auto) 0.7 K/uL (0.0-0.8) 01/03/18 07:27 Eos # (Auto) 0.0 K/uL (0.0-0.7) 01/03/18 07:27 Baso # (Auto) 0.1 K/uL (0.0-0.2) 01/03/18 07:27 PT 11.4 SECONDS (9.7-12.2) 12/31/17 12:43 INR 1.0 12/31/17 12:43 APTT 34 SECONDS (21-34) 12/31/17 12:43 Sodium 138 mmol/L (132-148) 01/04/18 07:15 Potassium 4.3 mmol/L (3.6-5.2) 01/04/18 07:15 Chloride 103 mmol/L (98-107) 01/04/18 07:15 Carbon Dioxide 26 mmol/L (22-30) 01/04/18 07:15 Anion Gap 14 (10-20) 01/04/18 07:15 BUN 18 mg/dL (7-17) H 01/04/18 07:15 Creatinine 1.2 mg/dL (0.7-1.2) 01/04/18 07:15 Est GFR ( Amer) 52 01/04/18 07:15 Est GFR (Non-Af Amer) 43 01/04/18 07:15 POC Glucose (mg/dL) 348 mg/dL (65-110) H 01/04/18 16:47 Random Glucose 370 mg/dL (65-105) H 01/04/18 07:15 Calcium 8.4 mg/dl (8.6-10.4) L 01/04/18 07:15 Total Bilirubin 0.4 mg/dL (0.2-1.3) 12/31/17 12:43 AST 20 U/L (14-36) 12/31/17 12:43 ALT 22 U/L (9-52) 12/31/17 12:43 Alkaline Phosphatase 93 U/L (38-126) 12/31/17 12:43 Total Creatine Kinase 118 U/L (30-135) 12/31/17 12:43 CK-MB (Mass) 0.70 ng/mL (0.0-3.38) 12/31/17 12:43 Troponin I < 0.0120 ng/mL (0.00-0.120) 12/31/17 12:43 Total Protein 8.3 g/dL (6.3-8.3) 12/31/17 12:43 Albumin 4.7 g/dL (3.5-5.0) 12/31/17 12:43 Globulin 3.7 gm/dL (2.2-3.9) 12/31/17 12:43 Albumin/Globulin Ratio 1.3 (1.0-2.1) 12/31/17 12:43 25-OH Vitamin D Total 28.6 NG/ML (30.0-100.0) L 01/01/18 11:15 Urine Color Straw (YELLOW) 12/31/17 13:48 Urine Clarity Clear (Clear) 12/31/17 13:48 Urine pH 7.0 (5.0-8.0) 12/31/17 13:48 Ur Specific [place] 1.006 (1.003-1.030) 12/31/17 13:48 Urine Protein Negative mg/dL (NEGATIVE) 12/31/17 13:48 Urine Glucose (UA) 3+ mg/dL (Normal) H 12/31/17 13:48 Urine Ketones Negative mg/dL (NEGATIVE) 12/31/17 13:48 Urine Blood Negative (NEGATIVE) 12/31/17 13:48 Urine Nitrate Negative (NEGATIVE) 12/31/17 13:48 Urine Bilirubin Negative (NEGATIVE) 12/31/17 13:48 Urine Urobilinogen Normal mg/dL (0.2-1.0) 12/31/17 13:48 Ur Leukocyte Esterase Neg Pattie/uL (Negative) 12/31/17 13:48 Urine WBC (Auto) < 1 /hpf (0-5) 12/31/17 13:48 Urine RBC (Auto) 2 /hpf (0-3) 12/31/17 13:48 Blood Type B POSITIVE 01/04/18 12:13 Antibody Screen Negative 01/04/18 12:13 Discharge Exam - Head Exam Head Exam: ATRAUMATIC Discharge Plan - Follow Up Plan Condition: STABLE Disposition: HOME/ ROUTINE Instructions: Heart Healthy Diet, Heart Failure, Adult (DC), Hip Fracture (DC) , Bipolar Hip Replacement (DC), Managing Pain After Surgery Additional Instructions: Please f/u with Dr. Davis office in 2 weeks- call and make appointment and arrange transportation Sutures can be removed on 01/22/18 Eliquis for total of 35 days ,( started on 01/02/18) needs 32 more days PLEASE DO CBC, BMP on monday and q 3 days for 1 week then weekly cont posterior hip precautions knee immobilizer for transfers eliquis to be continued for 35 days total- started on 01/02/18 cont WBAT ANY QUESTIONS REGARDING ORTHO PLEASE CALL [facility]ICE Referrals: Deon Frost MD [Staff Provider] - Alejandra Davis MD [Staff Provider] -
--- NOTE | 2018-01-05 10:52 | VASCLAB ---
Date of service: 01/04/2018 PROCEDURE: Lower Extremity Venous Duplex Exam. HISTORY: Swelling, r/o DVT PRIORS: None. TECHNIQUE: Bilateral common femoral, femoral, popliteal and posterior tibial, peroneal and great saphenous veins were evaluated. Flow was assessed with color Doppler, compressibility, assessment of phasic flow and augmentation response. Report prepared by Alex Ortiz, ROYCE, RVT FINDINGS: RIGHT: 1. Common Femoral Vein: 1.1. Compressibility - Fully compressible: Thrombus - None : Flow - Phasic: Augmentation -Normal: Reflux - None. 2. Femoral Vein: 2.1. Compressibility - Fully compressible: Thrombus - None : Flow - Phasic: Augmentation -Normal: Reflux - None. 3. Popliteal Vein: 3.1. Compressibility - Fully compressible: Thrombus - None : Flow - Phasic: Augmentation -Normal: Reflux - None. 4. Posterior Tibial Vein: 4.1. Compressibility - Fully compressible: Thrombus - None: Flow - Phasic: Augmentation -Normal: Reflux - None. 5. Peroneal Vein: 5.1. Compressibility - Fully compressible: Thrombus - None: Flow - Phasic: Augmentation -Normal: Reflux - None. 6. Great Saphenous Vein: 6.1. Compressibility - Fully compressible: Thrombus - None: Flow - Phasic: Augmentation - Normal: Reflux - None. LEFT: 1. Common Femoral Vein: 1.1. Compressibility - Fully compressible: Thrombus - None: Flow - Phasic: Augmentation -Normal: Reflux - None. 2. Femoral Vein: 2.1. Compressibility - Fully compressible: Thrombus - None: Flow - Phasic: Augmentation -Normal: Reflux - None. 3. Popliteal Vein: 3.1. Compressibility - Fully compressible: Thrombus - None : Flow - Phasic: Augmentation -Normal: Reflux - None. 4. Posterior Tibial Vein: 4.1. Compressibility - Fully compressible: Thrombus - None: Flow - Phasic: Augmentation -Normal: Reflux - None. 5. Peroneal Vein: 5.1. Compressibility - Fully compressible: Thrombus - None: Flow - Phasic: Augmentation -Normal: Reflux - None. 6. Great Saphenous Vein: 6.1. Compressibility - Fully compressible: Thrombus - None: Flow - Phasic: Augmentation - Normal: Reflux - None. OTHER FINDINGS: Right: None significant. Left: None significant. IMPRESSION: Right: No evidence of deep or superficial vein thrombosis of the right lower extremity. Normal valve function noted of the right side. Left: No evidence of deep or superficial vein thrombosis of the left lower extremity. Normal valve function noted of the left side.
== END 2018-01-04 18:28 | DRG 470 ==
LOC: C.ER 10:38 → C.9E 12:12 → C.6T 13:04
PROVIDERS: ADMIT Internal Medicine Critical Care Medicine; ATTEND Internal Medicine Critical Care Medicine
PROC: 0QH604Z Insertion of Internal Fixation Device into Right Upper Femur, Open Approach (ICD-10-PCS; 2018-01-01)
PROC: 3E0U329 Introduction of Other Anti-infective into Joints, Percutaneous Approach (ICD-10-PCS; 2018-01-01)
PROC: 0S9930Z Drainage of Right Hip Joint with Drainage Device, Percutaneous Approach (ICD-10-PCS; 2018-01-01)
PROC: 0SRR0JZ Replacement of Right Hip Joint, Femoral Surface with Synthetic Substitute, Open Approach (ICD-10-PCS; principal; 2018-01-01 12:00)
DX: S72.011A Unspecified intracapsular fracture of right femur, initial encounter for closed fracture (principal); W01.0XXA Fall on same level from slipping, tripping and stumbling without subsequent striking against object, initial encounter; M81.0 Age-related osteoporosis without current pathological fracture; I11.0 Hypertensive heart disease with heart failure; E55.9 Vitamin D deficiency, unspecified; M17.11 Unilateral primary osteoarthritis, right knee; I25.10 Atherosclerotic heart disease of native coronary artery without angina pectoris; E11.9 Type 2 diabetes mellitus without complications; I50.9 Heart failure, unspecified; E78.00 Pure hypercholesterolemia, unspecified; F03.90 Unspecified dementia, unspecified severity, without behavioral disturbance, psychotic disturbance, mood disturbance, and anxiety; H40.9 Unspecified glaucoma; Y92.009 Unspecified place in unspecified non-institutional (private) residence as the place of occurrence of the external cause; Z95.5 Presence of coronary angioplasty implant and graft; Z87.11 Personal history of peptic ulcer disease; Z86.73 Personal history of transient ischemic attack (TIA), and cerebral infarction without residual deficits; Z87.440 Personal history of urinary (tract) infections; Z98.42 Cataract extraction status, left eye; Z98.41 Cataract extraction status, right eye

== ENCOUNTER 2018-03-06 20:52 | Emergency (ER) | payer MEDICARE ==
[2018-03-06 20:52] VITALS: BMI 26.2
[2018-03-06] MEDS ORDERED: Sodium Chloride 0.9% 1,000 ML IV ONE (21:18)
[2018-03-06] MEDS ORDERED: Pantoprazole 80 MG in Sodium Chloride 0.9% 100 ML IV STA (21:18)
--- NOTE | 2018-03-06 21:18 | C.PDOC ---
History Of Present Illness Patient presents to the ER with a complaint of abdominal soreness for the past few days. Daughter also notes patient has been having black tarry stools. Denies fever, chills, chest pain, palpitations, or SOB. Time Seen by Provider: 03/06/18 21:18 Chief Complaint (Nursing): Abdominal Pain History Per: Patient History/Exam Limitations: no limitations Onset/Duration Of Symptoms: Days Current Symptoms Are (Timing): Still Present Severity: Moderate Pain Scale Rating Of: 4 Location Of Pain/Discomfort: Diffuse Radiation Of Pain To:: None Quality Of Discomfort: Unable To Describe Associated Symptoms: Other (Black tarry stools). denies: Fever, Chills, Nausea, Vomiting Exacerbating Factors: None Alleviating Factors: None Recent travel outside of the [place]: No Abnormal Vaginal Bleeding: No Past Medical History Reviewed: Historical Data, Nursing Documentation, Vital Signs Vital Signs: Last Vital Signs Temp 97.7 F 03/07/18 01:22 Pulse 68 03/07/18 01:22 Resp 20 03/07/18 01:22 BP 164/70 H 03/07/18 01:22 Pulse Ox 99 03/07/18 01:22 - Medical History PMH: Anemia, Arthritis, CAD, CHF, CVA, Dementia, Diabetes, Gastritis, HTN, Hypercholesterolemia, TIA Denies: Depression, Chronic Kidney Disease Surgical History: Coronary Stent (01/2015 & 2015) - [facility] Procedures CENTRAL VENOUS CATHETER PLACEMENT WITH GUIDANCE (02/28/15) CORONAR ARTERIOGR-2 CATH (02/03/15) DRAINAGE OF RIGHT HIP JOINT WITH DRAIN DEV, PERC APPROACH (12/31/17) EXCISION OF DESCENDING COLON, ENDO, DIAGN (11/29/17) EXCISION OF STOMACH, ENDO, DIAGN (11/29/17) INSERTION OF INT FIX INTO R UP FEMUR, OPEN APPROACH (12/31/17) INTRODUCTION OF OTH ANTI-INFECT INTO JOINT, PERC APPROACH (12/31/17) LEFT HEART CARDIAC CATH (02/03/15) LT HEART ANGIOCARDIOGRAM (02/03/15) REPLACE OF R HIP JT, FEMORAL WITH SYNTH SUB, OPEN APPROACH (12/31/17) Family History: States: No Known Family Hx - Social History Hx Tobacco Use: No Hx Alcohol Use: No Hx Substance Use: No - Immunization History Hx Tetanus Toxoid Vaccination: No Hx Influenza Vaccination: Yes (03/2017) Hx Pneumococcal Vaccination: Yes Review Of Systems Constitutional: Negative for: Fever, Chills Cardiovascular: Negative for: Chest Pain, Palpitations Respiratory: Negative for: Shortness of Breath Gastrointestinal: Positive for: Abdominal Pain, Other (Black tarry stools) Neurological: Negative for: Weakness, Numbness Physical Exam - Physical Exam Appears: Non-toxic Skin: Warm, Dry Head: Normacephalic Oral Mucosa: Moist Chest: Symmetrical, No Tenderness Cardiovascular: Rhythm Regular Respiratory: No Rales, No Rhonchi, No Wheezing Gastrointestinal/Abdominal: Soft, Tenderness (Diffuse), No Guarding, No Rebound Rectal: Other (Black tarry stools) Neurological/Psych: Oriented x3 ED Course And Treatment - Laboratory Results Result Diagrams: 03/06/18 21:46 03/06/18 21:46 ECG: Interpreted By Me, Viewed By Me ECG Rhythm: Sinus Rhythm (69), Nonspecific Changes O2 Sat by Pulse Oximetry: 98 (Room air) Pulse Ox Interpretation: Normal - Radiology CXR: Interpreted by Me, Viewed By Me CXR Interpretation: No: Infiltrates, Fracture, Pnemothorax Progress Note: Blood work, EKG, CXR, and urinalysis ordered. Protonix and IV fluids administered. Reevaluation Time: 02:02 Reassessment Condition: Improved Medical Decision Making Medical Decision Making: Upon provider reevaluation patient is feeling better, is medically stable, and requires no further treatment in the ED at this time. Patient will be discharged home with Rx for miralax . Counseling was provided and all questions were answered regarding diagnosis and need for follow up with dr burris. There is agreement to discharge plan. Return if symptoms persist or worsen. Disposition Counseled Patient/Family Regarding: Studies Performed, Diagnosis, Need For Followup, Rx Given - Disposition Referrals: Chris Burris MD, PhD [Staff Provider] - Disposition: HOME/ ROUTINE Disposition Time: 21:18 Condition: FAIR Additional Instructions: Please return if symptoms recur Prescriptions: Polyethylene Glycol 3350 [Miralax] 17 gm PO DAILY #270 ml Instructions: Constipation, Adult (DC) Forms: [facility] ([place]) - Clinical Impression Clinical Impression: Abdominal pain, Constipation - Scribe Statement The provider has reviewed the documentation as recorded by the Scribe Alex Sidhu All medical record entries made by the Scribe were at my direction and personally dictated by me. I have reviewed the chart and agree that the record accurately reflects my personal performance of the history, physical exam, medical decision making, and the department course for this patient. I have also personally directed, reviewed, and agree with the discharge instructions and disposition.
[2018-03-06 21:50] LABS: BASO # 0.1 K/uL (0.0-0.2); BASO % 1.6 % (0.0-2.0); EOS # 0.3 K/uL (0.0-0.7); EOS % 4.5 % (0.0-4.0); HEMOGLOBIN 10.1 g/dL (11.0-16.0); LYMPH # 3.3 K/uL (1.0-4.3); LYMPH % 48.1 % (20.0-40.0); MEAN CELL VOLUME 89.3 fL (81.0-99.0); MEAN CORPUSCULAR HGB CONC 33.6 g/dL (33.0-37.0); MEAN PLATELET VOLUME 8.4 fL (7.2-11.7); MONO # 0.4 K/uL (0.0-0.8); MONO % 5.1 % (0.0-10.0); NEUT # 2.8 K/uL (1.8-7.0); NEUT % 40.7 % (50.0-75.0); NRBC % 0.1 % (0.0-2.0); RBC 3.38 Mil/uL (3.80-5.20); RED CELL DISTRIBUTION WIDTH 14.4 % (11.5-14.5); WHITE BLOOD COUNT 6.9 K/uL (4.8-10.8)
[2018-03-06 21:59] LABS: INR 1.2; PROTHROMBIN TIME 12.6 SECONDS (9.7-12.2)
[2018-03-06] MEDS ORDERED: Sodium Chloride 0.9% 1,000 ML ONE (21:59)
[2018-03-06 22:01] LABS: ALB/GLOB RATIO 1.2 (1.0-2.1); ALBUMIN 4.1 g/dL (3.5-5.0); CALCIUM 9.6 mg/dl (8.6-10.4)
[2018-03-06 23:26] LABS: SQUAMOUS EPITHIAL 6 /hpf (0-5); URINE BACTERIA RARE (<OCC); URINE BILIRUBIN NEGATIVE (NEGATIVE); URINE BLOOD 1+ (NEGATIVE); URINE CLARITY Clear (Clear); URINE COLOR Straw (YELLOW); URINE GLUCOSE (UA) NORMAL (Normal); URINE LEUKOCYTE ESTERASE NEG Leu/uL (Negative); URINE PROTEIN NEGATIVE (NEGATIVE); URINE UROBILINOGEN NORMAL mg/dL (0.2-1.0)
[2018-03-06] MEDS ORDERED: Iodixanol 320 MG/ML 100 ML BOTTLE IV ONE (23:27)
[2018-03-07 01:23] VITALS: RESP 20; TEMP 97.7
[2018-03-07 02:41] VITALS: BP 133/68; PULSE 96; O2SAT 96
--- NOTE | 2018-03-07 10:57 | RAD ---
Date of service: 03/06/2018 PROCEDURE: CHEST RADIOGRAPH, 1 VIEW HISTORY: GI Bleeding COMPARISON: 12/31/2017 FINDINGS: LUNGS: Clear. PLEURA: No pneumothorax or pleural fluid seen. CARDIOVASCULAR: No radiographic findings to suggest acute or significant cardiovascular disease. OSSEOUS STRUCTURES: No significant abnormalities. VISUALIZED UPPER ABDOMEN: Normal. OTHER FINDINGS: None. IMPRESSION: No active disease.No significant interval change compared to the prior examination(s). Concordant results with the preliminary interpretation rendered by the emergency department physician procedure.
--- NOTE | 2018-03-07 11:38 | CARD ---
APPROVED REPORT Date of service: 03/06/2018 EKG Measurement Heart [id number] <Conclusion> Normal sinus rhythm Left axis deviation Inferior infarct, age undetermined Abnormal ECG
--- NOTE | 2018-03-07 12:47 | CT ---
Date of service: 03/06/2018 PROCEDURE: CT Abdomen and Pelvis with contrast HISTORY: abdominal pain COMPARISON: Abdominal ultrasound performed 12/20/17, CT abdomen pelvis without contrast performed 12/19/17 TECHNIQUE: Contrast dose: 100 mL Visipaque IV Radiation dose: Total exam DLP = 401.71 mGy-cm. This CT exam was performed using one or more of the following dose reduction techniques: Automated exposure control, adjustment of the mA and/or kV according to patient size, and/or use of iterative reconstruction technique. FINDINGS: LOWER THORAX: Mild bibasilar atelectasis. No visible pleural effusion or pneumothorax. LIVER: Unremarkable. GALLBLADDER AND BILE DUCTS: Unremarkable. PANCREAS: Dilated pancreatic duct measuring approximately 6 mm. SPLEEN: Unremarkable. ADRENALS: Unremarkable. KIDNEYS AND URETERS: The kidneys enhance symmetrically. No hydronephrosis or obstructing calculus identified. 11 mm low-density lesion along the medial aspect of the left mid kidney measures approximately 6 HU consistent with a cyst. VASCULATURE: No aortic aneurysm. BOWEL: Apparent gastric wall thickening may be exaggerated by gastric under distension. Lack of oral contrast limits evaluation for bowel pathology. Bowel loops appear within normal limits of caliber without evidence of obstruction. Diverticulosis without CT evidence of acute diverticulitis. Moderate constipation. APPENDIX: The appendix appears within normal limits of caliber. No secondary signs of acute appendicitis. PERITONEUM: No significant free fluid. No definite free air. LYMPH NODES: No bulky adenopathy identified. BLADDER: Urinary bladder distension. REPRODUCTIVE: The uterus is present. BONES: Scoliosis. Multilevel degenerative changes. Osseous abnormality. Streak artifact from right hip arthroplasty. OTHER FINDINGS: None. IMPRESSION: Dilated pancreatic duct. No focal pancreatic mass appreciated. Recommend further evaluation with pancreatic protocol if indicated. Apparent gastric wall thickening may be exaggerated by gastric under distension. Diverticulosis without CT evidence of acute diverticulitis. Moderate constipation. 11 mm low-density lesion along the medial aspect of the left mid kidney measures approximately 6 HU consistent with a cyst. Distended urinary bladder. Additional findings as above. Preliminary impression was provided by [employer].
== END 2018-03-07 02:44 | disposition home or self-care (01) ==
LOC: C.ER 20:52 → SUPCPDRO 20:52 → C.ER 03-07 02:44
DX: K59.00 Constipation, unspecified (principal); R10.9 Unspecified abdominal pain
CPT/HCPCS: 71045; 74177; 80053; 81001; 82948; 85025; 85610; 85730; 86850; 86900; 93005; 96361; 96365; 99284; C9113; G0328; J7030; Q9967

== ENCOUNTER 2018-03-07 22:22 | Emergency (ER) | payer MEDICARE ==
[2018-03-07 22:22] VITALS: BMI 26.2
[2018-03-07 22:46] VITALS: RESP 20; TEMP 97.8; O2SAT 100
--- NOTE | 2018-03-07 23:35 | C.PDOC ---
Time Seen by Provider: 03/07/18 22:35 Chief Complaint (Nursing): Headache Past Medical History Vital Signs: Last Vital Signs Temp 97.8 F 03/07/18 22:40 Pulse 77 03/07/18 22:40 Resp 20 03/07/18 22:40 BP 167/69 H 03/07/18 22:40 Pulse Ox 100 03/07/18 22:40 - Medical History PMH: Anemia, Arthritis, CAD, CHF, CVA, Dementia, Diabetes, Gastritis, HTN, Hypercholesterolemia, TIA Denies: Depression, Chronic Kidney Disease Surgical History: Coronary Stent (01/2015 & 2015) - [facility] Procedures CENTRAL VENOUS CATHETER PLACEMENT WITH GUIDANCE (02/28/15) CORONAR ARTERIOGR-2 CATH (02/03/15) DRAINAGE OF RIGHT HIP JOINT WITH DRAIN DEV, PERC APPROACH (12/31/17) EXCISION OF DESCENDING COLON, ENDO, DIAGN (11/29/17) EXCISION OF STOMACH, ENDO, DIAGN (11/29/17) INSERTION OF INT FIX INTO R UP FEMUR, OPEN APPROACH (12/31/17) INTRODUCTION OF OTH ANTI-INFECT INTO JOINT, PERC APPROACH (12/31/17) LEFT HEART CARDIAC CATH (02/03/15) LT HEART ANGIOCARDIOGRAM (02/03/15) REPLACE OF R HIP JT, FEMORAL WITH SYNTH SUB, OPEN APPROACH (12/31/17) Family History: States: Unknown Family Hx - Social History Hx Tobacco Use: No Hx Alcohol Use: No Hx Substance Use: No - Immunization History Hx Tetanus Toxoid Vaccination: No Hx Influenza Vaccination: Yes (03/2017) Hx Pneumococcal Vaccination: Yes ED Course And Treatment O2 Sat by Pulse Oximetry: 100 Disposition - Disposition Forms: [employer] (Pashto)
--- NOTE | 2018-03-07 23:35 | C.PDOC ---
History Of Present Illness 87 year old female with PMHx of recent hip replacement presents to the ED complaining of pain to the right side of her head status post falling and hitting her head. She reports she was getting out of bed when she lost balance and hit her head against the wall. She denies any LOC, neck pain, or any other injuries. Time Seen by Provider: 03/07/18 22:35 Chief Complaint (Nursing): Headache History Per: Patient History/Exam Limitations: no limitations Onset/Duration Of Symptoms: Hrs Current Symptoms Are (Timing): Still Present Quality: "Pain" Preceeding Symptoms: None Past Medical History Reviewed: Historical Data, Nursing Documentation, Vital Signs Vital Signs: Last Vital Signs Temp 97.8 F 03/07/18 22:40 Pulse 77 03/07/18 22:40 Resp 20 03/07/18 22:40 BP 167/69 H 03/07/18 22:40 Pulse Ox 100 03/07/18 22:40 - Medical History PMH: Anemia, Arthritis, CAD, CHF, CVA, Dementia, Diabetes, Gastritis, HTN, Hypercholesterolemia, TIA Denies: Depression, Chronic Kidney Disease Surgical History: Coronary Stent (01/2015 & 2015) - [facility] Procedures CENTRAL VENOUS CATHETER PLACEMENT WITH GUIDANCE (02/28/15) CORONAR ARTERIOGR-2 CATH (02/03/15) DRAINAGE OF RIGHT HIP JOINT WITH DRAIN DEV, PERC APPROACH (12/31/17) EXCISION OF DESCENDING COLON, ENDO, DIAGN (11/29/17) EXCISION OF STOMACH, ENDO, DIAGN (11/29/17) INSERTION OF INT FIX INTO R UP FEMUR, OPEN APPROACH (12/31/17) INTRODUCTION OF OTH ANTI-INFECT INTO JOINT, PERC APPROACH (12/31/17) LEFT HEART CARDIAC CATH (02/03/15) LT HEART ANGIOCARDIOGRAM (02/03/15) REPLACE OF R HIP JT, FEMORAL WITH SYNTH SUB, OPEN APPROACH (12/31/17) Family History: States: No Known Family Hx - Social History Hx Tobacco Use: No Hx Alcohol Use: No Hx Substance Use: No - Immunization History Hx Tetanus Toxoid Vaccination: No Hx Influenza Vaccination: Yes (03/2017) Hx Pneumococcal Vaccination: Yes Review Of Systems Eyes: Negative for: Vision Change Musculoskeletal: Negative for: Neck Pain Neurological: Positive for: Headache. Negative for: Weakness, Numbness Physical Exam - Physical Exam Appears: Non-toxic Skin: Warm, Dry Head: Normacephalic, Swelling (swelling to the right temporal scalp ), Abrasion (superficial abrasion to mid forehead), No Laceration Eye(s): bilateral: Normal Inspection, PERRL, EOMI Ear(s): Bilateral: Normal Nose: Normal Oral Mucosa: Moist Neck: Normal ROM Chest: Symmetrical Cardiovascular: Rhythm Regular Respiratory: Normal Breath Sounds, No Rales, No Rhonchi, No Wheezing Gastrointestinal/Abdominal: Soft, No Tenderness Extremity: Normal ROM, Capillary Refill (less than 2 sec to left knee), No Deformity, Other (abrasion to left knee) Extremity: Bilateral: Normal Color And Temperature, Normal ROM Pulses: Left Dorsalis Pedis: Normal, Right Dorsalis Pedis: Normal Neurological/Psych: Oriented x3, Normal Speech, Normal Cognition, Normal Cranial Nerves, Cerebellar Signs, Normal Motor, Normal Sensation Gait: Steady ED Course And Treatment O2 Sat by Pulse Oximetry: 100 (RA) Pulse Ox Interpretation: Normal - CT Scan/US CT Head Other Rad Studies (CT/US): Read By Radiologist, Radiology Report Reviewed CT/US Interpretation: Name:DAVID MARTE Exam Date:Mar 07, 2018 10:58:54 PM EDT. Modality Type:CT. Description:CT - BRAIN. Gender:F Laterality:Not applicable. :32 Referring Physician:Madeline Lopez). EXAM: CT Head Without IV contrast. CLINICAL HISTORY: FELL, OCCIPTAL PAIN. TECHNIQUE: Axial computed tomography images of the head/brain without intravenous contrast. COMPARISON: None provided. FINDINGS: BRAIN. Chronic periventricular and subcortical microvascular disease is seen. Right frontoparietal scalp hematoma is noted. VENTRICLES: There is generalized parenchymal atrophy noted as demonstrated by symmetrical dilatation of ventricles and sulci. ORBITS: The orbits are unremarkable. SINUSES AND MASTOIDS: The paranasal sinuses and mastoid air cells are clear. BONES: No fracture. MISCELLANEOUS: No acute intracranial pathology. IMPRESSION: 1. There is generalized parenchymal atrophy noted as demonstrated by symmetrical dilatation of ventricles and sulci. 2. Chronic periventricular and subcortical microvascular disease is seen. 3. Right fr ontoparietal scalp hematoma is noted. 4. No acute intracranial pathology. . Electronically signed on Mar 07, 2018 11:23:02 PM EDT by: Randall Parish M.D., MBA Certified By ABR & CBCCT. Fellowship Trained MRI and CT Specialist Medical Decision Making Medical Decision Making: Orders: - CT Head - Tylenol 650 mg PO Disposition Counseled Patient/Family Regarding: Studies Performed, Diagnosis, Need For Followup - Disposition Referrals: Chris Ybarra MD, PhD [Staff Provider] - Disposition: HOME/ ROUTINE Disposition Time: 23:33 Condition: IMPROVED Additional Instructions: Take Tylenol if needed for pain. Instructions: Closed Head Injury (DC) Forms: [email or web address] (Croatian) - Clinical Impression Clinical Impression: Head injury - Scribe Statement The provider has reviewed the documentation as recorded by the Scribe Pati Vasquez All medical record entries made by the Scribe were at my direction and personally dictated by me. I have reviewed the chart and agree that the record accurately reflects my personal performance of the history, physical exam, medical decision making, and the department course for this patient. I have also personally directed, reviewed, and agree with the discharge instructions and disposition.
[2018-03-07 23:45] VITALS: BP 123/54; PULSE 78
--- NOTE | 2018-03-08 09:09 | CT ---
Date of service: 03/07/2018 PROCEDURE: CT HEAD WITHOUT CONTRAST. HISTORY: head injury COMPARISON: Comparison made with CT scan brain 12/19/2017. Comparison also made with prior MRI brain 08/11/2014. TECHNIQUE: Axial computed tomography images were obtained through the head/brain without intravenous contrast. Radiation dose: Total exam DLP = 974.67 mGy-cm. This CT exam was performed using one or more of the following dose reduction techniques: Automated exposure control, adjustment of the mA and/or kV according to patient size, and/or use of iterative reconstruction technique. FINDINGS: HEMORRHAGE: No acute parenchymal, subarachnoid or extra-axial hemorrhage. BRAIN: Moderate diffuse/confluent chronic periventricular white matter ischemic changes again seen extending peripherally into the deep and subcortical white matter both cerebral hemispheres. There is also extension of these changes into the white matter tracts of both basal nuclei. Scattered chronic bilateral basal nuclei lacunar type infarcts also present. All these changes are seen to better advantage on prior MRI however in general there appears to have been interval progression since that exam. No obvious parenchymal nor extra-axial mass or collection seen on this noncontrast study. Moderate generalized volume loss. Partially calcified atherosclerotic plaque both carotid siphons. VENTRICLES: No obstructive hydrocephalus. CALVARIUM: Calvarium intact. There is a small to medium-sized right posterior superior parietal scalp contusion. PARANASAL SINUSES: The sphenoid sinuses are somewhat diminutive in overall volume also clear. The remaining paranasal sinuses are relatively well-developed. Some minor mucosal thickening roof right maxillary antrum. MASTOID AIR CELLS: Unremarkable as visualized. No inflammatory changes. OTHER FINDINGS: Changes of right-sided cataract surgery. IMPRESSION: No acute intracranial hemorrhage. Moderate chronic white matter ischemic changes and scattered basal nuclei lacunar type infarcts. Moderate generalized volume loss Right posterior superior parietal scalp contusion.
== END 2018-03-07 23:44 | disposition home or self-care (01) ==
LOC: C.ER 22:22
DX: S09.90XA Unspecified injury of head, initial encounter (principal); W01.198A Fall on same level from slipping, tripping and stumbling with subsequent striking against other object, initial encounter; Y92.003 Bedroom of unspecified non-institutional (private) residence as the place of occurrence of the external cause; E11.9 Type 2 diabetes mellitus without complications

== ENCOUNTER 2018-04-28 13:45 | Emergency (ER) | payer MEDICARE ==
[2018-04-28 13:45] VITALS: BMI 26.2
[2018-04-28 13:55] VITALS: BP 171/88; PULSE 76; RESP 16; TEMP 97.6; O2SAT 99
[2018-04-28 14:16] LABS: URINE BILIRUBIN NEGATIVE (NEGATIVE); URINE BLOOD 1+ (NEGATIVE); URINE CLARITY Clear (Clear); URINE COLOR Straw (YELLOW); URINE GLUCOSE (UA) 3+ mg/dL (Normal); URINE LEUKOCYTE ESTERASE NEG Leu/uL (Negative); URINE PROTEIN NEGATIVE (NEGATIVE); URINE UROBILINOGEN NORMAL mg/dL (0.2-1.0)
[2018-04-28 14:21] LABS: SQUAMOUS EPITHIAL < 1 /hpf (0-5)
--- NOTE | 2018-04-28 15:01 | C.PDOC ---
History Of Present Illness 87 y/o female comes in accompanied by family member for evaluation of discomfort in urination x3 days. As per family, she recently had a right hip replacement and is in physical therapy. Patient also complains of right knee pain. Otherwise, denies fever, chills, CP, SOB, dyspnea, palpitation, abdominal pain, nausea, vomiting, vaginal discharge, hematuria, or recent trauma to the right knee. AT present time, pappears comfortable, not in any apparent distress. Time Seen by Provider: 04/28/18 14:04 Chief Complaint (Nursing): Female Genitourinary History Per: Patient History/Exam Limitations: no limitations Onset/Duration Of Symptoms: Days Current Symptoms Are (Timing): Still Present Past Medical History Reviewed: Historical Data, Nursing Documentation, Vital Signs Vital Signs: Last Vital Signs Temp 97.6 F 04/28/18 13:52 Pulse 76 04/28/18 13:52 Resp 16 04/28/18 13:52 BP 171/88 H 04/28/18 13:52 Pulse Ox 99 04/28/18 13:52 - Medical History PMH: Anemia, Arthritis, CAD, CHF, CVA, Dementia, Diabetes, Gastritis, HTN, Hypercholesterolemia, TIA Denies: Depression, Chronic Kidney Disease Surgical History: Coronary Stent (01/2015 & 2015) - [facility] Procedures CENTRAL VENOUS CATHETER PLACEMENT WITH GUIDANCE (02/28/15) CORONAR ARTERIOGR-2 CATH (02/03/15) DRAINAGE OF RIGHT HIP JOINT WITH DRAIN DEV, PERC APPROACH (12/31/17) EXCISION OF DESCENDING COLON, ENDO, DIAGN (11/29/17) EXCISION OF STOMACH, ENDO, DIAGN (11/29/17) INSERTION OF INT FIX INTO R UP FEMUR, OPEN APPROACH (12/31/17) INTRODUCTION OF OTH ANTI-INFECT INTO JOINT, PERC APPROACH (12/31/17) LEFT HEART CARDIAC CATH (02/03/15) LT HEART ANGIOCARDIOGRAM (02/03/15) REPLACE OF R HIP JT, FEMORAL WITH SYNTH SUB, OPEN APPROACH (12/31/17) Family History: States: No Known Family Hx - Social History Hx Tobacco Use: No Hx Alcohol Use: No Hx Substance Use: No - Immunization History Hx Tetanus Toxoid Vaccination: No Hx Influenza Vaccination: Yes (03/2017) Hx Pneumococcal Vaccination: Yes Review Of Systems Except As Marked, All Systems Reviewed And Found Negative. Constitutional: Negative for: Fever, Chills Gastrointestinal: Negative for: Nausea, Vomiting, Abdominal Pain Genitourinary: Positive for: Dysuria. Negative for: Vaginal Discharge Musculoskeletal: Positive for: Other (R knee pain) Physical Exam - Physical Exam Appears: Well, Non-toxic, No Acute Distress, Other (wheelchair bound) Skin: Normal Color, Warm, No Rash, No Ecchymosis Head: Normacephalic Oral Mucosa: Moist Neck: Trachea Midline Respiratory: No Rales, No Rhonchi, No Wheezing Gastrointestinal/Abdominal: Soft, No Tenderness, No Distention, No Guarding, No Rebound Back: No CVA Tenderness Extremity: No Pedal Edema, No Deformity Neurological/Psych: Oriented x3, Normal Speech, Normal Motor, Normal Sensation Gait: Steady ED Course And Treatment O2 Sat by Pulse Oximetry: 99 (RA) Pulse Ox Interpretation: Normal Progress Note: Urinalysis ordered. Macrobid administered. Disposition Counseled Patient/Family Regarding: Studies Performed, Diagnosis, Need For Followup, Rx Given - Disposition Referrals: Chris Ybarra MD, PhD [Staff Provider] - Disposition: HOME/ ROUTINE Disposition Time: 14:58 Condition: STABLE Additional Instructions: Encourage fluids Take medication as prescribed Follow up with PMD in 2-3 days for re-evaluation. return to ED if any worsening or new changes. Prescriptions: Miconazole 2% Vaginal [Monistat 7 Vaginal Cream] 1 ea VG BID #1 tube Nitrofurantoin Macrocrystals [Macrobid] 1 cap PO BID #14 cap Instructions: Vulvovaginal Yeast Infection, Dysuria, Adult (DC) Forms: [employer] (Slovenian) - Clinical Impression Clinical Impression: Dysuria - PA / MANAGER OF CARE / Resident Statement MD/DO has reviewed & agrees with the documentation as recorded. - Scribe Statement The provider has reviewed the documentation as recorded by the Juan Ramonibpatt Garcia All medical record entries made by the Miller were at my direction and personally dictated by me. I have reviewed the chart and agree that the record accurately reflects my personal performance of the history, physical exam, medical decision making, and the department course for this patient. I have also personally directed, reviewed, and agree with the discharge instructions and disposition.
== END 2018-04-28 15:44 | disposition home or self-care (01) ==
LOC: C.ER 13:45
DX: R30.0 Dysuria (principal)

== ENCOUNTER 2018-05-07 11:37 | Inpatient (IN) | payer MEDICARE ==
[2018-05-07 11:37] VITALS: BMI 26.2
--- NOTE | 2018-05-07 13:40 | C.PDOC ---
History Of Present Illness This is an 87 yo F who has a h/o CAD, TIA, DM, HTN and gastritis presents c/o 3 d h/o non productive cough, nausea, SOB w/inspiration and constant, nonradiating substernal chest pain that started w/the cough and worsens w/cough. She states pain is 6/10 and that she has taken Tylenol for the pain which has helped some. She is also c/o epigastric pain. Patient is poor historian. Patient's daughters at the bedside providing additional history. PMD: * Chris Paz Pulmonologists: * Dr. Jamie Haeys Time Seen by Provider: 05/07/18 13:10 Chief Complaint (Nursing): Chest Pain History Per: Patient History/Exam Limitations: no limitations Onset/Duration Of Symptoms: Days (3) Current Symptoms Are (Timing): Still Present Severity: Moderate Pain Scale Rating Of: 6 Modifying Factors: None Exacerbating Factors: None Alleviating Factors: None Recent travel outside of the [place]: No Past Medical History Reviewed: Historical Data, Nursing Documentation, Vital Signs Vital Signs: Last Vital Signs Temp 97.7 F 05/07/18 11:58 Pulse 93 H 05/07/18 11:58 Resp 18 05/07/18 11:58 BP 150/75 05/07/18 11:58 Pulse Ox 99 05/07/18 11:58 - Medical History PMH: Anemia, Arthritis, CAD, CHF, CVA, Dementia, Diabetes, Gastritis, HTN, Hypercholesterolemia, TIA Surgical History: Coronary Stent (01/2015 & 2015) - [facility] Procedures CENTRAL VENOUS CATHETER PLACEMENT WITH GUIDANCE (02/28/15) CORONAR ARTERIOGR-2 CATH (02/03/15) DRAINAGE OF RIGHT HIP JOINT WITH DRAIN DEV, PERC APPROACH (12/31/17) EXCISION OF DESCENDING COLON, ENDO, DIAGN (11/29/17) EXCISION OF STOMACH, ENDO, DIAGN (11/29/17) INSERTION OF INT FIX INTO R UP FEMUR, OPEN APPROACH (12/31/17) INTRODUCTION OF OTH ANTI-INFECT INTO JOINT, PERC APPROACH (12/31/17) LEFT HEART CARDIAC CATH (02/03/15) LT HEART ANGIOCARDIOGRAM (02/03/15) REPLACE OF R HIP JT, FEMORAL WITH SYNTH SUB, OPEN APPROACH (12/31/17) Family History: States: Unknown Family Hx - Social History Hx Tobacco Use: No Hx Alcohol Use: No Hx Substance Use: No - Immunization History Hx Tetanus Toxoid Vaccination: No Hx Influenza Vaccination: Yes (03/2017) Hx Pneumococcal Vaccination: Yes Review Of Systems Constitutional: Negative for: Fever, Chills Cardiovascular: Positive for: Chest Pain (Substernal ) Respiratory: Positive for: Cough (Non-productive ), Shortness of Breath (With inspiration ) Gastrointestinal: Positive for: Abdominal Pain (Epigastric ). Negative for: Nausea, Vomiting, Diarrhea Skin: Negative for: Rash Neurological: Negative for: Weakness, Numbness Physical Exam - Physical Exam Appears: Well, No Acute Distress Skin: Normal Color, Warm, Dry Eye(s): bilateral: PERRL, EOMI Oral Mucosa: Dry Throat: Normal Neck: Normal ROM Cardiovascular: Rhythm Regular, No Edema, No Murmur, No JVD, Other ((+) gallop) Respiratory: No Accessory Muscle Use, Rales, No Rhonchi, No Wheezing Gastrointestinal/Abdominal: Bowel Sounds, Soft, No Tenderness, No Mass, No Distention, No Guarding Extremity: Normal ROM, No Tenderness, No Pedal Edema Neurological/Psych: Oriented x3, Normal Motor, Normal Sensation ED Course And Treatment - Laboratory Results Result Diagrams: 05/07/18 14:17 05/07/18 13:41 O2 Sat by Pulse Oximetry: 99 (RA) Pulse Ox Interpretation: Normal - Other Rad CXR X-Ray: Viewed By Me, Read By Radiologist Interpretation: Date of service: 05/07/2018. HISTORY: Pneumonia. COMPARISON: Comparison chest 03/06/2018. FINDINGS: LUNGS: Poor inspiration with low lung volumes, crowded bronchovascular markings and mild bibasilar atelectasis however the possibility of developing lower lobe infiltrates could be excluded with follow-up radiographs.. PLEURA: No significant pleural effusion identified, no pneumothorax apparent. CARDIOVASCULAR: Mild aortic atherosclerotic c alcification present. Normal cardiac size. No pulmonary vascular congestion. OSSEOUS STRUCTURES: No significant abnormalities. VISUALIZED UPPER ABDOMEN: Normal. OTHER FINDINGS: None. IMPRESSION: Poor inspiration with low lung volumes, crowded bronchovascular markings and mild bibasilar atelectasis however the possibility of developing lower lobe infiltrates could be excluded with follow-up radiographs.. Medical Decision Making Medical Decision Making: Patient presents w/above history and exam, plan is cardiac w/u. Plan: * Blood Gas * EKG * Blood work * CXR * Blood Culture * Urine Culture * Urinalysis EKG: * Normal Sinus rhythm 93 bpm * Normal intervals * Normal [place] * No ST elevations or depressions * Non Specific T wave Changes Progress: 15:25: * Spoke with aD Edwards which accepted patient to be admitted under his service. * Spoke to patient. Her and her daughter agrees with the plan. 16:24: * Spoke with Dr. Randy Ramirez which accepted patient under his service and suggested to put Dr. Frost for consult. Disposition Counseled Patient/Family Regarding: Studies Performed, Diagnosis - Disposition Disposition: HOSPITALIZED Disposition Time: 15:25 Condition: STABLE Forms: [email or web address] (Yakut) - Clinical Impression Clinical Impression: Chest pain, Pneumonia, Elevated lipase, Hyperglycemia - Scribe Statement The provider has reviewed the documentation as recorded by the Juan Ramonibpatt Tavarez All medical record entries made by the Scribe were at my direction and personally dictated by me. I have reviewed the chart and agree that the record accurately reflects my personal performance of the history, physical exam, medical decision making, and the department course for this patient. I have also personally directed, reviewed, and agree with the discharge instructions and disposition.
[2018-05-07 14:02] LABS: ALB/GLOB RATIO 1.1 (1.0-2.1); ALBUMIN 3.9 g/dL (3.5-5.0); CALCIUM 9.4 mg/dl (8.6-10.4)
[2018-05-07 14:15] LABS: TROPONIN I 0.084 ng/mL (0.00-0.120)
--- NOTE | 2018-05-07 14:19 | RAD ---
Date of service: 05/07/2018 HISTORY: Pneumonia COMPARISON: Comparison chest 03/06/2018 FINDINGS: LUNGS: Poor inspiration with low lung volumes, crowded bronchovascular markings and mild bibasilar atelectasis however the possibility of developing lower lobe infiltrates could be excluded with follow-up radiographs.. PLEURA: No significant pleural effusion identified, no pneumothorax apparent. CARDIOVASCULAR: Mild aortic atherosclerotic calcification present. Normal cardiac size. No pulmonary vascular congestion. OSSEOUS STRUCTURES: No significant abnormalities. VISUALIZED UPPER ABDOMEN: Normal. OTHER FINDINGS: None. IMPRESSION: Poor inspiration with low lung volumes, crowded bronchovascular markings and mild bibasilar atelectasis however the possibility of developing lower lobe infiltrates could be excluded with follow-up radiographs..
[2018-05-07 14:24] LABS: VENOUS BLOOD GAS BASE EXCESS 6.2 mmol/L (0.0-2.0); VENOUS BLOOD GAS PCO2 54 mmHg (40-60); VENOUS BLOOD GAS PO2 15 mm/Hg (30-55); VENOUS BLOOD PH 7.39 (7.32-7.43)
[2018-05-07 14:26] LABS: BASO # 0.2 K/uL (0.0-0.2); BASO % 1.6 % (0.0-2.0); EOS # 0.5 K/uL (0.0-0.7); HEMOGLOBIN 11.2 g/dL (11.0-16.0); LYMPH # 2.4 K/uL (1.0-4.3); LYMPH % 24.5 % (20.0-40.0); MEAN CELL VOLUME 88.1 fL (81.0-99.0); MEAN CORPUSCULAR HEMOGLOBIN 29.3 pg (27.0-31.0); MEAN CORPUSCULAR HGB CONC 33.3 g/dL (33.0-37.0); MEAN PLATELET VOLUME 8.9 fL (7.2-11.7); MONO # 0.5 K/uL (0.0-0.8); MONO % 4.6 % (0.0-10.0); NEUT # 6.3 K/uL (1.8-7.0); NEUT % 64.3 % (50.0-75.0); NRBC % 0.1 % (0.0-2.0); RBC 3.81 Mil/uL (3.80-5.20); RED CELL DISTRIBUTION WIDTH 14.7 % (11.5-14.5); WHITE BLOOD COUNT 9.8 K/uL (4.8-10.8)
[2018-05-07 14:40] LABS: SQUAMOUS EPITHIAL 2 /hpf (0-5); URINE BILIRUBIN NEGATIVE (NEGATIVE); URINE BLOOD 2+ (NEGATIVE); URINE CLARITY Clear (Clear); URINE COLOR Straw (YELLOW); URINE GLUCOSE (UA) 2+ mg/dL (Normal); URINE LEUKOCYTE ESTERASE NEG Leu/uL (Negative); URINE PROTEIN NEGATIVE (NEGATIVE); URINE UROBILINOGEN NORMAL mg/dL (0.2-1.0)
[2018-05-07] MEDS ORDERED: cefTRIAXone IV 1 gm in Dextros 50 ML IV STA (15:11)
[2018-05-07] MEDS ORDERED: Azithromycin 500mg/250ML NS 500 MG/250 ML BAG IVPB ONE (15:42)
[2018-05-07] MEDS ORDERED: cefTRIAXone 1 gm 1 GM/100 ML BAG IVPB ONE (15:42)
[2018-05-07] MEDS ORDERED: Azithromycin 500mg/250ML NS 500 MG/250 ML BAG IV ONE (16:00)
--- NOTE | 2018-05-07 18:52 | CP.PCM.CON ---
History of Present Illness - History of Present Illness History of Present Illness: 87 yo F who has a h/o CAD, TIA, DM, HTN and gastritis presents c/o 3 d h/o non productive cough, nausea, SOB w/inspiration and constant, nonradiating substernal chest pain that started w/the cough and worsens w/cough. She states pain is 6/10 and that she has taken Tylenol for the pain which has helped some. She is also c/o epigastric pain. Patient is poor historian. CXR c/w infiltrates. Review of Systems - Review of Systems All systems: reviewed and no additional remarkable complaints except (as mentioned HPI) Past Patient History - Infectious Disease Hx of Infectious Diseases: None - Tetanus Immunizations Tetanus Immunization: Unknown - Past Medical History & Family History Past Medical History?: Yes - Past Social History Smoking Status: Never Smoked - CARDIAC Hx Congestive Heart Failure: Yes Hx Hypercholesterolemia: Yes Hx Hypertension: Yes - PULMONARY Hx Respiratory Disorders: No - NEUROLOGICAL Hx Dementia: Yes Hx Transient Ischemic Attacks (TIA): Yes - HEENT Hx HEENT Problems: Yes Hx Cataracts: Yes Hx Deafness: Yes Hx Glaucoma: Yes Other/Comment: left eye catarACT removed - RENAL Hx Chronic Kidney Disease: No - ENDOCRINE/METABOLIC Hx Diabetes Mellitus Type 2: Yes - HEMATOLOGICAL/ONCOLOGICAL Hx Anemia: Yes - INTEGUMENTARY Hx Dermatological Problems: No - MUSCULOSKELETAL/RHEUMATOLOGICAL Hx Arthritis: Yes - GASTROINTESTINAL Hx Gastritis: Yes - GENITOURINARY/GYNECOLOGICAL Hx Genitourinary Disorders: Yes Hx Urinary Tract Infection: Yes - PSYCHIATRIC Hx Substance Use: No - SURGICAL HISTORY Hx Coronary Stent: Yes (01/2015 & 2015) - ANESTHESIA Hx Anesthesia: Yes Hx Anesthesia Reactions: No Hx Malignant Hyperthermia: No Meds Allergies/Adverse Reactions: Allergies Allergy/AdvReac Type Severity Reaction Status Date / Time No Known Allergies Allergy Verified 05/07/18 12:01 - Medications Medications: Current Medications Amlodipine Besylate (Norvasc) 10 mg PO DAILY [facility] Last Admin: 05/07/18 16:42 Dose: 10 mg Physical Exam - Head Exam Head Exam: NORMAL INSPECTION - Eye Exam Eye Exam: Normal appearance - ENT Exam ENT Exam: Mucous Membranes Moist - Respiratory Exam Respiratory Exam: Rhonchi - Cardiovascular Exam Cardiovascular Exam: REGULAR RHYTHM, +S1, +S2 - GI/Abdominal Exam GI & Abdominal Exam: Normal Bowel Sounds, Soft - Extremities Exam Extremities exam: Positive for: normal inspection - Neurological Exam Neurological exam: Alert, Oriented x3 Results - Vital Signs Recent Vital Signs: Last Vital Signs Temp 97.7 F 05/07/18 11:58 Pulse 84 05/07/18 15:19 Resp 16 05/07/18 18:37 BP 171/81 H 05/07/18 15:19 Pulse Ox 99 05/07/18 16:45 - Labs Result Diagrams: 05/07/18 14:17 05/07/18 13:41 Labs: Laboratory Results - last 24 hr 05/07/18 05/07/18 05/07/18 13:41 14:10 14:17 WBC 9.8 RBC 3.81 Hgb 11.2 Hct 33.5 L MCV 88.1 MCH 29.3 MCHC 33.3 RDW 14.7 H Plt Count 266 MPV 8.9 Neut % (Auto) 64.3 Lymph % (Auto) 24.5 [place] % (Auto) 4.6 Eos % (Auto) 5.0 H Baso % (Auto) 1.6 Neut # (Auto) 6.3 Lymph # (Auto) 2.4 [place] # (Auto) 0.5 Eos # (Auto) 0.5 Baso # (Auto) 0.2 pO2 15 L VBG pH 7.39 VBG pCO2 54 VBG HCO3 27.6 VBG Total CO2 34.4 H VBG O2 Sat (Calc) 20.1 L VBG Base Excess 6.2 H VBG Potassium 4.1 Glucose 218 H Lactate 2.0 Sodium 138 141.0 Potassium 4.1 Chloride 101 104.0 Carbon Dioxide 25 Anion Gap 16 BUN 21 H Creatinine 1.1 Est GFR ( Amer) 57 Est GFR (Non-Af Amer) 47 Random Glucose 213 H Calcium 9.4 Total Bilirubin 0.3 AST 15 ALT 10 Alkaline Phosphatase 118 Troponin I 0.0840 NT-Pro-B Natriuret Pep 187 Total Protein 7.6 Albumin 3.9 Globulin 3.7 Albumin/Globulin Ratio 1.1 Lipase 490 H Venous Blood Potassium 4.1 Urine Color Urine Clarity Urine pH Ur Specific [place] Urine Protein Urine Glucose (UA) Urine Ketones Urine Blood Urine Nitrate Urine Bilirubin Urine Urobilinogen Ur Leukocyte Esterase Urine WBC (Auto) Urine RBC (Auto) Ur Squamous Epith Cells 05/07/18 14:30 WBC RBC Hgb Hct MCV MCH MCHC RDW Plt Count MPV Neut % (Auto) Lymph % (Auto) [place] % (Auto) Eos % (Auto) Baso % (Auto) Neut # (Auto) Lymph # (Auto) [place] # (Auto) Eos # (Auto) Baso # (Auto) pO2 VBG pH VBG pCO2 VBG HCO3 VBG Total CO2 VBG O2 Sat (Calc) VBG Base Excess VBG Potassium Glucose Lactate Sodium Potassium Chloride Carbon Dioxide Anion Gap BUN Creatinine Est GFR ( Amer) Est GFR (Non-Af Amer) Random Glucose Calcium Total Bilirubin AST ALT Alkaline Phosphatase Troponin I NT-Pro-B Natriuret Pep Total Protein Albumin Globulin Albumin/Globulin Ratio Lipase Venous Blood Potassium Urine Color Straw Urine Clarity Clear Urine pH 6.0 Ur Specific [place] 1.008 Urine Protein Negative Urine Glucose (UA) 2+ H Urine Ketones Negative Urine Blood 2+ H Urine Nitrate Negative Urine Bilirubin Negative Urine Urobilinogen Normal Ur Leukocyte Esterase Neg Urine WBC (Auto) < 1 Urine RBC (Auto) 4 H Ur Squamous Epith Cells 2 Assessment & Plan (1) Elevated lipase Status: Acute (2) Pneumonia Status: Acute (3) Diabetes Status: Chronic - Assessment and Plan (Free Text) Plan: Continue Abx Follow cultures Oxygen supplementation Follow lipase Accucheck Insulin coverage DVT/GI prophalaxis
--- NOTE | 2018-05-07 23:57 | CP.PCM.HP ---
Past Patient History - Infectious Disease Hx of Infectious Diseases: None - Tetanus Immunizations Tetanus Immunization: Unknown - Past Medical History & Family History Past Medical History?: Yes - Past Social History Smoking Status: Never Smoked - CARDIAC Hx Congestive Heart Failure: Yes Hx Hypercholesterolemia: Yes Hx Hypertension: Yes - PULMONARY Hx Respiratory Disorders: No - NEUROLOGICAL Hx Dementia: Yes Hx Transient Ischemic Attacks (TIA): Yes - HEENT Hx HEENT Problems: Yes Hx Cataracts: Yes Hx Deafness: Yes Hx Glaucoma: Yes Other/Comment: left eye catarACT removed - RENAL Hx Chronic Kidney Disease: No - ENDOCRINE/METABOLIC Hx Diabetes Mellitus Type 2: Yes - HEMATOLOGICAL/ONCOLOGICAL Hx Anemia: Yes - INTEGUMENTARY Hx Dermatological Problems: No - MUSCULOSKELETAL/RHEUMATOLOGICAL Hx Arthritis: Yes - GASTROINTESTINAL Hx Gastritis: Yes - GENITOURINARY/GYNECOLOGICAL Hx Genitourinary Disorders: Yes Hx Urinary Tract Infection: Yes - PSYCHIATRIC Hx Substance Use: No - SURGICAL HISTORY Hx Coronary Stent: Yes (01/2015 & 2015) - ANESTHESIA Hx Anesthesia: Yes Hx Anesthesia Reactions: No Hx Malignant Hyperthermia: No Meds Allergies/Adverse Reactions: Allergies Allergy/AdvReac Type Severity Reaction Status Date / Time No Known Allergies Allergy Verified 05/07/18 12:01 Physical Exam - Constitutional Appears: Well - Head Exam Head Exam: ATRAUMATIC, NORMAL INSPECTION, NORMOCEPHALIC - Eye Exam Eye Exam: EOMI, Normal appearance, PERRL Pupil Exam: NORMAL ACCOMODATION, PERRL - ENT Exam ENT Exam: Mucous Membranes Moist, Normal Exam - Neck Exam Neck exam: Positive for: Normal Inspection - Respiratory Exam Respiratory Exam: Decreased Breath Sounds - Cardiovascular Exam Cardiovascular Exam: REGULAR RHYTHM, +S1, +S2 - GI/Abdominal Exam GI & Abdominal Exam: Diminished Bowel Sounds, Soft - Rectal Exam Rectal Exam: Deferred Results - Vital Signs Recent Vital Signs: Last Vital Signs Temp 98.5 F 05/07/18 20:56 Pulse 102 H 05/07/18 20:56 Resp 20 05/07/18 20:56 BP 155/73 H 05/07/18 20:56 Pulse Ox 98 05/07/18 20:56 - Labs Result Diagrams: 05/07/18 14:17 05/07/18 13:41 Labs: Laboratory Results - last 24 hr 05/07/18 05/07/18 05/07/18 13:41 14:10 14:17 WBC 9.8 RBC 3.81 Hgb 11.2 Hct 33.5 L MCV 88.1 MCH 29.3 MCHC 33.3 RDW 14.7 H Plt Count 266 MPV 8.9 Neut % (Auto) 64.3 Lymph % (Auto) 24.5 [place] % (Auto) 4.6 Eos % (Auto) 5.0 H Baso % (Auto) 1.6 Neut # (Auto) 6.3 Lymph # (Auto) 2.4 [place] # (Auto) 0.5 Eos # (Auto) 0.5 Baso # (Auto) 0.2 pO2 15 L VBG pH 7.39 VBG pCO2 54 VBG HCO3 27.6 VBG Total CO2 34.4 H VBG O2 Sat (Calc) 20.1 L VBG Base Excess 6.2 H VBG Potassium 4.1 Glucose 218 H Lactate 2.0 Sodium 138 141.0 Potassium 4.1 Chloride 101 104.0 Carbon Dioxide 25 Anion Gap 16 BUN 21 H Creatinine 1.1 Est GFR ( Amer) 57 Est GFR (Non-Af Amer) 47 POC Glucose (mg/dL) Random Glucose 213 H Calcium 9.4 Total Bilirubin 0.3 AST 15 ALT 10 Alkaline Phosphatase 118 Troponin I 0.0840 NT-Pro-B Natriuret Pep 187 Total Protein 7.6 Albumin 3.9 Globulin 3.7 Albumin/Globulin Ratio 1.1 Lipase 490 H Venous Blood Potassium 4.1 Urine Color Urine Clarity Urine pH Ur Specific [place] Urine Protein Urine Glucose (UA) Urine Ketones Urine Blood Urine Nitrate Urine Bilirubin Urine Urobilinogen Ur Leukocyte Esterase Urine WBC (Auto) Urine RBC (Auto) Ur Squamous Epith Cells 05/07/18 05/07/18 14:30 21:23 WBC RBC Hgb Hct MCV MCH MCHC RDW Plt Count MPV Neut % (Auto) Lymph % (Auto) [place] % (Auto) Eos % (Auto) Baso % (Auto) Neut # (Auto) Lymph # (Auto) [place] # (Auto) Eos # (Auto) Baso # (Auto) pO2 VBG pH VBG pCO2 VBG HCO3 VBG Total CO2 VBG O2 Sat (Calc) VBG Base Excess VBG Potassium Glucose Lactate Sodium Potassium Chloride Carbon Dioxide Anion Gap BUN Creatinine Est GFR ( Amer) Est GFR (Non-Af Amer) POC Glucose (mg/dL) 141 H Random Glucose Calcium Total Bilirubin AST ALT Alkaline Phosphatase Troponin I NT-Pro-B Natriuret Pep Total Protein Albumin Globulin Albumin/Globulin Ratio Lipase Venous Blood Potassium Urine Color Straw Urine Clarity Clear Urine pH 6.0 Ur Specific [place] 1.008 Urine Protein Negative Urine Glucose (UA) 2+ H Urine Ketones Negative Urine Blood 2+ H Urine Nitrate Negative Urine Bilirubin Negative Urine Urobilinogen Normal Ur Leukocyte Esterase Neg Urine WBC (Auto) < 1 Urine RBC (Auto) 4 H Ur Squamous Epith Cells 2
[2018-05-08] MEDS ORDERED: Glucagon Recombinant 1 mg Inj IM PRN (00:23)
[2018-05-08] MEDS ORDERED: Dextrose 50% SYRINGE Inj (50 ml) IV PRN (00:23)
[2018-05-08] MEDS: (Novolog) Insulin Aspart, Recombinant 100 u/ml 10 ml vial SC SCH ×4 (08:19→21:44)
[2018-05-08] MEDS: Enoxaparin 40 mg Syringe SC SCH (09:23)
[2018-05-08] MEDS: Pantoprazole 40 mg EC Tab PO SCH (09:24)
[2018-05-08] MEDS: Azithromycin 500 MG in Sodium Chloride 0.9% 250 ML IVPB SCH (09:26)
--- NOTE | 2018-05-08 13:01 | CP.PCM.PN ---
Subjective - Date & Time of Evaluation Date of Evaluation: 05/08/18 Time of Evaluation: 11:40 - Subjective Subjective: clinically same Objective - Vital Signs/Intake and Output Vital Signs (last 24 hours): Temp Pulse Resp BP Pulse Ox 98.4 F 100 H 20 144/75 97 05/08/18 09:00 05/08/18 12:22 05/08/18 09:00 05/08/18 09:00 05/08/18 09:00 - Medications Medications: Current Medications Amlodipine Besylate (Norvasc) 10 mg PO DAILY REPLACED BY [facility] Last Admin: 05/08/18 09:24 Dose: 10 mg Aspirin (Ecotrin) 81 mg PO DAILY REPLACED BY [facility] Last Admin: 05/08/18 09:24 Dose: 81 mg Dextrose (Dextrose 50% Inj) 0 ml IV STAT PRN; Protocol PRN Reason: Hypoglycemia Protocol Dextrose (Glutose 15) 0 gm PO ONCE PRN; Protocol PRN Reason: Hypoglycemia Protocol Docusate Sodium (Colace) 100 mg PO BID REPLACED BY [facility] Last Admin: 05/08/18 09:24 Dose: 100 mg Enoxaparin Sodium (Lovenox) 40 mg SC DAILY REPLACED BY [facility] Last Admin: 05/08/18 09:23 Dose: 40 mg Glimepiride (Amaryl) 4 mg PO DAILY REPLACED BY [facility] Last Admin: 05/08/18 09:24 Dose: 4 mg Glucagon (Glucagen Diagnostic Kit) 0 mg IM STAT PRN; Protocol PRN Reason: Hypoglycemia Protocol Home Med (Travoprost [Travatan Z]) 1 drop OU HS REPLACED BY [facility] Dextrose (Dextrose 5% In Water 1000 Ml) 1,000 mls @ 0 mls/hr IV .Q0M PRN; Protocol PRN Reason: Hypoglycemia Protocol Ceftriaxone Sodium 1 gm/ (Sodium Chloride) 100 mls @ 100 mls/hr IVPB Q12H REPLACED BY [facility]; Protocol Last Admin: 05/08/18 04:00 Dose: Not Given Azithromycin 500 mg/ Sodium (Chloride) 250 mls @ 250 mls/hr IVPB DAILY REPLACED BY [facility]; Protocol Last Admin: 05/08/18 09:26 Dose: 250 mls/hr Insulin Aspart (Novolog) 0 unit SC ACHS REPLACED BY [facility]; Protocol Last Admin: 05/08/18 12:42 Dose: 3 units Metformin HCl (Glucophage) 500 mg PO BID REPLACED BY [facility] Last Admin: 05/08/18 09:23 Dose: 500 mg Pantoprazole Sodium (Protonix Ec Tab) 40 mg PO DAILY [facility] Last Admin: 05/08/18 09:24 Dose: 40 mg - Labs Labs: 05/07/18 14:17 05/07/18 13:41 - Constitutional Appears: Well - Head Exam Head Exam: ATRAUMATIC, NORMAL INSPECTION, NORMOCEPHALIC - Eye Exam Eye Exam: EOMI, Normal appearance, PERRL Pupil Exam: NORMAL ACCOMODATION, PERRL - ENT Exam ENT Exam: Mucous Membranes Moist, Normal Exam - Neck Exam Neck Exam: Full ROM, Normal Inspection. absent: Lymphadenopathy - Respiratory Exam Respiratory Exam: Decreased Breath Sounds - Cardiovascular Exam Cardiovascular Exam: REGULAR RHYTHM, +S1, +S2 - GI/Abdominal Exam GI & Abdominal Exam: Soft, Diminished Bowel Sounds - Rectal Exam Rectal Exam: Deferred
--- NOTE | 2018-05-08 17:13 | CARD ---
APPROVED REPORT Date of service: 05/07/2018 EKG Measurement Heart [id number] <Conclusion> Normal sinus rhythm Right ventricular hypertrophy Lateral infarct, age undetermined Abnormal ECG
--- NOTE | 2018-05-08 17:23 | CP.PCM.CON ---
History of Present Illness - History of Present Illness History of Present Illness: The pt is an 87 year old woman with CAD. She had coronary stents in 2014 and 2015. For chest pain, and a cardiac cath was performed in 2017: stents were patent and no intervention was performed. The patient was admitted here in early 2017 with chest pain. A nuclear stress test did not reveal ischemia. The pt subsequently underwent a hip replacement after suffering a fall. The patient developed chest pain Monday morning. The patient verbally reports chest pain, but when asks, points to her upper abdomen. She also has a chronic cough that comes and goes. The patient had pain all Monday and Monday night and came to the hospital Monday, and it finally improved, but not completely, she still has it today. Pt has a poor appetite, walks little. No fever. Review of Systems - Review of Systems All systems: reviewed and no additional remarkable complaints except (as above.) - EENT Eyes: As Per HPI Past Patient History - Infectious Disease Hx of Infectious Diseases: None - Tetanus Immunizations Tetanus Immunization: Unknown - Past Medical History & Family History Past Medical History?: Yes - Past Social History Smoking Status: Never Smoked - CARDIAC Hx Congestive Heart Failure: Yes Hx Hypercholesterolemia: Yes Hx Hypertension: Yes - PULMONARY Hx Respiratory Disorders: No - NEUROLOGICAL Hx Dementia: Yes Hx Transient Ischemic Attacks (TIA): Yes - HEENT Hx HEENT Problems: Yes Hx Cataracts: Yes Hx Deafness: Yes Hx Glaucoma: Yes Other/Comment: left eye catarACT removed - RENAL Hx Chronic Kidney Disease: No - ENDOCRINE/METABOLIC Hx Diabetes Mellitus Type 2: Yes - HEMATOLOGICAL/ONCOLOGICAL Hx Anemia: Yes - INTEGUMENTARY Hx Dermatological Problems: No - MUSCULOSKELETAL/RHEUMATOLOGICAL Hx Arthritis: Yes - GASTROINTESTINAL Hx Gastritis: Yes - GENITOURINARY/GYNECOLOGICAL Hx Genitourinary Disorders: Yes Hx Urinary Tract Infection: Yes - PSYCHIATRIC Hx Substance Use: No - SURGICAL HISTORY Hx Coronary Stent: Yes (01/2015 & 2015) - ANESTHESIA Hx Anesthesia: Yes Hx Anesthesia Reactions: No Hx Malignant Hyperthermia: No Meds Allergies/Adverse Reactions: Allergies Allergy/AdvReac Type Severity Reaction Status Date / Time No Known Allergies Allergy Verified 05/07/18 12:01 - Medications Medications: Current Medications Acetaminophen (Tylenol 325mg Tab) 650 mg PO Q6 PRN PRN Reason: Pain, Mild (1-3) Last Admin: 11/27/18 14:08 Dose: 650 mg Amlodipine Besylate (Norvasc) 10 mg PO DAILY [facility] Last Admin: 05/08/18 09:24 Dose: 10 mg Aspirin (Ecotrin) 81 mg PO DAILY [facility] Last Admin: 05/08/18 09:24 Dose: 81 mg Dextrose (Dextrose 50% Inj) 0 ml IV STAT PRN; Protocol PRN Reason: Hypoglycemia Protocol Dextrose (Glutose 15) 0 gm PO ONCE PRN; Protocol PRN Reason: Hypoglycemia Protocol Docusate Sodium (Colace) 100 mg PO BID [facility] Last Admin: 05/08/18 09:24 Dose: 100 mg Enoxaparin Sodium (Lovenox) 40 mg SC DAILY [facility] Last Admin: 05/08/18 09:23 Dose: 40 mg Glimepiride (Amaryl) 4 mg PO DAILY [facility] Last Admin: 05/08/18 09:24 Dose: 4 mg Glucagon (Glucagen Diagnostic Kit) 0 mg IM STAT PRN; Protocol PRN Reason: Hypoglycemia Protocol Dextrose (Dextrose 5% In Water 1000 Ml) 1,000 mls @ 0 mls/hr IV .Q0M PRN; Protocol PRN Reason: Hypoglycemia Protocol Ceftriaxone Sodium 1 gm/ (Sodium Chloride) 100 mls @ 100 mls/hr IVPB Q12H [facility]; Protocol Last Admin: 05/08/18 14:10 Dose: 100 mls/hr Azithromycin 500 mg/ Sodium (Chloride) 250 mls @ 250 mls/hr IVPB DAILY [facility]; Protocol Last Admin: 05/08/18 09:26 Dose: 250 mls/hr Insulin Aspart (Novolog) 0 unit SC ACHS [facility]; Protocol Last Admin: 05/08/18 12:42 Dose: 3 units Latanoprost (Xalatan Opht) 0 ml OU HS [facility] Metformin HCl (Glucophage) 500 mg PO BID [facility] Last Admin: 05/08/18 09:23 Dose: 500 mg Pantoprazole Sodium (Protonix Ec Tab) 40 mg PO DAILY [facility] Last Admin: 05/08/18 09:24 Dose: 40 mg Physical Exam - Constitutional Appears: No Acute Distress - Head Exam Head Exam: ATRAUMATIC - Eye Exam Eye Exam: EOMI, PERRL - ENT Exam ENT Exam: Mucous Membranes Moist - Neck Exam Neck exam: Positive for: Normal Inspection - Respiratory Exam Respiratory Exam: NORMAL BREATHING PATTERN - Cardiovascular Exam Cardiovascular Exam: REGULAR RHYTHM - GI/Abdominal Exam GI & Abdominal Exam: Normal Bowel Sounds, Soft, Tenderness Additional comments: RUQ tenderness - Rectal Exam Rectal Exam: NORMAL INSPECTION - Exam External exam: NORMAL EXTERNAL EXAM - Extremities Exam Extremities exam: Positive for: normal inspection - Back Exam Back exam: NORMAL INSPECTION - Psychiatric Exam Psychiatric exam: Normal Affect, Normal Mood - Skin Skin Exam: Dry, Warm Results - Vital Signs Recent Vital Signs: Last Vital Signs Temp 98.0 F 05/08/18 15:03 Pulse 86 05/08/18 15:03 Resp 20 05/08/18 15:03 BP 130/68 05/08/18 15:03 Pulse Ox 97 05/08/18 15:03 - Labs Result Diagrams: 05/07/18 14:17 05/07/18 13:41 Labs: Laboratory Results - last 24 hr 05/07/18 05/08/18 05/08/18 21:23 06:47 11:28 POC Glucose (mg/dL) 141 H 180 H Troponin I 0.3480 H* 05/08/18 11:53 POC Glucose (mg/dL) 232 H Troponin I Assessment & Plan - Assessment and Plan (Free Text) Assessment: 1. The pt has known CAD, and very atypical chest pain. If fact, her pain on exam is really related to the abdomen, with discomfort and reproducible of her pain with pressing over the RUQ. The pain lasted for more than 24 hours, and is still mildly present. There are no ecg changes, and there is a slight TNI elevation. CXR is read as infiltrate and the pt is receiving antibiotics. The last performed cath, also for chest pain did not reveal obstruction. A nucle ar stress within the last year also did not show ischemia, and finally she recently underwent hip surgery and tolerated the stress of the procedure well. My overall impression is that her actual RUQ abdominal pain is non anginal, and no addtional CV testing is advised at this time.
--- NOTE | 2018-05-08 17:40 | CP.PCM.PN ---
Subjective - Date & Time of Evaluation Date of Evaluation: 05/08/18 Time of Evaluation: 17:39 - Subjective Subjective: Patient is seen and examined 'No events overnight Objective - Vital Signs/Intake and Output Vital Signs (last 24 hours): Temp Pulse Resp BP Pulse Ox 98.0 F 86 20 130/68 97 05/08/18 15:03 05/08/18 15:03 05/08/18 15:03 05/08/18 15:03 05/08/18 15:03 Intake and Output: 05/08/18 05/08/18 06:59 18:59 Intake Total 600 Balance 600 - Medications Medications: Current Medications Acetaminophen (Tylenol 325mg Tab) 650 mg PO Q6 PRN PRN Reason: Pain, Mild (1-3) Last Admin: 05/08/18 14:08 Dose: 650 mg Amlodipine Besylate (Norvasc) 10 mg PO DAILY [facility] Last Admin: 05/08/18 09:24 Dose: 10 mg Aspirin (Ecotrin) 81 mg PO DAILY [facility] Last Admin: 05/08/18 09:24 Dose: 81 mg Dextrose (Dextrose 50% Inj) 0 ml IV STAT PRN; Protocol PRN Reason: Hypoglycemia Protocol Dextrose (Glutose 15) 0 gm PO ONCE PRN; Protocol PRN Reason: Hypoglycemia Protocol Docusate Sodium (Colace) 100 mg PO BID [facility] Last Admin: 05/08/18 09:24 Dose: 100 mg Enoxaparin Sodium (Lovenox) 40 mg SC DAILY [facility] Last Admin: 05/08/18 09:23 Dose: 40 mg Glimepiride (Amaryl) 4 mg PO DAILY [facility] Last Admin: 05/08/18 09:24 Dose: 4 mg Glucagon (Glucagen Diagnostic Kit) 0 mg IM STAT PRN; Protocol PRN Reason: Hypoglycemia Protocol Dextrose (Dextrose 5% In Water 1000 Ml) 1,000 mls @ 0 mls/hr IV .Q0M PRN; Protocol PRN Reason: Hypoglycemia Protocol Ceftriaxone Sodium 1 gm/ (Sodium Chloride) 100 mls @ 100 mls/hr IVPB Q12H [facility]; Protocol Last Admin: 05/08/18 14:10 Dose: 100 mls/hr Azithromycin 500 mg/ Sodium (Chloride) 250 mls @ 250 mls/hr IVPB DAILY [facility]; Protocol Last Admin: 05/08/18 09:26 Dose: 250 mls/hr Insulin Aspart (Novolog) 0 unit SC ACHS [facility]; Protocol Last Admin: 05/08/18 12:42 Dose: 3 units Latanoprost (Xalatan Opht) 0 ml OU HS [facility] Metformin HCl (Glucophage) 500 mg PO BID [facility] Last Admin: 05/08/18 09:23 Dose: 500 mg Metoprolol Tartrate (Lopressor) 25 mg PO BID [facility] Pantoprazole Sodium (Protonix Ec Tab) 40 mg PO DAILY [facility] Last Admin: 05/08/18 09:24 Dose: 40 mg Rosuvastatin Calcium (Crestor) 10 mg PO HS [facility] - Labs Labs: 05/07/18 14:17 05/07/18 13:41 - Head Exam Head Exam: NORMAL INSPECTION - Eye Exam Eye Exam: Normal appearance - ENT Exam ENT Exam: Mucous Membranes Moist - Respiratory Exam Respiratory Exam: Rhonchi - Cardiovascular Exam Cardiovascular Exam: REGULAR RHYTHM, +S1, +S2 - GI/Abdominal Exam GI & Abdominal Exam: Soft, Normal Bowel Sounds - Extremities Exam Extremities Exam: Normal Inspection - Neurological Exam Neurological Exam: Alert, Oriented x3 - Psychiatric Exam Psychiatric exam: Normal Affect, Normal Mood Assessment and Plan (1) Elevated lipase Status: Acute (2) Pneumonia Status: Acute (3) Diabetes Status: Chronic - Assessment and Plan (Free Text) Plan: ABx Follow labs in am O2 SUpportive care
[2018-05-08 19:46] LABS: BASO # 0.1 K/uL (0.0-0.2); EOS # 0.5 K/uL (0.0-0.7); MONO # 0.6 K/uL (0.0-0.8); NEUT % 41.9 % (50.0-75.0)
[2018-05-08 19:54] LABS: BASO % 0.7 % (0.0-2.0); EOS % 5.5 % (0.0-4.0); HEMOGLOBIN 10.7 g/dL (11.0-16.0); LYMPH # 4.1 K/uL (1.0-4.3); LYMPH % 45.2 % (20.0-40.0); MEAN CELL VOLUME 88.5 fL (81.0-99.0); MEAN CORPUSCULAR HEMOGLOBIN 29.3 pg (27.0-31.0); MEAN CORPUSCULAR HGB CONC 33.1 g/dL (33.0-37.0); MEAN PLATELET VOLUME 8.8 fL (7.2-11.7); MONO % 6.7 % (0.0-10.0); NEUT # 3.8 K/uL (1.8-7.0); NRBC % 0.3 % (0.0-2.0); RBC 3.65 Mil/uL (3.80-5.20); RED CELL DISTRIBUTION WIDTH 14.5 % (11.5-14.5); WHITE BLOOD COUNT 9.1 K/uL (4.8-10.8)
[2018-05-08 20:02] LABS: BLOOD UREA NITROGEN 17 mg/dL (7-17); CALCIUM 9.4 mg/dl (8.6-10.4); GFR NON-AFRICAN AMERICAN 53
[2018-05-08] MEDS: Latanoprost 2.5 ml Opht Soln OU SCH (21:43)
[2018-05-09 06:58] LABS: HDL CHOLESTEROL 34 mg/dL (30-70); LIPASE 453 U/L (23-300)
[2018-05-09 07:08] LABS: LDL CHOLESTEROL 81 mg/dL (0-129)
[2018-05-09] MEDS: (Novolog) Insulin Aspart, Recombinant 100 u/ml 10 ml vial SC SCH ×4 (08:14→21:47)
[2018-05-09] MEDS: Pantoprazole 40 mg EC Tab PO SCH (10:06)
[2018-05-09] MEDS: Enoxaparin 40 mg Syringe SC SCH (10:06)
[2018-05-09] MEDS: Azithromycin 500 MG in Sodium Chloride 0.9% 250 ML IVPB SCH (10:07)
--- NOTE | 2018-05-09 13:25 | CP.PCM.PN ---
Subjective - Date & Time of Evaluation Date of Evaluation: 05/09/18 Time of Evaluation: 13:23 - Subjective Subjective: Patient is seen and examined No events overnight Objective - Vital Signs/Intake and Output Vital Signs (last 24 hours): Temp Pulse Resp BP Pulse Ox 98.4 F 87 20 146/73 96 05/09/18 08:41 05/09/18 08:41 05/09/18 08:41 05/09/18 10:07 05/09/18 08:41 - Medications Medications: Current Medications Acetaminophen (Tylenol 325mg Tab) 650 mg PO Q6 PRN PRN Reason: Pain, Mild (1-3) Last Admin: 05/08/18 14:08 Dose: 650 mg Amlodipine Besylate (Norvasc) 10 mg PO DAILY [facility] Last Admin: 05/09/18 10:07 Dose: 10 mg Aspirin (Ecotrin) 81 mg PO DAILY [facility] Last Admin: 05/09/18 10:07 Dose: 81 mg Dextrose (Dextrose 50% Inj) 0 ml IV STAT PRN; Protocol PRN Reason: Hypoglycemia Protocol Dextrose (Glutose 15) 0 gm PO ONCE PRN; Protocol PRN Reason: Hypoglycemia Protocol Docusate Sodium (Colace) 100 mg PO BID [facility] Last Admin: 05/09/18 10:07 Dose: 100 mg Enoxaparin Sodium (Lovenox) 40 mg SC DAILY [facility] Last Admin: 05/09/18 10:06 Dose: 40 mg Glimepiride (Amaryl) 4 mg PO DAILY [facility] Last Admin: 05/09/18 10:07 Dose: 4 mg Glucagon (Glucagen Diagnostic Kit) 0 mg IM STAT PRN; Protocol PRN Reason: Hypoglycemia Protocol Dextrose (Dextrose 5% In Water 1000 Ml) 1,000 mls @ 0 mls/hr IV .Q0M PRN; Protocol PRN Reason: Hypoglycemia Protocol Ceftriaxone Sodium 1 gm/ (Sodium Chloride) 100 mls @ 100 mls/hr IVPB Q12H [facility]; Protocol Last Admin: 05/09/18 07:20 Dose: 100 mls/hr Azithromycin 500 mg/ Sodium (Chloride) 250 mls @ 250 mls/hr IVPB DAILY [facility]; Protocol Last Admin: 05/09/18 10:07 Dose: 250 mls/hr Insulin Aspart (Novolog) 0 unit SC ACHS [facility]; Protocol Last Admin: 05/09/18 12:33 Dose: 3 units Latanoprost (Xalatan Opht) 0 ml OU HS [facility] Last Admin: 05/08/18 21:43 Dose: 1 ml Metformin HCl (Glucophage) 500 mg PO BID [facility] Last Admin: 05/09/18 10:06 Dose: 500 mg Metoprolol Tartrate (Lopressor) 25 mg PO BID [facility] Last Admin: 05/09/18 10:07 Dose: 25 mg Pantoprazole Sodium (Protonix Ec Tab) 40 mg PO DAILY [facility] Last Admin: 05/09/18 10:06 Dose: 40 mg Rosuvastatin Calcium (Crestor) 10 mg PO HS [facility] Last Admin: 05/08/18 21:44 Dose: 10 mg - Labs Labs: 05/08/18 19:41 05/08/18 19:41 - Head Exam Head Exam: NORMAL INSPECTION - Eye Exam Eye Exam: Normal appearance - ENT Exam ENT Exam: Mucous Membranes Moist - Respiratory Exam Respiratory Exam: Clear to Ausculation Bilateral - Cardiovascular Exam Cardiovascular Exam: REGULAR RHYTHM, +S1, +S2 - GI/Abdominal Exam GI & Abdominal Exam: Soft, Normal Bowel Sounds - Neurological Exam Neurological Exam: Alert - Skin Skin Exam: Normal Color Assessment and Plan (1) Elevated lipase Status: Acute (2) Pneumonia Status: Acute (3) Diabetes Status: Chronic - Assessment and Plan (Free Text) Plan: Continue antibiotics Bronchodilators Insulin coverage Accu-Chek Oxygen supplementation PT/OT DVT/GI prophylax
--- NOTE | 2018-05-09 14:22 | CP.PCM.PN ---
Subjective - Date & Time of Evaluation Date of Evaluation: 05/09/18 Time of Evaluation: 14:19 - Subjective Subjective: Pt feels better, chest pain only when she coughs. TNI is no a little higher. Objective - Vital Signs/Intake and Output Vital Signs (last 24 hours): Temp Pulse Resp BP Pulse Ox 98.4 F 74 20 124/65 96 05/09/18 08:41 05/09/18 13:12 05/09/18 08:41 05/09/18 14:12 05/09/18 08:41 - Medications Medications: Current Medications Acetaminophen (Tylenol 325mg Tab) 650 mg PO Q6 PRN PRN Reason: Pain, Mild (1-3) Last Admin: 05/08/18 14:08 Dose: 650 mg Albuterol/Ipratropium (Duoneb 3 Mg/0.5 Mg (3 Ml) Ud) 3 ml INH RQ6 [facility] Amlodipine Besylate (Norvasc) 10 mg PO DAILY [facility] Last Admin: 05/09/18 10:07 Dose: 10 mg Aspirin (Ecotrin) 81 mg PO DAILY [facility] Last Admin: 05/09/18 10:07 Dose: 81 mg Dextrose (Dextrose 50% Inj) 0 ml IV STAT PRN; Protocol PRN Reason: Hypoglycemia Protocol Dextrose (Glutose 15) 0 gm PO ONCE PRN; Protocol PRN Reason: Hypoglycemia Protocol Docusate Sodium (Colace) 100 mg PO BID [facility] Last Admin: 05/09/18 10:07 Dose: 100 mg Enalapril Maleate (Vasotec) 10 mg PO DAILY [facility] Last Admin: 05/09/18 14:12 Dose: 10 mg Enoxaparin Sodium (Lovenox) 40 mg SC DAILY [facility] Last Admin: 05/09/18 10:06 Dose: 40 mg Glimepiride (Amaryl) 4 mg PO DAILY [facility] Last Admin: 05/09/18 10:07 Dose: 4 mg Glucagon (Glucagen Diagnostic Kit) 0 mg IM STAT PRN; Protocol PRN Reason: Hypoglycemia Protocol Dextrose (Dextrose 5% In Water 1000 Ml) 1,000 mls @ 0 mls/hr IV .Q0M PRN; Protocol PRN Reason: Hypoglycemia Protocol Ceftriaxone Sodium 1 gm/ (Sodium Chloride) 100 mls @ 100 mls/hr IVPB Q12H [facility]; Protocol Last Admin: 05/09/18 14:13 Dose: 100 mls/hr Azithromycin 500 mg/ Sodium (Chloride) 250 mls @ 250 mls/hr IVPB DAILY [facility]; Protocol Last Admin: 05/09/18 10:07 Dose: 250 mls/hr Insulin Aspart (Novolog) 0 unit SC ACHS [facility]; Protocol Last Admin: 05/09/18 12:33 Dose: 3 units Latanoprost (Xalatan Opht) 0 ml OU HS [facility] Last Admin: 05/08/18 21:43 Dose: 1 ml Metformin HCl (Glucophage) 500 mg PO BID [facility] Last Admin: 05/09/18 10:06 Dose: 500 mg Metoprolol Tartrate (Lopressor) 25 mg PO BID [facility] Last Admin: 05/09/18 10:07 Dose: 25 mg Pantoprazole Sodium (Protonix Ec Tab) 40 mg PO DAILY [facility] Last Admin: 05/09/18 10:06 Dose: 40 mg Rosuvastatin Calcium (Crestor) 10 mg PO HS [facility] Last Admin: 05/08/18 21:44 Dose: 10 mg - Labs Labs: 05/08/18 19:41 05/08/18 19:41 - Constitutional Appears: Well - Head Exam Head Exam: NORMAL INSPECTION - Eye Exam Eye Exam: EOMI - ENT Exam ENT Exam: Mucous Membranes Moist - Neck Exam Neck Exam: Full ROM - Respiratory Exam Respiratory Exam: Clear to Ausculation Bilateral - Cardiovascular Exam Cardiovascular Exam: REGULAR RHYTHM - GI/Abdominal Exam GI & Abdominal Exam: Normal Bowel Sounds - Exam External exam: NORMAL EXTERNAL EXAM - Extremities Exam Extremities Exam: Full ROM, Normal Inspection - Back Exam Back Exam: NORMAL INSPECTION - Neurological Exam Neurological Exam: Alert, Awake, Oriented x3 - Psychiatric Exam Psychiatric exam: Normal Affect Assessment and Plan - Assessment and Plan (Free Text) Assessment: 1. patient's abdominal pain is resolved. She has elevated lipase, and I ordered amylase. 2. Although patient;s s 3. Symptoms are very atypical, in fact non-anginal, but troponin has going up, and not trivial. Pt has known CAD. A nuclear stress test is ordered. 4. HTN: add enalapril 5. on statin, ldl is good.
[2018-05-09] MEDS: Albuterol-Ipratrop 3 mg / 0.5 (3 ml) UD INH SCH (19:29)
[2018-05-09] MEDS: Latanoprost 2.5 ml Opht Soln OU SCH (22:05)
--- NOTE | 2018-05-09 22:10 | CP.PCM.PN ---
Subjective - Date & Time of Evaluation Date of Evaluation: 05/09/18 Time of Evaluation: 10:40 - Subjective Subjective: clinically same Objective - Vital Signs/Intake and Output Vital Signs (last 24 hours): Temp Pulse Resp BP Pulse Ox 98.0 F 83 20 87/62 L 98 05/09/18 20:00 05/09/18 20:00 05/09/18 20:00 05/09/18 20:00 05/09/18 20:00 Intake and Output: 05/09/18 05/10/18 18:59 06:59 Intake Total 600 Balance 600 - Medications Medications: Current Medications Acetaminophen (Tylenol 325mg Tab) 650 mg PO Q6 PRN PRN Reason: Pain, Mild (1-3) Last Admin: 05/08/18 14:08 Dose: 650 mg Albuterol/Ipratropium (Duoneb 3 Mg/0.5 Mg (3 Ml) Ud) 3 ml INH RQ6 [facility] Last Admin: 05/09/18 19:29 Dose: 3 ml Amlodipine Besylate (Norvasc) 10 mg PO DAILY [facility] Last Admin: 05/09/18 10:07 Dose: 10 mg Aspirin (Ecotrin) 81 mg PO DAILY [facility] Last Admin: 05/09/18 10:07 Dose: 81 mg Dextrose (Dextrose 50% Inj) 0 ml IV STAT PRN; Protocol PRN Reason: Hypoglycemia Protocol Dextrose (Glutose 15) 0 gm PO ONCE PRN; Protocol PRN Reason: Hypoglycemia Protocol Docusate Sodium (Colace) 100 mg PO BID [facility] Last Admin: 05/09/18 18:38 Dose: 100 mg Enalapril Maleate (Vasotec) 10 mg PO DAILY [facility] Last Admin: 05/09/18 14:12 Dose: 10 mg Enoxaparin Sodium (Lovenox) 40 mg SC DAILY [facility] Last Admin: 05/09/18 10:06 Dose: 40 mg Glimepiride (Amaryl) 4 mg PO DAILY [facility] Last Admin: 05/09/18 10:07 Dose: 4 mg Glucagon (Glucagen Diagnostic Kit) 0 mg IM STAT PRN; Protocol PRN Reason: Hypoglycemia Protocol Dextrose (Dextrose 5% In Water 1000 Ml) 1,000 mls @ 0 mls/hr IV .Q0M PRN; Protocol PRN Reason: Hypoglycemia Protocol Ceftriaxone Sodium 1 gm/ (Sodium Chloride) 100 mls @ 100 mls/hr IVPB Q12H [facility]; Protocol Last Admin: 05/09/18 14:13 Dose: 100 mls/hr Azithromycin 500 mg/ Sodium (Chloride) 250 mls @ 250 mls/hr IVPB DAILY [facility]; Protocol Last Admin: 05/09/18 10:07 Dose: 250 mls/hr Insulin Aspart (Novolog) 0 unit SC ACHS [facility]; Protocol Last Admin: 05/09/18 21:47 Dose: Not Given Latanoprost (Xalatan Opht) 0 ml OU HS [facility] Last Admin: 05/09/18 22:05 Dose: 1 ml Metformin HCl (Glucophage) 500 mg PO BID [facility] Last Admin: 05/09/18 18:39 Dose: Not Given Metoprolol Tartrate (Lopressor) 25 mg PO BID [facility] Last Admin: 05/09/18 18:39 Dose: 25 mg Pantoprazole Sodium (Protonix Ec Tab) 40 mg PO DAILY [facility] Last Admin: 05/09/18 10:06 Dose: 40 mg Rosuvastatin Calcium (Crestor) 10 mg PO HS [facility] Last Admin: 05/09/18 22:04 Dose: 10 mg - Labs Labs: 05/08/18 19:41 05/08/18 19:41 - Constitutional Appears: Well - Head Exam Head Exam: ATRAUMATIC, NORMAL INSPECTION, NORMOCEPHALIC - Eye Exam Eye Exam: EOMI, Normal appearance, PERRL Pupil Exam: NORMAL ACCOMODATION, PERRL - ENT Exam ENT Exam: Mucous Membranes Moist, Normal Exam - Neck Exam Neck Exam: Full ROM, Normal Inspection. absent: Lymphadenopathy - Respiratory Exam Respiratory Exam: Decreased Breath Sounds - Cardiovascular Exam Cardiovascular Exam: REGULAR RHYTHM, +S1, +S2 - GI/Abdominal Exam GI & Abdominal Exam: Soft, Diminished Bowel Sounds - Rectal Exam Rectal Exam: Deferred
--- NOTE | 2018-05-09 23:44 | CARD ---
APPROVED REPORT Date of service: 05/08/2018 EKG Measurement Heart [id number] <Conclusion> Poor data quality, interpretation may be adversely affected Normal sinus rhythm Inferior infarct, age undetermined Anterior infarct, age undetermined Abnormal ECG
[2018-05-10] MEDS: Albuterol-Ipratrop 3 mg / 0.5 (3 ml) UD INH SCH ×4 (01:32→19:27)
[2018-05-10] MEDS: (Novolog) Insulin Aspart, Recombinant 100 u/ml 10 ml vial SC SCH ×4 (08:14→21:25)
--- NOTE | 2018-05-10 09:30 | CP.PCM.PN ---
Subjective - Date & Time of Evaluation Date of Evaluation: 05/10/18 Time of Evaluation: 09:27 - Subjective Subjective: Pt feels well. Objective - Vital Signs/Intake and Output Vital Signs (last 24 hours): Temp Pulse Resp BP Pulse Ox 98.1 F 74 20 139/68 96 05/09/18 23:50 05/10/18 04:11 05/09/18 23:50 05/09/18 23:50 05/09/18 23:50 Intake and Output: 05/10/18 05/10/18 06:59 18:59 Intake Total 200 Balance 200 - Medications Medications: Current Medications Acetaminophen (Tylenol 325mg Tab) 650 mg PO Q6 PRN PRN Reason: Pain, Mild (1-3) Last Admin: 05/10/18 06:45 Dose: 650 mg Albuterol/Ipratropium (Duoneb 3 Mg/0.5 Mg (3 Ml) Ud) 3 ml INH RQ6 [facility] Last Admin: 05/10/18 08:05 Dose: Not Given Amlodipine Besylate (Norvasc) 10 mg PO DAILY [facility] Last Admin: 05/09/18 10:07 Dose: 10 mg Aspirin (Ecotrin) 81 mg PO DAILY [facility] Last Admin: 05/09/18 10:07 Dose: 81 mg Dextrose (Dextrose 50% Inj) 0 ml IV STAT PRN; Protocol PRN Reason: Hypoglycemia Protocol Dextrose (Glutose 15) 0 gm PO ONCE PRN; Protocol PRN Reason: Hypoglycemia Protocol Docusate Sodium (Colace) 100 mg PO BID [facility] Last Admin: 05/09/18 18:38 Dose: 100 mg Enalapril Maleate (Vasotec) 10 mg PO DAILY [facility] Last Admin: 05/09/18 14:12 Dose: 10 mg Enoxaparin Sodium (Lovenox) 40 mg SC DAILY [facility] Last Admin: 05/09/18 10:06 Dose: 40 mg Glimepiride (Amaryl) 4 mg PO DAILY [facility] Last Admin: 05/09/18 10:07 Dose: 4 mg Glucagon (Glucagen Diagnostic Kit) 0 mg IM STAT PRN; Protocol PRN Reason: Hypoglycemia Protocol Dextrose (Dextrose 5% In Water 1000 Ml) 1,000 mls @ 0 mls/hr IV .Q0M PRN; Protocol PRN Reason: Hypoglycemia Protocol Ceftriaxone Sodium 1 gm/ (Sodium Chloride) 100 mls @ 100 mls/hr IVPB Q12H [facility]; Protocol Last Admin: 05/10/18 03:36 Dose: 100 mls/hr Azithromycin 500 mg/ Sodium (Chloride) 250 mls @ 250 mls/hr IVPB DAILY [facility]; Protocol Last Admin: 05/09/18 10:07 Dose: 250 mls/hr Insulin Aspart (Novolog) 0 unit SC ACHS [facility]; Protocol Last Admin: 05/10/18 08:14 Dose: Not Given Latanoprost (Xalatan Opht) 0 ml OU HS [facility] Last Admin: 05/09/18 22:05 Dose: 1 ml Metformin HCl (Glucophage) 500 mg PO BID [facility] Last Admin: 05/09/18 18:39 Dose: Not Given Metoprolol Tartrate (Lopressor) 25 mg PO BID [facility] Last Admin: 05/09/18 18:39 Dose: 25 mg Pantoprazole Sodium (Protonix Ec Tab) 40 mg PO DAILY [facility] Last Admin: 05/09/18 10:06 Dose: 40 mg Rosuvastatin Calcium (Crestor) 10 mg PO HS [facility] Last Admin: 05/09/18 22:04 Dose: 10 mg - Labs Labs: 05/08/18 19:41 05/08/18 19:41 - Constitutional Appears: Well - Head Exam Head Exam: ATRAUMATIC - Eye Exam Eye Exam: EOMI, PERRL - ENT Exam ENT Exam: Mucous Membranes Moist - Neck Exam Neck Exam: Normal Inspection - Respiratory Exam Respiratory Exam: Clear to Ausculation Bilateral - Cardiovascular Exam Cardiovascular Exam: REGULAR RHYTHM - GI/Abdominal Exam GI & Abdominal Exam: Normal Bowel Sounds - Extremities Exam Extremities Exam: Full ROM - Back Exam Back Exam: NORMAL INSPECTION - Neurological Exam Neurological Exam: Awake, CN II-XII Intact, Oriented x3 - Psychiatric Exam Psychiatric exam: Flat Affect, Normal Mood - Skin Skin Exam: Dry Assessment and Plan - Assessment and Plan (Free Text) Assessment: 1. Atypical chest /abdominal pain, with persistent TNI elevation in a patient with known CAD. Nuclear stress test was perfomed and results pending. 2. Elevated lipas and abdominal Pain: amylase was ordered, no results in computer. 3. HTN: follow today and if BP still high advance enalapril.
[2018-05-10] MEDS: Enoxaparin 40 mg Syringe SC SCH ×2 (10:15→11:34)
[2018-05-10] MEDS: Azithromycin 500 MG in Sodium Chloride 0.9% 250 ML IVPB SCH ×2 (10:15→15:53)
[2018-05-10] MEDS: Pantoprazole 40 mg EC Tab PO SCH ×2 (10:15→11:35)
--- NOTE | 2018-05-10 16:53 | CP.PCM.PN ---
Subjective - Date & Time of Evaluation Date of Evaluation: 05/10/18 Time of Evaluation: 16:53 - Subjective Subjective: Patient seen and examined No events overnight Objective - Vital Signs/Intake and Output Vital Signs (last 24 hours): Temp Pulse Resp BP Pulse Ox 98.0 F 73 20 132/63 96 05/10/18 15:05 05/10/18 15:05 05/10/18 15:05 05/10/18 15:05 05/10/18 15:05 Intake and Output: 05/10/18 05/10/18 06:59 18:59 Intake Total 200 Balance 200 - Medications Medications: Current Medications Acetaminophen (Tylenol 325mg Tab) 650 mg PO Q6 PRN PRN Reason: Pain, Mild (1-3) Last Admin: 05/10/18 06:45 Dose: 650 mg Albuterol/Ipratropium (Duoneb 3 Mg/0.5 Mg (3 Ml) Ud) 3 ml INH RQ6 [facility] Last Admin: 05/10/18 13:32 Dose: 3 ml Amlodipine Besylate (Norvasc) 10 mg PO DAILY [facility] Last Admin: 05/10/18 11:34 Dose: 10 mg Aspirin (Ecotrin) 81 mg PO DAILY [facility] Last Admin: 05/10/18 11:34 Dose: 81 mg Dextrose (Dextrose 50% Inj) 0 ml IV STAT PRN; Protocol PRN Reason: Hypoglycemia Protocol Dextrose (Glutose 15) 0 gm PO ONCE PRN; Protocol PRN Reason: Hypoglycemia Protocol Docusate Sodium (Colace) 100 mg PO BID [facility] Last Admin: 05/10/18 10:14 Dose: Not Given Enalapril Maleate (Vasotec) 10 mg PO DAILY [facility] Last Admin: 05/10/18 11:34 Dose: 10 mg Enoxaparin Sodium (Lovenox) 40 mg SC DAILY [facility] Last Admin: 05/10/18 11:34 Dose: 40 mg Glimepiride (Amaryl) 4 mg PO DAILY [facility] Last Admin: 05/10/18 12:50 Dose: 4 mg Glucagon (Glucagen Diagnostic Kit) 0 mg IM STAT PRN; Protocol PRN Reason: Hypoglycemia Protocol Dextrose (Dextrose 5% In Water 1000 Ml) 1,000 mls @ 0 mls/hr IV .Q0M PRN; Protocol PRN Reason: Hypoglycemia Protocol Ceftriaxone Sodium 1 gm/ (Sodium Chloride) 100 mls @ 100 mls/hr IVPB Q12H [facility]; Protocol Last Admin: 05/10/18 14:39 Dose: Not Given Azithromycin 500 mg/ Sodium (Chloride) 250 mls @ 250 mls/hr IVPB DAILY [facility]; Protocol Last Admin: 05/10/18 15:53 Dose: 250 mls/hr Insulin Aspart (Novolog) 0 unit SC ACHS [facility]; Protocol Last Admin: 05/10/18 12:50 Dose: 8 units Latanoprost (Xalatan Opht) 0 ml OU HS [facility] Last Admin: 05/09/18 22:05 Dose: 1 ml Metformin HCl (Glucophage) 500 mg PO BID [facility] Last Admin: 05/10/18 10:15 Dose: Not Given Metoprolol Tartrate (Lopressor) 25 mg PO BID [facility] Last Admin: 05/10/18 11:34 Dose: 25 mg Pantoprazole Sodium (Protonix Ec Tab) 40 mg PO DAILY [facility] Last Admin: 05/10/18 11:35 Dose: 40 mg Rosuvastatin Calcium (Crestor) 10 mg PO HS [facility] Last Admin: 05/09/18 22:04 Dose: 10 mg - Labs Labs: 05/08/18 19:41 05/08/18 19:41 - Head Exam Head Exam: NORMAL INSPECTION - Eye Exam Eye Exam: Normal appearance - ENT Exam ENT Exam: Mucous Membranes Moist - Respiratory Exam Respiratory Exam: Clear to Ausculation Bilateral - Cardiovascular Exam Cardiovascular Exam: REGULAR RHYTHM, +S1, +S2 - GI/Abdominal Exam GI & Abdominal Exam: Soft, Normal Bowel Sounds - Extremities Exam Extremities Exam: Normal Inspection Assessment and Plan (1) Elevated lipase Status: Acute (2) Pneumonia Status: Acute (3) Diabetes Status: Chronic - Assessment and Plan (Free Text) Plan: Continue antibiotics Bronchodilators Oxygen supplementation Cardiac workup is in progress DVT/GI prophylaxis
--- NOTE | 2018-05-10 21:44 | CP.PCM.PN ---
Subjective - Date & Time of Evaluation Date of Evaluation: 05/10/18 Time of Evaluation: 10:10 - Subjective Subjective: clinically same Objective - Vital Signs/Intake and Output Vital Signs (last 24 hours): Temp Pulse Resp BP Pulse Ox 98.0 F 78 20 132/63 96 05/10/18 15:05 05/10/18 16:26 05/10/18 15:05 05/10/18 17:57 05/10/18 15:05 - Medications Medications: Current Medications Acetaminophen (Tylenol 325mg Tab) 650 mg PO Q6 PRN PRN Reason: Pain, Mild (1-3) Last Admin: 05/10/18 06:45 Dose: 650 mg Albuterol/Ipratropium (Duoneb 3 Mg/0.5 Mg (3 Ml) Ud) 3 ml INH RQ6 [facility] Last Admin: 05/10/18 19:27 Dose: 3 ml Amlodipine Besylate (Norvasc) 10 mg PO DAILY [facility] Last Admin: 05/10/18 11:34 Dose: 10 mg Aspirin (Ecotrin) 81 mg PO DAILY [facility] Last Admin: 05/10/18 11:34 Dose: 81 mg Dextrose (Dextrose 50% Inj) 0 ml IV STAT PRN; Protocol PRN Reason: Hypoglycemia Protocol Dextrose (Glutose 15) 0 gm PO ONCE PRN; Protocol PRN Reason: Hypoglycemia Protocol Docusate Sodium (Colace) 100 mg PO BID [facility] Last Admin: 05/10/18 17:57 Dose: 100 mg Enalapril Maleate (Vasotec) 10 mg PO DAILY [facility] Last Admin: 05/10/18 11:34 Dose: 10 mg Enoxaparin Sodium (Lovenox) 40 mg SC DAILY [facility] Last Admin: 05/10/18 11:34 Dose: 40 mg Glimepiride (Amaryl) 4 mg PO DAILY [facility] Last Admin: 05/10/18 12:50 Dose: 4 mg Glucagon (Glucagen Diagnostic Kit) 0 mg IM STAT PRN; Protocol PRN Reason: Hypoglycemia Protocol Dextrose (Dextrose 5% In Water 1000 Ml) 1,000 mls @ 0 mls/hr IV .Q0M PRN; Protocol PRN Reason: Hypoglycemia Protocol Ceftriaxone Sodium 1 gm/ (Sodium Chloride) 100 mls @ 100 mls/hr IVPB Q12H [facility]; Protocol Last Admin: 05/10/18 17:56 Dose: 100 mls/hr Azithromycin 500 mg/ Sodium (Chloride) 250 mls @ 250 mls/hr IVPB DAILY [facility]; Protocol Last Admin: 05/10/18 15:53 Dose: 250 mls/hr Insulin Aspart (Novolog) 0 unit SC ACHS [facility]; Protocol Last Admin: 05/10/18 21:25 Dose: Not Given Latanoprost (Xalatan Opht) 0 ml OU HS [facility] Last Admin: 05/09/18 22:05 Dose: 1 ml Metformin HCl (Glucophage) 500 mg PO BID [facility] Last Admin: 05/10/18 17:57 Dose: 500 mg Metoprolol Tartrate (Lopressor) 25 mg PO BID [facility] Last Admin: 05/10/18 17:57 Dose: 25 mg Pantoprazole Sodium (Protonix Ec Tab) 40 mg PO DAILY [facility] Last Admin: 05/10/18 11:35 Dose: 40 mg Rosuvastatin Calcium (Crestor) 10 mg PO HS [facility] Last Admin: 05/09/18 22:04 Dose: 10 mg - Labs Labs: 05/08/18 19:41 05/08/18 19:41 - Constitutional Appears: Well - Head Exam Head Exam: ATRAUMATIC, NORMAL INSPECTION, NORMOCEPHALIC - Eye Exam Eye Exam: EOMI, Normal appearance, PERRL Pupil Exam: NORMAL ACCOMODATION, PERRL - ENT Exam ENT Exam: Mucous Membranes Moist, Normal Exam - Neck Exam Neck Exam: Full ROM, Normal Inspection. absent: Lymphadenopathy - Respiratory Exam Respiratory Exam: Decreased Breath Sounds - Cardiovascular Exam Cardiovascular Exam: REGULAR RHYTHM, +S1, +S2 - GI/Abdominal Exam GI & Abdominal Exam: Soft, Diminished Bowel Sounds - Rectal Exam Rectal Exam: Deferred
[2018-05-10] MEDS: Latanoprost 2.5 ml Opht Soln OU SCH (22:10)
[2018-05-11] MEDS: Albuterol-Ipratrop 3 mg / 0.5 (3 ml) UD INH SCH ×3 (01:18→20:43)
[2018-05-11 07:42] LABS: BASO # 0.1 K/uL (0.0-0.2); BASO % 1.3 % (0.0-2.0); EOS # 0.3 K/uL (0.0-0.7); EOS % 4.6 % (0.0-4.0); HEMOGLOBIN 10.4 g/dL (11.0-16.0); LYMPH # 3.4 K/uL (1.0-4.3); MEAN CELL VOLUME 87.3 fL (81.0-99.0); MEAN CORPUSCULAR HEMOGLOBIN 29.7 pg (27.0-31.0); MEAN CORPUSCULAR HGB CONC 34.1 g/dL (33.0-37.0); MEAN PLATELET VOLUME 7.9 fL (7.2-11.7); MONO # 0.4 K/uL (0.0-0.8); MONO % 5.7 % (0.0-10.0); NEUT # 2.7 K/uL (1.8-7.0); NEUT % 39.4 % (50.0-75.0); NRBC % 0.1 % (0.0-2.0); RBC 3.51 Mil/uL (3.80-5.20); RED CELL DISTRIBUTION WIDTH 14.5 % (11.5-14.5); WHITE BLOOD COUNT 6.9 K/uL (4.8-10.8)
[2018-05-11 08:07] LABS: CALCIUM 9.2 mg/dl (8.6-10.4)
[2018-05-11] MEDS: (Novolog) Insulin Aspart, Recombinant 100 u/ml 10 ml vial SC SCH ×4 (08:35→21:36)
[2018-05-11] MEDS: Pantoprazole 40 mg EC Tab PO SCH (10:45)
[2018-05-11] MEDS: Enoxaparin 40 mg Syringe SC SCH (10:45)
[2018-05-11] MEDS: Azithromycin 500 MG in Sodium Chloride 0.9% 250 ML IVPB SCH ×2 (10:46→13:15)
--- NOTE | 2018-05-11 10:53 | CARD ---
APPROVED REPORT Date of service: 05/10/2018 Protocol: PHARMACOLOGICAL STRESS Test Type: LEXISCAN Test Indications: CHEST PAIN Medications: LIST SCAN Medical History: CHEST PAIN Target HR: 135 bpm Resting ECG: normal Resting Heart Rate: 79 bpm Resting Blood Pressure: 150/68mmHg submaximum (85%): 115 bpm TEST SUMMARY [id number]/68.1. INFUSIONDOSE 100:300.00.01.084/.1. [id number]/60.2. PROCEDURE Pharmacologic stress testing was performed using 0.4mg per 5ml of regadenoson given intravenously over 7-10 seconds. POST EXERCISE Reason for Termination: Protocol Completed Target HR: No Max HR: 84 bpm 72% of Maximum Predicted HR: 135 bpm Exercise duration: 00:30 min:sec, 0 Stage Exercise capacity: 1.0METs Max Blood Pressure: 150/68mmHg Blood Pressure response to exercise: resting hypertension - appropriate response Heart Rate response to exercise: N/A Chest Pain: No, none Angina index: 0 Arrhythmia: Yes, Rare PVC ST Change: Yes, T wave inverted lead V2 only Deviation: 0 mm EXAM: Myocardial Perfusion REST/STRESS Imaging Protocol The imaging protocol used to acquire images was Rest Tc-99m/stress Tc-99m 1 day Rest Spect myocardial perfusion imaging was performed in supine position 45 minutes following the injection of 13.1 mCi of Tc-99 Myoview. Gated Stress Spect was performed 45 minutes after intravenous 33.0 mCi Tc-99 Myoview injection. The images were gated to evaluate regional wall motion and calculate ventricular ejection fraction.Images were reconstructed using backfilter projection method in short horizontal and verticle long axis. Spect slices were generated. RESTING DATA EDV46.61lcLH3.90L/min ESV6.00mlMyocardial Mass94.00g Av. Heart Rate73.00bpm EF87.00% STRESS DATA EDV43.58qkUN8.70L/min ESV9.00mlMyocardial Mass84.00g EF79.00% Regional WT score at stress:3.00 Regional WM score at stress:0.00 Summed WT score at stress:21.00 Av. Heart Rate81.00bpmSummed WM score at stress:0.00 LV Perf. Quant 17 Seg. SSS15.00 17 Seg. SRS4.00 17 Seg. SDS11.00 Stress Defect Extent (% LAD)0.00Rest Defect Extent (% LAD)0.00Rev. Defect Extent (% LAD)0.00 Stress Defect Extent (% LCX)76.30Rest Defect Extent (% LCX)30.00Rev. Defect Extent (% LCX)71.30 Stress Defect Extent (% RCA)38.90Rest Defect Extent (% RCA)3.30Rev. Defect Extent (% RCA)38.90 Stress Defect Extent (% JOSEPHINE)29.30Rest Defect Extent (% JOSEPHINE)8.00Rev. Defect Extent (% JOSEPHINE)28.30 Conclusion 1. Good technical quality 2. Post stress imaging demonstrated a large, moderate to severe left ventricular myocardial perfusion defect invovling the inferolateral wall. 3. Resting images were near normal. 4. Gated SPECT demonstrated a normal left ventricular ejection fraction of 64%. 5. Impression: 6. Abrnormal left ventricular myocarail perfusion study, with signficant ischemia of the left ventricular inferolateral wall.
[2018-05-11] MEDS ORDERED: Sodium Chloride 0.9% 1,000 ML IV ONE (11:18)
--- NOTE | 2018-05-11 11:22 | PCM.RRT ---
<GunnerTresa - Last Filed: 05/11/18 13:09> COUNTER INTELLIGENCE TECHNICIAN Nurses Assessment - Situation Date: 05/11/18 Time COUNTER INTELLIGENCE TECHNICIAN was called: 11:15 COUNTER INTELLIGENCE TECHNICIAN Responder Arrival Time:: 11:16 COUNTER INTELLIGENCE TECHNICIAN Location:: Med/Surg Room Number: 669B COUNTER INTELLIGENCE TECHNICIAN Reason for Call: Bradycardia, Change in Mental Status COUNTER INTELLIGENCE TECHNICIAN Called By: RN - IV IV Inserted during COUNTER INTELLIGENCE TECHNICIAN?: No IV Fluids Initiated During COUNTER INTELLIGENCE TECHNICIAN?: NS 1L bolus - Respiratory COUNTER INTELLIGENCE TECHNICIAN Delivery Method: Nasal Cannula @L/min Oxygen Flow Rate: 4 Received Nebulizer Treatments: No Was the Patient Ventilated with Bag/Mask 100% O2?: No Secretions Suctioned?: No Was the Patient Intubated?: No Was the Patient Placed on a Ventilator?: No - Medication Medications Administered During COUNTER INTELLIGENCE TECHNICIAN: ASA 300 mg, Brilinta 180 mg, Heparin 5000 u bolus - Diagnostic Test Ordered EKG: Yes (ST elevations in II, III, AVF) Chest X-Ray: Yes CT Scan: No - Stat Labs Ordered COUNTER INTELLIGENCE TECHNICIAN Stat Labs Ordered: PT/PTT, TROPONIN CPR started during COUNTER INTELLIGENCE TECHNICIAN?: No - Vital Signs Vital Signs: BP 95/40 HR 47 O2 90% on RA - Elsy Coma Scale Coma Scale Eye Opening: To verbal stimuli Coma Scale Motor: Obeys Commands Movement Coma Scale Verbal: Confused/able to answer Coma Scale Total: 13 - Time COUNTER INTELLIGENCE TECHNICIAN Ended Time COUNTER INTELLIGENCE TECHNICIAN Ended: 11:42 - Vital Signs at end of COUNTER INTELLIGENCE TECHNICIAN Vital Signs at end of COUNTER INTELLIGENCE TECHNICIAN: BP 142/96 HR 73 O2 99% on 4L NC - Recommendations 5) COUNTER INTELLIGENCE TECHNICIAN Level of Care Recommendations: vp lab then ICU Notifications: Attending Physician (Dr. Randy Ramirez), Consultations (cardio Dr. Ocasio), Family or Designated Caregiver (daughter Brittany) I.Reason for COUNTER INTELLIGENCE TECHNICIAN - A) Acute Change in Patient: (Select all that apply): Acute change in mental status, Acute change in heart rate less than 50 or greater than 120 (bradycardia 40s) Subjective: Patient was on bedside commode and moved back to bed with assistance. Patient had large BM. Upon laying down, patient vomited and became unresponsive. Monitor showed bradycardia in 40s and COUNTER INTELLIGENCE TECHNICIAN called. She opened her eyes and was able to respond. Patient has low voice with minimal spontaneous speech. She feels weak and is complaining of abdominal pain. Patient's BP meds were held today due to hypotension. Patient is hospitalized for chest/epigastric pain. He had a pharmacological stress test yesterday that showed large mod-severe LV myocardial perfusion defect involving inferolateral wall and EF of 64%. She has a history of CAD with stents. Most recent cath in 2017 showed patent stents. EKG showed ST elevations. Code heart called at 11:27 and patient transferred to vp lab. - Neurological Status (Select all that apply): Alert, Verbal, Follows Commands - Respiratory Oxygen Delivery Method: Nasal Cannula @L/min Oxygen Flow Rate: 4 - Constitutional Appears: No Acute Distress, Other (diaphoretic) - Head Head Exam: ATRAUMATIC, NORMAL INSPECTION - Eyes Eye Exam: EOMI, Normal appearance, PERRL - Respiratory Exam Respiratory Exam: NORMAL BREATHING PATTERN. absent: Respiratory Distress - Cardiovascular Exam Cardiovascular Exam: Bradycardia, REGULAR RHYTHM - GI/Abdominal Exam GI & Abdominal Exam: Soft, Tenderness. absent: Mass - Neurological Exam Neurological Exam: Alert, Awake. absent: Oriented x3 - Extremities Exam Extremities Exam: Normal Inspection Plan - Assessment of Findings&Treatment Plan - Stat CXR - Stat CLAUDIA - Stat Ph, Mg (CMP done this AM) - Stat PT/INR/PTT (CBC done this AM) - Stat 1L NS bolus - Stat EKG-->ST elevations-->code heart called, Dr. Paniagua notified - ASA 300 mg PO - Brilinta 180 mg PO - Heparin 5000 units IV-->heparin drip - Patient's daughter, Brittany, called and informed. She provided phone consent for cardiac cath. - Informed Dr. Randy Ramirez and DR. Ocasio <Felix Duong - Last Filed: 05/11/18 15:19> COUNTER INTELLIGENCE TECHNICIAN Nurses Assessment - Vital Signs Vital Signs: Rapid Response Vital Sign Blood Pressure 83/38 Pulse Rate 40 - Vital Signs at end of COUNTER INTELLIGENCE TECHNICIAN Vital Signs at end of COUNTER INTELLIGENCE TECHNICIAN: Rapid Response End Vital Sign Blood Pressure 142/73 Pulse Rate 73 O2 Sat by Pulse Oximetry 99 Attending/Attestation - Attestation I have personally seen and examined this patient.: Yes I have fully participated in the care of the patient.: Yes I have reviewed all pertinent clinical information, including history, physical exam and plan: Yes Notes (Text): 05/11/18 15:12 Medical Hospitalist: Patient was seen during the COUNTER INTELLIGENCE TECHNICIAN, she was on the bedside commode and shortly after a BM the staff noted she became very diaphoretic and having abdominal pain and was somulent. She was moved to the bed where they noted a systolic BP in the 90s. The patient was started on IVF and intially we were under the impression this may have been a vasovagal situation however the 12 lead EKG showed prominent ST-Elevated AR. We called a CODE [facility] and I spoke with php lamp developer and sent picture of the EKG. She was given brillinta, heparin bolus, heparin ggt, ASA and family notified and she was needing a cardiac catherization and consent was obtained. She was given IVF and by the time she was moved down to the cardiac vp lab her BP was improved and she was talking to us slowly. Patient will be monitor in the ICU after cardiac catherization Felix Duong
[2018-05-11] MEDS ORDERED: Midazolam 2 MG/2 ML VIAL ONE (11:40)
[2018-05-11] MEDS ORDERED: Iodixanol 320 MG/ML 200 ML BOTTLE IV ONE (11:41)
[2018-05-11] MEDS ORDERED: DOPamine 400mg/250ml D5W 0 MG/0 ML BAG IV ONE ×2 (11:58→11:59)
[2018-05-11 12:03] LABS: INR 1.2; PROTHROMBIN TIME 12.9 SECONDS (9.7-12.2)
[2018-05-11 12:04] LABS: CK-MB 0.52 ng/mL (0.0-3.38); TROPONIN I 0.136 ng/mL (0.00-0.120)
[2018-05-11] MEDS ORDERED: Eptifibatide 20 mg/10mL Inj IVP ONE (12:14)
--- NOTE | 2018-05-11 12:40 | RAD ---
Date of service: 05/11/2018 HISTORY: LITIGATION PARALEGAL COMPARISON: Comparison made with chest radiograph dated 05/07/2018.. FINDINGS: LUNGS: Poor inspiration with mom low lung volumes, crowded bronchovascular markings and minor bibasilar atelectasis.. PLEURA: No significant pleural effusion identified, no pneumothorax apparent. CARDIOVASCULAR: Mild aortic atherosclerotic calcification present. Normal cardiac size. No pulmonary vascular congestion. OSSEOUS STRUCTURES: No significant abnormalities. VISUALIZED UPPER ABDOMEN: Normal. OTHER FINDINGS: None. IMPRESSION: Poor inspiration with mom low lung volumes, crowded bronchovascular markings and minor bibasilar atelectasis..
[2018-05-11] MEDS ORDERED: Sodium Chloride 0.9% 1,000 ML IV SCH (13:00)
--- NOTE | 2018-05-11 13:35 | CP.PCM.PN ---
Subjective - Date & Time of Evaluation Date of Evaluation: 05/11/18 Time of Evaluation: 13:28 - Subjective Subjective: The patient went to the commode, had abdominal pain, and a rapid response was called. ECG showed new inferolateral st elevations, and code heart called. pt had emergent pci of an in stent thrombosis of her RCA. pt also has a diffusely d iseased LCX and a 50-60% left main stenosis. Nuclear stress test yesterday was very abnormal. i was on my way to tell the patient that she ws to be transferred to [facility] for an intervention when I was informed she was already in the lab. Objective - Vital Signs/Intake and Output Vital Signs (last 24 hours): Temp Pulse Resp BP Pulse Ox 97.7 F 88 16 126/58 L 98 05/11/18 13:00 05/11/18 13:00 05/11/18 13:00 05/11/18 13:00 05/11/18 07:48 - Medications Medications: Current Medications Acetaminophen (Tylenol 325mg Tab) 650 mg PO Q6 PRN PRN Reason: Pain, Mild (1-3) Last Admin: 05/11/18 10:45 Dose: 650 mg Albuterol/Ipratropium (Duoneb 3 Mg/0.5 Mg (3 Ml) Ud) 3 ml INH RQ6 [facility] Last Admin: 05/11/18 08:47 Dose: 3 ml Amlodipine Besylate (Norvasc) 10 mg PO DAILY [facility] Last Admin: 05/11/18 13:17 Dose: Not Given Aspirin (Ecotrin) 81 mg PO DAILY [facility] Last Admin: 05/11/18 10:45 Dose: 81 mg Dextrose (Dextrose 50% Inj) 0 ml IV STAT PRN; Protocol PRN Reason: Hypoglycemia Protocol Dextrose (Glutose 15) 0 gm PO ONCE PRN; Protocol PRN Reason: Hypoglycemia Protocol Docusate Sodium (Colace) 100 mg PO BID [facility] Last Admin: 05/11/18 10:45 Dose: 100 mg Enalapril Maleate (Vasotec) 10 mg PO DAILY [facility] Last Admin: 05/11/18 13:15 Dose: Not Given Enoxaparin Sodium (Lovenox) 40 mg SC DAILY [facility] Glimepiride (Amaryl) 4 mg PO DAILY [facility] Last Admin: 05/11/18 10:45 Dose: 4 mg Glucagon (Glucagen Diagnostic Kit) 0 mg IM STAT PRN; Protocol PRN Reason: Hypoglycemia Protocol Ceftriaxone Sodium 1 gm/ (Sodium Chloride) 100 mls @ 100 mls/hr IVPB Q12H [facility]; Protocol Last Admin: 05/11/18 04:00 Dose: 100 mls/hr Azithromycin 500 mg/ Sodium (Chloride) 250 mls @ 250 mls/hr IVPB DAILY [facility]; Protocol Last Admin: 05/11/18 13:15 Dose: Not Given Sodium Chloride (Sodium Chloride 0.9%) 1,000 mls @ 50 mls/hr IV .Q20H [facility] Stop: 05/12/18 01:01 Last Admin: 05/11/18 13:19 Dose: 50 mls/hr Insulin Aspart (Novolog) 0 unit SC ACHS [facility]; Protocol Last Admin: 05/11/18 13:17 Dose: Not Given Latanoprost (Xalatan Opht) 0 ml OU HS [facility] Last Admin: 05/10/18 22:10 Dose: 2.5 ml Metformin HCl (Glucophage) 500 mg PO BID [facility] Last Admin: 05/11/18 10:45 Dose: 500 mg Metoprolol Succinate (Toprol Xl) 12.5 mg PO BID [facility] Ondansetron HCl (Zofran Inj) 4 mg IVP Q8H PRN PRN Reason: Nausea/Vomiting Pantoprazole Sodium (Protonix Ec Tab) 40 mg PO DAILY [facility] Last Admin: 05/11/18 10:45 Dose: 40 mg Rosuvastatin Calcium (Crestor) 10 mg PO HS [facility] Last Admin: 05/10/18 22:07 Dose: 10 mg Ticagrelor (Brilinta) 90 mg PO BID [facility] - Labs Labs: 05/11/18 07:37 05/11/18 07:37 PT 12.9 SECONDS (9.7-12.2) H 05/11/18 11:42 INR 1.2 05/11/18 11:42 APTT 28 SECONDS (21-34) 05/11/18 11:42 - Constitutional Appears: Well - Head Exam Head Exam: NORMAL INSPECTION - Eye Exam Eye Exam: EOMI - ENT Exam ENT Exam: Mucous Membranes Moist - Neck Exam Neck Exam: Full ROM - Respiratory Exam Respiratory Exam: Clear to Ausculation Bilateral - Cardiovascular Exam Cardiovascular Exam: REGULAR RHYTHM - GI/Abdominal Exam GI & Abdominal Exam: Normal Bowel Sounds - Exam External exam: NORMAL EXTERNAL EXAM - Extremities Exam Extremities Exam: Normal Inspection - Back Exam Back Exam: NORMAL INSPECTION - Neurological Exam Neurological Exam: Alert, Awake, CN II-XII Intact, Oriented x3 - Psychiatric Exam Psychiatric exam: Flat Affect - Skin Skin Exam: Normal Color Assessment and Plan - Assessment and Plan (Free Text) Assessment: 1. Successful emergent pci of in stent thrombosis of the mid RCA. 2. Trend troponin 3. DAPT, statin. 3. Pt also has a left main stenosis with good conor. Dr Paniagua and Beth will review 2017 films for comparison and a plan will be made.
--- NOTE | 2018-05-11 14:56 | CP.PCM.CON ---
History of Present Illness - History of Present Illness History of Present Illness: PGY-1 Critical Care Consult Note for Dr. Osborne Patient is an 87 year old female with past medical history of CAD S/P stent placement in 2014 and 2016, TIA, DM, HTN, and gastritis who presented with 3 day history of non-productive cough, nausea, shortness of breath and constant, nonradiating substernal chest pain. Patient was on the commode earlier today, had abdominal pain, and a rapid response was called. ECG demonstrated new inferolateral ST segment elevations and a Code Heart was called. Patient had emergent PCI with stent placement in the RCA. 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 In ICU for monitoring s/p PCI. 12 pt ROS reviewed and negative otherwise. PMHx: CAD S/P stent placement in 2014 and 2016, TIA, DM, HTN, and gastritis PSHx: stent placement 2014 and 2016 Allergies: NKDA Home Medications: as per EMR Social Hx: no tobacco, alcohol, illicit drug use. Previously worked as [employer] at [employer] for 30 years. Family Hx: denies any fam hx of CAD, Stroke, Cancers Diagnostic Tech: Dr. Ocasio Review of Systems - Review of Systems All systems: reviewed and no additional remarkable complaints except Review of Systems: as per HPI Past Patient History - Infectious Disease Hx of Infectious Diseases: None - Tetanus Immunizations Tetanus Immunization: Unknown - Past Medical History & Family History Past Medical History?: Yes - Past Social History Smoking Status: Never Smoked - CARDIAC Hx Congestive Heart Failure: Yes Hx Hypercholesterolemia: Yes Hx Hypertension: Yes - PULMONARY Hx Respiratory Disorders: No - NEUROLOGICAL HX Cerebrovascular Accident: Yes - HEENT Hx HEENT Problems: Yes Hx Cataracts: Yes Hx Deafness: Yes Hx Glaucoma: Yes Other/Comment: left eye catarACT removed - RENAL Hx Chronic Kidney Disease: No - ENDOCRINE/METABOLIC Hx Diabetes Mellitus Type 2: Yes - HEMATOLOGICAL/ONCOLOGICAL Hx Anemia: Yes - INTEGUMENTARY Hx Dermatological Problems: No - MUSCULOSKELETAL/RHEUMATOLOGICAL Hx Arthritis: Yes - GASTROINTESTINAL Hx Gastritis: Yes - GENITOURINARY/GYNECOLOGICAL Hx Genitourinary Disorders: Yes Hx Urinary Tract Infection: Yes - PSYCHIATRIC Hx Substance Use: No - SURGICAL HISTORY Hx Coronary Stent: Yes (01/2015 & 2015) - ANESTHESIA Hx Anesthesia: Yes Hx Anesthesia Reactions: No Hx Malignant Hyperthermia: No Meds Allergies/Adverse Reactions: Allergies Allergy/AdvReac Type Severity Reaction Status Date / Time No Known Allergies Allergy Verified 05/07/18 12:01 - Medications Medications: Current Medications Acetaminophen (Tylenol 325mg Tab) 650 mg PO Q6 PRN PRN Reason: Pain, Mild (1-3) Last Admin: 05/11/18 10:45 Dose: 650 mg Albuterol/Ipratropium (Duoneb 3 Mg/0.5 Mg (3 Ml) Ud) 3 ml INH RQ6 [facility] Last Admin: 05/11/18 08:47 Dose: 3 ml Amlodipine Besylate (Norvasc) 10 mg PO DAILY [facility] Last Admin: 05/11/18 13:17 Dose: Not Given Aspirin (Ecotrin) 81 mg PO DAILY [facility] Last Admin: 05/11/18 10:45 Dose: 81 mg Dextrose (Dextrose 50% Inj) 0 ml IV STAT PRN; Protocol PRN Reason: Hypoglycemia Protocol Dextrose (Glutose 15) 0 gm PO ONCE PRN; Protocol PRN Reason: Hypoglycemia Protocol Docusate Sodium (Colace) 100 mg PO BID [facility] Last Admin: 05/11/18 10:45 Dose: 100 mg Enalapril Maleate (Vasotec) 10 mg PO DAILY [facility] Last Admin: 05/11/18 13:15 Dose: Not Given Enoxaparin Sodium (Lovenox) 40 mg SC DAILY [facility] Glimepiride (Amaryl) 4 mg PO DAILY [facility] Last Admin: 05/11/18 10:45 Dose: 4 mg Glucagon (Glucagen Diagnostic Kit) 0 mg IM STAT PRN; Protocol PRN Reason: Hypoglycemia Protocol Ceftriaxone Sodium 1 gm/ (Sodium Chloride) 100 mls @ 100 mls/hr IVPB Q12H [facility]; Protocol Last Admin: 05/11/18 04:00 Dose: 100 mls/hr Azithromycin 500 mg/ Sodium (Chloride) 250 mls @ 250 mls/hr IVPB DAILY [facility]; Protocol Last Admin: 05/11/18 13:15 Dose: Not Given Sodium Chloride (Sodium Chloride 0.9%) 1,000 mls @ 50 mls/hr IV .Q20H [facility] Stop: 05/12/18 01:01 Last Admin: 05/11/18 13:19 Dose: 50 mls/hr Insulin Aspart (Novolog) 0 unit SC ACHS [facility]; Protocol Last Admin: 05/11/18 13:17 Dose: Not Given Latanoprost (Xalatan Opht) 0 ml OU HS [facility] Last Admin: 05/10/18 22:10 Dose: 2.5 ml Metformin HCl (Glucophage) 500 mg PO BID [facility] Last Admin: 05/11/18 10:45 Dose: 500 mg Metoprolol Succinate (Toprol Xl) 12.5 mg PO BID [facility] Ondansetron HCl (Zofran Inj) 4 mg IVP Q8H PRN PRN Reason: Nausea/Vomiting Pantoprazole Sodium (Protonix Ec Tab) 40 mg PO DAILY [facility] Last Admin: 05/11/18 10:45 Dose: 40 mg Rosuvastatin Calcium (Crestor) 10 mg PO HS [facility] Last Admin: 05/10/18 22:07 Dose: 10 mg Ticagrelor (Brilinta) 90 mg PO BID [facility] Physical Exam - Constitutional Appears: Non-toxic, No Acute Distress - Head Exam Head Exam: ATRAUMATIC, NORMAL INSPECTION, NORMOCEPHALIC - Eye Exam Eye Exam: EOMI, Normal appearance, PERRL - ENT Exam ENT Exam: Mucous Membranes Moist, Normal Exam - Neck Exam Neck exam: Positive for: Full Rom, Normal Inspection - Respiratory Exam Respiratory Exam: Clear to Auscultation Bilateral, NORMAL BREATHING PATTERN. absent: Accessory Muscle Use, Rales, Rhonchi, Wheezes, Respiratory Distress, Stridor - Cardiovascular Exam Cardiovascular Exam: REGULAR RHYTHM, +S1, +S2 - GI/Abdominal Exam GI & Abdominal Exam: Normal Bowel Sounds, Soft. absent: Distended, Firm, Guarding, Rebound, Rigid, Tenderness - Extremities Exam Extremities exam: Positive for: normal capillary refill, normal inspection, pedal pulses present. Negative for: calf tenderness, joint swelling, pedal edema - Back Exam Back exam: NORMAL INSPECTION - Neurological Exam Neurological exam: Alert, Oriented x3 - Psychiatric Exam Psychiatric exam: Normal Affect, Normal Mood - Skin Skin Exam: Dry, Intact, Normal Color, Warm Results - Vital Signs Recent Vital Signs: Last Vital Signs Temp 97.7 F 05/11/18 13:00 Pulse 82 05/11/18 14:00 Resp 13 05/11/18 14:00 BP 137/64 05/11/18 14:00 Pulse Ox 100 05/11/18 14:00 - Labs Result Diagrams: 05/11/18 07:37 05/11/18 07:37 Labs: Laboratory Results - last 24 hr 05/10/18 05/10/18 05/11/18 17:09 21:00 06:43 WBC RBC Hgb Hct MCV MCH MCHC RDW Plt Count MPV Neut % (Auto) Lymph % (Auto) Johnson % (Auto) Eos % (Auto) Baso % (Auto) Neut # (Auto) Lymph # (Auto) Johnson # (Auto) Eos # (Auto) Baso # (Auto) PT INR APTT Sodium Potassium Chloride Carbon Dioxide Anion Gap BUN Creatinine Est GFR ( Amer) Est GFR (Non-Af Amer) POC Glucose (mg/dL) 246 H 208 H 166 H Random Glucose Calcium Phosphorus Magnesium Total Creatine Kinase CK-MB (Mass) Troponin I 05/11/18 05/11/18 05/11/18 07:37 07:37 11:15 WBC 6.9 RBC 3.51 L Hgb 10.4 L Hct 30.6 L MCV 87.3 MCH 29.7 MCHC 34.1 RDW 14.5 Plt Count 310 MPV 7.9 Neut % (Auto) 39.4 L Lymph % (Auto) 49.0 H Johnson % (Auto) 5.7 Eos % (Auto) 4.6 H Baso % (Auto) 1.3 Neut # (Auto) 2.7 Lymph # (Auto) 3.4 Johnson # (Auto) 0.4 Eos # (Auto) 0.3 Baso # (Auto) 0.1 PT INR APTT Sodium 139 Potassium 4.4 Chloride 101 Carbon Dioxide 30 Anion Gap 12 BUN 18 H Creatinine 1.1 Est GFR ( Amer) 57 Est GFR (Non-Af Amer) 47 POC Glucose (mg/dL) 332 H Random Glucose 193 H Calcium 9.2 Phosphorus Magnesium Total Creatine Kinase CK-MB (Mass) Troponin I 05/11/18 05/11/18 11:34 11:42 WBC RBC Hgb Hct MCV MCH MCHC RDW Plt Count MPV Neut % (Auto) Lymph % (Auto) Johnson % (Auto) Eos % (Auto) Baso % (Auto) Neut # (Auto) Lymph # (Auto) Johnson # (Auto) Eos # (Auto) Baso # (Auto) PT 12.9 H INR 1.2 APTT 28 Sodium Potassium Chloride Carbon Dioxide Anion Gap BUN Creatinine Est GFR ( Amer) Est GFR (Non-Af Amer) POC Glucose (mg/dL) Random Glucose Calcium Phosphorus 3.4 Magnesium 1.8 Total Creatine Kinase 65 CK-MB (Mass) 0.52 Troponin I 0.1360 H* Assessment & Plan - Assessment and Plan (Free Text) Plan: CV: Inferolateral STEMI -Patient s/p cardiac cath with successful AVIS stent placement in RCA -Per Cardiology, pt also has a left main stenosis with good conor. Dr Paniagua and Beth will review 2017 films for comparison and a plan will be made. -Cardiology (Dr. Ocasio) on case -labs -CLAUDIA panel series q8H -EKG -ASA -Brillinta 80 BID -Crestor HTN -Norvasc 10 Daily -Enalapril 10 Daily Pulm: Shortness of breath -duonebs q6h prn Endo DM Type II -ISS -restart home glimepiride -restart home metformin 500 BID -accuchecks, hypoglycemic protocol PPx, Diet, Disposition -lovenox -protonix -Diet: HHD Case discussed with Dr. Dylon Currie DO, PGY-1
--- NOTE | 2018-05-11 19:16 | CP.PCM.PN ---
Subjective - Date & Time of Evaluation Date of Evaluation: 05/11/18 Time of Evaluation: 19:16 - Subjective Subjective: Patient seen and examined S/P emergent PCI for ST elevation [place] Objective - Vital Signs/Intake and Output Vital Signs (last 24 hours): Temp Pulse Resp BP Pulse Ox 98.2 F 81 19 150/86 100 05/11/18 16:00 05/11/18 18:58 05/11/18 18:58 05/11/18 18:58 05/11/18 18:00 Intake and Output: 05/11/18 05/12/18 18:59 06:59 Intake Total 760 50 Output Total 1100 200 Balance -340 -150 - Medications Medications: Current Medications Acetaminophen (Tylenol 325mg Tab) 650 mg PO Q6 PRN PRN Reason: Pain, Mild (1-3) Last Admin: 05/11/18 10:45 Dose: 650 mg Albuterol/Ipratropium (Duoneb 3 Mg/0.5 Mg (3 Ml) Ud) 3 ml INH RQ6 [facility] Last Admin: 05/11/18 08:47 Dose: 3 ml Amlodipine Besylate (Norvasc) 10 mg PO DAILY [facility] Last Admin: 05/11/18 13:17 Dose: Not Given Aspirin (Ecotrin) 81 mg PO DAILY [facility] Last Admin: 05/11/18 10:45 Dose: 81 mg Dextrose (Dextrose 50% Inj) 0 ml IV STAT PRN; Protocol PRN Reason: Hypoglycemia Protocol Dextrose (Glutose 15) 0 gm PO ONCE PRN; Protocol PRN Reason: Hypoglycemia Protocol Docusate Sodium (Colace) 100 mg PO BID [facility] Last Admin: 05/11/18 17:57 Dose: 100 mg Enalapril Maleate (Vasotec) 10 mg PO DAILY [facility] Last Admin: 05/11/18 13:15 Dose: Not Given Enoxaparin Sodium (Lovenox) 40 mg SC DAILY [facility] Glimepiride (Amaryl) 4 mg PO DAILY [facility] Last Admin: 05/11/18 10:45 Dose: 4 mg Glucagon (Glucagen Diagnostic Kit) 0 mg IM STAT PRN; Protocol PRN Reason: Hypoglycemia Protocol Sodium Chloride (Sodium Chloride 0.9%) 1,000 mls @ 50 mls/hr IV .Q20H [facility] Stop: 05/12/18 01:01 Last Admin: 05/11/18 13:19 Dose: 50 mls/hr Insulin Aspart (Novolog) 0 unit SC ACHS [facility]; Protocol Last Admin: 05/11/18 16:52 Dose: 4 units Latanoprost (Xalatan Opht) 0 ml OU HS [facility] Last Admin: 05/10/18 22:10 Dose: 2.5 ml Metformin HCl (Glucophage) 500 mg PO BID [facility] Last Admin: 05/11/18 17:57 Dose: 500 mg Metoprolol Succinate (Toprol Xl) 12.5 mg PO BID [facility] Ondansetron HCl (Zofran Inj) 4 mg IVP Q8H PRN PRN Reason: Nausea/Vomiting Pantoprazole Sodium (Protonix Ec Tab) 40 mg PO DAILY [facility] Last Admin: 05/11/18 10:45 Dose: 40 mg Rosuvastatin Calcium (Crestor) 10 mg PO HS [facility] Last Admin: 05/10/18 22:07 Dose: 10 mg Ticagrelor (Brilinta) 90 mg PO BID [facility] Last Admin: 05/11/18 17:57 Dose: 90 mg - Labs Labs: 05/11/18 07:37 05/11/18 07:37 PT 12.9 SECONDS (9.7-12.2) H 05/11/18 11:42 INR 1.2 05/11/18 11:42 APTT 28 SECONDS (21-34) 05/11/18 11:42 - Head Exam Head Exam: NORMAL INSPECTION - Eye Exam Eye Exam: Normal appearance - ENT Exam ENT Exam: Mucous Membranes Moist - Respiratory Exam Respiratory Exam: Clear to Ausculation Bilateral - Cardiovascular Exam Cardiovascular Exam: REGULAR RHYTHM, +S1, +S2 - GI/Abdominal Exam GI & Abdominal Exam: Soft, Normal Bowel Sounds - Extremities Exam Extremities Exam: Normal Inspection - Neurological Exam Neurological Exam: Alert Assessment and Plan (1) Elevated lipase Status: Acute (2) Pneumonia Status: Acute (3) Diabetes Status: Chronic (4) Status post non-ST elevation myocardial infarction (NSTEMI) Status: Acute - Assessment and Plan (Free Text) Plan: Off antibiotics Will observe On Brilinta Accu-Chek Insulin coverage Metformin DVT/GI prophylaxis
[2018-05-11] MEDS: Metoprolol Succinate 12.5 mg XL Tab PO SCH (19:37)
--- NOTE | 2018-05-11 20:20 | CP.PCM.PN ---
Subjective - Date & Time of Evaluation Date of Evaluation: 05/11/18 Time of Evaluation: 11:30 - Subjective Subjective: clinically same Objective - Vital Signs/Intake and Output Vital Signs (last 24 hours): Temp Pulse Resp BP Pulse Ox 98.2 F 81 19 150/86 100 05/11/18 16:00 05/11/18 18:58 05/11/18 18:58 05/11/18 18:58 05/11/18 18:00 Intake and Output: 05/11/18 05/12/18 18:59 06:59 Intake Total 760 50 Output Total 1100 200 Balance -340 -150 - Medications Medications: Current Medications Acetaminophen (Tylenol 325mg Tab) 650 mg PO Q6 PRN PRN Reason: Pain, Mild (1-3) Last Admin: 05/11/18 10:45 Dose: 650 mg Albuterol/Ipratropium (Duoneb 3 Mg/0.5 Mg (3 Ml) Ud) 3 ml INH RQ6 [facility] Last Admin: 05/11/18 08:47 Dose: 3 ml Amlodipine Besylate (Norvasc) 10 mg PO DAILY [facility] Last Admin: 05/11/18 13:17 Dose: Not Given Aspirin (Ecotrin) 81 mg PO DAILY [facility] Last Admin: 05/11/18 10:45 Dose: 81 mg Dextrose (Dextrose 50% Inj) 0 ml IV STAT PRN; Protocol PRN Reason: Hypoglycemia Protocol Dextrose (Glutose 15) 0 gm PO ONCE PRN; Protocol PRN Reason: Hypoglycemia Protocol Docusate Sodium (Colace) 100 mg PO BID [facility] Last Admin: 05/11/18 17:57 Dose: 100 mg Enalapril Maleate (Vasotec) 10 mg PO DAILY [facility] Last Admin: 05/11/18 13:15 Dose: Not Given Enoxaparin Sodium (Lovenox) 40 mg SC DAILY [facility] Glimepiride (Amaryl) 4 mg PO DAILY [facility] Last Admin: 05/11/18 10:45 Dose: 4 mg Glucagon (Glucagen Diagnostic Kit) 0 mg IM STAT PRN; Protocol PRN Reason: Hypoglycemia Protocol Sodium Chloride (Sodium Chloride 0.9%) 1,000 mls @ 50 mls/hr IV .Q20H [facility] Stop: 05/12/18 01:01 Last Admin: 05/11/18 13:19 Dose: 50 mls/hr Insulin Aspart (Novolog) 0 unit SC ACHS [facility]; Protocol Last Admin: 05/11/18 16:52 Dose: 4 units Latanoprost (Xalatan Opht) 0 ml OU HS [facility] Last Admin: 05/10/18 22:10 Dose: 2.5 ml Metformin HCl (Glucophage) 500 mg PO BID [facility] Last Admin: 05/11/18 17:57 Dose: 500 mg Metoprolol Succinate (Toprol Xl) 12.5 mg PO BID [facility] Last Admin: 05/11/18 19:37 Dose: 12.5 mg Ondansetron HCl (Zofran Inj) 4 mg IVP Q8H PRN PRN Reason: Nausea/Vomiting Pantoprazole Sodium (Protonix Ec Tab) 40 mg PO DAILY [facility] Last Admin: 05/11/18 10:45 Dose: 40 mg Rosuvastatin Calcium (Crestor) 10 mg PO HS [facility] Last Admin: 05/10/18 22:07 Dose: 10 mg Ticagrelor (Brilinta) 90 mg PO BID [facility] Last Admin: 05/11/18 17:57 Dose: 90 mg - Labs Labs: 05/11/18 07:37 05/11/18 07:37 PT 12.9 SECONDS (9.7-12.2) H 05/11/18 11:42 INR 1.2 05/11/18 11:42 APTT 28 SECONDS (21-34) 05/11/18 11:42 - Constitutional Appears: Well - Head Exam Head Exam: ATRAUMATIC, NORMAL INSPECTION, NORMOCEPHALIC - Eye Exam Eye Exam: EOMI, Normal appearance, PERRL Pupil Exam: NORMAL ACCOMODATION, PERRL - ENT Exam ENT Exam: Mucous Membranes Moist, Normal Exam - Neck Exam Neck Exam: Full ROM, Normal Inspection. absent: Lymphadenopathy - Respiratory Exam Respiratory Exam: Decreased Breath Sounds - Cardiovascular Exam Cardiovascular Exam: REGULAR RHYTHM, +S1, +S2 - GI/Abdominal Exam GI & Abdominal Exam: Soft, Diminished Bowel Sounds - Rectal Exam Rectal Exam: Deferred
[2018-05-11] MEDS ORDERED: Alum-Mag Hydrox-Simethicone Susp (30 mL) PO ONE (21:05)
[2018-05-11] MEDS: Latanoprost 2.5 ml Opht Soln OU SCH (22:00)
[2018-05-12] MEDS: Albuterol-Ipratrop 3 mg / 0.5 (3 ml) UD INH SCH ×4 (01:38→20:04)
[2018-05-12 05:57] LABS: BASO % 0.3 % (0.0-2.0); EOS # 0.1 K/uL (0.0-0.7); EOS % 1.9 % (0.0-4.0); HEMOGLOBIN 9.8 g/dL (11.0-16.0); LYMPH # 2.4 K/uL (1.0-4.3); LYMPH % 31.4 % (20.0-40.0); MEAN CELL VOLUME 87.4 fL (81.0-99.0); MEAN CORPUSCULAR HEMOGLOBIN 29.5 pg (27.0-31.0); MEAN CORPUSCULAR HGB CONC 33.8 g/dL (33.0-37.0); MEAN PLATELET VOLUME 8.3 fL (7.2-11.7); MONO # 0.4 K/uL (0.0-0.8); MONO % 5.3 % (0.0-10.0); NEUT # 4.7 K/uL (1.8-7.0); NEUT % 61.1 % (50.0-75.0); RBC 3.31 Mil/uL (3.80-5.20); RED CELL DISTRIBUTION WIDTH 14.4 % (11.5-14.5); WHITE BLOOD COUNT 7.6 K/uL (4.8-10.8)
[2018-05-12 06:29] LABS: ALB/GLOB RATIO 1.1 (1.0-2.1); ALBUMIN 3.4 g/dL (3.5-5.0); ALT/SGPT 33 U/L (9-52); AST/SGOT 194 U/L (14-36); BLOOD UREA NITROGEN 13 mg/dL (7-17); CALCIUM 9.2 mg/dl (8.6-10.4); CK-MB 52.4 ng/mL (0.0-3.38); GFR NON-AFRICAN AMERICAN 60
--- NOTE | 2018-05-12 07:48 | CP.PCM.PN ---
Subjective - Date & Time of Evaluation Date of Evaluation: 05/11/18 Time of Evaluation: 17:30 - Subjective Subjective: Patient s/p Inferior STEMI Successful RCA intervention EF 55-60%, Inferior wall stunning will most likely recover Full Cath report to be dictated Patient stable and chest pain free and in ICU Moderate L Main disease (Medical Vs. PCI) Further Cardiac management as per Dr. Ocasio I will sign off Thank you Objective - Vital Signs/Intake and Output Vital Signs (last 24 hours): Temp Pulse Resp BP Pulse Ox 98.4 F 69 17 111/52 L 100 05/12/18 04:00 05/12/18 06:38 05/12/18 06:38 05/12/18 06:39 05/12/18 06:38 Intake and Output: 05/12/18 05/12/18 06:59 18:59 Intake Total 1050 Output Total 1200 Balance -150 - Medications Medications: Current Medications Acetaminophen (Tylenol 325mg Tab) 650 mg PO Q6 PRN PRN Reason: Pain, Mild (1-3) Last Admin: 05/11/18 10:45 Dose: 650 mg Albuterol/Ipratropium (Duoneb 3 Mg/0.5 Mg (3 Ml) Ud) 3 ml INH RQ6 [facility] Last Admin: 05/12/18 01:38 Dose: 3 ml Amlodipine Besylate (Norvasc) 10 mg PO DAILY [facility] Last Admin: 05/11/18 13:17 Dose: Not Given Aspirin (Ecotrin) 81 mg PO DAILY [facility] Last Admin: 05/11/18 10:45 Dose: 81 mg Dextrose (Dextrose 50% Inj) 0 ml IV STAT PRN; Protocol PRN Reason: Hypoglycemia Protocol Dextrose (Glutose 15) 0 gm PO ONCE PRN; Protocol PRN Reason: Hypoglycemia Protocol Docusate Sodium (Colace) 100 mg PO BID [facility] Last Admin: 05/11/18 17:57 Dose: 100 mg Enalapril Maleate (Vasotec) 10 mg PO DAILY [facility] Last Admin: 05/11/18 13:15 Dose: Not Given Enoxaparin Sodium (Lovenox) 40 mg SC DAILY [facility] Glimepiride (Amaryl) 4 mg PO DAILY [facility] Last Admin: 05/11/18 10:45 Dose: 4 mg Glucagon (Glucagen Diagnostic Kit) 0 mg IM STAT PRN; Protocol PRN Reason: Hypoglycemia Protocol Insulin Aspart (Novolog) 0 unit SC ACHS [facility]; Protocol Last Admin: 05/11/18 21:36 Dose: Not Given Latanoprost (Xalatan Opht) 0 ml OU HS [facility] Last Admin: 05/11/18 22:00 Dose: Not Given Metformin HCl (Glucophage) 500 mg PO BID [facility] Last Admin: 05/11/18 17:57 Dose: 500 mg Metoprolol Succinate (Toprol Xl) 12.5 mg PO BID [facility] Last Admin: 05/11/18 19:37 Dose: 12.5 mg Ondansetron HCl (Zofran Inj) 4 mg IVP Q8H PRN PRN Reason: Nausea/Vomiting Pantoprazole Sodium (Protonix Ec Tab) 40 mg PO DAILY [facility] Last Admin: 05/11/18 10:45 Dose: 40 mg Rosuvastatin Calcium (Crestor) 10 mg PO HS [facility] Last Admin: 05/11/18 21:14 Dose: 10 mg Ticagrelor (Brilinta) 90 mg PO BID [facility] Last Admin: 05/11/18 17:57 Dose: 90 mg - Labs Labs: 05/12/18 05:48 05/12/18 05:41 PT 12.9 SECONDS (9.7-12.2) H 05/11/18 11:42 INR 1.2 05/11/18 11:42 APTT 28 SECONDS (21-34) 05/11/18 11:42
[2018-05-12] MEDS: (Novolog) Insulin Aspart, Recombinant 100 u/ml 10 ml vial SC SCH ×4 (08:29→21:56)
[2018-05-12] MEDS: Enoxaparin 40 mg Syringe SC SCH (09:44)
[2018-05-12] MEDS: Pantoprazole 40 mg EC Tab PO SCH (09:45)
[2018-05-12] MEDS: Metoprolol Succinate 12.5 mg XL Tab PO SCH (09:47)
--- NOTE | 2018-05-12 13:35 | CP.PCM.PN ---
Subjective - Date & Time of Evaluation Date of Evaluation: 05/12/18 Time of Evaluation: 13:30 - Subjective Subjective: Pt feels well, denies shortness of breath or abdominal chest pain. Objective - Vital Signs/Intake and Output Vital Signs (last 24 hours): Temp Pulse Resp BP Pulse Ox 97.6 F 69 17 135/57 L 100 05/12/18 08:00 05/12/18 11:06 05/12/18 11:06 05/12/18 11:06 05/12/18 11:06 Intake and Output: 05/12/18 05/12/18 06:59 18:59 Intake Total 1050 450 Output Total 1200 450 Balance -150 0 - Medications Medications: Current Medications Acetaminophen (Tylenol 325mg Tab) 650 mg PO Q6 PRN PRN Reason: Pain, Mild (1-3) Last Admin: 05/11/18 10:45 Dose: 650 mg Albuterol/Ipratropium (Duoneb 3 Mg/0.5 Mg (3 Ml) Ud) 3 ml INH RQ6 [facility] Last Admin: 05/12/18 07:20 Dose: 3 ml Amlodipine Besylate (Norvasc) 10 mg PO DAILY [facility] Last Admin: 05/12/18 09:44 Dose: 10 mg Aspirin (Ecotrin) 81 mg PO DAILY [facility] Last Admin: 05/12/18 09:44 Dose: 81 mg Dextrose (Dextrose 50% Inj) 0 ml IV STAT PRN; Protocol PRN Reason: Hypoglycemia Protocol Dextrose (Glutose 15) 0 gm PO ONCE PRN; Protocol PRN Reason: Hypoglycemia Protocol Docusate Sodium (Colace) 100 mg PO BID [facility] Last Admin: 05/12/18 09:44 Dose: 100 mg Enalapril Maleate (Vasotec) 10 mg PO DAILY [facility] Last Admin: 05/12/18 09:45 Dose: 10 mg Enoxaparin Sodium (Lovenox) 40 mg SC DAILY [facility] Last Admin: 05/12/18 09:44 Dose: 40 mg Glimepiride (Amaryl) 4 mg PO DAILY [facility] Last Admin: 05/12/18 09:44 Dose: 4 mg Glucagon (Glucagen Diagnostic Kit) 0 mg IM STAT PRN; Protocol PRN Reason: Hypoglycemia Protocol Insulin Aspart (Novolog) 0 unit SC [facility]; Protocol Last Admin: 05/12/18 12:21 Dose: 4 units Latanoprost (Xalatan Opht) 0 ml OU HS [facility] Last Admin: 05/11/18 22:00 Dose: Not Given Metformin HCl (Glucophage) 500 mg PO BID [facility] Last Admin: 05/12/18 09:44 Dose: 500 mg Metoprolol Succinate (Toprol Xl) 12.5 mg PO BID [facility] Last Admin: 05/12/18 09:47 Dose: 12.5 mg Ondansetron HCl (Zofran Inj) 4 mg IVP Q8H PRN PRN Reason: Nausea/Vomiting Pantoprazole Sodium (Protonix Ec Tab) 40 mg PO DAILY [facility] Last Admin: 05/12/18 09:45 Dose: 40 mg Rosuvastatin Calcium (Crestor) 10 mg PO HS [facility] Last Admin: 05/11/18 21:14 Dose: 10 mg Ticagrelor (Brilinta) 90 mg PO BID [facility] Last Admin: 05/12/18 09:47 Dose: 90 mg - Labs Labs: 05/12/18 05:48 05/12/18 05:41 PT 12.9 SECONDS (9.7-12.2) H 05/11/18 11:42 INR 1.2 05/11/18 11:42 APTT 28 SECONDS (21-34) 05/11/18 11:42 - Constitutional Appears: Well, No Acute Distress - Head Exam Head Exam: ATRAUMATIC - Eye Exam Eye Exam: EOMI Pupil Exam: NORMAL ACCOMODATION - ENT Exam ENT Exam: Mucous Membranes Moist - Neck Exam Neck Exam: Full ROM - Respiratory Exam Respiratory Exam: Rales, NORMAL BREATHING PATTERN Additional comments: scant basilar rales at bases - Cardiovascular Exam Cardiovascular Exam: REGULAR RHYTHM - GI/Abdominal Exam GI & Abdominal Exam: Soft - Exam External exam: NORMAL EXTERNAL EXAM - Extremities Exam Extremities Exam: Full ROM, Normal Inspection - Neurological Exam Neurological Exam: Alert, Awake, CN II-XII Intact, Oriented x3 - Psychiatric Exam Psychiatric exam: Flat Affect - Skin Skin Exam: Dry Assessment and Plan - Assessment and Plan (Free Text) Assessment: 1. Acute in stent restenosis/thromboses and acute stemi. Troponon trending down. ECG on telemetry shows t wave inversion. 2. 12 lead ecg ordered. 3. CXR yesterday was clear, and 4. DAPT, asa statin asymptomatic rales head on exam. Will give one dose of iv lasix. Repeat echo to assess LV EF and wall motion. There may be some stunning and wall motion, but ef can improve. 5. Increase beat kin dose, and cut back or stop norvasc to allow for higher beta kin and enalapril dosing.
--- NOTE | 2018-05-12 15:38 | CP.PCM.PN ---
Subjective - Date & Time of Evaluation Date of Evaluation: 05/12/18 Time of Evaluation: 15:36 - Subjective Subjective: Pt is seen and examined Denies dyspnea Afebrile Normal WBC count Objective - Vital Signs/Intake and Output Vital Signs (last 24 hours): Temp Pulse Resp BP Pulse Ox 97.6 F 69 17 128/50 L 100 05/12/18 08:00 05/12/18 11:06 05/12/18 11:06 05/12/18 15:01 05/12/18 11:06 Intake and Output: 05/12/18 05/12/18 06:59 18:59 Intake Total 1050 450 Output Total 1200 450 Balance -150 0 - Medications Medications: Current Medications Acetaminophen (Tylenol 325mg Tab) 650 mg PO Q6 PRN PRN Reason: Pain, Mild (1-3) Last Admin: 05/11/18 10:45 Dose: 650 mg Albuterol/Ipratropium (Duoneb 3 Mg/0.5 Mg (3 Ml) Ud) 3 ml INH RQ6 [facility] Last Admin: 05/12/18 13:49 Dose: 3 ml Aspirin (Ecotrin) 81 mg PO DAILY [facility] Last Admin: 05/12/18 09:44 Dose: 81 mg Dextrose (Glutose 15) 0 gm PO ONCE PRN; Protocol PRN Reason: Hypoglycemia Protocol Docusate Sodium (Colace) 100 mg PO BID [facility] Last Admin: 05/12/18 09:44 Dose: 100 mg Enalapril Maleate (Vasotec) 10 mg PO BID [facility] Enoxaparin Sodium (Lovenox) 40 mg SC DAILY [facility] Last Admin: 05/12/18 09:44 Dose: 40 mg Glimepiride (Amaryl) 4 mg PO DAILY [facility] Last Admin: 05/12/18 09:44 Dose: 4 mg Glucagon (Glucagen Diagnostic Kit) 0 mg IM STAT PRN; Protocol PRN Reason: Hypoglycemia Protocol Insulin Aspart (Novolog) 0 unit SC ACHS [facility]; Protocol Last Admin: 05/12/18 12:21 Dose: 4 units Latanoprost (Xalatan Opht) 0 ml OU HS [facility] Last Admin: 05/11/18 22:00 Dose: Not Given Metformin HCl (Glucophage) 500 mg PO BID [facility] Last Admin: 05/12/18 09:44 Dose: 500 mg Metoprolol Tartrate (Lopressor) 25 mg PO Q12H [facility] Ondansetron HCl (Zofran Inj) 4 mg IVP Q8H PRN PRN Reason: Nausea/Vomiting Pantoprazole Sodium (Protonix Ec Tab) 40 mg PO DAILY [facility] Last Admin: 05/12/18 09:45 Dose: 40 mg Rosuvastatin Calcium (Crestor) 10 mg PO HS [facility] Last Admin: 05/11/18 21:14 Dose: 10 mg Ticagrelor (Brilinta) 90 mg PO BID [facility] Last Admin: 05/12/18 09:47 Dose: 90 mg - Labs Labs: 05/12/18 05:48 05/12/18 05:41 PT 12.9 SECONDS (9.7-12.2) H 05/11/18 11:42 INR 1.2 05/11/18 11:42 APTT 28 SECONDS (21-34) 05/11/18 11:42 - Head Exam Head Exam: NORMAL INSPECTION - Eye Exam Eye Exam: Normal appearance - ENT Exam ENT Exam: Mucous Membranes Moist - Respiratory Exam Respiratory Exam: Clear to Ausculation Bilateral - Cardiovascular Exam Cardiovascular Exam: REGULAR RHYTHM - GI/Abdominal Exam GI & Abdominal Exam: Soft, Normal Bowel Sounds - Extremities Exam Extremities Exam: Normal Inspection Assessment and Plan (1) Elevated lipase Status: Acute (2) Pneumonia Status: Acute (3) Diabetes Status: Chronic - Assessment and Plan (Free Text) Plan: Continue to observe off Abx Continue Brillinta Accucheck Insulin coverage Bronchodilators DVT/GI prophalaxis
--- NOTE | 2018-05-12 16:19 | RAD ---
Chest x-ray single frontal view HISTORY: Congestive heart failure. COMPARISON: 05/11/2018 Findings: Moderate venous congestion. Enlarged ectatic aorta. Right paratracheal prominence may represent prominent vasculature. Bilateral hilar prominence. Mild cardiomegaly. Degenerative changes in the spine. IMPRESSION: Moderate venous congestion. Enlarged ectatic aorta. Right paratracheal prominence may represent prominent vasculature. Bilateral hilar prominence. Mild cardiomegaly.
[2018-05-12] MEDS: Magnesium Sulfate 1 gm in D5W 1 GM/100 ML BAG IVPB SCH ×2 (19:52→20:40)
--- NOTE | 2018-05-12 20:12 | CP.PCM.PN ---
Subjective - Date & Time of Evaluation Date of Evaluation: 05/12/18 Time of Evaluation: 11:15 - Subjective Subjective: clinically same Objective - Vital Signs/Intake and Output Vital Signs (last 24 hours): Temp Pulse Resp BP Pulse Ox 97.3 F L 86 22 105/43 L 100 05/12/18 16:00 05/12/18 17:07 05/12/18 17:07 05/12/18 17:53 05/12/18 17:07 Intake and Output: 05/12/18 05/13/18 18:59 06:59 Intake Total 1350 Output Total 850 Balance 500 - Medications Medications: Current Medications Acetaminophen (Tylenol 325mg Tab) 650 mg PO Q6 PRN PRN Reason: Pain, Mild (1-3) Last Admin: 05/11/18 10:45 Dose: 650 mg Albuterol/Ipratropium (Duoneb 3 Mg/0.5 Mg (3 Ml) Ud) 3 ml INH RQ6 [facility] Last Admin: 05/12/18 20:04 Dose: 3 ml Aspirin (Ecotrin) 81 mg PO DAILY [facility] Last Admin: 05/12/18 09:44 Dose: 81 mg Dextrose (Glutose 15) 0 gm PO ONCE PRN; Protocol PRN Reason: Hypoglycemia Protocol Docusate Sodium (Colace) 100 mg PO BID [facility] Last Admin: 05/12/18 17:34 Dose: 100 mg Enalapril Maleate (Vasotec) 10 mg PO BID [facility] Last Admin: 05/12/18 17:53 Dose: Not Given Enoxaparin Sodium (Lovenox) 40 mg SC DAILY [facility] Last Admin: 05/12/18 09:44 Dose: 40 mg Glimepiride (Amaryl) 4 mg PO DAILY [facility] Last Admin: 05/12/18 09:44 Dose: 4 mg Glucagon (Glucagen Diagnostic Kit) 0 mg IM STAT PRN; Protocol PRN Reason: Hypoglycemia Protocol Magnesium Sulfate/Dextrose (Magnesium Sulfate 1 Gm/100 Ml D5w) 1 gm in 100 mls @ 200 mls/hr IVPB Q30M [facility] Stop: 05/12/18 20:29 Last Admin: 05/12/18 19:52 Dose: 200 mls/hr Insulin Aspart (Novolog) 0 unit SC ACHS [facility]; Protocol Last Admin: 05/12/18 17:35 Dose: 3 units Latanoprost (Xalatan Opht) 0 ml OU HS [facility] Last Admin: 05/11/18 22:00 Dose: Not Given Metformin HCl (Glucophage) 500 mg PO BID [facility] Last Admin: 05/12/18 17:34 Dose: 500 mg Metoprolol Tartrate (Lopressor) 25 mg PO Q12H [facility] Last Admin: 05/12/18 17:53 Dose: Not Given Ondansetron HCl (Zofran Inj) 4 mg IVP Q8H PRN PRN Reason: Nausea/Vomiting Pantoprazole Sodium (Protonix Ec Tab) 40 mg PO DAILY [facility] Last Admin: 05/12/18 09:45 Dose: 40 mg Rosuvastatin Calcium (Crestor) 10 mg PO HS [facility] Last Admin: 05/11/18 21:14 Dose: 10 mg Ticagrelor (Brilinta) 90 mg PO BID [facility] Last Admin: 05/12/18 17:34 Dose: 90 mg - Labs Labs: 05/12/18 05:48 05/12/18 05:41 PT 12.9 SECONDS (9.7-12.2) H 05/11/18 11:42 INR 1.2 05/11/18 11:42 APTT 28 SECONDS (21-34) 05/11/18 11:42 - Constitutional Appears: Well - Head Exam Head Exam: ATRAUMATIC, NORMAL INSPECTION, NORMOCEPHALIC - Eye Exam Eye Exam: EOMI, Normal appearance, PERRL Pupil Exam: NORMAL ACCOMODATION, PERRL - ENT Exam ENT Exam: Mucous Membranes Moist, Normal Exam - Neck Exam Neck Exam: Full ROM, Normal Inspection. absent: Lymphadenopathy - Respiratory Exam Respiratory Exam: Decreased Breath Sounds - Cardiovascular Exam Cardiovascular Exam: REGULAR RHYTHM, +S1, +S2 - GI/Abdominal Exam GI & Abdominal Exam: Soft, Diminished Bowel Sounds - Rectal Exam Rectal Exam: Deferred
[2018-05-12] MEDS: Latanoprost 2.5 ml Opht Soln OU SCH (21:00)
[2018-05-12] MEDS ORDERED: Sodium Chloride 0.9% 500 ML IV ONE (22:24)
[2018-05-13] MEDS: Albuterol-Ipratrop 3 mg / 0.5 (3 ml) UD INH SCH ×4 (02:16→19:38)
[2018-05-13 06:14] LABS: BASO % 0.3 % (0.0-2.0); EOS # 0.3 K/uL (0.0-0.7); EOS % 3.7 % (0.0-4.0); LYMPH # 2.6 K/uL (1.0-4.3); LYMPH % 38.1 % (20.0-40.0); MEAN CELL VOLUME 87.7 fL (81.0-99.0); MEAN CORPUSCULAR HEMOGLOBIN 29.3 pg (27.0-31.0); MEAN CORPUSCULAR HGB CONC 33.4 g/dL (33.0-37.0); MEAN PLATELET VOLUME 8.5 fL (7.2-11.7); MONO # 0.4 K/uL (0.0-0.8); MONO % 5.6 % (0.0-10.0); NEUT # 3.6 K/uL (1.8-7.0); NEUT % 52.3 % (50.0-75.0); RBC 3.07 Mil/uL (3.80-5.20); RED CELL DISTRIBUTION WIDTH 14.6 % (11.5-14.5); WHITE BLOOD COUNT 6.9 K/uL (4.8-10.8)
[2018-05-13 06:31] LABS: ALBUMIN 3.1 g/dL (3.5-5.0); CALCIUM 8.9 mg/dl (8.6-10.4)
[2018-05-13] MEDS: (Novolog) Insulin Aspart, Recombinant 100 u/ml 10 ml vial SC SCH ×4 (08:41→21:29)
[2018-05-13] MEDS: Pantoprazole 40 mg EC Tab PO SCH (09:52)
[2018-05-13] MEDS: Enoxaparin 40 mg Syringe SC SCH (09:52)
--- NOTE | 2018-05-13 12:44 | CP.PCM.PN ---
Subjective - Date & Time of Evaluation Date of Evaluation: 05/13/18 Time of Evaluation: 12:43 - Subjective Subjective: Pt is seen and examined Reports Dyspnea Afebrile Objective - Vital Signs/Intake and Output Vital Signs (last 24 hours): Temp Pulse Resp BP Pulse Ox 97.9 F 76 20 131/47 L 100 05/13/18 04:00 05/13/18 10:00 05/13/18 04:00 05/13/18 09:51 05/13/18 04:00 Intake and Output: 05/13/18 05/13/18 06:59 18:59 Intake Total 590 Output Total 1300 Balance -710 - Medications Medications: Current Medications Acetaminophen (Tylenol 325mg Tab) 650 mg PO Q6 PRN PRN Reason: Pain, Mild (1-3) Last Admin: 05/13/18 08:14 Dose: 650 mg Albuterol/Ipratropium (Duoneb 3 Mg/0.5 Mg (3 Ml) Ud) 3 ml INH RQ6 [facility] Last Admin: 05/13/18 07:20 Dose: 3 ml Aspirin (Ecotrin) 81 mg PO DAILY [facility] Last Admin: 05/13/18 09:52 Dose: 81 mg Dextrose (Glutose 15) 0 gm PO ONCE PRN; Protocol PRN Reason: Hypoglycemia Protocol Docusate Sodium (Colace) 100 mg PO BID [facility] Last Admin: 05/13/18 09:53 Dose: 100 mg Enalapril Maleate (Vasotec) 10 mg PO BID [facility] Last Admin: 05/13/18 09:51 Dose: 10 mg Enoxaparin Sodium (Lovenox) 40 mg SC DAILY [facility] Last Admin: 05/13/18 09:52 Dose: 40 mg Glimepiride (Amaryl) 4 mg PO DAILY [facility] Last Admin: 05/13/18 09:52 Dose: 4 mg Glucagon (Glucagen Diagnostic Kit) 0 mg IM STAT PRN; Protocol PRN Reason: Hypoglycemia Protocol Insulin Aspart (Novolog) 0 unit SC [facility]; Protocol Last Admin: 05/13/18 12:06 Dose: 6 units Latanoprost (Xalatan Opht) 0 ml OU HS [facility] Last Admin: 05/12/18 21:00 Dose: 2.5 ml Metformin HCl (Glucophage) 500 mg PO BID [facility] Last Admin: 05/13/18 09:51 Dose: 500 mg Metoprolol Tartrate (Lopressor) 25 mg PO Q12H [facility] Last Admin: 05/13/18 06:29 Dose: 25 mg Ondansetron HCl (Zofran Inj) 4 mg IVP Q8H PRN PRN Reason: Nausea/Vomiting Pantoprazole Sodium (Protonix Ec Tab) 40 mg PO DAILY [facility] Last Admin: 05/13/18 09:52 Dose: 40 mg Rosuvastatin Calcium (Crestor) 10 mg PO HS [facility] Last Admin: 05/12/18 21:01 Dose: 10 mg Ticagrelor (Brilinta) 90 mg PO BID [facility] Last Admin: 05/13/18 09:52 Dose: 90 mg - Labs Labs: 05/13/18 06:03 05/13/18 06:03 PT 12.9 SECONDS (9.7-12.2) H 05/11/18 11:42 INR 1.2 05/11/18 11:42 APTT 28 SECONDS (21-34) 05/11/18 11:42 - Head Exam Head Exam: NORMAL INSPECTION - Eye Exam Eye Exam: Normal appearance - ENT Exam ENT Exam: Mucous Membranes Moist - Respiratory Exam Respiratory Exam: Rales, Rhonchi - Cardiovascular Exam Cardiovascular Exam: REGULAR RHYTHM, +S1, +S2 - GI/Abdominal Exam GI & Abdominal Exam: Soft, Normal Bowel Sounds - Extremities Exam Extremities Exam: Pedal Edema - Neurological Exam Neurological Exam: Alert Assessment and Plan (1) Elevated lipase Status: Resolved (2) Pneumonia Status: Resolved (3) Diabetes Status: Chronic (4) CHF (congestive heart failure) Status: Acute (5) Dyspnea Status: Acute
--- NOTE | 2018-05-13 13:13 | CP.PCM.PN ---
Subjective - Date & Time of Evaluation Date of Evaluation: 05/13/18 Time of Evaluation: 12:15 - Subjective Subjective: clinically same Objective - Vital Signs/Intake and Output Vital Signs (last 24 hours): Temp Pulse Resp BP Pulse Ox 97.9 F 76 20 131/47 L 100 05/13/18 04:00 05/13/18 10:00 05/13/18 04:00 05/13/18 09:51 05/13/18 04:00 Intake and Output: 05/13/18 05/13/18 06:59 18:59 Intake Total 590 Output Total 1300 Balance -710 - Medications Medications: Current Medications Acetaminophen (Tylenol 325mg Tab) 650 mg PO Q6 PRN PRN Reason: Pain, Mild (1-3) Last Admin: 05/13/18 08:14 Dose: 650 mg Albuterol/Ipratropium (Duoneb 3 Mg/0.5 Mg (3 Ml) Ud) 3 ml INH RQ6 [facility] Last Admin: 05/13/18 07:20 Dose: 3 ml Aspirin (Ecotrin) 81 mg PO DAILY [facility] Last Admin: 05/13/18 09:52 Dose: 81 mg Dextrose (Glutose 15) 0 gm PO ONCE PRN; Protocol PRN Reason: Hypoglycemia Protocol Docusate Sodium (Colace) 100 mg PO BID [facility] Last Admin: 05/13/18 09:53 Dose: 100 mg Enalapril Maleate (Vasotec) 10 mg PO BID [facility] Last Admin: 05/13/18 09:51 Dose: 10 mg Enoxaparin Sodium (Lovenox) 40 mg SC DAILY [facility] Last Admin: 05/13/18 09:52 Dose: 40 mg Glimepiride (Amaryl) 4 mg PO DAILY [facility] Last Admin: 05/13/18 09:52 Dose: 4 mg Glucagon (Glucagen Diagnostic Kit) 0 mg IM STAT PRN; Protocol PRN Reason: Hypoglycemia Protocol Insulin Aspart (Novolog) 0 unit SC ACHS [facility]; Protocol Last Admin: 05/13/18 12:06 Dose: 6 units Latanoprost (Xalatan Opht) 0 ml OU HS [facility] Last Admin: 05/12/18 21:00 Dose: 2.5 ml Metformin HCl (Glucophage) 500 mg PO BID [facility] Last Admin: 05/13/18 09:51 Dose: 500 mg Metoprolol Tartrate (Lopressor) 25 mg PO Q12H [facility] Last Admin: 05/13/18 06:29 Dose: 25 mg Ondansetron HCl (Zofran Inj) 4 mg IVP Q8H PRN PRN Reason: Nausea/Vomiting Pantoprazole Sodium (Protonix Ec Tab) 40 mg PO DAILY [facility] Last Admin: 05/13/18 09:52 Dose: 40 mg Rosuvastatin Calcium (Crestor) 10 mg PO HS [facility] Last Admin: 05/12/18 21:01 Dose: 10 mg Ticagrelor (Brilinta) 90 mg PO BID [facility] Last Admin: 05/13/18 09:52 Dose: 90 mg - Labs Labs: 05/13/18 06:03 05/13/18 06:03 PT 12.9 SECONDS (9.7-12.2) H 05/11/18 11:42 INR 1.2 05/11/18 11:42 APTT 28 SECONDS (21-34) 05/11/18 11:42 - Constitutional Appears: Well - Head Exam Head Exam: ATRAUMATIC, NORMAL INSPECTION, NORMOCEPHALIC - Eye Exam Eye Exam: EOMI, Normal appearance, PERRL Pupil Exam: NORMAL ACCOMODATION, PERRL - ENT Exam ENT Exam: Mucous Membranes Moist, Normal Exam - Neck Exam Neck Exam: Full ROM, Normal Inspection. absent: Lymphadenopathy - Respiratory Exam Respiratory Exam: Decreased Breath Sounds - Cardiovascular Exam Cardiovascular Exam: REGULAR RHYTHM, +S1, +S2 - GI/Abdominal Exam GI & Abdominal Exam: Soft, Diminished Bowel Sounds - Rectal Exam Rectal Exam: Deferred
--- NOTE | 2018-05-13 15:26 | CP.PCM.PN ---
Subjective - Date & Time of Evaluation Date of Evaluation: 05/13/18 Time of Evaluation: 15:24 - Subjective Subjective: The pt is in the chair, wants to go home, says she feels well, denies chest pain or dspnea. CXR shows moderate congestion,. Objective - Vital Signs/Intake and Output Vital Signs (last 24 hours): Temp Pulse Resp BP Pulse Ox 97.9 F 76 20 131/47 L 100 05/13/18 04:00 05/13/18 10:00 05/13/18 04:00 05/13/18 09:51 05/13/18 04:00 Intake and Output: 05/13/18 05/13/18 06:59 18:59 Intake Total 590 Output Total 1300 Balance -710 - Medications Medications: Current Medications Acetaminophen (Tylenol 325mg Tab) 650 mg PO Q6 PRN PRN Reason: Pain, Mild (1-3) Last Admin: 05/13/18 08:14 Dose: 650 mg Albuterol/Ipratropium (Duoneb 3 Mg/0.5 Mg (3 Ml) Ud) 3 ml INH RQ6 [facility] Last Admin: 05/13/18 13:31 Dose: 3 ml Aspirin (Ecotrin) 81 mg PO DAILY [facility] Last Admin: 05/13/18 09:52 Dose: 81 mg Dextrose (Glutose 15) 0 gm PO ONCE PRN; Protocol PRN Reason: Hypoglycemia Protocol Docusate Sodium (Colace) 100 mg PO BID [facility] Last Admin: 05/13/18 09:53 Dose: 100 mg Enalapril Maleate (Vasotec) 10 mg PO BID [facility] Last Admin: 05/13/18 09:51 Dose: 10 mg Enoxaparin Sodium (Lovenox) 40 mg SC DAILY [facility] Last Admin: 05/13/18 09:52 Dose: 40 mg Glimepiride (Amaryl) 4 mg PO DAILY [facility] Last Admin: 05/13/18 09:52 Dose: 4 mg Glucagon (Glucagen Diagnostic Kit) 0 mg IM STAT PRN; Protocol PRN Reason: Hypoglycemia Protocol Insulin Aspart (Novolog) 0 unit SC ACHS [facility]; Protocol Last Admin: 05/13/18 12:06 Dose: 6 units Latanoprost (Xalatan Opht) 0 ml OU HS [facility] Last Admin: 05/12/18 21:00 Dose: 2.5 ml Metformin HCl (Glucophage) 500 mg PO BID [facility] Last Admin: 05/13/18 09:51 Dose: 500 mg Metoprolol Tartrate (Lopressor) 25 mg PO Q12H [facility] Last Admin: 05/13/18 06:29 Dose: 25 mg Ondansetron HCl (Zofran Inj) 4 mg IVP Q8H PRN PRN Reason: Nausea/Vomiting Pantoprazole Sodium (Protonix Ec Tab) 40 mg PO DAILY [facility] Last Admin: 05/13/18 09:52 Dose: 40 mg Rosuvastatin Calcium (Crestor) 10 mg PO HS [facility] Last Admin: 05/12/18 21:01 Dose: 10 mg Ticagrelor (Brilinta) 90 mg PO BID [facility] Last Admin: 05/13/18 09:52 Dose: 90 mg - Labs Labs: 05/13/18 06:03 05/13/18 06:03 PT 12.9 SECONDS (9.7-12.2) H 05/11/18 11:42 INR 1.2 05/11/18 11:42 APTT 28 SECONDS (21-34) 05/11/18 11:42 - Constitutional Appears: No Acute Distress - Head Exam Head Exam: ATRAUMATIC, NORMAL INSPECTION - Eye Exam Eye Exam: EOMI - ENT Exam ENT Exam: Mucous Membranes Moist - Neck Exam Neck Exam: Full ROM - Respiratory Exam Respiratory Exam: Rales, NORMAL BREATHING PATTERN Additional comments: Right more than left lung - Cardiovascular Exam Cardiovascular Exam: REGULAR RHYTHM - GI/Abdominal Exam GI & Abdominal Exam: Soft, Normal Bowel Sounds - Exam External exam: NORMAL EXTERNAL EXAM - Extremities Exam Extremities Exam: Full ROM, Normal Inspection - Back Exam Back Exam: NORMAL INSPECTION - Neurological Exam Neurological Exam: Alert, Awake, Normal Gait - Psychiatric Exam Psychiatric exam: Flat Affect - Skin Skin Exam: Normal Color Assessment and Plan - Assessment and Plan (Free Text) Assessment: 1. Acute stemi, now complicated by chf. Will begin iv lasix. Repeat tni level. Repeat echo pending. No murmurs heard.
[2018-05-13] MEDS: Latanoprost 2.5 ml Opht Soln OU SCH (21:27)
[2018-05-14] MEDS: Albuterol-Ipratrop 3 mg / 0.5 (3 ml) UD INH SCH ×4 (01:21→19:24)
--- NOTE | 2018-05-14 01:22 | CARDCATH ---
PROCEDURE DATE: 05/11/2018 PROCEDURES: 1. Left heart catheterization. 2. Coronary angiogram. 3. Right coronary artery balloon angioplasty and drug-eluting stent placement. CLINICAL INDICATIONS: 1. Acute inferior wall ST-elevation myocardial infarction. 2. Code heart. 3. Chest pain. 4. Syncope. 5. History of coronary artery disease and stent placement. 6. Hypertension. 7. Hyperlipidemia. REFERRING PHYSICIAN: Ramon Ocasio MD PERFORMING PHYSICIAN: Randall Paniagua MD BRIEF CLINICAL HISTORY: Hyacinth Lucero is an 87-year-old female, admitted to [facility] urgently for chest pain. Today, the patient had a chest pain and syncopized on the floor. Subsequent EKG has revealed acute inferior wall ST-elevation myocardial infarction. Code heart was activated. DESCRIPTION OF PROCEDURE: After informed consent from the family, the patient was prepped and draped in the usual sterile fashion. A 2% lidocaine was given in the right groin for local anesthesia. Using micropuncture technique, 6-Georgian sheath was introduced into right common femoral artery. The patient was preloaded with aspirin, Brilinta, and IV heparin. A 6-Georgian diagnostic catheter was engaged into right coronary artery. Contrast injected, and right coronary angiogram was done. Right coronary angiogram revealed instant mid thrombotic 99% occlusion. The lesion was predilated using the 2.5 x 15 compliant balloon. The patient was given Integrilin bolus. Then, the lesion was tented using 2.7 x 28 Resolute [place] drug-eluting stent with excellent distal REINALDO-3 flow. Prior to the intervention, the patient had a REINALDO-1 flow. A JL 4 diagnostic catheter was engaged into the left main coronary artery. Contrast was injected, and left coronary angiogram was done. Left coronary angiogram revealed the ostial left main has 50% stenosis. LAD has a diffuse mid to distal moderate disease. Diagonal branches are small. Left circumflex has a diffuse moderate disease. IMPRESSION: Status post inferior wall ST-elevation myocardial infarction, successful balloon angioplasty and drug-eluting stent placement of the right coronary artery. Moderate small-vessel disease in the left anterior descending artery and left circumflex. However, left main has a proximal 50% stenosis. RECOMMENDATIONS: For left main stenosis. recommend either medical management or intervention depending upon the clinical followup. Randall Paniagua MD
[2018-05-14] MEDS: (Novolog) Insulin Aspart, Recombinant 100 u/ml 10 ml vial SC SCH ×4 (07:30→21:42)
[2018-05-14] MEDS: Pantoprazole 40 mg EC Tab PO SCH (10:34)
[2018-05-14] MEDS: Enoxaparin 40 mg Syringe SC SCH (10:36)
--- NOTE | 2018-05-14 14:33 | CP.PCM.PN ---
Subjective - Date & Time of Evaluation Date of Evaluation: 05/14/18 Time of Evaluation: 12:15 - Subjective Subjective: clinically same Objective - Vital Signs/Intake and Output Vital Signs (last 24 hours): Temp Pulse Resp BP Pulse Ox 98.2 F 76 18 114/51 L 100 05/14/18 04:00 05/14/18 07:30 05/14/18 04:00 05/14/18 10:36 05/14/18 04:00 Intake and Output: 05/14/18 05/14/18 06:59 18:59 Intake Total 100 500 Balance 100 500 - Medications Medications: Current Medications Acetaminophen (Tylenol 325mg Tab) 650 mg PO Q6 PRN PRN Reason: Pain, Mild (1-3) Last Admin: 05/13/18 08:14 Dose: 650 mg Albuterol/Ipratropium (Duoneb 3 Mg/0.5 Mg (3 Ml) Ud) 3 ml INH RQ6 [facility] Last Admin: 05/14/18 13:36 Dose: 3 ml Aspirin (Ecotrin) 81 mg PO DAILY [facility] Last Admin: 05/14/18 10:18 Dose: 81 mg Dextrose (Glutose 15) 0 gm PO ONCE PRN; Protocol PRN Reason: Hypoglycemia Protocol Docusate Sodium (Colace) 100 mg PO BID [facility] Last Admin: 05/14/18 10:18 Dose: 100 mg Enalapril Maleate (Vasotec) 10 mg PO DAILY [facility] Last Admin: 05/14/18 10:34 Dose: 10 mg Enoxaparin Sodium (Lovenox) 40 mg SC DAILY [facility] Last Admin: 05/14/18 10:36 Dose: 40 mg Furosemide (Lasix) 20 mg IVP BID [facility] Last Admin: 05/14/18 10:36 Dose: 20 mg Glimepiride (Amaryl) 4 mg PO DAILY [facility] Last Admin: 05/14/18 10:18 Dose: 4 mg Glucagon (Glucagen Diagnostic Kit) 0 mg IM STAT PRN; Protocol PRN Reason: Hypoglycemia Protocol Insulin Aspart (Novolog) 0 unit SC [facility]; Protocol Last Admin: 05/14/18 07:30 Dose: Not Given Latanoprost (Xalatan Opht) 0 ml OU HS [facility] Last Admin: 05/13/18 21:27 Dose: 2.5 ml Metformin HCl (Glucophage) 500 mg PO BID [facility] Last Admin: 05/14/18 10:18 Dose: 500 mg Metoprolol Tartrate (Lopressor) 25 mg PO Q12H [facility] Last Admin: 05/14/18 05:22 Dose: 25 mg Ondansetron HCl (Zofran Inj) 4 mg IVP Q8H PRN PRN Reason: Nausea/Vomiting Pantoprazole Sodium (Protonix Ec Tab) 40 mg PO DAILY [facility] Last Admin: 05/14/18 10:34 Dose: 40 mg Rosuvastatin Calcium (Crestor) 10 mg PO HS [facility] Last Admin: 05/13/18 21:25 Dose: 10 mg Ticagrelor (Brilinta) 90 mg PO BID [facility] Last Admin: 05/14/18 10:34 Dose: 90 mg - Labs Labs: 05/13/18 06:03 05/13/18 06:03 PT 12.9 SECONDS (9.7-12.2) H 05/11/18 11:42 INR 1.2 05/11/18 11:42 APTT 28 SECONDS (21-34) 05/11/18 11:42 - Constitutional Appears: Well - Head Exam Head Exam: ATRAUMATIC, NORMAL INSPECTION, NORMOCEPHALIC - Eye Exam Eye Exam: EOMI, Normal appearance, PERRL Pupil Exam: NORMAL ACCOMODATION, PERRL - ENT Exam ENT Exam: Mucous Membranes Moist, Normal Exam - Neck Exam Neck Exam: Full ROM, Normal Inspection. absent: Lymphadenopathy - Respiratory Exam Respiratory Exam: Decreased Breath Sounds - Cardiovascular Exam Cardiovascular Exam: REGULAR RHYTHM, +S1, +S2 - GI/Abdominal Exam GI & Abdominal Exam: Soft, Diminished Bowel Sounds - Rectal Exam Rectal Exam: Deferred
--- NOTE | 2018-05-14 16:59 | CP.PCM.PN ---
Subjective - Date & Time of Evaluation Date of Evaluation: 05/14/18 Time of Evaluation: 16:56 - Subjective Subjective: pt feels well. Echo done, overall normal LV EF, william Pi diastolic dysfunction, lateral wall hypokinesis, not akinesis, mild MR. Objective - Vital Signs/Intake and Output Vital Signs (last 24 hours): Temp Pulse Resp BP Pulse Ox 98.2 F 76 18 114/51 L 100 05/14/18 04:00 05/14/18 07:30 05/14/18 04:00 05/14/18 10:36 05/14/18 04:00 Intake and Output: 05/14/18 05/14/18 06:59 18:59 Intake Total 100 500 Balance 100 500 - Medications Medications: Current Medications Acetaminophen (Tylenol 325mg Tab) 650 mg PO Q6 PRN PRN Reason: Pain, Mild (1-3) Last Admin: 05/13/18 08:14 Dose: 650 mg Albuterol/Ipratropium (Duoneb 3 Mg/0.5 Mg (3 Ml) Ud) 3 ml INH RQ6 [facility] Last Admin: 05/14/18 13:36 Dose: 3 ml Aspirin (Ecotrin) 81 mg PO DAILY [facility] Last Admin: 05/14/18 10:18 Dose: 81 mg Dextrose (Glutose 15) 0 gm PO ONCE PRN; Protocol PRN Reason: Hypoglycemia Protocol Docusate Sodium (Colace) 100 mg PO BID [facility] Last Admin: 05/14/18 10:18 Dose: 100 mg Enalapril Maleate (Vasotec) 10 mg PO DAILY [facility] Last Admin: 05/14/18 10:34 Dose: 10 mg Enoxaparin Sodium (Lovenox) 40 mg SC DAILY [facility] Last Admin: 05/14/18 10:36 Dose: 40 mg Furosemide (Lasix) 20 mg IVP BID [facility] Last Admin: 05/14/18 10:36 Dose: 20 mg Glimepiride (Amaryl) 4 mg PO DAILY [facility] Last Admin: 05/14/18 10:18 Dose: 4 mg Glucagon (Glucagen Diagnostic Kit) 0 mg IM STAT PRN; Protocol PRN Reason: Hypoglycemia Protocol Insulin Aspart (Novolog) 0 unit SC ACHS [facility]; Protocol Last Admin: 05/14/18 07:30 Dose: Not Given Latanoprost (Xalatan Opht) 0 ml OU HS [facility] Last Admin: 05/13/18 21:27 Dose: 2.5 ml Metformin HCl (Glucophage) 500 mg PO BID [facility] Last Admin: 05/14/18 10:18 Dose: 500 mg Metoprolol Tartrate (Lopressor) 25 mg PO Q12H [facility] Last Admin: 05/14/18 05:22 Dose: 25 mg Ondansetron HCl (Zofran Inj) 4 mg IVP Q8H PRN PRN Reason: Nausea/Vomiting Pantoprazole Sodium (Protonix Ec Tab) 40 mg PO DAILY [facility] Last Admin: 05/14/18 10:34 Dose: 40 mg Rosuvastatin Calcium (Crestor) 10 mg PO HS [facility] Last Admin: 05/13/18 21:25 Dose: 10 mg Ticagrelor (Brilinta) 90 mg PO BID [facility] Last Admin: 05/14/18 10:34 Dose: 90 mg - Labs Labs: 05/13/18 06:03 05/13/18 06:03 PT 12.9 SECONDS (9.7-12.2) H 05/11/18 11:42 INR 1.2 05/11/18 11:42 APTT 28 SECONDS (21-34) 05/11/18 11:42 - Constitutional Appears: Well, No Acute Distress - Head Exam Head Exam: ATRAUMATIC, NORMAL INSPECTION - Eye Exam Eye Exam: EOMI Pupil Exam: NORMAL ACCOMODATION - ENT Exam ENT Exam: Mucous Membranes Moist - Neck Exam Neck Exam: Normal Inspection - Respiratory Exam Respiratory Exam: Rales - Cardiovascular Exam Cardiovascular Exam: REGULAR RHYTHM - GI/Abdominal Exam GI & Abdominal Exam: Normal Bowel Sounds - Exam External exam: NORMAL EXTERNAL EXAM - Extremities Exam Extremities Exam: Full ROM - Back Exam Back Exam: NORMAL INSPECTION - Neurological Exam Neurological Exam: Alert, Awake, Oriented x3 - Psychiatric Exam Psychiatric exam: Flat Affect - Skin Skin Exam: Normal Color Assessment and Plan - Assessment and Plan (Free Text) Assessment: 1. S/P AK: pt still has rales on exam, has had diuresis. Will order cxr is am to compare. 2. LV EF shows good overall EF in spite of high TNI level. Type I diastolic dysfunction is usually not associated with elevated left atrial pressure, so CHF is surprising.
--- NOTE | 2018-05-14 18:45 | RAD ---
Date of service: 05/14/2018 HISTORY: chf COMPARISON: 05/12/2018. FINDINGS: LUNGS: No active pulmonary disease. PLEURA: No significant pleural effusion identified, no pneumothorax apparent. CARDIOVASCULAR: No atherosclerotic calcification present No radiographic findings to suggest acute or significant cardiovascular disease. OSSEOUS STRUCTURES: No significant abnormalities. VISUALIZED UPPER ABDOMEN: Normal. OTHER FINDINGS: None. IMPRESSION: No active disease. Resolved CHF seen previously.
--- NOTE | 2018-05-14 19:02 | CP.PCM.PN ---
Subjective - Date & Time of Evaluation Date of Evaluation: 05/14/18 Time of Evaluation: 19:02 - Subjective Subjective: Pt is seen and examined reports dyspnea Objective - Vital Signs/Intake and Output Vital Signs (last 24 hours): Temp Pulse Resp BP Pulse Ox 98.2 F 76 18 135/56 L 100 05/14/18 04:00 05/14/18 07:30 05/14/18 04:00 05/14/18 17:26 05/14/18 04:00 Intake and Output: 05/14/18 05/15/18 18:59 06:59 Intake Total 500 Balance 500 - Medications Medications: Current Medications Acetaminophen (Tylenol 325mg Tab) 650 mg PO Q6 PRN PRN Reason: Pain, Mild (1-3) Last Admin: 05/13/18 08:14 Dose: 650 mg Albuterol/Ipratropium (Duoneb 3 Mg/0.5 Mg (3 Ml) Ud) 3 ml INH RQ6 [facility] Last Admin: 05/14/18 13:36 Dose: 3 ml Aspirin (Ecotrin) 81 mg PO DAILY [facility] Last Admin: 05/14/18 10:18 Dose: 81 mg Dextrose (Glutose 15) 0 gm PO ONCE PRN; Protocol PRN Reason: Hypoglycemia Protocol Docusate Sodium (Colace) 100 mg PO BID [facility] Last Admin: 05/14/18 17:25 Dose: 100 mg Enalapril Maleate (Vasotec) 10 mg PO DAILY [facility] Last Admin: 05/14/18 10:34 Dose: 10 mg Enoxaparin Sodium (Lovenox) 40 mg SC DAILY [facility] Last Admin: 05/14/18 10:36 Dose: 40 mg Furosemide (Lasix) 20 mg IVP BID [facility] Last Admin: 05/14/18 17:26 Dose: 20 mg Glimepiride (Amaryl) 4 mg PO DAILY [facility] Last Admin: 05/14/18 10:18 Dose: 4 mg Glucagon (Glucagen Diagnostic Kit) 0 mg IM STAT PRN; Protocol PRN Reason: Hypoglycemia Protocol Insulin Aspart (Novolog) 0 unit SC [facility]; Protocol Last Admin: 05/14/18 16:30 Dose: Not Given Latanoprost (Xalatan Opht) 0 ml OU HS [facility] Last Admin: 05/13/18 21:27 Dose: 2.5 ml Metformin HCl (Glucophage) 500 mg PO BID [facility] Last Admin: 05/14/18 17:26 Dose: 500 mg Metoprolol Tartrate (Lopressor) 25 mg PO Q12H [facility] Last Admin: 05/14/18 17:25 Dose: 25 mg Ondansetron HCl (Zofran Inj) 4 mg IVP Q8H PRN PRN Reason: Nausea/Vomiting Pantoprazole Sodium (Protonix Ec Tab) 40 mg PO DAILY [facility] Last Admin: 05/14/18 10:34 Dose: 40 mg Rosuvastatin Calcium (Crestor) 10 mg PO HS [facility] Last Admin: 05/13/18 21:25 Dose: 10 mg Ticagrelor (Brilinta) 90 mg PO BID [facility] Last Admin: 05/14/18 17:26 Dose: 90 mg - Labs Labs: 05/13/18 06:03 05/13/18 06:03 PT 12.9 SECONDS (9.7-12.2) H 05/11/18 11:42 INR 1.2 05/11/18 11:42 APTT 28 SECONDS (21-34) 05/11/18 11:42 - Head Exam Head Exam: NORMAL INSPECTION - Eye Exam Eye Exam: Normal appearance - ENT Exam ENT Exam: Mucous Membranes Moist - Respiratory Exam Respiratory Exam: Rhonchi - Cardiovascular Exam Cardiovascular Exam: REGULAR RHYTHM, +S1, +S2 - GI/Abdominal Exam GI & Abdominal Exam: Soft, Normal Bowel Sounds - Extremities Exam Extremities Exam: Normal Inspection - Neurological Exam Neurological Exam: Alert Assessment and Plan (1) Elevated lipase Status: Resolved (2) Pneumonia Status: Resolved (3) Diabetes Status: Chronic (4) CHF (congestive heart failure) Status: Acute (5) Dyspnea Status: Acute - Assessment and Plan (Free Text) Plan: Lasix Monitor i/o'S Bronchodilators O2 supplementation DVT/GI prophalaxis
[2018-05-14] MEDS: Latanoprost 2.5 ml Opht Soln OU SCH (21:45)
[2018-05-15] MEDS: (Novolog) Insulin Aspart, Recombinant 100 u/ml 10 ml vial SC SCH ×4 (08:15→22:08)
[2018-05-15] MEDS: Pantoprazole 40 mg EC Tab PO SCH (10:08)
[2018-05-15] MEDS: Enoxaparin 40 mg Syringe SC SCH (10:09)
--- NOTE | 2018-05-15 12:29 | CARD ---
APPROVED REPORT Date of service: 05/14/2018 EXAM: Two-dimensional and M-mode echocardiogram with Doppler and color Doppler. Other Information Quality : GoodRhythm : INDICATION Dizziness and Vertigo Chest Pain RISK FACTORS Hypertension Hyperlipidemia 2D DIMENSIONS IVSd1.0 (0.7-1.1cm)LVDd3.5 (3.9-5.9cm) PWd1.0 (0.7-1.1cm)LA [id number] (18-58mL) LVDs2.0 (2.5-4.0cm)FS (%) 43.0 % LVEF (%)75.2 (>50%)LVEF (Helm's)63.97 % M-Mode DIMENSIONS Left Atrium (MM)2.97 (2.5-4.0cm)IVSd0.72 (0.7-1.1cm) Aortic Root3.24 (2.2-3.7cm)LVDd4.20 (4.0-5.6cm) Aortic Cusp Exc.1.92 (1.5-2.0cm)PWd0.61 (0.7-1.1cm) FS (%) 52 %LVDs2.02 (2.0-3.8cm) LVEF (%)70 (>50%) Mitral Valve MV E Tmmdchzf78.4cm/sMV A Ueyuqugk611.5cm/sE/A ratio0.5 TDI Lateral E' Peak V5.64cm/sMedial E' Peak V3.32cm/sE/Lateral E'10.5 E/Medial E'17.9 Tricuspid Valve TR Peak Geiigqyt361fw/sTR Peak Gr.[id number] LEFT VENTRICLE The left ventricle is normal size. There is normal left ventricular wall thickness. The left ventricular function is normal. The left ventricular ejection fraction is within the normal range. No regional wall motion abnormalities noted. Indeterminate ( only 2 positve criteria present ) No left ventricle thrombus noted on this study. There is no ventricular septal defect visualized. There is no left ventricular aneurysm. There is no mass noted in the left ventricle. RIGHT VENTRICLE The right ventricle is normal size. There is normal right ventricular wall thickness. The right ventricular systolic function is normal. ATRIA The left atrium size is normal. The right atrium size is normal. The interatrial septum is intact with no evidence for an atrial septal defect. AORTIC VALVE The aortic valve is normal in structure and function. No aortic regurgitation is present. There is no aortic valvular stenosis. There is no aortic valvular vegetation. MITRAL VALVE The mitral valve is normal in structure and function. There is no evidence of mitral valve prolapse. There is no mitral valve stenosis. Mitral regurgitation is mild. TRICUSPID VALVE The tricuspid valve is normal in structure and function. There is no tricuspid valve regurgitation noted. There is no tricuspid valve prolapse or vegetation. There is no tricuspid valve stenosis. PULMONIC VALVE The pulmonary valve is normal in structure and function. There is no pulmonic valvular regurgitation. There is no pulmonic valvular stenosis. GREAT VESSELS The aortic root is normal in size. The ascending aorta is normal in size. The pulmonary artery is normal. The IVC is normal in size and collapses >50% with inspiration. PERICARDIAL EFFUSION The pericardium appears normal. There is no pleural effusion. <Conclusion> The left ventricular function is normal. The left ventricular ejection fraction is within the normal range. No regional wall motion abnormalities noted. Mitral regurgitation is mild.
--- NOTE | 2018-05-15 13:58 | CP.PCM.PN ---
Subjective - Date & Time of Evaluation Date of Evaluation: 05/15/18 Time of Evaluation: 13:56 - Subjective Subjective: Pt feels well, in the chair., CXR is now clear. Objective - Vital Signs/Intake and Output Vital Signs (last 24 hours): Temp Pulse Resp BP Pulse Ox 98 F 69 15 105/68 100 05/15/18 12:00 05/15/18 12:00 05/15/18 12:00 05/15/18 12:00 05/15/18 08:00 Intake and Output: 05/15/18 05/15/18 06:59 18:59 Intake Total 100 330 Output Total 900 500 Balance -800 -170 - Medications Medications: Current Medications Acetaminophen (Tylenol 325mg Tab) 650 mg PO Q6 PRN PRN Reason: Pain, Mild (1-3) Last Admin: 05/13/18 08:14 Dose: 650 mg Aspirin (Ecotrin) 81 mg PO DAILY [facility] Last Admin: 05/15/18 10:08 Dose: 81 mg Dextrose (Glutose 15) 0 gm PO ONCE PRN; Protocol PRN Reason: Hypoglycemia Protocol Docusate Sodium (Colace) 100 mg PO BID [facility] Last Admin: 05/15/18 10:09 Dose: 100 mg Enalapril Maleate (Vasotec) 10 mg PO DAILY [facility] Last Admin: 05/15/18 10:08 Dose: 10 mg Enoxaparin Sodium (Lovenox) 40 mg SC DAILY [facility] Last Admin: 05/15/18 10:09 Dose: 40 mg Furosemide (Lasix) 20 mg IVP BID [facility] Last Admin: 05/15/18 10:09 Dose: 20 mg Glimepiride (Amaryl) 4 mg PO DAILY [facility] Last Admin: 05/15/18 10:08 Dose: 4 mg Glucagon (Glucagen Diagnostic Kit) 0 mg IM STAT PRN; Protocol PRN Reason: Hypoglycemia Protocol Insulin Aspart (Novolog) 0 unit SC ACHS [facility]; Protocol Last Admin: 05/15/18 12:03 Dose: 2 units Latanoprost (Xalatan Opht) 0 ml OU HS [facility] Last Admin: 05/14/18 21:45 Dose: 2.5 ml Metformin HCl (Glucophage) 500 mg PO BID [facility] Last Admin: 05/15/18 10:09 Dose: 500 mg Metoprolol Tartrate (Lopressor) 25 mg PO Q12H [facility] Last Admin: 05/15/18 05:34 Dose: 25 mg Ondansetron HCl (Zofran Inj) 4 mg IVP Q8H PRN PRN Reason: Nausea/Vomiting Pantoprazole Sodium (Protonix Ec Tab) 40 mg PO DAILY [facility] Last Admin: 05/15/18 10:08 Dose: 40 mg Rosuvastatin Calcium (Crestor) 10 mg PO HS [facility] Last Admin: 05/14/18 21:45 Dose: 10 mg Ticagrelor (Brilinta) 90 mg PO BID [facility] Last Admin: 05/15/18 10:09 Dose: 90 mg - Labs Labs: 05/13/18 06:03 05/13/18 06:03 PT 12.9 SECONDS (9.7-12.2) H 05/11/18 11:42 INR 1.2 05/11/18 11:42 APTT 28 SECONDS (21-34) 05/11/18 11:42 - Constitutional Appears: Well - Head Exam Head Exam: ATRAUMATIC - Eye Exam Eye Exam: EOMI Pupil Exam: NORMAL ACCOMODATION, PERRL - ENT Exam ENT Exam: Mucous Membranes Moist - Neck Exam Neck Exam: Full ROM - Respiratory Exam Respiratory Exam: Clear to Ausculation Bilateral - Cardiovascular Exam Cardiovascular Exam: REGULAR RHYTHM - GI/Abdominal Exam GI & Abdominal Exam: Normal Bowel Sounds - Exam External exam: NORMAL EXTERNAL EXAM - Extremities Exam Extremities Exam: Normal Inspection - Back Exam Back Exam: NORMAL INSPECTION - Neurological Exam Neurological Exam: Alert, Awake, CN II-XII Intact, Oriented x3 - Psychiatric Exam Psychiatric exam: Flat Affect - Skin Skin Exam: Normal Color Assessment and Plan - Assessment and Plan (Free Text) Assessment: 1 S/P NE, with pos NE chf, now resolved. 2. Pt to go t floor 3. Check lytes 4. Change IV lasix to po.
--- NOTE | 2018-05-15 17:22 | CP.PCM.PN ---
Subjective - Date & Time of Evaluation Date of Evaluation: 05/15/18 Time of Evaluation: 10:00 - Subjective Subjective: clinically same Objective - Vital Signs/Intake and Output Vital Signs (last 24 hours): Temp Pulse Resp BP Pulse Ox 98 F 69 15 105/68 100 05/15/18 12:00 05/15/18 12:00 05/15/18 12:00 05/15/18 12:00 05/15/18 08:00 Intake and Output: 05/15/18 05/15/18 06:59 18:59 Intake Total 100 330 Output Total 900 500 Balance -800 -170 - Medications Medications: Current Medications Acetaminophen (Tylenol 325mg Tab) 650 mg PO Q6 PRN PRN Reason: Pain, Mild (1-3) Last Admin: 05/15/18 16:43 Dose: 650 mg Aspirin (Ecotrin) 81 mg PO DAILY [facility] Last Admin: 05/15/18 10:08 Dose: 81 mg Dextrose (Glutose 15) 0 gm PO ONCE PRN; Protocol PRN Reason: Hypoglycemia Protocol Docusate Sodium (Colace) 100 mg PO BID [facility] Last Admin: 05/15/18 10:09 Dose: 100 mg Enalapril Maleate (Vasotec) 10 mg PO DAILY [facility] Last Admin: 05/15/18 10:08 Dose: 10 mg Enoxaparin Sodium (Lovenox) 40 mg SC DAILY [facility] Last Admin: 05/15/18 10:09 Dose: 40 mg Furosemide (Lasix) 40 mg PO DAILY [facility] Glimepiride (Amaryl) 4 mg PO DAILY [facility] Last Admin: 05/15/18 10:08 Dose: 4 mg Glucagon (Glucagen Diagnostic Kit) 0 mg IM STAT PRN; Protocol PRN Reason: Hypoglycemia Protocol Insulin Aspart (Novolog) 0 unit SC [facility]; Protocol Last Admin: 05/15/18 16:48 Dose: Not Given Latanoprost (Xalatan Opht) 0 ml OU HS [facility] Last Admin: 05/14/18 21:45 Dose: 2.5 ml Metformin HCl (Glucophage) 500 mg PO BID [facility] Last Admin: 05/15/18 10:09 Dose: 500 mg Metoprolol Tartrate (Lopressor) 25 mg PO Q12H [facility] Last Admin: 05/15/18 05:34 Dose: 25 mg Ondansetron HCl (Zofran Inj) 4 mg IVP Q8H PRN PRN Reason: Nausea/Vomiting Pantoprazole Sodium (Protonix Ec Tab) 40 mg PO DAILY [facility] Last Admin: 05/15/18 10:08 Dose: 40 mg Rosuvastatin Calcium (Crestor) 10 mg PO HS [facility] Last Admin: 05/14/18 21:45 Dose: 10 mg Ticagrelor (Brilinta) 90 mg PO BID [facility] Last Admin: 05/15/18 10:09 Dose: 90 mg - Labs Labs: 05/13/18 06:03 05/13/18 06:03 PT 12.9 SECONDS (9.7-12.2) H 05/11/18 11:42 INR 1.2 05/11/18 11:42 APTT 28 SECONDS (21-34) 05/11/18 11:42 - Constitutional Appears: Well - Head Exam Head Exam: ATRAUMATIC, NORMAL INSPECTION, NORMOCEPHALIC - Eye Exam Eye Exam: EOMI, Normal appearance, PERRL Pupil Exam: NORMAL ACCOMODATION, PERRL - ENT Exam ENT Exam: Mucous Membranes Moist, Normal Exam - Neck Exam Neck Exam: Full ROM, Normal Inspection. absent: Lymphadenopathy - Respiratory Exam Respiratory Exam: Decreased Breath Sounds - Cardiovascular Exam Cardiovascular Exam: REGULAR RHYTHM, +S1, +S2 - GI/Abdominal Exam GI & Abdominal Exam: Soft, Diminished Bowel Sounds - Rectal Exam Rectal Exam: Deferred
--- NOTE | 2018-05-15 19:02 | CARD ---
APPROVED REPORT Date of service: 05/12/2018 EKG Measurement Heart [id number] <Conclusion> Normal sinus rhythm with sinus arrhythmia Left axis deviation Inferior infarct, age undetermined T wave abnormality, consider lateral ischemia Abnormal ECG
[2018-05-15] MEDS: Latanoprost 2.5 ml Opht Soln OU SCH (21:40)
[2018-05-16 06:04] LABS: CALCIUM 9.3 mg/dl (8.6-10.4)
[2018-05-16] MEDS: (Novolog) Insulin Aspart, Recombinant 100 u/ml 10 ml vial SC SCH ×4 (08:28→21:44)
[2018-05-16] MEDS: Pantoprazole 40 mg EC Tab PO SCH (09:16)
[2018-05-16] MEDS: Enoxaparin 40 mg Syringe SC SCH (11:58)
--- NOTE | 2018-05-16 14:18 | CP.PCM.PN ---
Subjective - Date & Time of Evaluation Date of Evaluation: 05/16/18 Time of Evaluation: 14:15 - Subjective Subjective: Pt is seen and examined Reports improved dyspnea Objective - Vital Signs/Intake and Output Vital Signs (last 24 hours): Temp Pulse Resp BP Pulse Ox 98.0 F 70 17 113/47 L 100 05/16/18 12:00 05/16/18 12:00 05/16/18 12:00 05/16/18 12:00 05/16/18 12:00 Intake and Output: 05/16/18 05/16/18 06:59 18:59 Intake Total 240 200 Output Total 400 300 Balance -160 -100 - Medications Medications: Current Medications Acetaminophen (Tylenol 325mg Tab) 650 mg PO Q6 PRN PRN Reason: Pain, Mild (1-3) Last Admin: 05/15/18 16:43 Dose: 650 mg Aspirin (Ecotrin) 81 mg PO DAILY [facility] Last Admin: 05/16/18 11:58 Dose: 81 mg Dextrose (Glutose 15) 0 gm PO ONCE PRN; Protocol PRN Reason: Hypoglycemia Protocol Docusate Sodium (Colace) 100 mg PO BID [facility] Last Admin: 05/16/18 09:14 Dose: 100 mg Enalapril Maleate (Vasotec) 10 mg PO DAILY [facility] Last Admin: 05/16/18 09:14 Dose: 10 mg Enoxaparin Sodium (Lovenox) 40 mg SC DAILY [facility] Last Admin: 05/16/18 11:58 Dose: 40 mg Furosemide (Lasix) 40 mg PO DAILY [facility] Last Admin: 05/16/18 09:16 Dose: 40 mg Glimepiride (Amaryl) 4 mg PO DAILY [facility] Last Admin: 05/16/18 09:14 Dose: 4 mg Glucagon (Glucagen Diagnostic Kit) 0 mg IM STAT PRN; Protocol PRN Reason: Hypoglycemia Protocol Insulin Aspart (Novolog) 0 unit SC ACHS [facility]; Protocol Last Admin: 05/16/18 11:59 Dose: 2 units Latanoprost (Xalatan Opht) 0 ml OU HS [facility] Last Admin: 05/15/18 21:40 Dose: 2.5 ml Metformin HCl (Glucophage) 500 mg PO BID [facility] Last Admin: 05/16/18 11:58 Dose: 500 mg Metoprolol Tartrate (Lopressor) 25 mg PO Q12H [facility] Last Admin: 05/16/18 06:24 Dose: 25 mg Ondansetron HCl (Zofran Inj) 4 mg IVP Q8H PRN PRN Reason: Nausea/Vomiting Pantoprazole Sodium (Protonix Ec Tab) 40 mg PO DAILY [facility] Last Admin: 05/16/18 09:16 Dose: 40 mg Rosuvastatin Calcium (Crestor) 10 mg PO HS [facility] Last Admin: 05/15/18 21:40 Dose: 10 mg Ticagrelor (Brilinta) 90 mg PO BID [facility] Last Admin: 05/16/18 09:14 Dose: 90 mg - Labs Labs: 05/13/18 06:03 05/16/18 05:45 PT 12.9 SECONDS (9.7-12.2) H 05/11/18 11:42 INR 1.2 05/11/18 11:42 APTT 28 SECONDS (21-34) 05/11/18 11:42 - Head Exam Head Exam: NORMAL INSPECTION - Eye Exam Pupil Exam: NORMAL ACCOMODATION - ENT Exam ENT Exam: Mucous Membranes Moist - Respiratory Exam Respiratory Exam: Clear to Ausculation Bilateral - Cardiovascular Exam Cardiovascular Exam: REGULAR RHYTHM, +S1, +S2 - GI/Abdominal Exam GI & Abdominal Exam: Soft, Normal Bowel Sounds - Extremities Exam Extremities Exam: Pedal Edema - Neurological Exam Neurological Exam: Alert Assessment and Plan (1) Elevated lipase Status: Resolved (2) Pneumonia Status: Resolved (3) Diabetes Status: Chronic (4) CHF (congestive heart failure) Status: Acute (5) Dyspnea Status: Acute - Assessment and Plan (Free Text) Plan: Lasix Bronchodilators O2 supplementation Continue Supportive care Awaiting transfer to floor DVT/GI prophalaxis
--- NOTE | 2018-05-16 17:15 | CP.PCM.PN ---
Subjective - Date & Time of Evaluation Date of Evaluation: 05/16/18 Time of Evaluation: 17:13 - Subjective Subjective: Pt is comfortable, no complaints, ambulated today. Objective - Vital Signs/Intake and Output Vital Signs (last 24 hours): Temp Pulse Resp BP Pulse Ox 98.5 F 78 16 111/43 L 100 05/16/18 16:00 05/16/18 16:00 05/16/18 16:00 05/16/18 16:00 05/16/18 16:00 Intake and Output: 05/16/18 05/16/18 06:59 18:59 Intake Total 240 200 Output Total 400 300 Balance -160 -100 - Medications Medications: Current Medications Acetaminophen (Tylenol 325mg Tab) 650 mg PO Q6 PRN PRN Reason: Pain, Mild (1-3) Last Admin: 05/16/18 15:10 Dose: 650 mg Aspirin (Ecotrin) 81 mg PO DAILY [facility] Last Admin: 05/16/18 11:58 Dose: 81 mg Dextrose (Glutose 15) 0 gm PO ONCE PRN; Protocol PRN Reason: Hypoglycemia Protocol Docusate Sodium (Colace) 100 mg PO BID [facility] Last Admin: 05/16/18 09:14 Dose: 100 mg Enalapril Maleate (Vasotec) 10 mg PO DAILY [facility] Last Admin: 05/16/18 09:14 Dose: 10 mg Enoxaparin Sodium (Lovenox) 40 mg SC DAILY [facility] Last Admin: 05/16/18 11:58 Dose: 40 mg Furosemide (Lasix) 40 mg PO DAILY [facility] Last Admin: 05/16/18 09:16 Dose: 40 mg Glimepiride (Amaryl) 4 mg PO DAILY [facility] Last Admin: 05/16/18 09:14 Dose: 4 mg Glucagon (Glucagen Diagnostic Kit) 0 mg IM STAT PRN; Protocol PRN Reason: Hypoglycemia Protocol Insulin Aspart (Novolog) 0 unit SC ACHS [facility]; Protocol Last Admin: 05/16/18 17:05 Dose: Not Given Latanoprost (Xalatan Opht) 0 ml OU HS [facility] Last Admin: 05/15/18 21:40 Dose: 2.5 ml Metformin HCl (Glucophage) 500 mg PO BID [facility] Last Admin: 05/16/18 11:58 Dose: 500 mg Metoprolol Tartrate (Lopressor) 25 mg PO Q12H [facility] Last Admin: 12/05/18 06:24 Dose: 25 mg Ondansetron HCl (Zofran Inj) 4 mg IVP Q8H PRN PRN Reason: Nausea/Vomiting Pantoprazole Sodium (Protonix Ec Tab) 40 mg PO DAILY [facility] Last Admin: 05/16/18 09:16 Dose: 40 mg Rosuvastatin Calcium (Crestor) 10 mg PO HS [facility] Last Admin: 05/15/18 21:40 Dose: 10 mg Ticagrelor (Brilinta) 90 mg PO BID [facility] Last Admin: 05/16/18 09:14 Dose: 90 mg - Labs Labs: 05/13/18 06:03 05/16/18 05:45 PT 12.9 SECONDS (9.7-12.2) H 05/11/18 11:42 INR 1.2 05/11/18 11:42 APTT 28 SECONDS (21-34) 05/11/18 11:42 - Constitutional Appears: No Acute Distress - Head Exam Head Exam: ATRAUMATIC - Eye Exam Eye Exam: EOMI, Normal appearance Pupil Exam: NORMAL ACCOMODATION - ENT Exam ENT Exam: Mucous Membranes Moist - Neck Exam Neck Exam: Full ROM - Respiratory Exam Respiratory Exam: Clear to Ausculation Bilateral - Cardiovascular Exam Cardiovascular Exam: REGULAR RHYTHM - Exam External exam: NORMAL EXTERNAL EXAM - Extremities Exam Extremities Exam: Full ROM - Back Exam Back Exam: NORMAL INSPECTION - Neurological Exam Neurological Exam: Alert, Awake, Oriented x3 - Psychiatric Exam Psychiatric exam: Flat Affect - Skin Skin Exam: Normal Color Assessment and Plan - Assessment and Plan (Free Text) Assessment: Pt has done, well no chest pain. CXR improved. BUN/cr implies dehydration, will cut lasix to 20 mg a day. Pt is stable and can be discharged home, with f/u with me in a few weeks.
--- NOTE | 2018-05-16 18:55 | CP.PCM.PN ---
Subjective - Date & Time of Evaluation Date of Evaluation: 05/16/18 Time of Evaluation: 11:15 - Subjective Subjective: clinically same Objective - Vital Signs/Intake and Output Vital Signs (last 24 hours): Temp Pulse Resp BP Pulse Ox 98.5 F 78 16 111/43 L 100 05/16/18 16:00 05/16/18 16:00 05/16/18 16:00 05/16/18 17:16 05/16/18 16:00 Intake and Output: 05/16/18 05/16/18 06:59 18:59 Intake Total 240 600 Output Total 400 1000 Balance -160 -400 - Medications Medications: Current Medications Acetaminophen (Tylenol 325mg Tab) 650 mg PO Q6 PRN PRN Reason: Pain, Mild (1-3) Last Admin: 05/16/18 15:10 Dose: 650 mg Aspirin (Ecotrin) 81 mg PO DAILY [facility] Last Admin: 05/16/18 11:58 Dose: 81 mg Dextrose (Glutose 15) 0 gm PO ONCE PRN; Protocol PRN Reason: Hypoglycemia Protocol Docusate Sodium (Colace) 100 mg PO BID [facility] Last Admin: 05/16/18 17:16 Dose: 100 mg Enalapril Maleate (Vasotec) 10 mg PO DAILY [facility] Last Admin: 05/16/18 09:14 Dose: 10 mg Enoxaparin Sodium (Lovenox) 40 mg SC DAILY [facility] Last Admin: 05/16/18 11:58 Dose: 40 mg Furosemide (Lasix) 20 mg PO DAILY [facility] Glimepiride (Amaryl) 4 mg PO DAILY [facility] Last Admin: 05/16/18 09:14 Dose: 4 mg Glucagon (Glucagen Diagnostic Kit) 0 mg IM STAT PRN; Protocol PRN Reason: Hypoglycemia Protocol Insulin Aspart (Novolog) 0 unit SC [facility]; Protocol Last Admin: 05/16/18 17:05 Dose: Not Given Latanoprost (Xalatan Opht) 0 ml OU HS [facility] Last Admin: 05/15/18 21:40 Dose: 2.5 ml Metformin HCl (Glucophage) 500 mg PO BID [facility] Last Admin: 05/16/18 17:17 Dose: 500 mg Metoprolol Tartrate (Lopressor) 25 mg PO Q12H [facility] Last Admin: 05/16/18 17:16 Dose: 25 mg Ondansetron HCl (Zofran Inj) 4 mg IVP Q8H PRN PRN Reason: Nausea/Vomiting Pantoprazole Sodium (Protonix Ec Tab) 40 mg PO DAILY [facility] Last Admin: 05/16/18 09:16 Dose: 40 mg Rosuvastatin Calcium (Crestor) 10 mg PO HS [facility] Last Admin: 05/15/18 21:40 Dose: 10 mg Ticagrelor (Brilinta) 90 mg PO BID [facility] Last Admin: 05/16/18 17:16 Dose: 90 mg - Labs Labs: 05/13/18 06:03 05/16/18 05:45 PT 12.9 SECONDS (9.7-12.2) H 05/11/18 11:42 INR 1.2 05/11/18 11:42 APTT 28 SECONDS (21-34) 05/11/18 11:42 - Constitutional Appears: Well - Head Exam Head Exam: ATRAUMATIC, NORMAL INSPECTION, NORMOCEPHALIC - Eye Exam Eye Exam: EOMI, Normal appearance, PERRL Pupil Exam: NORMAL ACCOMODATION, PERRL - ENT Exam ENT Exam: Mucous Membranes Moist, Normal Exam - Neck Exam Neck Exam: Full ROM, Normal Inspection. absent: Lymphadenopathy - Respiratory Exam Respiratory Exam: Decreased Breath Sounds - Cardiovascular Exam Cardiovascular Exam: REGULAR RHYTHM, +S1, +S2 - GI/Abdominal Exam GI & Abdominal Exam: Soft, Diminished Bowel Sounds - Rectal Exam Rectal Exam: Deferred
[2018-05-16] MEDS: Latanoprost 2.5 ml Opht Soln OU SCH (21:43)
[2018-05-17 00:41] VITALS: RESP 20
[2018-05-17] MEDS: (Novolog) Insulin Aspart, Recombinant 100 u/ml 10 ml vial SC SCH ×3 (08:22→16:34)
--- NOTE | 2018-05-17 09:19 | CP.PCM.PN ---
Subjective - Date & Time of Evaluation Date of Evaluation: 05/17/18 Time of Evaluation: 09:17 - Subjective Subjective: Pt feels well, no chest pain or dyspnea Objective - Vital Signs/Intake and Output Vital Signs (last 24 hours): Temp Pulse Resp BP Pulse Ox 98.4 F 66 20 131/67 98 05/17/18 07:00 05/17/18 07:20 05/17/18 07:00 05/17/18 07:00 05/17/18 07:00 Intake and Output: 05/17/18 05/17/18 06:59 18:59 Intake Total 320 Output Total 700 Balance -380 - Medications Medications: Current Medications Acetaminophen (Tylenol 325mg Tab) 650 mg PO Q6 PRN PRN Reason: Pain, Mild (1-3) Last Admin: 05/17/18 04:16 Dose: 650 mg Aspirin (Ecotrin) 81 mg PO DAILY [facility] Last Admin: 05/16/18 11:58 Dose: 81 mg Dextrose (Glutose 15) 0 gm PO ONCE PRN; Protocol PRN Reason: Hypoglycemia Protocol Docusate Sodium (Colace) 100 mg PO BID [facility] Last Admin: 05/16/18 17:16 Dose: 100 mg Enalapril Maleate (Vasotec) 10 mg PO DAILY [facility] Last Admin: 05/16/18 09:14 Dose: 10 mg Enoxaparin Sodium (Lovenox) 40 mg SC DAILY [facility] Last Admin: 05/16/18 11:58 Dose: 40 mg Furosemide (Lasix) 20 mg PO DAILY [facility] Glimepiride (Amaryl) 4 mg PO DAILY [facility] Last Admin: 05/16/18 09:14 Dose: 4 mg Glucagon (Glucagen Diagnostic Kit) 0 mg IM STAT PRN; Protocol PRN Reason: Hypoglycemia Protocol Insulin Aspart (Novolog) 0 unit SC [facility]; Protocol Last Admin: 05/17/18 08:22 Dose: Not Given Latanoprost (Xalatan Opht) 0 ml OU HS [facility] Last Admin: 05/16/18 21:43 Dose: 1 ml Metformin HCl (Glucophage) 500 mg PO BID [facility] Last Admin: 05/16/18 17:17 Dose: 500 mg Metoprolol Tartrate (Lopressor) 25 mg PO Q12H [facility] Last Admin: 05/17/18 05:47 Dose: 25 mg Ondansetron HCl (Zofran Inj) 4 mg IVP Q8H PRN PRN Reason: Nausea/Vomiting Pantoprazole Sodium (Protonix Ec Tab) 40 mg PO DAILY [facility] Last Admin: 05/16/18 09:16 Dose: 40 mg Rosuvastatin Calcium (Crestor) 10 mg PO HS [facility] Last Admin: 05/16/18 21:43 Dose: 10 mg Ticagrelor (Brilinta) 90 mg PO BID [facility] Last Admin: 05/16/18 17:16 Dose: 90 mg - Labs Labs: 05/13/18 06:03 05/16/18 05:45 PT 12.9 SECONDS (9.7-12.2) H 05/11/18 11:42 INR 1.2 05/11/18 11:42 APTT 28 SECONDS (21-34) 05/11/18 11:42 - Constitutional Appears: Well - Head Exam Head Exam: ATRAUMATIC - Eye Exam Eye Exam: EOMI, PERRL Pupil Exam: NORMAL ACCOMODATION - ENT Exam ENT Exam: TM's Normal Bilaterally - Neck Exam Neck Exam: Normal Inspection - Respiratory Exam Respiratory Exam: Clear to Ausculation Bilateral - Cardiovascular Exam Cardiovascular Exam: REGULAR RHYTHM - GI/Abdominal Exam GI & Abdominal Exam: Normal Bowel Sounds - Extremities Exam Extremities Exam: Full ROM - Back Exam Back Exam: Full ROM, NORMAL INSPECTION - Neurological Exam Neurological Exam: Alert, Awake, Oriented x3 - Psychiatric Exam Psychiatric exam: Normal Mood - Skin Skin Exam: Dry Assessment and Plan - Assessment and Plan (Free Text) Assessment: 1. S/P TN: stemi, and pt had some pos mi chf, now resolved. Asymptomatic. Vitals are stable, lungs are cleared, LV EF is preserved. Pt can go home and follow up with me in the office in a few weeks.
[2018-05-17] MEDS: Pantoprazole 40 mg EC Tab PO SCH (09:57)
[2018-05-17] MEDS: Enoxaparin 40 mg Syringe SC SCH (09:58)
[2018-05-17 14:13] LABS: BASO # 0.1 K/uL (0.0-0.2); BASO % 1.1 % (0.0-2.0); EOS # 0.2 K/uL (0.0-0.7); EOS % 2.9 % (0.0-4.0); HEMOGLOBIN 9.6 g/dL (11.0-16.0); LYMPH # 3.3 K/uL (1.0-4.3); LYMPH % 44.4 % (20.0-40.0); MEAN CELL VOLUME 89.5 fL (81.0-99.0); MEAN CORPUSCULAR HEMOGLOBIN 29.7 pg (27.0-31.0); MEAN CORPUSCULAR HGB CONC 33.2 g/dL (33.0-37.0); MEAN PLATELET VOLUME 8.9 fL (7.2-11.7); MONO # 0.3 K/uL (0.0-0.8); MONO % 4.2 % (0.0-10.0); NEUT # 3.5 K/uL (1.8-7.0); NEUT % 47.4 % (50.0-75.0); RBC 3.22 Mil/uL (3.80-5.20); RED CELL DISTRIBUTION WIDTH 14.4 % (11.5-14.5); WHITE BLOOD COUNT 7.3 K/uL (4.8-10.8)
--- NOTE | 2018-05-17 14:24 | CP.PCM.PN ---
Subjective - Date & Time of Evaluation Date of Evaluation: 05/17/18 Time of Evaluation: 14:24 Objective - Vital Signs/Intake and Output Vital Signs (last 24 hours): Temp Pulse Resp BP Pulse Ox 98.4 F 71 20 117/64 98 05/17/18 07:00 05/17/18 09:56 05/17/18 07:00 05/17/18 09:58 05/17/18 07:00 Intake and Output: 05/17/18 05/17/18 06:59 18:59 Intake Total 320 400 Output Total 700 Balance -380 400 - Medications Medications: Current Medications Acetaminophen (Tylenol 325mg Tab) 650 mg PO Q6 PRN PRN Reason: Pain, Mild (1-3) Last Admin: 05/17/18 04:16 Dose: 650 mg Aspirin (Ecotrin) 81 mg PO DAILY [facility] Last Admin: 05/17/18 09:58 Dose: 81 mg Dextrose (Glutose 15) 0 gm PO ONCE PRN; Protocol PRN Reason: Hypoglycemia Protocol Docusate Sodium (Colace) 100 mg PO BID [facility] Last Admin: 05/17/18 09:57 Dose: 100 mg Enalapril Maleate (Vasotec) 10 mg PO DAILY [facility] Last Admin: 05/17/18 09:58 Dose: 10 mg Enoxaparin Sodium (Lovenox) 40 mg SC DAILY [facility] Last Admin: 05/17/18 09:58 Dose: 40 mg Furosemide (Lasix) 20 mg PO DAILY [facility] Last Admin: 05/17/18 09:57 Dose: 20 mg Glimepiride (Amaryl) 4 mg PO DAILY [facility] Last Admin: 05/17/18 09:57 Dose: 4 mg Glucagon (Glucagen Diagnostic Kit) 0 mg IM STAT PRN; Protocol PRN Reason: Hypoglycemia Protocol Insulin Aspart (Novolog) [address] [facility]; Protocol Last Admin: 05/17/18 12:30 Dose: 3 units Latanoprost (Xalatan Opht) 0 ml OU HS [facility] Last Admin: 05/16/18 21:43 Dose: 1 ml Metformin HCl (Glucophage) 500 mg PO BID [facility] Last Admin: 05/17/18 09:57 Dose: 500 mg Metoprolol Tartrate (Lopressor) 25 mg PO Q12H [facility] Last Admin: 05/17/18 05:47 Dose: 25 mg Ondansetron HCl (Zofran Inj) 4 mg IVP Q8H PRN PRN Reason: Nausea/Vomiting Pantoprazole Sodium (Protonix Ec Tab) 40 mg PO DAILY [facility] Last Admin: 05/17/18 09:57 Dose: 40 mg Rosuvastatin Calcium (Crestor) 10 mg PO HS [facility] Last Admin: 05/16/18 21:43 Dose: 10 mg Ticagrelor (Brilinta) 90 mg PO BID [facility] Last Admin: 05/17/18 09:57 Dose: 90 mg - Labs Labs: 05/17/18 13:57 05/16/18 05:45 PT 12.9 SECONDS (9.7-12.2) H 05/11/18 11:42 INR 1.2 05/11/18 11:42 APTT 28 SECONDS (21-34) 05/11/18 11:42 Assessment and Plan (1) Elevated lipase Status: Resolved (2) Pneumonia Status: Resolved (3) Diabetes Status: Chronic (4) CHF (congestive heart failure) Status: Acute (5) Dyspnea Status: Acute
[2018-05-17 14:41] LABS: CALCIUM 9.5 mg/dl (8.6-10.4)
[2018-05-17 15:33] VITALS: TEMP 98.1; O2SAT 97
--- NOTE | 2018-05-17 15:47 | CP.PCM.PN ---
Subjective - Date & Time of Evaluation Date of Evaluation: 05/17/18 Time of Evaluation: 09:30 - Subjective Subjective: clinically same Objective - Vital Signs/Intake and Output Vital Signs (last 24 hours): Temp Pulse Resp BP Pulse Ox 98.1 F 76 20 115/61 97 05/17/18 13:00 05/17/18 13:00 05/17/18 13:00 05/17/18 13:00 05/17/18 13:00 Intake and Output: 05/17/18 05/17/18 06:59 18:59 Intake Total 320 400 Output Total 700 Balance -380 400 - Medications Medications: Current Medications Acetaminophen (Tylenol 325mg Tab) 650 mg PO Q6 PRN PRN Reason: Pain, Mild (1-3) Last Admin: 05/17/18 04:16 Dose: 650 mg Aspirin (Ecotrin) 81 mg PO DAILY [facility] Last Admin: 05/17/18 09:58 Dose: 81 mg Dextrose (Glutose 15) 0 gm PO ONCE PRN; Protocol PRN Reason: Hypoglycemia Protocol Docusate Sodium (Colace) 100 mg PO BID [facility] Last Admin: 05/17/18 09:57 Dose: 100 mg Enalapril Maleate (Vasotec) 10 mg PO DAILY [facility] Last Admin: 05/17/18 09:58 Dose: 10 mg Enoxaparin Sodium (Lovenox) 40 mg SC DAILY [facility] Last Admin: 05/17/18 09:58 Dose: 40 mg Furosemide (Lasix) 20 mg PO DAILY [facility] Last Admin: 05/17/18 09:57 Dose: 20 mg Glimepiride (Amaryl) 4 mg PO DAILY [facility] Last Admin: 05/17/18 09:57 Dose: 4 mg Glucagon (Glucagen Diagnostic Kit) 0 mg IM STAT PRN; Protocol PRN Reason: Hypoglycemia Protocol Insulin Aspart (Novolog) 0 unit SC [facility]; Protocol Last Admin: 05/17/18 12:30 Dose: 3 units Latanoprost (Xalatan Opht) 0 ml OU HS [facility] Last Admin: 05/16/18 21:43 Dose: 1 ml Metformin HCl (Glucophage) 500 mg PO BID [facility] Last Admin: 05/17/18 09:57 Dose: 500 mg Metoprolol Tartrate (Lopressor) 25 mg PO Q12H [facility] Last Admin: 05/17/18 05:47 Dose: 25 mg Ondansetron HCl (Zofran Inj) 4 mg IVP Q8H PRN PRN Reason: Nausea/Vomiting Pantoprazole Sodium (Protonix Ec Tab) 40 mg PO DAILY [facility] Last Admin: 05/17/18 09:57 Dose: 40 mg Rosuvastatin Calcium (Crestor) 10 mg PO HS [facility] Last Admin: 05/16/18 21:43 Dose: 10 mg Ticagrelor (Brilinta) 90 mg PO BID [facility] Last Admin: 05/17/18 09:57 Dose: 90 mg - Labs Labs: 05/17/18 13:57 05/17/18 13:57 PT 12.9 SECONDS (9.7-12.2) H 05/11/18 11:42 INR 1.2 05/11/18 11:42 APTT 28 SECONDS (21-34) 05/11/18 11:42 - Constitutional Appears: Well - Head Exam Head Exam: ATRAUMATIC, NORMAL INSPECTION, NORMOCEPHALIC - Eye Exam Eye Exam: EOMI, Normal appearance, PERRL Pupil Exam: NORMAL ACCOMODATION, PERRL - ENT Exam ENT Exam: Mucous Membranes Moist, Normal Exam - Neck Exam Neck Exam: Full ROM, Normal Inspection. absent: Lymphadenopathy - Respiratory Exam Respiratory Exam: Decreased Breath Sounds - Cardiovascular Exam Cardiovascular Exam: REGULAR RHYTHM, +S1, +S2 - GI/Abdominal Exam GI & Abdominal Exam: Soft, Diminished Bowel Sounds - Rectal Exam Rectal Exam: Deferred
[2018-05-17 16:39] VITALS: PULSE 78
--- NOTE | 2018-05-17 17:10 | PCM.HF ---
Heart Failure Core Measure - Heart Failure Ejection Fraction: 40 % or Greater JUNI Inhibitor Prescribed: Yes Beta-Bobo Prescribed: Metoprolol Succinate Angiotensin II Receptor Bobo Prescribed: No Contraindication/Reason for not providing: on juni AnticoagulationTherapy for Atrial Fibrillation/Atrialflutter: No Contraindication/Reason for not providing: no hx of a fib Aldosterone Antagonist Prescribed: No Contraindication/Reason for not providing: ef>45 Hydralazine Nitrate Prescribed: No Contraindication/Reason for not providing: ef>45 Implantable Cardioverter Defibrillator Therapy: No Contraindication/Reason for not providing: ef>45 Cardiac Resynchronization Therapy Prescribed: No Contraindication/Reason for not providing: ef>45 - Follow up Will be discharged to: Intermediate Facility Follow Up Date (must be within 7 days from discharge): 05/21/18 Follow Up Time: 13:00
--- NOTE | 2018-05-17 17:12 | CP.PCM.PN ---
Subjective - Date & Time of Evaluation Date of Evaluation: 05/17/18 Time of Evaluation: 12:00 - Subjective Subjective: patient seen today, sitting up in chair, denies nay chest pain, sob, dizziness, palpitations, abdominal pain, N/V , vss and labs reviewed No overnight events reported by RN Objective - Vital Signs/Intake and Output Vital Signs (last 24 hours): Temp Pulse Resp BP Pulse Ox 98.1 F 78 20 115/61 97 05/17/18 13:00 05/17/18 16:00 05/17/18 13:00 05/17/18 13:00 05/17/18 13:00 Intake and Output: 05/17/18 05/17/18 06:59 18:59 Intake Total 320 400 Output Total 700 Balance -380 400 - Medications Medications: Current Medications Acetaminophen (Tylenol 325mg Tab) 650 mg PO Q6 PRN PRN Reason: Pain, Mild (1-3) Last Admin: 05/17/18 04:16 Dose: 650 mg Aspirin (Ecotrin) 81 mg PO DAILY [facility] Last Admin: 05/17/18 09:58 Dose: 81 mg Dextrose (Glutose 15) 0 gm PO ONCE PRN; Protocol PRN Reason: Hypoglycemia Protocol Docusate Sodium (Colace) 100 mg PO BID [facility] Last Admin: 05/17/18 09:57 Dose: 100 mg Enalapril Maleate (Vasotec) 10 mg PO DAILY [facility] Last Admin: 05/17/18 09:58 Dose: 10 mg Enoxaparin Sodium (Lovenox) 40 mg SC DAILY [facility] Last Admin: 05/17/18 09:58 Dose: 40 mg Furosemide (Lasix) 20 mg PO DAILY [facility] Last Admin: 05/17/18 09:57 Dose: 20 mg Glimepiride (Amaryl) 4 mg PO DAILY [facility] Last Admin: 05/17/18 09:57 Dose: 4 mg Glucagon (Glucagen Diagnostic Kit) 0 mg IM STAT PRN; Protocol PRN Reason: Hypoglycemia Protocol Insulin Aspart (Novolog) 0 unit SC [facility]; Protocol Last Admin: 05/17/18 16:34 Dose: Not Given Latanoprost (Xalatan Opht) 0 ml OU HS [facility] Last Admin: 05/16/18 21:43 Dose: 1 ml Metformin HCl (Glucophage) 500 mg PO BID [facility] Last Admin: 05/17/18 09:57 Dose: 500 mg Metoprolol Tartrate (Lopressor) 25 mg PO Q12H [facility] Last Admin: 05/17/18 05:47 Dose: 25 mg Ondansetron HCl (Zofran Inj) 4 mg IVP Q8H PRN PRN Reason: Nausea/Vomiting Pantoprazole Sodium (Protonix Ec Tab) 40 mg PO DAILY [facility] Last Admin: 05/17/18 09:57 Dose: 40 mg Rosuvastatin Calcium (Crestor) 10 mg PO HS [facility] Last Admin: 05/16/18 21:43 Dose: 10 mg Ticagrelor (Brilinta) 90 mg PO BID [facility] Last Admin: 05/17/18 09:57 Dose: 90 mg - Labs Labs: 05/17/18 13:57 05/17/18 13:57 PT 12.9 SECONDS (9.7-12.2) H 05/11/18 11:42 INR 1.2 05/11/18 11:42 APTT 28 SECONDS (21-34) 05/11/18 11:42 Assessment and Plan - Assessment and Plan (Free Text) Assessment: A/P 87 yo with pmhx of CAD, TIA, DM, HTN and gastritis admitted with non productive cough, nausea, SOB w/inspiration and constant, nonradiating substernal chest pain / pneumonia and NSTEMI Dr. Lancaster cardiology consult s/p stress test s/p code heart on floor and cardiac cath -s/p Inferior STEMI Successful RCA intervention and EF 55-60%, patient monitored in ICU and transferred to tel floor seen by Dr. Lancaster today - Pt can go home and follow up with me in the office in a few weeks. seen by Dr. Ramirez , daughter agree for [facility] and [place] at [facility] [place] Dr. Edmond cleared for discharge to [facility] and Dr. Edmond will follow the patient at [facility] Discharge plan discussed with patient , son and daughter
[2018-05-17 17:40] VITALS: BP 120/61
--- NOTE | 2018-05-17 22:10 | CARD ---
APPROVED REPORT Date of service: 05/11/2018 EKG Measurement Heart [id number] ID [id number] <Conclusion> Sinus rhythm with occasional premature ventricular complexes Left axis deviation Inferior infarct, age undetermined T wave abnormality, consider lateral ischemia Abnormal ECG
--- NOTE | 2018-05-17 22:22 | CARD ---
APPROVED REPORT Date of service: 05/11/2018 EKG Measurement Heart [id number] <Conclusion> Undetermined rhythm ST elevation, consider inferolateral injury or acute infarct ACUTE OR / STEMI Consider right ventricular involvement in acute inferior infarct Abnormal ECG
== END 2018-05-17 18:26 | DRG 981 ==
LOC: C.ER 11:37 → C.9E 16:25 → C.6T 17:51 → C.9I 05-11 12:52 → C.5S 05-16 22:32
PROVIDERS: ADMIT Internal Medicine Nephrology; ATTEND Internal Medicine Nephrology
PROC: 027034Z Dilation of Coronary Artery, One Artery with Drug-eluting Intraluminal Device, Percutaneous Approach (ICD-10-PCS; principal; 2018-05-11)
PROC: 4A023N7 Measurement of Cardiac Sampling and Pressure, Left Heart, Percutaneous Approach (ICD-10-PCS; 2018-05-11)
PROC: B2151ZZ Fluoroscopy of Left Heart using Low Osmolar Contrast (ICD-10-PCS; 2018-05-11)
PROC: B2111ZZ Fluoroscopy of Multiple Coronary Arteries using Low Osmolar Contrast (ICD-10-PCS; 2018-05-11)
DX: J18.9 Pneumonia, unspecified organism (principal); I21.19 ST elevation (STEMI) myocardial infarction involving other coronary artery of inferior wall; E11.65 Type 2 diabetes mellitus with hyperglycemia; E78.00 Pure hypercholesterolemia, unspecified; F03.90 Unspecified dementia, unspecified severity, without behavioral disturbance, psychotic disturbance, mood disturbance, and anxiety; I11.0 Hypertensive heart disease with heart failure; I25.10 Atherosclerotic heart disease of native coronary artery without angina pectoris; I50.9 Heart failure, unspecified; Z86.73 Personal history of transient ischemic attack (TIA), and cerebral infarction without residual deficits; Z95.5 Presence of coronary angioplasty implant and graft; M19.90 Unspecified osteoarthritis, unspecified site; R74.8 Abnormal levels of other serum enzymes; E86.0 Dehydration; R55 Syncope and collapse